=== PATIENT | female | born 1940 | race Caucasian/White ===

== ENCOUNTER 2020-09-12 10:38 | Outpatient (REF) | payer MEDICARE, OTHER, SELFPAY ==
[2020-09-12 13:53] LABS: MANUAL DIFF FLAG NO
[2020-09-12 14:11] LABS: Basophils Absolute Auto 0.1 X10*3/uL (0.0-0.2); Basophils Percent Auto 0.9 % (0-2); Eosinophils Absolute Auto 0.5 X10*3/uL (0.0-0.4); Eosinophils Percent Auto 6.8 % (0-4); Hematocrit 43.6 % (37-47); Hemoglobin 14.5 g/dl (12.0-16.0); Imm Gran Abs Auto 0.05 X10*3/uL (0.00-0.03); Imm Gran Pct Auto 0.7 % (0.0-0.4); Lymphocytes Absolute Auto 2.4 X10*3/uL (1.2-4.9); Lymphocytes Percent Auto 35.2 % (20-40); Mean Corpuscular HGB Conc 33.3 g/dl (31.0-35.0); Mean Corpuscular Hemoglobin 29.7 pg (27.0-33.0); Mean Corpuscular Volume 89.3 fL (80-98); Mean Platelet Volume 10.6 fL (9.4-12.3); Monocytes Absolute Auto 0.6 X10*3/uL (0.1-1.2); Monocytes Percent Auto 8.2 % (2-11); Neutrophils Absolute Auto 3.3 X10*3/uL (2.0-8.3); Neutrophils Percent Auto 48.2 % (45-73); Platelet Count 168 X10*3/uL (160-400); Red Blood Count 4.88 X10*6/uL (4.20-5.50); Red Cell Distribution Width 13.8 % (11.0-16.0); White Blood Count 6.9 X10*3/uL (4.8-10.8)
[2020-09-12 14:15] LABS: Estimated Average Glucose 157 mg/dL; Hemoglobin A1c % 7.1 %
[2020-09-12 14:41] LABS: Anion Gap 15 (12-20); Blood Urea Nitrogen 18 mg/dL (9-16); Calcium 9.1 mg/dL (8.4-10.2); Carbon Dioxide 22 mmol/L (22-29); Chloride 104 mmol/L (96-108); Cholesterol 164 mg/dL; Estimated Glomerular Filt Rate > 60; Glucose Fasting 152 mg/dL (60-99); HDL Cholesterol 44 mg/dL; LDL Cholesterol Calculated 74 mg/dl; Potassium 4.1 mmol/l (3.3-5.1); Sodium 137 mmol/L (135-145); Triglycerides 234 mg/dL
[2020-09-12 14:49] LABS: SARS COV2 IgG Positive (Negative)
== END 2020-09-12 10:39 | disposition home or self-care (01) ==
LOC: HO.HMGCLDS 10:38
PROVIDERS: PCP Internal Medicine; Visit Provider Internal Medicine
DX: E78.9 Disorder of lipoprotein metabolism, unspecified (principal); H60.513 Acute actinic otitis externa, bilateral; F41.1 Generalized anxiety disorder; E13.9 Other specified diabetes mellitus without complications; Z20.822 Contact with and (suspected) exposure to COVID-19
CPT/HCPCS: 36415; 80048; 80061; 83036; 85025; 86769

== ENCOUNTER 2020-12-30 10:03 | Outpatient (REF) | payer MEDICARE, OTHER, SELFPAY ==
--- NOTE | ~2020-12-30 | US_ITS ---
EXAMINATION: US EXTRACRANIAL CAROTID DUPLEX, BILATERAL CLINICAL INFORMATION: This is a 80-year-old female with Hollenhorst plaques. Partial retinal artery occlusion right eye. Diabetes. COMPARISON: None TECHNIQUE: Real-time ultrasound and Doppler techniques (integrating B-mode 2-D vascular images, Doppler spectral analysis and color-flow Doppler imaging) were utilized to interrogate the extracranial carotid arteries, the vertebral arteries and proximal subclavian arteries bilaterally. The degree of stenosis is determined by criteria similar to NASCET. FINDINGS: Right Side: 1. There is moderate atherosclerotic plaque seen in the bifurcation/proximal ICA region. 2. The common carotid artery PSV proximally is 74 cm/s and distally 72 cm/s. 3. The proximal internal carotid artery velocities are 124 cm/s systolic and 19 cm/s diastolic. 4. The proximal external carotid artery PSV is 133 cm/s. 5. The vertebral artery shows antegrade flow. 6. The subclavian artery waveforms are normal. Left Side: 1. There is moderate atherosclerotic plaque seen in the bifurcation/proximal ICA region. 2. The common carotid artery PSV proximally is 66 cm/s and distally 56 cm/s. 3. The proximal internal carotid artery velocities are 330 cm/s systolic and 29 cm/s diastolic. 4. The proximal external carotid artery PSV is 350 cm/s. 5. The vertebral artery shows antegrade flow. 6. The subclavian artery waveforms are normal. US/US carotid duplex BI IMPRESSION: 1. RIGHT: Moderate, hemodynamically significant stenosis of the proximal right internal carotid artery corresponding to a 50-79% stenosis by velocity criteria. 2. LEFT: Moderate, hemodynamically significant stenosis of the proximal left internal carotid artery corresponding to a 50-79% stenosis by velocity criteria.
[2020-12-30 14:17] LABS: Estimated Average Glucose 186 mg/dL; Hemoglobin A1c % 8.1 %
[2020-12-30 14:37] LABS: Alanine Aminotransferase 53 U/L (0-31); Albumin Level 4.3 g/dL (3.5-5.0); Alkaline Phosphatase 70 U/L (39-117); Anion Gap 16 (12-20); Aspartate Amino Transferase 36 U/L (5-31); Bilirubin Total 0.7 mg/dL (0.0-1.0); Blood Urea Nitrogen 19 mg/dL (9-16); Calcium 9.9 mg/dL (8.4-10.2); Carbon Dioxide 22 mmol/L (22-29); Chloride 105 mmol/L (96-108); Estimated Glomerular Filt Rate > 60; Glucose Random 201 mg/dL (60-115); Potassium 4.3 mmol/L (3.3-5.1); Sodium 139 mmol/L (135-145); Total Protein 6.9 g/dL (6.5-8.0)
== END 2020-12-30 10:04 | disposition home or self-care (01) ==
LOC: HO.HMGCX 10:03
PROVIDERS: PCP Internal Medicine; Visit Provider Internal Medicine
DX: H34.211 Partial retinal artery occlusion, right eye (principal); E78.9 Disorder of lipoprotein metabolism, unspecified; E13.9 Other specified diabetes mellitus without complications; F41.1 Generalized anxiety disorder
CPT/HCPCS: 36415; 80053; 83036; 93880

== ENCOUNTER 2021-02-17 11:00 | Outpatient (RCR) | payer MEDICARE, OTHER, SELFPAY ==
--- NOTE | 2021-01-27 17:46 | MHC.PT.EP ---
[facility] [place] [facility] [place] Office [place] Office [address] Zunilda Nguyễn [address] [phone] F: [phone] F: [phone] F: [phone] F: [phone] Physical Therapy Plan of Care Date of Evaluation: Date of Surgery: Diagnosis: R knee pain. Assessment: Pt is a 80 y/o female referred to PT for eval and treat of L knee pain who presents with signs and sx consistent with L knee dysfunction resulting in decreased tolerance and ability to perform ambulatory, standing tasks for duration, performing fitness activities as well as negotiating stairs, performing squatting activities and heavy HH chores secondary to decreased hip and knee strength, decreased knee ROM as well as decreased posture, increased tissue tension, gait abnormality and pain. Pt is deemed an appropriate candidate to receive skilled PT in order to address her physical limitations to improve her functional ability. Frequency and Duration: The patient will be seen 2 x /wk x Short Term Goals: initiate HEP. Progressed to weight bearing exercises. TTP of lateral knee joint improved from 2+ to < 1+. Machine Feller Goals: Pt will be able to walk > 1 mile with managed Sx; initial unable. Pt will negotiate 1 flight of stairs with managed Sx. improve R knee flexion MMT to > 4/5; initial: 4-/5 and painful. I with HEP Treatment Plan: Modalities to reduce pain, spasms and effusion. Manual therapy to restore motion and function. Therapeutic exercise to improve strength and flexibility. Neuromuscular re-education for posture and balance. Therapeutic activities to return to functional activities of daily living. Electronically signed by: Patrick Stapleton PT. Please sign and return to therapist. Thank you for your referral.
--- NOTE | 2021-04-28 09:26 | MHC.PT.DC ---
[facility] [place] Office [place] Office [place] Office [address] Zunilda Nguyễn [address] [phone] F: [phone] F: [phone] F: [phone] F: [phone] Physical Therapy Discharge Report Diagnosis: R knee pain. Date of Surgery: Date of Evaluation: 01/27/21 Date of Discharge: 04/28/21 Treatments to Date: 3 Cancellations to Date: No Shows to Date: Discharge Status: Improved Function Patient Elected to Stop Discharge Summary: Pt attended 3 visits in which she did report significant early improvements of her R knee pain though did not f/u with future visits. Electronically signed by: Patrick Stapleton PT. Please sign and return to therapist. Thank you for your referral.
== END 2021-04-28 09:28 | disposition home or self-care (01) ==
LOC: HO.PTCHIC 11:00
PROVIDERS: PCP Internal Medicine; Visit Provider Hospitalist
DX: M25.562 Pain in left knee (principal)
CPT/HCPCS: 97110; 97150; 97162

== ENCOUNTER → 2021-03-17 08:39 | Outpatient (REF) | payer MEDICARE, OTHER, SELFPAY ==
--- NOTE | 2021-03-17 08:42 | CA_ITS ---
Transthoracic Echocardiogram Patient (Last, First, Middle): Katelyn Turpin, Gender: Female Date of : 1940 Age: 80 Procedure Date: 03/17/2021 Procedure Type: Transthoracic Echocardiogram Location: OP Height: 149.86 cm Weight: 72.12 kg BSA: 1.67 m2 Heart Rate: bpm BP: 120 / 60 mmHg Luggage Liner: TEAGAN Referring MD: Ella Garces MD Felt Cutter: Gene Paige MD Symptoms: H34.211 - Partial retinal artery occlusion, right eye Study Quality: Fair ECG Rhythm: Sinus Conclusions: - 1. Normal LV systolic function with grade 1 diastolic dysfunction 2. Cardiac valvular structure not well visualized with normal cardiac valvular Doppler 3. Normal RV systolic pressure 4. No gross pericardial effusion Findings Left Ventricle Normal left ventricular size, thickness, and systolic function. The visually estimated ejection fraction is between 65-70%. Spectral Doppler is indicative of an impaired relaxation filling pattern. E/E prime ratio is <8, consistent with normal filling pressures. Evidence suggests grade I (mild) diastolic dysfunction. Right Ventricle Normal right ventricular cavity size and systolic function. Atria Both atria are normal in size. Interatrial shunt cannot be excluded. Aortic Valve The aortic valve was not well visualized. There is no aortic valve stenosis. There is no aortic valve regurgitation. Mitral Valve The mitral valve was not well visualized. Likely normal mitral valve structure and function. There is trace mitral valve regurgitation. There is no mitral valve stenosis. Pulmonic Valve The pulmonic valve was not well visualized. There is trace pulmonic valve regurgitation. Tricuspid Valve Likely normal tricuspid valve structure and function. There is trace tricuspid valve regurgitation. The right ventricular systolic pressure is normal. The right ventricular systolic pressure is 25 mmHg. Normal right atrial pressure. There is no evidence of pulmonary hypertension. Great Vessels The aorta was not well visualized. The pulmonary artery was not well visualized. Venous The inferior vena cava is normal in size and collapses greater than 50% with inspiration. Pericardium/Pleural There is no evidence of pericardial effusion. Prior Study Comparison No prior study available for comparison. Recommendations, Care & Conclusions Recommend contrast study to evaluate intracardiac shunting. Measurements 2D Linear Measurements IVSd: 0.95 0.6-0.9/0.6-1.0 cm LVIDd: 3.79 3.9-5.3/4.2-5.9 cm LVIDd Index: 2.27 2.4-3.2/2.2-3.1 cm/m2 LVIDs: 2.32 2.0-3.6 cm LVPWd: 0.93 0.7-1.1 cm Ao Root: 2.90 2.1-3.5 cm LA Diam: 3.20 2.7-3.8/3.0-4.0 cm LAIDs Index: 1.92 1.5-2.3 cm/m2 LV Mass: 132.46 67-162/88-224 g LV Mass Index: 79.32 43-95/49-115 g/m2 LVOT Diam: 2.00 3.0+(-)1.3 cm 2D Systolic Function EF 4C: 68.30 >55% EF 2C: 75.10 >55% EF BiP: 73.30 >55% Mitral Valve MV Pk E: 0.65 MV PK A: 0.66 MV Decel Time: 146.00 E/A: 1.00 E'Lateral: 9.57 E'Medial: 7.83 E/E' Med: 8.30 E/E' Lat: 6.80 PHT: 43.00 MVA PHT: 5.12 Decel Solano: 4.50 Aortic Valve AoV Pk Konrad: 1.33 AoV Pk Grad: 7.00 LVOT LVOT Pk Konrad: 0.97 LVOT Mn Konrad: 0.66 LVOT VTI: 0.20 LVOT Pk Grad: 4.00 LVOT Mn Grad: 2.00 LVOT Diam: 2.00 LVOT Area: 3.14 Diastolic Function MV Pk E: 0.65 MV Pk A: 0.66 E/A: 1.00 E'Medial: 7.83 E/E' Med: 8.30 E' Laterial: 9.57 E/E' Lat: 6.80 Right Ventricle TAPSE (mm): 2.15 Tricuspid Valve TR Pk Konrad: 2.34 TR Pk Grad: 22.00 RA Press: 3.00 RVSP: 25.00 Great Vessels Aorta Ao Root-2D: 2.90 2.0-3.7 cm Ao Asc: 3.20 2.1-3.4 cm Updated in Other Vendor System with Status of Final Gene Paige MD electronically signed on 03/18/2021 11:28:08 AM with status of Final
== END ==
LOC: HO.CARD 08:39
PROVIDERS: Visit Provider Internal Medicine
DX: H34.211 Partial retinal artery occlusion, right eye (principal); E78.9 Disorder of lipoprotein metabolism, unspecified
CPT/HCPCS: 93306

== ENCOUNTER 2021-07-10 09:18 | Outpatient (REF) | payer MEDICARE, OTHER, SELFPAY ==
[2021-07-10 12:11] LABS: Alanine Aminotransferase 32 U/L (0-31); Albumin Level 4.3 g/dL (3.5-5.0); Alkaline Phosphatase 53 U/L (39-117); Anion Gap 16 (12-20); Aspartate Amino Transferase 23 U/L (5-31); Bilirubin Direct 0.2 mg/dL (0.0-0.5); Bilirubin Total 0.7 mg/dL (0.0-1.0); Blood Urea Nitrogen 18 mg/dL (9-16); Calcium 9.5 mg/dL (8.4-10.2); Carbon Dioxide 21 mmol/L (22-29); Chloride 106 mmol/L (96-108); Cholesterol 155 mg/dL; Estimated Glomerular Filt Rate > 60; Glucose Fasting 98 mg/dL (60-99); HDL Cholesterol 41 mg/dL; LDL Cholesterol Calculated 76 mg/dl; Potassium 4.4 mmol/L (3.3-5.1); Sodium 139 mmol/L (135-145); Total Protein 6.7 g/dL (6.5-8.0); Triglycerides 190 mg/dL
[2021-07-10 12:15] LABS: Estimated Average Glucose 120 mg/dL; Hemoglobin A1c % 5.8 %
== END 2021-07-10 09:19 | disposition home or self-care (01) ==
LOC: HO.HMGCLDS 09:18
PROVIDERS: PCP Internal Medicine; Visit Provider Internal Medicine
DX: E13.9 Other specified diabetes mellitus without complications (principal); E78.9 Disorder of lipoprotein metabolism, unspecified; F41.1 Generalized anxiety disorder; G25.81 Restless legs syndrome; R79.89 Other specified abnormal findings of blood chemistry
CPT/HCPCS: 36415; 80053; 80061; 80076; 82248; 83036

== ENCOUNTER 2022-03-08 10:48 | Outpatient (REF) | payer MEDICARE, SELFPAY ==
--- NOTE | ~2022-03-08 | XR_ITS ---
EXAMINATION: XR KNEE, RIGHT XR KNEE, LEFT CLINICAL INFORMATION: Prior arthroplasty. Instability. M25.361. COMPARISON: Radiographs right knee 05/16/2018 TECHNIQUE: Each knee is imaged in standing AP and lateral views. There are total of 4 views, 2 on each side. FINDINGS: Right: Prior knee arthroplasty. Hardware intact. No fracture, dislocation, destructive process, or osteolysis. There is small to moderate suprapatellar effusion. Left: Prior knee arthroplasty. Hardware intact. No fracture, dislocation, destructive process, or osteolysis. No suprapatellar effusion. There is a tiny corticated mineralized ossicle at distal quadriceps. XR/XR knee LT 2V IMPRESSION: -Bilateral knee arthroplasty. -No destructive process or osteolysis. -Small to moderate effusion on right.
--- NOTE | ~2022-03-08 | XR_ITS ---
EXAMINATION: XR KNEE, RIGHT XR KNEE, LEFT CLINICAL INFORMATION: Prior arthroplasty. Instability. M25.361. COMPARISON: Radiographs right knee 05/16/2018 TECHNIQUE: Each knee is imaged in standing AP and lateral views. There are total of 4 views, 2 on each side. FINDINGS: Right: Prior knee arthroplasty. Hardware intact. No fracture, dislocation, destructive process, or osteolysis. There is small to moderate suprapatellar effusion. Left: Prior knee arthroplasty. Hardware intact. No fracture, dislocation, destructive process, or osteolysis. No suprapatellar effusion. There is a tiny corticated mineralized ossicle at distal quadriceps. XR/XR knee RT 2V IMPRESSION: -Bilateral knee arthroplasty. -No destructive process or osteolysis. -Small to moderate effusion on right.
== END 2022-03-08 10:49 | disposition home or self-care (01) ==
LOC: HO.XRAY 10:48
PROVIDERS: PCP Internal Medicine; Visit Provider Internal Medicine
DX: M25.361 Other instability, right knee (principal); M25.562 Pain in left knee
CPT/HCPCS: 73560

== ENCOUNTER 2022-03-30 09:06 | Outpatient (REF) | payer OTHER, MEDICARE, SELFPAY ==
[2022-03-30 10:37] LABS: Estimated Average Glucose 123 mg/dL; Hemoglobin A1c % 5.9 %
[2022-03-30 10:55] LABS: Alanine Aminotransferase 32 U/L (0-31); Albumin Level 4.4 g/dL (3.5-5.0); Alkaline Phosphatase 44 U/L (39-117); Anion Gap 14 (12-20); Aspartate Amino Transferase 26 U/L (5-31); Bilirubin Total 0.8 mg/dL (0.0-1.0); Blood Urea Nitrogen 13 mg/dL (9-16); Calcium 9.6 mg/dL (8.4-10.2); Carbon Dioxide 23 mmol/L (22-29); Chloride 106 mmol/L (96-108); Cholesterol 122 mg/dL; Estimated Glomerular Filt Rate > 60; Glucose Fasting 110 mg/dL (60-99); HDL Cholesterol 38 mg/dL; LDL Cholesterol Calculated 54 mg/dl; Potassium 4.1 mmol/L (3.3-5.1); Sodium 139 mmol/L (135-145); Total Protein 6.5 g/dL (6.5-8.0); Triglycerides 152 mg/dL
== END 2022-03-30 09:07 | disposition home or self-care (01) ==
LOC: HO.LAB 09:06
PROVIDERS: PCP Internal Medicine; Visit Provider Internal Medicine
DX: E78.9 Disorder of lipoprotein metabolism, unspecified (principal); F41.1 Generalized anxiety disorder; I10 Essential (primary) hypertension; E13.9 Other specified diabetes mellitus without complications
CPT/HCPCS: 36415; 80053; 80061; 83036

== ENCOUNTER 2022-05-22 15:59 | Emergency (ER) | payer MEDICARE, OTHER, SELFPAY ==
[2022-05-22 16:28] VITALS: BP 150/55; PULSE 74; RESP 18; TEMP 36.8; O2SAT 98; BMI 30.2
[2022-05-22 17:19] LABS: MANUAL DIFF FLAG NO
[2022-05-22 17:21] LABS: Basophils Absolute Auto 0.1 X10*3/uL (0.0-0.2); Basophils Percent Auto 0.6 % (0-2); Eosinophils Absolute Auto 0.2 X10*3/uL (0.0-0.4); Eosinophils Percent Auto 1.6 % (0-4); Hematocrit 45.3 % (37.0-47.0); Hemoglobin 15.4 g/dl (12.0-16.0); Imm Gran Abs Auto 0.06 X10*3/uL (0.00-0.03); Imm Gran Pct Auto 0.5 % (0.0-0.4); Lymphocytes Absolute Auto 2.3 X10*3/uL (1.2-4.9); Lymphocytes Percent Auto 19.9 % (20-40); Mean Corpuscular Hemoglobin 29.7 pg (27.0-33.0); Mean Corpuscular Volume 87.3 fL (80.0-98.0); Mean Platelet Volume 9.6 fL (9.4-12.3); Monocytes Absolute Auto 0.6 X10*3/uL (0.1-1.2); Monocytes Percent Auto 4.9 % (2-11); Neutrophils Absolute Auto 8.2 x10*3/uL (2.0-8.3); Neutrophils Percent Auto 72.5 % (45-73); Platelet Count 197 X10*3/uL (160-400); Red Blood Count 5.19 X10*6/uL (4.20-5.50); Red Cell Distribution Width 12.8 % (11.0-16.0); White Blood Count 11.4 X10*3/uL (4.8-10.8)
[2022-05-22 17:42] LABS: Anion Gap 17 (12-20); Blood Urea Nitrogen 17 mg/dL (9-16); Calcium 10.1 mg/dL (8.4-10.2); Carbon Dioxide 23 mmol/L (22-29); Chloride 104 mmol/L (96-108); Estimated Glomerular Filt Rate > 60; Glucose Random 111 mg/dL (60-115); Potassium 3.7 mmol/L (3.3-5.1); Sodium 140 mmol/L (135-145)
[2022-05-22 20:51] VITALS: BP 190/79; PULSE 78; RESP 20; TEMP 37.2; O2SAT 96
--- NOTE | 2022-05-22 23:35 | PC.NURSE ---
pt conversing in full and complete sentences, requesting this RN provide pt with a new spit bag as current emesis bag filled wtih approx 4oz of clear/white sputum/spit.
--- NOTE | 2022-05-23 00:24 | ED.GENADULT ---
HPI - General Adult General Chief complaint: General Medical Stated complaint: trouble swallowing since 1114, nausea/ sweaty Time Seen by Provider: 05/23/22 00:24 Source: patient Mode of arrival: ambulatory Limitations: no limitations History of Present Illness HPI narrative: Patient history of anxiety and history of choking in the past never had endoscopy done was treated with Ativan likely globus hystericus today after breakfast patient noted that she cannot drink water has not tried any solids spitting out her phlegm no abdominal pain no drooling of saliva patient feels slightly anxious no stridor or shortness of breath Related Data Home Medications Medication Instructions Recorded Confirmed flu vacc 2019-(67yr ml IM 06/13/20 04/10/22 up)-MF59C(PF) 60 mcg(15 mcgx4)/0.5 mL IM syringe pneumoc 13-william conj-dip cr(PF) 0.5 ml IM ONCE 06/13/20 04/10/22 mL IM syringe pramipexole 0.5 mg tablet 0.5 mg PO BEDTIME 09/13/20 04/10/22 semaglutide 0.25 mg or 0.5 mg (2 0.5 mg subcut QWEEK 03/21/21 04/10/22 mg/1.5 mL) subcutaneous pen injector Previous Rx's Medication Instructions Recorded lisinopril 2.5 mg tablet 2.5 mg PO DAILY #90 tabs 09/12/21 rosuvastatin 20 mg tablet 20 mg PO DAILY 90 days #90 tabs 11/22/21 escitalopram oxalate 10 mg tablet 10 mg PO DAILY #90 tabs 03/06/22 ciprofloxacin 0.3 %-dexamethasone 4 drp otic (ears) BID 7 days #7.5 04/04/22 0.1 % ear drops,suspension mL (Ciprodex) lorazepam 0.5 mg tablet (Ativan) 0.5 mg PO BEDTIME PRN anxiety #10 05/23/22 tabs Allergies Allergy/AdvReac Type Severity Reaction Status Date / Time Penicillins [PENICILLINS] Allergy Intermediate RASH Verified 04/10/22 08:42 penicillin V Allergy Unknown unknown-chi Verified 04/10/22 08:42 ldhood crab AdvReac Intermediate DIARRHEA Verified 04/10/22 08:42 Environmental Allergy Unknown Unknown Uncoded 04/04/22 16:32 Review of Systems Review of Systems: Yes all other systems are reviewed and are negative [facility] Past Medical History Medical History Anxiety, 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 Mother Dementia Pancreatitis Social History Social History Housing: Apartment Alcohol intake: never Patient Tobacco Use Status: Never used Tobacco e-Cigarette/Vaping Use: Never Used Advance Directives: Yes Advance Directives on File: Yes Advance Directives Date on File: 11/23/20 Current occupational status: retired Cognitive needs: No Hearing needs: Yes Vision needs: Yes Physical Exam ED Vital Signs: Vital Signs - 24 hr 05/22/22 16:28 05/22/22 20:51 Temperature 98.2 F 98.9 F Pulse Rate 74 78 Respiratory Rate 18 20 Blood Pressure 150/55 H 190/79 H Pulse Oximetry 98 96 Oxygen Delivery Method Room Air Room Air BMI result Body Mass Index 30.2 Appearance: Alert. Oriented X3. No acute distress. Anxious Eyes: PERRLA, No Nystagmus ENT: Pharynx normal. Oral Mucosa moist no stridor Neck: Normal inspection. Neck supple. CVS: Normal heart rate and rhythm. Pulses normal. Respiratory: No respiratory distress. Equal air entry bilateral, no wheezing/rales/rhonchi Abdomen: Soft and nontender. Bowel sounds are present, no mass palpable, no CVA tenderness Skin: Skin warm and dry. Normal skin color. Normal skin turgor. Extremities: No lower extremity edema. No calf tenderness Neuro: Oriented X 3. No motor deficit. No sensory deficit.No cerebellar signs , cranial nerves II-XII intact Medical Decision Making MDM Narrative Medical decision making narrative: Patient likely with globus hystericus improved after Ativan taking p.o. fluids will discharge patient home Lab Data Result diagrams: 05/22/22 17:10 05/22/22 17:10 Labs: Lab Results 05/22/22 05/22/22 Range/Units 17:10 17:10 WBC 11.4 H (4.8-10.8) X10*3/uL RBC 5.19 (4.20-5.50) X10*6/uL Hgb 15.4 (12.0-16.0) g/dl Hct 45.3 (37.0-47.0) % MCV 87.3 (80.0-98.0) fL MCH 29.7 (27.0-33.0) pg MCHC 34.0 (31.0-35.0) g/dl RDW 12.8 (11.0-16.0) % Plt Count 197 (160-400) X10*3/uL MPV 9.6 (9.4-12.3) fL Immature Gran % (Auto) 0.5 H (0.0-0.4) % Neut % (Auto) 72.5 (45-73) % Lymph % (Auto) 19.9 L (20-40) % [place] % (Auto) 4.9 (2-11) % Eos % (Auto) 1.6 (0-4) % Baso % (Auto) 0.6 (0-2) % Lymph # (Auto) 2.3 (1.2-4.9) X10*3/uL [place] # (Auto) 0.6 (0.1-1.2) X10*3/uL Eos # (Auto) 0.2 (0.0-0.4) X10*3/uL Baso # (Auto) 0.1 (0.0-0.2) X10*3/uL Abs Immat Gran (auto) 0.06 H (0.00-0.03) X10*3/uL Absolute Neuts (auto) 8.2 (2.0-8.3) x10*3/uL Absolute Nucleated RBC 0.000 (0.0-0.012) X10*3/uL Nucleated RBC % (auto) 0.0 (0.0-0.2) /100WBC Sodium 140 (135-145) mmol/L Potassium 3.7 (3.3-5.1) mmol/L Chloride 104 (96-108) mmol/L Carbon Dioxide 23 (22-29) mmol/L Anion Gap 17 (12-20) BUN 17 H (9-16) mg/dL Creatinine 0.70 (0.5-1.4) mg/dL Estim Creat Clear Calc 57.0 Estimated GFR > 60 Random Glucose 111 (60-115) mg/dL Calcium 10.1 (8.4-10.2) mg/dL Discharge Plan Discharge Clinical Impression: Globus hystericus Patient Disposition: Home, Self-Care Instructions: Dysphagia (ED) Additional Instructions: Likely have esophageal spasm secondary to anxiety Follow-up with [facility] if problem continues Ativan 0.5 mg as needed for anxiety/dysphagia Prescriptions: New lorazepam [Ativan] 0.5 mg tablet 0.5 mg PO BEDTIME PRN (Reason: anxiety) Qty: 10 0RF No Action lisinopril 2.5 mg tablet 2.5 mg PO DAILY Qty: 90 1RF rosuvastatin 20 mg tablet 20 mg PO DAILY 90 Days Qty: 90 0RF escitalopram oxalate 10 mg tablet 10 mg PO DAILY Qty: 90 0RF Fluad Quad 2020-21(65y up)(PF) 60 mcg (15 mcg x 4)/0.5 mL syringe IM Prevnar 13 (PF) 0.5 mL syringe IM ONCE Ozempic 0.25 mg or 0.5 mg(2 mg/1.5 mL) pen injector 0.5 mg subcut QWEEK pramipexole 0.5 mg tablet 0.5 mg PO BEDTIME ciprofloxacin-dexamethasone [Ciprodex] 0.3-0.1 % drops,suspension 4 drp otic (ears) BID 7 Days Qty: 7.5 2RF Interventions: ED Discharge Assessment Last Done: 05/23/22 02:02 Discharge Date/Time: 05/23/22 02:02
[2022-05-23] MEDS: LORazepam 1 MG TABLET PO (00:58)
--- NOTE | 2022-05-23 01:01 | PC.NURSE ---
Pt a&o, no sob or chest pain. medicated per Oct. Medication crushed per request.
== END 2022-05-23 02:02 | disposition home or self-care (01) ==
PROVIDERS: Emergency Provider Internal Medicine; PCP Internal Medicine
DX: F45.8 Other somatoform disorders (principal); Z79.899 Other long term (current) drug therapy
CPT/HCPCS: 36415; 80048; 85025; 99282; 99283

== ENCOUNTER → 2022-06-13 08:58 | Outpatient (BNVA) | payer MEDICARE, OTHER, SELFPAY | PROVIDERS: PCP Internal Medicine; Visit Provider Internal Medicine | DX: R13.10 Dysphagia, unspecified (principal) | CPT/HCPCS: 99202 ==

== ENCOUNTER 2022-07-26 06:33 | Day surgery (SDC) | payer MEDICARE, OTHER, SELFPAY ==
--- NOTE | 2022-06-19 10:31 | HO.ANESPROP2 ---
HPI - Anesthesia Eval Consult details Narrative: 81yo F for Upper Endoscopy PMFSH Active Problems Active Problems: All Active Problems (Updated 06/01/22 @ 13:57 by Ella Garces MD) Difficulty swallowing solids (Acute) Hospital discharge follow-up (Acute) Difficulty swallowing liquids (Acute) Recurrent otitis externa of both ears (Acute) Medicare annual wellness visit, subsequent (Acute) Pain in left knee (Acute) Right knee buckling (Acute) Right knee pain (Acute) Do not resuscitate status (Acute) Hypertension, essential (Acute) LFT elevation (Acute) Restless leg syndrome (Acute) Left knee pain (Acute) Hollenhorst plaque, right eye (Acute) Patient has active medical orders for life-sustaining treatment (MOLST) form (Acute) Hearing impaired (Acute) Exposure to COVID-19 virus (Acute) Anxiety, generalized (Acute) Lipid disorder (Acute) Diabetes 1.5, managed as type 2 (Acute) Otitis externa (Acute) Past Medical History Medical History Anxiety, generalized Diabetes 1.5, managed as type 2 Lipid disorder Family History Family History Father No problems noted. Mother Dementia Pancreatitis Surgical History Surgical History History of hysterectomy History of total knee replacement (TKR) Social History Social History Housing: Apartment Alcohol intake: never Patient Tobacco Use Status: Never used Tobacco e-Cigarette/Vaping Use: Never Used Advance Directives Date on File: 11/23/20 Current occupational status: retired Cognitive needs: No Hearing needs: Yes Vision needs: Yes Meds Allergies Allergy/AdvReac Type Severity Reaction Status Date / Time Penicillins [PENICILLINS] Allergy Intermediate RASH Verified 06/13/22 09:04 penicillin V Allergy Unknown unknown-chi Verified 06/13/22 09:04 ldhood crab AdvReac Intermediate DIARRHEA Verified 06/13/22 09:04 Environmental Allergy Unknown Unknown Uncoded 04/04/22 16:32 Home Medications Medication Instructions Recorded Confirmed Last Taken Type flu vacc (67yr ml IM 06/13/20 06/01/22 Unknown History up)-MF59C(PF) 60 mcg(15 mcgx4)/0.5 mL IM syringe pneumoc 13-william conj-dip cr(PF) 0.5 ml IM ONCE 06/13/20 06/01/22 Unknown History mL IM syringe pramipexole 0.5 mg tablet 0.5 mg PO BEDTIME 09/13/20 06/01/22 Unknown History carboxymethylcellulose-citric acid 3 cap PO BID 06/13/22 Unknown History 0.75 gram capsule (Plenity) semaglutide 0.25 mg or 0.5 mg (2 1 mg subcut QWEEK 06/13/22 Unknown History mg/1.5 mL) subcutaneous pen injector Exam Exam Date and Time: June 19, 2022 1031 Pertinent Lab Results Pertinent Lab Results: Laboratory Tests 05/22/22 05/22/22 17:10 17:10 WBC 11.4 H Hgb 15.4 Hct 45.3 Plt Count 197 Sodium 140 Potassium 3.7 Chloride 104 Carbon Dioxide 23 BUN 17 H Creatinine 0.70 Assessment and Plan Assessment Anesthesia Assessment: Chart Reviewed
[2022-07-23 11:03] VITALS: BMI 30.3
--- NOTE | 2022-07-25 09:53 | HO.ANESPROP2 ---
Documented by User: Nanette Santoro NP 07/25/22 09:54 HPI - Anesthesia Eval Consult details Narrative: 82yo F for Upper Endoscopy PMFSH Active Problems Active Problems: All Active Problems (Updated 07/23/22 @ 10:56 by Tawanna Pereira RN) Otitis externa (Acute) Exposure to COVID-19 virus (Acute) Hearing impaired (Acute) Patient has active medical orders for life-sustaining treatment (MOLST) form (Acute) Hollenhorst plaque, right eye (Acute) Left knee pain (Acute) Restless leg syndrome (Acute) LFT elevation (Acute) Hypertension, essential (Acute) Do not resuscitate status (Acute) Right knee pain (Acute) Right knee buckling (Acute) Pain in left knee (Acute) Medicare annual wellness visit, subsequent (Acute) Recurrent otitis externa of both ears (Acute) Difficulty swallowing liquids (Acute) Hospital discharge follow-up (Acute) Difficulty swallowing solids (Acute) Anxiety, generalized (Acute) Lipid disorder (Acute) Diabetes 1.5, managed as type 2 (Acute) Past Medical History Medical History (Updated 07/23/22 @ 10:56 by Tawanna Pereira RN) Anxiety, 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 Mother Dementia Pancreatitis Surgical History Surgical History (Updated 07/23/22 @ 10:51 by Tawanna Pereira RN) H/O colonoscopy History of hysterectomy History of total knee replacement (TKR) Social History Social History Housing: Apartment Alcohol intake: never Patient Tobacco Use Status: Never used Tobacco e-Cigarette/Vaping Use: Never Used Use of substances other than those prescribed or required for medical reasons: No Are you DNR?: No Advance Directives: Yes Advance Directives on File: Yes Advance Directives Date on File: 11/23/20 Current occupational status: retired Cognitive needs: No Hearing needs: Yes Vision needs: Yes Meds Allergies Allergy/AdvReac Type Severity Reaction Status Date / Time Penicillins [PENICILLINS] Allergy Intermediate RASH Verified 06/13/22 09:04 crab AdvReac Intermediate DIARRHEA Verified 06/13/22 09:04 Environmental Allergy Unknown Unknown Uncoded 04/04/22 16:32 Home Medications Medication Instructions Recorded Confirmed Last Taken Type flu vacc 2020-(67yr ml IM 06/13/20 06/01/22 Unknown History up)-MF59C(PF) 60 mcg(15 mcgx4)/0.5 mL IM syringe pneumoc 13-william conj-dip cr(PF) 0.5 ml IM ONCE 06/13/20 06/01/22 Unknown History mL IM syringe pramipexole 0.5 mg tablet 0.5 mg PO BEDTIME 09/13/20 07/23/22 Unknown History carboxymethylcellulose-citric acid 3 cap PO BID 06/13/22 Unknown History 0.75 gram capsule (Plenity) semaglutide 0.25 mg or 0.5 mg (2 1 mg subcut QWEEK 06/13/22 07/23/22 Unknown History mg/1.5 mL) subcutaneous pen injector Exam Exam Date and Time: July 25, 2022 0953 Height,Weight and Vital Signs: Height 5 ft Weight 70.477 kg Pertinent Lab Results Pertinent Lab Results: Laboratory Tests 05/22/22 05/22/22 17:10 17:10 WBC 11.4 H Hgb 15.4 Hct 45.3 Plt Count 197 Sodium 140 Potassium 3.7 Chloride 104 Carbon Dioxide 23 BUN 17 H Creatinine 0.70 Narrative Narrative: ECHO 2020 Conclusions: - 1. Normal LV systolic function with grade 1 diastolic? dysfunction? 2. Cardiac valvular structure not well visualized with normal? ? cardiac valvular Doppler ? 3. Normal RV systolic pressure ? 4. No gross pericardial effusion ? ? ? 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 Mother Dementia Pancreatitis Family history of problems with anesthesia: No Surgical History Surgical History (Updated 07/23/22 @ 10:51 by Tawanna Pereira RN) H/O colonoscopy History of hysterectomy History of total knee replacement (TKR) History of Problems with Anesthesia: No Social History Social History Housing: Apartment Alcohol intake: never Patient Tobacco Use Status: Never used Tobacco e-Cigarette/Vaping Use: Never Used Use of substances other than those prescribed or required for medical reasons: No Are you DNR?: No Advance Directives: Yes Advance Directives on File: Yes Advance Directives Date on File: 11/23/20 Current occupational status: retired Cognitive needs: No Hearing needs: Yes Vision needs: Yes Meds Allergies Allergy/AdvReac Type Severity Reaction Status Date / Time Penicillins [PENICILLINS] Allergy Intermediate RASH Verified 06/13/22 09:04 crab AdvReac Intermediate DIARRHEA Verified 06/13/22 09:04 Environmental Allergy Unknown Unknown Uncoded 04/04/22 16:32 Home Medications Medication Instructions Recorded Confirmed Last Taken Type flu vacc 2020-21(65yr ml IM 06/13/20 06/01/22 Unknown History up)-MF59C(PF) 60 mcg(15 mcgx4)/0.5 mL IM syringe pneumoc 13-william conj-dip cr(PF) 0.5 ml IM ONCE 06/13/20 06/01/22 Unknown History mL IM syringe pramipexole 0.5 mg tablet 0.5 mg PO BEDTIME 09/13/20 07/23/22 Unknown History carboxymethylcellulose-citric acid 3 cap PO BID 06/13/22 Unknown History 0.75 gram capsule (Plenity) semaglutide 0.25 mg or 0.5 mg (2 1 mg subcut QWEEK 06/13/22 07/23/22 Unknown History mg/1.5 mL) subcutaneous pen injector Exam Airway Mallampati Class: II TM Dist: >3cm Neck ROM: Full Partial: Upper Heart: rrr Lungs: clear Assessment and Plan Final Anesthetic Review Family History of Problems with Anesthesia: No History of Problems with Anesthesia: No NPO: Yes ASA Class: II Final Preanesthetic Review: No Changes in Pt Med Stat, Meds/Allgs Chart Reviewed, Consent Obtained/Reviewed and Anes Risks/Benef Reviewed Patient Risk: Intermediate Procedure Risk: Low Anesthetic Plan Anesthetic Plan: MAC: Disposition: Standard PACU
[2022-07-26 06:50] VITALS: BP 121/42; PULSE 77; RESP 18; TEMP 36.2; O2SAT 95; BMI 30.2
[2022-07-26 07:03] LABS: Glucose, Whole Blood 107 mg/dL (60-115)
[2022-07-26] MEDS: Lactated Ringers 1,000 ML 100 ML IVCONT (07:15)
--- NOTE | 2022-07-26 07:29 | MHC.SHP ---
Pre-Procedural Eval Section A Date of Service: 07/26/22 The patient is an INPATIENT: No Section B Chief Complaint: Dysphagia, unspecified Details of Present Illness: Intermittent dysphagia to solids which has progressively worsened. Here for EGD +/- dilation. Relevant Family History (Specify if Yes): No Present Medications: see Short Stay Collaborative assessment Medical History: Significant History (T2DM, HTN, restless legs, anxiety ) History of Previous Operations: Relevant previous surgery/procedure and date(s) ( History of hysterectomy History of total knee replacement (TKR)) Allergies: Allergies Allergy/AdvReac Type Severity Reaction Status Date / Time Penicillins [PENICILLINS] Allergy Intermediate RASH Verified 06/13/22 09:04 crab AdvReac Intermediate DIARRHEA Verified 06/13/22 09:04 Environmental Allergy Unknown Unknown Uncoded 04/04/22 16:32 Review of Systems Review of Systems Comment: 10 point ROS negative except as above Exam Exam Comment: Gen appear: No acute distress, well nourished HEENT: no icterus Chest: No overt resp distress Abd: soft, nontender, nondistended Psych: Stable affect, answering questions appropriately Neuro: A/Ox3 noted to move all extremities spontaneously Ext: no peripheral edema Plan Diagnosis/Plan: Unchanged I have reviewed the history and physical and performed a pertinent physical examination on my patient. No changes have occurred unless specified.
--- NOTE | 2022-07-26 07:34 | P.OP_ITS ---
Operative Note Operative Note Date of Service: 07/26/22 Narrative: Procedure: Esophagogastroduodenoscopy Endoscopist: Catalina Rice MD Indication: Intermittent dysphagia Anesthesia Provider: Dr Buck Barragan Anesthesia Type: MAC ?? EGD Procedure:?? The procedure, indications, preparation and potential complications were r eviewed with the patient, who indicated understanding and gave written informed consent to proceed. A physical exam was performed. The endoscope was introduced through the mouth, and advanced to the second part of duodenum. The mucosa was carefully examined on slow withdrawal of the endoscope. The patient tolerated the procedure well. There were no immediate complications.? ? EGD Findings:? * Esophagus:? Fissuring and trachealisation of the mid to lower esophagus noted. Cold forceps biopsies were taken from mid esophagus. Irregular Z line > 1 cm noted at the GEJ. Cold forceps biopsies were taken. The Z line was 35 cm. There was a small hiatal hernia with the diaphragmatic pinch at 39 cm. * Stomach:? Scant heme was noted in the body and antrum without any obvious ero sions or ulcers. Random cold forceps gastric biopsies were taken to rule out H Pylori infection. Retroflexion in the fundus confirmed the size and morphology of the hiatal hernia. * Duodenum:? Normal mucosa was noted in the whole of the examined duodenum. Additional intervention: A soft-tip Savary wire was introduced through the scope and left in the antrum. The endoscope was then withdrawn and Savary-Guillard bougie was guided over the wire in a step de la o fashion from 16 to 18 mm. Mild resistance was felt at 18 mm. Relook with the gastroscope showed heme and superficial tear at 25 cm confirming successful dilation. ? EGD Impressions:? * Fissuring and trachealisation of esophagus suspicious for EoE (biopsy) * Cricopharyngeal stricture (dilation) * Hiatal hernia * Gastritis (biopsy) * Normal duodenum ?? Recommendations:?? * Follow biopsy results. Our office will call or send a letter with results within 7-10 days. * If biopsies confirm EoE will review indication for topical steroid therapy * Repeat EGD in 6-8 weeks for completion of dilation to 20 mm. * If H pylori +, patient will be prescribed eradication therapy followed by test of cure. * Start Pantoprazole 40 mg once daily * Avoid NSAIDs. Above has been reviewed with the patient. Relevant educational hand outs were provided at discharge.
[2022-07-26 08:18] VITALS: BP 149/66; PULSE 72; RESP 15; TEMP 36.6; O2SAT 93
[2022-07-26 08:33] VITALS: BP 124/66; PULSE 70; RESP 16; O2SAT 94
[2022-07-26 08:48] VITALS: BP 132/58; PULSE 66; RESP 16; TEMP 36.6; O2SAT 96
== END 2022-07-26 09:26 ==
LOC: HO.SSS 06:33
PROVIDERS: PCP Internal Medicine; Visit Provider Internal Medicine
PROC: 0DJ08ZZ Inspection of Upper Intestinal Tract, Via Natural or Artificial Opening Endoscopic (ICD-10-PCS; CPT 43235; principal; 2022-07-26 07:30)
DX: R13.10 Dysphagia, unspecified (principal); J39.2 Other diseases of pharynx; K29.70 Gastritis, unspecified, without bleeding; K20.90 Esophagitis, unspecified without bleeding; K44.9 Diaphragmatic hernia without obstruction or gangrene; E13.9 Other specified diabetes mellitus without complications; I10 Essential (primary) hypertension; Z88.0 Allergy status to penicillin
CPT/HCPCS: 43248; 43239; 82947; 88305; 88342; C1769

== ENCOUNTER 2022-07-31 09:33 | Outpatient (REF) | payer MEDICARE, OTHER, SELFPAY ==
--- NOTE | ~2022-07-31 | FL_ITS ---
EXAMINATION: FL BARIUM SWALLOW CLINICAL INFORMATION: Dysphagia COMPARISON: None TECHNIQUE: Barium swallow examination is performed using fluoroscopic evaluation in addition to multiple fluoroscopic spot views. The patient is imaged both upright and prone and using both thick and thin sulfate along with effervescent granules. Barium tablet was also administered. Fluoroscopy time: 1.3 minutes DAP: 6.7 Gycm2 Images: 63 FINDINGS: The swallowing mechanism is normal. No aspiration or penetration is seen. There is mucosal irregularity and incomplete distention of the mid thoracic esophagus just distal to the aortic arch for example image 6 through 12 series 3. Appearance is worrisome for a mass. The barium tablet passed through this region but got stuck at the GE junction suggestive of mild narrowing or stricture. Esophageal motility appeared normal with the patient upright. There is very abnormal esophageal motility with patient in the prone/SANDOVAL drinking position with marked stasis of barium in the esophagus, dilatation of the esophagus and tertiary contractions. This made assessment for gastroesophageal reflux difficult with retained barium in the esophagus however there is likely gastroesophageal reflux as well. No hernia is seen. FL/FL barium swallow IMPRESSION: Mucosal irregularity and underdistention of the mid thoracic esophagus just distal to the aortic arch worrisome mass. Barium tablet got stuck at the GE junction suggestive of mild distal stricture or narrowing. Very abnormal esophageal motility with patient in the prone/SANDOVAL drinking position with tertiary contractions, dilatation of the esophagus and stasis of the barium. There is also probable gastroesophageal reflux.
== END 2022-07-31 09:34 | disposition home or self-care (01) ==
LOC: HO.XRAY 09:33
PROVIDERS: PCP Internal Medicine; Visit Provider Internal Medicine
DX: R13.10 Dysphagia, unspecified (principal)
CPT/HCPCS: 74220

== ENCOUNTER → 2022-08-10 12:47 | Outpatient (BNVA) | payer MEDICARE, OTHER, SELFPAY | PROVIDERS: PCP Internal Medicine; Visit Provider Internal Medicine | DX: K20.0 Eosinophilic esophagitis (principal); K22.2 Esophageal obstruction; Z98.890 Other specified postprocedural states | CPT/HCPCS: 99212; Q3014 ==

== ENCOUNTER 2022-10-02 11:21 | Outpatient (REF) | payer MEDICARE, OTHER, SELFPAY ==
[2022-10-02 12:46] LABS: Influenza A PCR NEGATIVE (Negative); Influenza B PCR NEGATIVE (Negative)
[2022-10-02 12:47] LABS: Resp Syncy Virus RNA Qual PCR NEGATIVE (Negative); SARS COV2 PCR INHOUSE NEGATIVE (Negative)
== END 2022-10-02 11:22 | disposition home or self-care (01) ==
LOC: HO.LNP 11:21
PROVIDERS: Visit Provider Internal Medicine
DX: R09.89 Other specified symptoms and signs involving the circulatory and respiratory systems (principal); Z20.822 Contact with and (suspected) exposure to COVID-19
CPT/HCPCS: 0241U

== ENCOUNTER → 2022-10-17 11:21 | Day surgery (SDC) | payer MEDICARE, OTHER, SELFPAY ==
[2022-10-11 11:27] VITALS: BMI 31.2
== END ==
PROVIDERS: PCP Internal Medicine; Visit Provider Internal Medicine
DX: K20.0 Eosinophilic esophagitis (principal); K22.0 Achalasia of cardia; Z53.20 Procedure and treatment not carried out because of patient's decision for unspecified reasons

== ENCOUNTER 2023-02-12 10:00 | Outpatient (RCR) | payer MEDICARE, OTHER, SELFPAY ==
--- NOTE | 2023-01-10 07:56 | MHC.PT.EP ---
[facility] [place] Office [place] Office [place] Office [address] Zunilda Nguyễn [address] [phone] F: [phone] F: [phone] F: [phone] F: [phone] Physical Therapy Plan of Care Date of Evaluation: Date of Surgery: Diagnosis: This is an 82 yo female presenting to skilled PT with a script for gait and balance. Assessment: This is an 82 yo female presenting to skilled PT with a script for gait and balance. Patient reporting B knee surgery in 2013 in [facility]. Last year she noticed pain and knee buckling on the R. She followed up with an ortho from [facility] who did images and stated that part of the replacement has worn out and scheduled a new TKR surgery (however pain improved and she cancelled the surgery). Now at [facility] however she reports that her balance and gait are impaired (she did report that she walked a mile and half and gardened for some time as well prior to this appointment). States that she has not had any recent falls. She reports that things that cause her trouble now are getting off of the floor, walking longer than a mile and a half (due to blood sugar not gait or balance), gardening with squatting and bending easily. She has not continued any of her HEP since [place] last time. Assessment reveals pain that ranges from 2-4/10. Patient demos decreased BLE strength, decreased balance as evidenced with static and dynamic testing. Based on functional limitations, impaired QOL and pain tolerance patient is a good candidate for skilled PT 2x/wk for 5 wks. Frequency and Duration: The patient will be seen 2x/wk for 5wks. Short Term Goals: I in HEP in 2wks Tolerate x10 SLR with appropriate form BLE in 3wks Usp Goals: I in HEP and demos carryover without assist from PT in 5wks Improve MMT by at least 1 MMT for hip muscles in 5wks Improve static balance times by at least 10 sec (SLS can be modified with kickstand stance or sls with toe down) in 5wks demo ability to get on/off floor without assist from PT in 5wks Treatment Plan: Modalities to reduce pain, spasms and effusion. Manual therapy to restore motion and function. Therapeutic exercise to improve strength and flexibility. Neuromuscular re-education for posture and balance. Therapeutic activities to return to functional activities of daily living. Electronically signed by: Shelia Delgado PT Please sign and return to therapist. Thank you for your referral.
--- NOTE | 2023-02-21 10:25 | MHC.PT.DC ---
[facility] [place] Office [place] Office [place] Office [address] Zunilda Nguyễn [address] [phone] F: [phone] F: [phone] F: [phone] F: [phone] Physical Therapy Discharge Report Diagnosis: This is an 82 yo female presenting to skilled PT with a script for gait and balance. Date of Surgery: Date of Evaluation: 01/09/23 Date of Discharge: 02/21/23 Treatments to Date: 9 Cancellations to Date: 0 No Shows to Date: 0 Discharge Status: Achieved Goals Improved Function Independent with HEP Discharge Summary: Patient had 9 visits of PT, she admits she is not that great at doing her exercises at home but enjoys coming to PT. Discussed the importance of doing them. She is planning to get a referral for ortho which is in another month. I educated her that this is the time to continue HEP and practice I with program as if she is planning on TKR she needs to have good carryover on her own in order to rehab well after such an extensive surgery. DC to HEP. Electronically signed by: Shelia Delgado PT Please sign and return to therapist. Thank you for your referral.
== END 2023-02-21 10:26 | disposition home or self-care (01) ==
LOC: HO.PTCHIC 10:00
PROVIDERS: PCP Internal Medicine; Visit Provider Internal Medicine
DX: R26.81 Unsteadiness on feet (principal); R26.89 Other abnormalities of gait and mobility; M25.361 Other instability, right knee
CPT/HCPCS: 97110; 97112; 97161

== ENCOUNTER 2023-02-14 11:33 | Day surgery (SDC) | payer MEDICARE, OTHER, SELFPAY ==
--- NOTE | 2023-02-13 10:29 | HO.ANESPROP2 ---
Documented by User: Nanette Santoro NP 02/13/23 10:29 HPI - Anesthesia Eval Consult details Narrative: 82yo F for Upper Endoscopy PMFSH Active Problems Active Problems: All Active Problems (Updated 12/05/22 @ 12:25 by Ella Garces MD) Knee instability (Acute) Balance disorder (Acute) Gait instability (Acute) Otitis externa (Acute) Exposure to COVID-19 virus (Acute) Hearing impaired (Acute) Patient has active medical orders for life-sustaining treatment (MOLST) form (Acute) Hollenhorst plaque, right eye (Acute) Left knee pain (Acute) Restless leg syndrome (Acute) LFT elevation (Acute) Hypertension, essential (Acute) Do not resuscitate status (Acute) Right knee pain (Acute) Right knee buckling (Acute) Pain in left knee (Acute) Medicare annual wellness visit, subsequent (Acute) Recurrent otitis externa of both ears (Acute) Difficulty swallowing liquids (Acute) Hospital discharge follow-up (Acute) Difficulty swallowing solids (Acute) Eosinophilic esophagitis (Acute) Benign esophageal stricture (Acute) Upper respiratory infection (Acute) Anxiety, generalized (Acute) Lipid disorder (Acute) Diabetes 1.5, managed as type 2 (Acute) Past Medical History Medical History Anxiety, 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 Mother Dementia Pancreatitis Family history of problems with anesthesia: No Surgical History Surgical History H/O colonoscopy History of esophagogastroduodenoscopy (EGD) History of hysterectomy History of total knee replacement (TKR) History of Problems with Anesthesia: No Social History Social History Housing: Apartment Alcohol intake: never Patient Tobacco Use Status: Never used Tobacco e-Cigarette/Vaping Use: Never Used Use of substances other than those prescribed or required for medical reasons: No Are you DNR?: Yes Advance Directives: No Advance Directives Information Provided: Yes Advance Directives Date on File: 11/23/20 Current occupational status: retired Cognitive needs: No Hearing needs: Yes Vision needs: Yes Meds Allergies Allergy/AdvReac Type Severity Reaction Status Date / Time Penicillins [PENICILLINS] Allergy Intermediate RASH Verified 02/14/23 12:09 crab AdvReac Intermediate DIARRHEA Verified 02/14/23 12:09 Environmental Allergy Intermediate Runny Nose Uncoded 02/14/23 12:09 Home Medications Medication Instructions Recorded Confirmed Last Taken Type pramipexole 0.5 mg tablet 0.5 mg PO BEDTIME 09/13/20 02/14/23 Unknown History vitamins A,C,L-bchi-wznipv 4,296 1 cap PO DAILY 12/05/22 02/14/23 Unknown History mcg-226 mg-90 mg capsule (PreserVision AREDS) dorzolamide 22.3 mg-timolol 6.8 1 drp ophthalmic (eye) BID 02/14/23 02/14/23 Unknown History mg/mL eye drops Exam Exam Date and Time: February 13, 2023 1029 Assessment and Plan Assessment Anesthesia Assessment: Chart Reviewed Final Anesthetic Review Family History of Problems with Anesthesia: No History of Problems with Anesthesia: No Documented by User: Katelyn Anand MD 02/14/23 13:49 [facility] Past Medical History Medical History Anxiety, 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 Mother Dementia Pancreatitis Surgical History Surgical History H/O colonoscopy History of esophagogastroduodenoscopy (EGD) History of hysterectomy History of total knee replacement (TKR) Social History Social History Housing: Apartment Alcohol intake: never Patient Tobacco Use Status: Never used Tobacco e-Cigarette/Vaping Use: Never Used Use of substances other than those prescribed or required for medical reasons: No Are you DNR?: Yes Advance Directives: No Advance Directives Information Provided: Yes Advance Directives Date on File: 11/23/20 Current occupational status: retired Cognitive needs: No Hearing needs: Yes Vision needs: Yes Meds Allergies Allergy/AdvReac Type Severity Reaction Status Date / Time Penicillins [PENICILLINS] Allergy Intermediate RASH Verified 02/14/23 12:09 crab AdvReac Intermediate DIARRHEA Verified 02/14/23 12:09 Environmental Allergy Intermediate Runny Nose Uncoded 02/14/23 12:09 Home Medications Medication Instructions Recorded Confirmed Last Taken Type pramipexole 0.5 mg tablet 0.5 mg PO BEDTIME 09/13/20 02/14/23 Unknown History vitamins A,C,A-zekt-knsaqf 4,296 1 cap PO DAILY 12/05/22 02/14/23 Unknown History mcg-226 mg-90 mg capsule (PreserVision AREDS) dorzolamide 22.3 mg-timolol 6.8 1 drp ophthalmic (eye) BID 02/14/23 02/14/23 Unknown History mg/mL eye drops Exam Airway Mallampati Class: II TM Dist: >3cm Neck ROM: Full Loose/Missing/Broken Teeth: No Heart: RRR Lungs: CTA Assessment and Plan Assessment Anesthesia Assessment: Anesthesia Plan Discussed Final Anesthetic Review NPO: Yes ASA Class: II Final Preanesthetic Review: Meds/Allgs Chart Reviewed, Consent Obtained/Reviewed and Anes Risks/Benef Reviewed Patient Risk: Low Procedure Risk: Intermediate Anesthetic Plan Anesthetic Plan: MAC: Disposition: Standard PACU
[2023-02-14 12:16] VITALS: BP 144/61; PULSE 60; RESP 16; TEMP 36.1; O2SAT 96; BMI 30.9
[2023-02-14 12:50] LABS: Glucose, Whole Blood 128 mg/dL (60-115)
--- NOTE | 2023-02-14 12:51 | MHC.SHP ---
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, managed as type 2 History of COVID-19 HTN (hypertension) Lipid disorder Restless leg syndrome Surgical History: H/O colonoscopy History of esophagogastroduodenoscopy (EGD) History of hysterectomy History of total knee replacement (TKR) Allergies: Allergies Allergy/AdvReac Type Severity Reaction Status Date / Time Penicillins [PENICILLINS] Allergy Intermediate RASH Verified 02/14/23 12:09 crab AdvReac Intermediate DIARRHEA Verified 02/14/23 12:09 Environmental Allergy Intermediate Runny Nose Uncoded 02/14/23 12:09 Review of Systems Review of Systems Comment: 10 point ROS negative Exam Exam Comment: Gen appear: No acute distress HEENT: no icterus Chest: No overt resp distress Abd: soft, nontender, nondistended Psych: Stable affect, answering questions appropriately Neuro: A/Ox3 noted to move all extremities spontaneously Ext: no peripheral edema Plan Diagnosis/Plan: Unchanged I have reviewed the history and physical and performed a pertinent physical examination on my patient. No changes have occurred unless specified. Time Spent With Patient Time: Total time managing care of this patient today ____ minutes.
--- NOTE | 2023-02-14 13:09 | P.OP_ITS ---
Operative Note Operative Note Date of Service: 02/14/23 Narrative: Procedure:?Esophagogastroduodenoscopy Endoscopist:?Catalina Rice MD Indication:?Intermittent dysphagia Anesthesia Provider:?Annamaria Olivares CRNA Anesthesia Type:?MAC ?? EGD Procedure:?? The procedure, indications, preparation and potential complications were reviewed with the patient, who indicated understanding and gave written informed consent to proceed. A physical exam was performed. The endoscope was introduced through the mouth, and advanced to the second part of duodenum. The mucosa was carefully examined on slow withdrawal of the endoscope. The patient tolerated the procedure well. There were no immediate complications.? ? EGD Findings:? * Esophagus:? Minimal trachealisation of the mid to lower esophagus noted. The Z line was at 36 cm. Cold forceps biopsies were taken from mid esophagus and lower esophagus to monitor for EoE. * Stomach:? Normal gastric mucosa. Retroflexion in the fundus confirmed the size and morphology of the hiatal hernia. * Duodenum:? Normal mucosa was noted in the whole of the examined duodenum. Additional intervention:?A soft-tip Savary wire was introduced through the scope and left in the antrum. The endoscope was then withdrawn and Savary-Guillard bougie was guided over the wire in a step de la o fashion from 18 to 19 mm. Resistance was felt at 19 mm. Relook with the gastroscope showed heme and superficial tear at 14 cm as well as 35 cm confirming successful dilation.? ? EGD Impressions:? * Minimal trachealisation of esophagus (biopsy) * Benign EoE strictures (dilation) * Hiatal hernia * Normal stomach * Normal duodenum?? Recommendations:?? * Follow biopsy results. Our office will call or send a letter with results within 7-10 days. * Depending on eosinophil count will discuss with pt if okay to stay on PPI vs go back to topical steroid * Repeat EGD in 6-8 weeks for completion of dilation to 20 mm. * Avoid NSAIDs. Above has been reviewed with the patient. Relevant educational hand outs were provided at discharge.?
[2023-02-14 13:32] VITALS: BP 146/56; PULSE 62; RESP 16; TEMP 36.4; O2SAT 98
[2023-02-14 13:47] VITALS: BP 146/64; PULSE 61; RESP 16; O2SAT 98
[2023-02-14 14:02] VITALS: BP 155/63; PULSE 58; RESP 16; TEMP 36.6; O2SAT 97
[2023-02-14] MEDS: Mag&Al/Sim/Diphenhyd/Lidocaine 10 ML ORAL.SUSP PO (14:02)
== END 2023-02-14 15:08 | disposition home or self-care (01) ==
PROVIDERS: PCP Internal Medicine; Visit Provider Internal Medicine
PROC: 0DJ08ZZ Inspection of Upper Intestinal Tract, Via Natural or Artificial Opening Endoscopic (ICD-10-PCS; CPT 43235; principal; 2023-02-14 13:00)
DX: K20.0 Eosinophilic esophagitis (principal); K22.2 Esophageal obstruction; R13.19 Other dysphagia; K44.9 Diaphragmatic hernia without obstruction or gangrene; I10 Essential (primary) hypertension; E75.6 Lipid storage disorder, unspecified; E13.9 Other specified diabetes mellitus without complications; M19.90 Unspecified osteoarthritis, unspecified site; Z79.899 Other long term (current) drug therapy; F41.1 Generalized anxiety disorder; Z79.84 Long term (current) use of oral hypoglycemic drugs; Z88.0 Allergy status to penicillin; Z86.16 Personal history of COVID-19; Z66 Do not resuscitate
CPT/HCPCS: 43248; 43239; 82947; 88305; C1769

== ENCOUNTER 2023-03-08 13:22 | Outpatient (AMB) | payer MEDICARE, OTHER, SELFPAY ==
--- NOTE | 2023-03-08 13:25 | A.OFFPC_ITS ---
Vital Signs 03/08/23 13:28 Height 5 ft Weight 164 lb 8 oz BMI 32.1 BP 138/68 Blood Pressure Location Lt brachial Position Sitting Pulse 76 Pulse Source Pulse Oximeter Pulse Oximetry (%) 96 Oxygen Delivery Method Room Air Intake Visit Reasons: 3 m follow up Allergies Penicillins [PENICILLINS] Allergy (Intermediate, Verified 03/08/23 13:31) RASH crab Adverse Reaction (Intermediate, Verified 03/08/23 13:31) DIARRHEA Environmental Allergy (Intermediate, Uncoded 02/14/23 12:09) Runny Nose Medication List - Last Reconciled 03/08/23 by Ella Garces MD blood sugar diagnostic (FreeStyle Lite Strips) Once a day blood-glucose sensor (Dexcom G6 Sensor device) once a day blood-glucose transmitter (Dexcom G6 Transmitter device) As directed dorzolamide-timolol 22.3-6.8 mg/mL 1 drp ophthalmic (eye) BID escitalopram oxalate 20 mg PO BEDTIME lancets (FreeStyle Lancets) As directed lisinopril 2.5 mg PO QAM Magic Mouthwash Diphen/Lido/Antacid 1:1:1 10 mL PO TID 2 days metformin 500 mg PO DAILY omeprazole 20 mg PO BID pramipexole 0.5 mg PO BEDTIME rosuvastatin 20 mg PO QAM vitamins A,C,M-bxkc-pxydsl 4,296 mcg-226 mg-90 mg (PreserVision AREDS) 1 cap PO DAILY Tobacco use date assessed: 03/08/23 Fall risk assessment: No Falls in past year Last assessed Fall Risk: 03/08/23 Dental Screening Dental Screen Date: 03/08/23 Did you have a dental visit in the last 12 months?: Yes Did you have a dental problem in the last 6 months where you did not have access to dental care?: No Was dental information given to patient?: No HPI 3 m follow up HPI Details Patient is 82-year-old female came in today to have a follow-up on diabetes management. Diabetes mellitus: Patient is on metformin 500 mg once a day and is due for hemoglobin A1c along with her other labs Moods are stable patient is on Lexapro 20 mg daily. 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 Mother Dementia Pancreatitis Social History Housing: Apartment Alcohol intake: never Patient Tobacco Use Status: Never used Tobacco e-Cigarette/Vaping Use: Never Used Advance Directives Date on File: 11/23/20 Current occupational status: retired Cognitive needs: No Hearing needs: Yes Vision needs: Yes Questionnaire Thrive Questionnaire Date Thrive assessed: 07/14/21 AUDIT C Alcohol Use Questionnaire (AUDIT-C) 1. How often do you have a drink containing alcohol?: Monthly or less 2. How many drinks containing alcohol do you have on a typical day when you are drinking?: 1 or 2 3. How often do you have six or more drinks on one occasion?: Never Total Score: 1 Score Reviewed/Action Taken: Yes LG-7 AMB Questionnaire LG-7 Date LG - 7 assessed: 07/14/21 Source: Developed by Drs. Luis Pan, Crystal Magallon, Geoffrey Anguiano and colleagues, with an educational rosas from [employer]. Review of Systems Const Denies chills and Denies fever(s) ENT Denies epistaxis and Denies nasal discharge Card Denies chest pain Resp Denies chest congestion, Denies cough and Denies hemoptysis GI Denies diarrhea and Denies nausea Skin/Breast Denies rash Neuro Reports no additional complaints Psych Reports no additional complaints Endo Reports no additional complaints Physical exam (Primary Care) Vital Signs: Last Vital Signs Pulse 76 03/08/23 13:28 BP 138/68 03/08/23 13:28 Pulse Ox 96 03/08/23 13:28 Oxygen Delivery Method Room Air 03/08/23 13:28 BMI result Body Mass Index 32.1 Tobacco/Smoking Status: Tobacco use Status Tobacco use date assessed 03/08/23 03/08/23 13:33 Patient Tobacco Use Status Never used Tobacco 03/08/23 13:27 e-Cigarette/Vaping Use Never Used 03/08/23 13:27 Thrive Assessment: Date of Thrive Assessment Date Thrive assessed 07/14/21 03/08/23 13:27 Const General: cooperative, comfortable and no acute distress Orientation/consciousness: patient oriented x3 HENMT Head: Yes normocephalic Eyes General: appearance normal, both eyes and all related structures Neck Neck: Yes supple Resp Effort & Inspection: normal respiratory effort, no cough and no stridor Cardio Rhythm: regular rhythm Heart sounds: S1 normal heart sound present and S2 normal heart sound present Skin General skin exam: turgor normal Neuro General: patient oriented x3, tone normal and moves all extremities Extrem Right lower extremity: no edema Left lower extremity: no edema Assessment and Plan Assessment & Plan (1) Diabetes 1.5, managed as type 2: Comment: taking Ozempic weekly Code(s): E13.9 - Other specified diabetes mellitus without complications (2) Lipid disorder: Code(s): E78.9 - Disorder of lipoprotein metabolism, unspecified (3) Anxiety, generalized: Code(s): F41.1 - Generalized anxiety disorder (4) Hypertension, essential: Code(s): I10 - Essential (primary) hypertension (5) LFT elevation: Code(s): R79.89 - Other specified abnormal findings of blood chemistry (6) Restless leg syndrome: Code(s): G25.81 - Restless legs syndrome Plan Patient is 82-year-old female came in today to have a follow-up on diabetes management. Diabetes mellitus: Patient is on metformin 500 mg once a day and is due for hemoglobin A1c along with her other labs Moods are stable patient is on Lexapro 20 mg daily. GERD symptoms are acting up patient have a superficial stricture and is under care of Gastroenterology at this time Patient also take pramipexole for restless leg syndrome through neurology And rosuvastatin for lipid control After physical therapy her balance has improved tremendously she will continue exercises at home Follow-up 3 months Orders: Orders Comprehensive Met. Panel Today E13.9 - Other specified diabetes mellitus without complications, E78.9 - Disorder of lipoprotein metabolism, unspecified, F41.1 - Generalized anxiety disorder, G25.81 - Restless legs syndrome, I10 - Essential (primary) hypertension, R79.89 - Other specified abnormal findings of blood chemistry Complete Blood Count Auto Diff Today E13.9 - Other specified diabetes mellitus without complications, E78.9 - Disorder of lipoprotein metabolism, unspecified, F41.1 - Generalized anxiety disorder, G25.81 - Restless legs syndrome, I10 - Essential (primary) hypertension, R79.89 - Other specified abnormal findings of blood chemistry Hemoglobin A1c Today E13.9 - Other specified diabetes mellitus without complications, E78.9 - Disorder of lipoprotein metabolism, unspecified, F41.1 - Generalized anxiety disorder, G25.81 - Restless legs syndrome, I10 - Essential (primary) hypertension, R79.89 - Other specified abnormal findings of blood chemistry Microalbumin, Random (w Creat) Today E13.9 - Other specified diabetes mellitus without complications, E78.9 - Disorder of lipoprotein metabolism, unspecified, F41.1 - Generalized anxiety disorder, G25.81 - Restless legs syndrome, I10 - Essential (primary) hypertension, R79.89 - Other specified abnormal findings of blood chemistry Coding Level of Care Code Est Pt Level 4 (67492) Diagnoses Diabetes 1.5, managed as type 2 E13.9 Lipid disorder E78.9 Anxiety, generalized F41.1 Hypertension, essential I10 LFT elevation R79.89 Restless leg syndrome G25.81
[2023-03-08 13:28] VITALS: BP 138/68; PULSE 76; O2SAT 96; BMI 32.1
== END 2023-03-08 16:08 | disposition home or self-care (01) ==
PROVIDERS: Visit Provider Internal Medicine
DX: E13.9 Other specified diabetes mellitus without complications (principal); E78.9 Disorder of lipoprotein metabolism, unspecified; F41.1 Generalized anxiety disorder; I10 Essential (primary) hypertension; R79.89 Other specified abnormal findings of blood chemistry; G25.81 Restless legs syndrome
CPT/HCPCS: 99214

== ENCOUNTER 2023-03-08 13:45 | Outpatient (REF) | payer MEDICARE, OTHER, SELFPAY ==
[2023-03-08 16:06] LABS: MANUAL DIFF FLAG NO
[2023-03-08 16:16] LABS: Basophils Absolute Auto 0.1 X10*3/uL (0.0-0.2); Basophils Percent Auto 0.8 % (0-2); Eosinophils Absolute Auto 0.4 X10*3/uL (0.0-0.4); Hematocrit 42.9 % (37.0-47.0); Hemoglobin 14.5 g/dl (12.0-16.0); Imm Gran Abs Auto 0.04 X10*3/uL (0.00-0.03); Imm Gran Pct Auto 0.6 % (0.0-0.4); Lymphocytes Absolute Auto 2.5 X10*3/uL (1.2-4.9); Lymphocytes Percent Auto 35.2 % (20-40); Mean Corpuscular HGB Conc 33.8 g/dl (31.0-35.0); Mean Corpuscular Hemoglobin 29.8 pg (27.0-33.0); Mean Corpuscular Volume 88.1 fL (80.0-98.0); Mean Platelet Volume 11.1 fL (9.4-12.3); Monocytes Absolute Auto 0.5 X10*3/uL (0.1-1.2); Monocytes Percent Auto 7.2 % (2-11); Neutrophils Absolute Auto 3.7 x10*3/uL (2.0-8.3); Neutrophils Percent Auto 51.2 % (45-73); Platelet Count 174 X10*3/uL (160-400); Red Blood Count 4.87 X10*6/uL (4.20-5.50); Red Cell Distribution Width 13.2 % (11.0-16.0); White Blood Count 7.2 X10*3/uL (4.8-10.8)
[2023-03-08 16:30] LABS: Estimated Average Glucose 148 mg/dL; Hemoglobin A1c % 6.8 %
[2023-03-08 17:06] LABS: Creatinine Urine 70.71 mg/dL; Microalbumin Urine < 5.0 mg/L
[2023-03-08 17:07] LABS: Alanine Aminotransferase 38 U/L (0-31); Albumin Level 4.3 g/dL (3.5-5.0); Alkaline Phosphatase 60 U/L (39-117); Anion Gap 13 (12-20); Aspartate Amino Transferase 31 U/L (5-31); Bilirubin Total 0.5 mg/dL (0.0-1.0); Blood Urea Nitrogen 19 mg/dL (9-16); Carbon Dioxide 22 mmol/L (22-29); Chloride 107 mmol/L (96-108); Cholesterol 162 mg/dL; Estimated Glomerular Filt Rate > 60; Glucose Fasting 169 mg/dL (60-99); Glucose Random 168 mg/dL (60-115); HDL Cholesterol 37 mg/dL; LDL Cholesterol Calculated 56 mg/dl; Potassium 4.3 mmol/L (3.3-5.1); Sodium 138 mmol/L (135-145); Total Protein 6.7 g/dL (6.5-8.0); Triglycerides 349 mg/dL
[2023-03-08 17:22] LABS: TSH reflex Free T4 1.27 uIU/mL (0.32-4.0)
== END 2023-03-08 13:46 | disposition home or self-care (01) ==
LOC: HO.HMGCLDS 13:45
PROVIDERS: PCP Internal Medicine; Visit Provider Internal Medicine
DX: E13.9 Other specified diabetes mellitus without complications (principal); E78.9 Disorder of lipoprotein metabolism, unspecified; F41.1 Generalized anxiety disorder; I10 Essential (primary) hypertension; G25.81 Restless legs syndrome; R79.89 Other specified abnormal findings of blood chemistry
CPT/HCPCS: 36415; 80053; 80061; 82043; 83036; 84443; 85025

== ENCOUNTER 2023-03-26 10:50 | Outpatient (AMB) | payer MEDICARE, OTHER, SELFPAY ==
--- NOTE | 2023-03-26 10:59 | A.OFFVIS_ITS ---
Intake Vital Signs 03/26/23 11:31 Height 5 ft Weight 164 lb BMI 32.0 Intake Visit Reasons: HOMEOPATHIC DOCTOR- right knee Intake Note: Katelyn an 82 year old female who presents today as a new patient for an evaluation of right knee. Patient reports problem with her knees since 2000, in [place], [place] she had a ACL repair. In [facility] she received a cortisone injection that did not provide relief. She was told bone on bone and had bilateral TKA in August of 2012 at a hospital in [facility]. She denies any fevers or chills. She has done physical therapy exercises which helped with her right knee feeling of ?instability?. She also wears a knee brace at times. She has been seen by another orthopedic surgeon who recommended possible revision right total knee replacement surgery. She presents here for a 2nd opinion regarding her treatment options. Allergies Penicillins [PENICILLINS] Allergy (Intermediate, Verified 03/26/23 11:06) RASH crab Adverse Reaction (Intermediate, Verified 03/26/23 11:06) DIARRHEA Environmental Allergy (Intermediate, Uncoded 03/26/23 11:06) Runny Nose Medication List - Last Reconciled 03/26/23 by Beto Quintana MD blood sugar diagnostic (FreeStyle Lite Strips) Once a day blood-glucose sensor (Dexcom G6 Sensor device) once a day blood-glucose transmitter (Dexcom G6 Transmitter device) As directed dorzolamide-timolol 22.3-6.8 mg/mL 1 drp ophthalmic (eye) BID escitalopram oxalate 20 mg PO BEDTIME lancets (FreeStyle Lancets) As directed lisinopril 2.5 mg PO QAM Magic Mouthwash Diphen/Lido/Antacid 1:1:1 10 mL PO TID 2 days metformin 500 mg PO DAILY omeprazole 20 mg PO BID pramipexole 0.5 mg PO BEDTIME rosuvastatin 20 mg PO QAM vitamins A,C,Q-bvjw-qkunpm 4,296 mcg-226 mg-90 mg (PreserVision AREDS) 1 cap PO DAILY PFSH Medical History Anxiety, generalized Diabetes 1.5, managed as type 2 History of COVID-19 HTN (hypertension) Lipid disorder Restless leg syndrome Surgical History H/O colonoscopy History of esophagogastroduodenoscopy (EGD) History of hysterectomy History of total knee replacement (TKR) Family History Father No problems noted. Mother Dementia Pancreatitis Social History Housing: Apartment Alcohol intake: never Patient Tobacco Use Status: Never used Tobacco e-Cigarette/Vaping Use: Never Used Advance Directives Date on File: 11/23/20 Current occupational status: retired Cognitive needs: No Hearing needs: Yes Vision needs: Yes Physical Exam Vital Signs: BMI result Body Mass Index 32.0 Const Other: Well-nourished well-developed very friendly female awake alert and oriented x3 in no acute distress Extrem Other: Bilateral lower extremity examination shows good capillary refill, no skin lesions noted, normal sensation light touch Right knee examination shows that her surgical incision is well healed, no erythema, range of motion from 3 degrees of hyperextension to 125 degrees of flexion, no instability with varus or valgus stress testing, no tenderness over her medial or lateral collateral ligaments Results Reviewed Results Reviewed: X-rays of the patient's right knee show a total knee arthroplasty in good position with no signs of loosening, no acute bony abnormalities Assessment & Plan Assessment & Plan (1) Right knee pain: Code(s): M25.561 - Pain in right knee Plan Ms. Octavio Manzanares presents with right knee feelings of instability after undergoing right total knee replacement surgery in 2012 of unclear etiology. It is possible that the patient does have wear of her polyethylene liner which could be improved with a liner exchange. I had a lengthy discussion with the patient regarding the treatment options. At this point the patient's symptoms are tolerable to her. She does not wish for any further surgery. She is encouraged to continue with her physical therapy exercises. She will follow up with me on an as-needed basis should her symptoms worsen in any way. Feel free to call me at any time should questions regarding her orthopedic management arise. Thank you very much for asking me to see this very friendly patient. I spent 22 minutes in reviewing the patient's records and imaging studies, seeing the patient and documenting in the medical record. Coding Level of Care Code New Pt Level 2 (59615) Diagnoses Right knee pain M25.561
[2023-03-26 11:31] VITALS: BMI 32.0
== END 2023-03-26 12:00 | disposition home or self-care (01) ==
PROVIDERS: PCP Internal Medicine; Visit Provider Orthopaedic Surgery
DX: M25.561 Pain in right knee (principal)
CPT/HCPCS: 99202

== ENCOUNTER → 2023-03-26 10:50 | Outpatient (BNVA) | payer MEDICARE, OTHER, SELFPAY | PROVIDERS: PCP Internal Medicine; Visit Provider Orthopaedic Surgery | DX: M25.561 Pain in right knee (principal) | CPT/HCPCS: 99202 ==

== ENCOUNTER 2023-04-17 08:52 | Outpatient (AMB) | payer MEDICARE, OTHER, SELFPAY ==
[2023-04-17 08:54] VITALS: BP 120/52; PULSE 75; O2SAT 95; BMI 31.8
--- NOTE | 2023-04-17 08:54 | A.OFFPC_ITS ---
Vital Signs 04/17/23 08:54 Height 5 ft Weight 163 lb BMI 31.8 BP 120/52 L Blood Pressure Location Lt brachial Position Sitting Pulse 75 Pulse Source Pulse Oximeter Pulse Oximetry (%) 95 Oxygen Delivery Method Room Air Intake Visit Reasons: Right shoulder/arm pain Allergies Penicillins [PENICILLINS] Allergy (Intermediate, Verified 04/17/23 08:57) RASH crab Adverse Reaction (Intermediate, Verified 04/17/23 08:57) DIARRHEA Environmental Allergy (Intermediate, Uncoded 03/26/23 11:06) Runny Nose Medication List - Last Reconciled 04/17/23 by Ella Garces MD blood sugar diagnostic (FreeStyle Lite Strips) Once a day blood-glucose sensor (Dexcom G6 Sensor device) once a day blood-glucose transmitter (Dexcom G6 Transmitter device) As directed dorzolamide-timolol 22.3-6.8 mg/mL 1 drp ophthalmic (eye) BID escitalopram oxalate 20 mg PO BEDTIME lancets (FreeStyle Lancets) As directed lisinopril 2.5 mg PO QAM metformin 500 mg PO DAILY omeprazole 20 mg PO BID pramipexole 0.5 mg PO BEDTIME rosuvastatin 20 mg PO QAM vitamins A,C,L-jjpl-lmcppu 4,296 mcg-226 mg-90 mg (PreserVision AREDS) 1 cap PO DAILY Tobacco use date assessed: 04/17/23 Fall risk assessment: 1 Fall in past year Last assessed Fall Risk: 04/17/23 Dental Screening Dental Screen Date: 04/17/23 Did you have a dental visit in the last 12 months?: Yes Did you have a dental problem in the last 6 months where you did not have access to dental care?: No Was dental information given to patient?: No HPI Right shoulder/arm pain HPI Details 6 weeks ago patient tripped and fell on her right arm/shoulder Since then she has been having pain in her shoulder and neck area. Patient says that she waited that long thinking it will get better and it does improve until something happens. She is pointing all the way from neck shoulder and hand as a site of pain. On examination wrist and elbow are fine She does have discomfort with shoulder palpation and has limited range of motion cannot lift above 45 degree Patient is also having pain with neck rotation to left side and flexion. I have ordered x-ray of her neck and shoulder She is to start physical therapy. Patient have esophagus esophagitus, and is due to have endoscopy and dilatation 05/02/2023 [facility] Medical History Anxiety, generalized Diabetes 1.5, managed as type 2 History of COVID-19 HTN (hypertension) Lipid disorder Restless leg syndrome Surgical History H/O colonoscopy History of esophagogastroduodenoscopy (EGD) History of hysterectomy History of total knee replacement (TKR) Family History Father No problems noted. Mother Dementia Pancreatitis Social History Housing: Apartment Alcohol intake: never Patient Tobacco Use Status: Never used Tobacco e-Cigarette/Vaping Use: Never Used Advance Directives Date on File: 11/23/20 service: No Current occupational status: retired Cognitive needs: No Hearing needs: Yes Vision needs: Yes Questionnaire PHQ-9 Over the last 2 weeks, how often have you been bothered by any of the following problems? 1. Little interest or pleasure in doing things: not at all 2. Feeling down, depressed, or hopeless: not at all 3. Trouble falling or staying asleep, or sleeping too much: not at all 4. Feeling tired or having little energy: not at all 5. Poor appetite or overeating: not at all 6. Feeling bad about yourself - or that you are a failure or have let yourself or your family down: not at all 7. Trouble concentrating on things, such as reading the newspaper or watching television: not at all 8. Moving or speaking so slowly that other people could have noticed. Or the opposite - being so fidgety or restless that you have been moving around a lot more than usual: not at all 9. Thoughts that you would be better off or of hurting yourself in some way: not at all Total score: 0 Depression Screening Interpretation: Negative 02774 - PHQ-9 Billing: Yes Source: Developed by Drs. Luis Pan, Crystal B.Geoffrey Shah and colleagues, with an educational rosas from [employer] Thrive Questionnaire Date Thrive assessed: 07/14/21 AUDIT C Alcohol Use Questionnaire (AUDIT-C) 1. How often do you have a drink containing alcohol?: Never 3. How often do you have six or more drinks on one occasion?: Never Total Score: 0 Score Reviewed/Action Taken: Yes LG-7 AMB Questionnaire LG-7 Date LG - 7 assessed: 07/14/21 Source: Developed by Drs. Luis Pan, Geoffrey Nunez and colleagues, with an educational rosas from [employer]. Review of Systems Const Denies chills and Denies fever(s) ENT Denies epistaxis and Denies nasal discharge Card Denies chest pain Resp Denies chest congestion, Denies cough and Denies hemoptysis GI Denies diarrhea and Denies nausea Skin/Breast Denies rash Neuro Reports no additional complaints Psych Reports no additional complaints Endo Reports no additional complaints Physical exam (Primary Care) Vital Signs: Last Vital Signs Pulse 75 04/17/23 08:54 BP 120/52 L 04/17/23 08:54 Pulse Ox 95 04/17/23 08:54 Oxygen Delivery Method Room Air 04/17/23 08:54 BMI result Body Mass Index 31.8 Tobacco/Smoking Status: Tobacco use Status Tobacco use date assessed 04/17/23 04/17/23 09:00 Patient Tobacco Use Status Never used Tobacco 04/17/23 08:56 e-Cigarette/Vaping Use Never Used 04/17/23 08:56 Depression Screening Interpretation: Negative Thrive Assessment: Date of Thrive Assessment Date Thrive assessed 07/14/21 04/17/23 08:56 Const General: cooperative, comfortable and no acute distress Orientation/consciousness: patient oriented x3 HENMT Head: Yes normocephalic Eyes General: appearance normal, both eyes and all related structures Resp Effort & Inspection: normal respiratory effort, no cough and no stridor Cardio Rhythm: regular rhythm Heart sounds: S1 normal heart sound present and S2 normal heart sound present Skin General skin exam: turgor normal Neuro General: patient oriented x3, tone normal and moves all extremities Extrem Other: Limited range of motion right shoulder to 45 degree in extension. Secondary to pain, soreness with palpation around the shoulder, also limited range of motion in rotation neck to worse left and in full flexion due to pain around the shoulder area. Motor and sensory is intact. Right lower extremity: no edema Left lower extremity: no edema Assessment and Plan Assessment & Plan (1) Radiculitis of right cervical region: Code(s): M54.12 - Radiculopathy, cervical region (2) Shoulder pain, right: Code(s): M25.511 - Pain in right shoulder (3) Fall: Code(s): W19.XXXA - Unspecified fall, initial encounter Plan 6 weeks ago patient tripped and fell on her right arm/shoulder Since then she has been having pain in her shoulder and neck area. Patient says that she waited that long thinking it will get better and it does improve until something happens. She is pointing all the way from neck shoulder and hand as a site of pain. On examination wrist and elbow are fine She does have discomfort with shoulder palpation and has limited range of motion cannot lift above 45 degree Patient is also having pain with neck rotation to left side and flexion. I have ordered x-ray of her neck and shoulder She is to start physical therapy. Patient have esophagus esophagitus, and is due to have endoscopy and dilatation 05/02/2023 Orders: Orders XR cervical spine 2V Today M54.12 - Radiculopathy, cervical region XR shoulder RT min 2V Today M25.511 - Pain in right shoulder, W19.XXXA - Unspecified fall, initial encounter PT Evaluation and Treatment Today M25.511 - Pain in right shoulder Coding Level of Care Code Est Pt Level 4 (92265) Diagnoses Radiculitis of right cervical region M54.12 Shoulder pain, right M25.511 Fall W19.XXXA
== END 2023-04-17 09:25 | disposition home or self-care (01) ==
PROVIDERS: PCP Internal Medicine; Visit Provider Internal Medicine
DX: M54.12 Radiculopathy, cervical region (principal); M25.511 Pain in right shoulder; W19.XXXA Unspecified fall, initial encounter
CPT/HCPCS: 99214

== ENCOUNTER 2023-04-17 09:09 | Outpatient (REF) | payer MEDICARE, OTHER, SELFPAY ==
--- NOTE | ~2023-04-17 | XR_ITS ---
EXAMINATION: XR CERVICAL SPINE CLINICAL INFORMATION: Cervical radiculopathy. COMPARISON: Portions of the MR cervical spine dated 06/14/2013. TECHNIQUE: Frontal, odontoid and lateral views of the cervical spine were obtained. FINDINGS: There is bony demineralization. Vertebral body heights are normal. At C3-C4, there is a 2 mm anterolisthesis. At C4-C5, there is a 4 mm anterolisthesis. At C5-C6, there is marked disc space narrowing. At C6-C7, there is moderate disc space narrowing. No acute fracture or spondylolisthesis is seen. This multi-level cervical spondylosis and facet arthropathy. The dens intact. There are dense right carotid atherosclerotic calcifications. XR/XR cervical spine 2V IMPRESSION: 1. There is multi-level cervical degenerative disc disease, spondylosis and facet arthropathy. Degenerative disc disease most pronounced at C5-C6, where it is severe. 2. There is marked right carotid atherosclerotic calcification, consistent with carotid ultrasound findings dated 12/30/2020.
--- NOTE | ~2023-04-17 | XR_ITS ---
EXAMINATION: XR SHOULDER, RIGHT CLINICAL INFORMATION: Pain. COMPARISON: None available. TECHNIQUE: AP external rotation, Grashey, scapular Y, and axillary views of the right shoulder. FINDINGS: Bony alignment and mineralization are normal. The glenohumeral joint is intact and shows moderate osteoarthritic change. The acromioclavicular and coracoclavicular intervals are normal. There is dense calcific tendinitis of the right rotator cuff insertion. No fracture or dislocation is seen. No foreign body is seen. There is no right pneumothorax. XR/XR shoulder RT min 2V IMPRESSION: 1. 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 2. There is dense calcific tendinitis of the right rotator cuff insertion.
== END 2023-04-17 09:10 | disposition home or self-care (01) ==
LOC: HO.HMGCX 09:09
PROVIDERS: PCP Internal Medicine; Visit Provider Internal Medicine
DX: M25.511 Pain in right shoulder (principal); M54.12 Radiculopathy, cervical region; Z91.81 History of falling
CPT/HCPCS: 72040; 73030

== ENCOUNTER 2023-05-02 06:40 | Day surgery (SDC) | payer MEDICARE, OTHER, SELFPAY ==
[2023-04-30 12:57] VITALS: BMI 31.8
--- NOTE | 2023-05-01 09:09 | P.CONAN_ITS ---
Documented by User: Nanette Santoro NP 05/01/23 09:10 HPI - Anesthesia Eval Consult details Narrative: 82yo F for Upper Endoscopy s/p same 01/2023 with MAC PMFSH Active Problems Active Problems: All Active Problems (Updated 04/17/23 @ 09:08 by Ella Garces MD) Otitis externa (Acute) Exposure to COVID-19 virus (Acute) Hearing impaired (Acute) Patient has active medical orders for life-sustaining treatment (MOLST) form (Acute) Hollenhorst plaque, right eye (Acute) Left knee pain (Acute) Restless leg syndrome (Acute) LFT elevation (Acute) Hypertension, essential (Acute) Do not resuscitate status (Acute) Right knee pain (Acute) Right knee buckling (Acute) Pain in left knee (Acute) Medicare annual wellness visit, subsequent (Acute) Recurrent otitis externa of both ears (Acute) Difficulty swallowing liquids (Acute) Hospital discharge follow-up (Acute) Difficulty swallowing solids (Acute) Eosinophilic esophagitis (Acute) Benign esophageal stricture (Acute) Upper respiratory infection (Acute) Gait instability (Acute) Balance disorder (Acute) Knee instability (Acute) Right knee pain (Acute) Radiculitis of right cervical region (Acute) Shoulder pain, right (Acute) Fall (Acute) Anxiety, generalized (Acute) Lipid disorder (Acute) Diabetes 1.5, managed as type 2 (Acute) Past Medical History Medical History Restless leg syndrome HTN (hypertension) History of COVID-19 Anxiety, generalized 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 Mother Dementia Pancreatitis Family history of problems with anesthesia: No Surgical History Surgical History History of esophagogastroduodenoscopy (EGD) H/O colonoscopy History of hysterectomy History of total knee replacement (TKR) History of Problems with Anesthesia: No Social History Social History Housing: Apartment Alcohol intake: never Patient Tobacco Use Status: Never used Tobacco e-Cigarette/Vaping Use: Never Used Use of substances other than those prescribed or required for medical reasons: No Are you DNR?: Yes Advance Directives: Yes Advance Directives Information Provided: Yes Advance Directives on File: Yes Advance Directives Date on File: 11/23/20 service: No Current occupational status: retired Cognitive needs: No Hearing needs: Yes Vision needs: Yes Meds Allergies Allergy/AdvReac Type Severity Reaction Status Date / Time Penicillins [PENICILLINS] Allergy Intermediate RASH Verified 04/17/23 08:57 crab AdvReac Intermediate DIARRHEA Verified 04/17/23 08:57 Environmental Allergy Intermediate Runny Nose Uncoded 03/26/23 11:06 Home Medications Medication Instructions Recorded Confirmed Last Taken Type pramipexole 0.5 mg tablet 0.5 mg PO BEDTIME 09/13/20 04/30/23 Unknown History vitamins A,C,W-qpxj-nomudf 4,296 1 cap PO DAILY 12/05/22 04/30/23 Unknown History mcg-226 mg-90 mg capsule (PreserVision AREDS) dorzolamide 22.3 mg-timolol 6.8 1 drp ophthalmic (eye) BID 02/14/23 04/30/23 Unknown History mg/mL eye drops Exam Exam Date and Time: May 01, 2023 0909 Height,Weight and Vital Signs: Height 5 ft Weight 73.936 kg Pertinent Lab Results Pertinent Lab Results: Laboratory Tests 03/08/23 03/08/23 13:50 13:50 WBC 7.2 Hgb 14.5 Hct 42.9 Plt Count 174 Sodium 138 Potassium 4.3 Chloride 107 Carbon Dioxide 22 BUN 19 H Creatinine 0.68 Assessment and Plan Assessment Anesthesia Assessment: Chart Reviewed Final Anesthetic Review Family History of Problems with Anesthesia: No History of Problems with Anesthesia: No Documented by User: Katelyn Anand MD 05/02/23 07:56 [facility] Past Medical History Medical History Restless leg syndrome HTN (hypertension) History of COVID-19 Anxiety, generalized 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 Mother Dementia Pancreatitis Surgical History Surgical History History of esophagogastroduodenoscopy (EGD) H/O colonoscopy History of hysterectomy History of total knee replacement (TKR) Social History Social History Housing: Apartment Alcohol intake: never Patient Tobacco Use Status: Never used Tobacco e-Cigarette/Vaping Use: Never Used Use of substances other than those prescribed or required for medical reasons: No Are you DNR?: Yes Advance Directives: Yes Advance Directives Information Provided: Yes Advance Directives on File: Yes Advance Directives Date on File: 11/23/20 service: No Current occupational status: retired Cognitive needs: No Hearing needs: Yes Vision needs: Yes Meds Allergies Allergy/AdvReac Type Severity Reaction Status Date / Time Penicillins [PENICILLINS] Allergy Intermediate RASH Verified 04/17/23 08:57 crab AdvReac Intermediate DIARRHEA Verified 04/17/23 08:57 Environmental Allergy Intermediate Runny Nose Uncoded 03/26/23 11:06 Home Medications Medication Instructions Recorded Confirmed Last Taken Type pramipexole 0.5 mg tablet 0.5 mg PO BEDTIME 09/13/20 04/30/23 Unknown History vitamins A,C,U-olli-wzlxck 4,296 1 cap PO DAILY 12/05/22 04/30/23 Unknown History mcg-226 mg-90 mg capsule (PreserVision AREDS) dorzolamide 22.3 mg-timolol 6.8 1 drp ophthalmic (eye) BID 02/14/23 04/30/23 Unknown History mg/mL eye drops Exam Airway Mallampati Class: III TM Dist: >3cm Neck ROM: Full Loose/Missing/Broken Teeth: No Heart: RRR Lungs: CTA Assessment and Plan Assessment Anesthesia Assessment: Anesthesia Plan Discussed Final Anesthetic Review NPO: Yes ASA Class: II Final Preanesthetic Review: Meds/Allgs Chart Reviewed, Consent Obtained/Reviewed and Anes Risks/Benef Reviewed Patient Risk: Low Procedure Risk: Intermediate Anesthetic Plan Anesthetic Plan: MAC: Disposition: Standard PACU
[2023-05-02 06:48] VITALS: BMI 31.0
[2023-05-02 06:49] VITALS: BP 137/50; PULSE 71; RESP 17; TEMP 36.7; O2SAT 96
[2023-05-02 06:50] LABS: Glucose, Whole Blood 158 mg/dL (60-115)
--- NOTE | 2023-05-02 07:40 | P.OP_ITS ---
Operative Note Operative Note Date of Service: 05/02/23 Narrative: Procedure:?Esophagogastroduodenoscopy Endoscopist:?Catalina Rice MD Indication:?Intermittent dysphagia Anesthesia Provider:?Katelyn Anand MD Anesthesia Type:?MAC ?? EGD Procedure:?? The procedure, indications, preparation and potential complications were reviewed with the patient, who indicated understanding and gave written informed consent to proceed. A physical exam was performed. The endoscope was introduced through the mouth, and advanced to the second part of duodenum. The mucosa was carefully examined on slow withdrawal of the endoscope. The patient tolerated the procedure well. There were no immediate complications.? ? EGD Findings:? * Esophagus:? Normal appearing esophageal mucosa until the Z line which was at 36 cm with a salmon colored tongue extending up to 35 cm. Cold forceps biopsies were taken from irregular GEJ to r/o Still's as well as mid esophagus and lower esophagus to monitor for EoE. * Stomach:? Normal gastric mucosa. Retroflexion in the fundus confirmed the size and morphology of the hiatal hernia. * Duodenum:? Normal mucosa was noted in the whole of the examined duodenum. Additional intervention:?A soft-tip Savary wire was introduced through the scope and left in the antrum. The endoscope was then withdrawn and Savary-Guillard bougie was guided over the wire and the esophagus was dilated to 18 mm. Due to significant resistance we decided to take relook which showed superficial tear at 14 cm confirming successful dilation.? ? EGD Impressions:? * Irregular Z line (biopsy) * Upper esophageal stricture (dilation) * Hiatal hernia * Normal stomach * Normal duodenum?? Recommendations:?? * Follow biopsy results. Our office will call or send a letter with results within 7-10 days. * Depending on eosinophil count will discuss with pt if okay to stay on PPI vs go back to topical steroid * Repeat EGD in 6-8 weeks for completion of dilation to 20 mm. * Avoid NSAIDs. Above has been reviewed with the patient. Relevant educational hand outs were provided at discharge.?
--- NOTE | 2023-05-02 07:40 | MHC.SHP ---
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, managed as type 2 History of COVID-19 HTN (hypertension) Lipid disorder Restless leg syndrome Surgical History: H/O colonoscopy History of esophagogastroduodenoscopy (EGD) History of hysterectomy History of total knee replacement (TKR) Allergies: Allergies Allergy/AdvReac Type Severity Reaction Status Date / Time Penicillins [PENICILLINS] Allergy Intermediate RASH Verified 04/17/23 08:57 crab AdvReac Intermediate DIARRHEA Verified 04/17/23 08:57 Environmental Allergy Intermediate Runny Nose Uncoded 03/26/23 11:06 Review of Systems Review of Systems Comment: 10 point ROS negative Exam Exam Comment: Gen appear: No acute distress HEENT: no icterus Chest: No overt resp distress Abd: soft, nontender, nondistended Psych: Stable affect, answering questions appropriately Neuro: A/Ox3 noted to move all extremities spontaneously Ext: no peripheral edema Plan Diagnosis/Plan: Unchanged I have reviewed the history and physical and performed a pertinent physical examination on my patient. No changes have occurred unless specified. Time Spent With Patient Time: Total time managing care of this patient today ____ minutes.
[2023-05-02 08:13] VITALS: BP 114/47; PULSE 60; RESP 16; TEMP 37; O2SAT 98
[2023-05-02 08:28] VITALS: BP 116/44; PULSE 61; RESP 16; O2SAT 98
[2023-05-02 08:43] VITALS: BP 139/60; PULSE 61; RESP 16; TEMP 37; O2SAT 95
== END 2023-05-02 09:41 | disposition home or self-care (01) ==
PROVIDERS: PCP Internal Medicine; Visit Provider Internal Medicine
PROC: 0DJ08ZZ Inspection of Upper Intestinal Tract, Via Natural or Artificial Opening Endoscopic (ICD-10-PCS; CPT 43235; principal; 2023-05-02 07:30)
DX: K22.2 Esophageal obstruction (principal); K20.0 Eosinophilic esophagitis; K44.9 Diaphragmatic hernia without obstruction or gangrene; E11.9 Type 2 diabetes mellitus without complications; I10 Essential (primary) hypertension; E78.5 Hyperlipidemia, unspecified; Z90.710 Acquired absence of both cervix and uterus; Z79.899 Other long term (current) drug therapy
CPT/HCPCS: 43239; 43248; 82947; 88305; C1769

== ENCOUNTER → 2023-05-02 06:40 | Outpatient (BNV) | payer MEDICARE, OTHER, SELFPAY | PROVIDERS: PCP Internal Medicine; Visit Provider Internal Medicine | DX: R13.10 Dysphagia, unspecified (principal) | CPT/HCPCS: 43239; 43248 ==

== ENCOUNTER 2023-05-06 10:00 | Outpatient (RCR) | payer MEDICARE, OTHER, SELFPAY ==
--- NOTE | 2023-04-30 12:00 | MHC.PT.EP ---
[facility] [place] Office [place] Office [place] Office [address] [phone] F: [phone] F: [phone] F: [phone] F: [phone] Physical Therapy Plan of Care Date of Evaluation: 04/30/23 Date of Surgery: Diagnosis: R shoulder pain Assessment: Pt is a 82 y/o F with HTN and DM who is referred to PT for eval and treatment of R shoulder pain resulting in decreased tolerance for lifting objects of weight, reaching above shoulder height, and HH chores secondary to decreased shoulder ROM, decreased shoulder strength, and pain. Pt is motivated and is deemed an appropriate candidate to receive skinned PT services to address her physical impairments in order to improve her function. 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 Pt will be able to place an object on a high shelf without difficulty; initial:6/10 difficulty Pt will improve SPADI outcome measure score by at least 13 points; initial:70 Treatment Plan: Modalities to reduce pain, spasms and effusion. Manual therapy to restore motion and function. Therapeutic exercise to improve strength and flexibility. Neuromuscular re-education for posture and balance. Therapeutic activities to return to functional activities of daily living. Electronically signed by: Patrick Stapleton PT. Please sign and return to therapist. Thank you for your referral.
--- NOTE | 2023-05-13 11:51 | MHC.PT.DC ---
[facility] [place] Office [place] Office [place] Office [address] Zunilda Nguyễn [address] [facility] [phone] F: [phone] F: [phone] F: [phone] F: [phone] Physical Therapy Discharge Report Diagnosis: R shoulder pain Date of Surgery: Date of Evaluation: 04/30/23 Date of Discharge: 05/13/23 Treatments to Date: 2 Cancellations to Date: No Shows to Date: Discharge Status: Patient Elected to Stop Discharge Summary: . Electronically signed by: Patrick Stapleton PT Please sign and return to therapist. Thank you for your referral.
== END 2023-05-13 11:52 | disposition home or self-care (01) ==
LOC: HO.PTCHIC 10:00
PROVIDERS: PCP Internal Medicine; Visit Provider Internal Medicine
DX: M25.511 Pain in right shoulder (principal)
CPT/HCPCS: 97110; 97161

== ENCOUNTER 2023-06-06 16:02 | Emergency (ER) | payer MEDICARE, OTHER, SELFPAY ==
--- NOTE | ~2023-06-06 | CT_ITS ---
EXAMINATION: NONCONTRAST HEAD CT NONCONTRAST MAXILLOFACIAL CT NONCONTRAST CERVICAL SPINE CT INDICATION INFORMATION: Fall, head trauma, nasal deformity. COMPARISON: MR brain 12/15/2019. MR cervical spine 06/17/2013. TECHNIQUE: Separate noncontrast CT examinations of the head, maxillofacial bones, and cervical spine were performed. Coronal and sagittal images were created for each examination at the technologist workstation. This CT examination was performed using dose optimization techniques as appropriate, variously including the following: *Automated exposure control *Adjustment of mA and/or kV according to patient size (this includes techniques or standardized protocols for targeted exams where dose is matched to indication/reason for exam; i.e. extremities or head) *Use of iterative reconstruction technique DLP: 614, 287 and 259 mGy-cm FINDINGS: Head: There is no evidence of acute intracranial hemorrhage or territorial infarction. No abnormal mass effect or midline shift is seen. Herrmann to white matter differentiation is well preserved. No extra-axial fluid collections are identified. No hydrocephalus. Proportional prominence of the ventricles and sulcal spaces is consistent with moderate volume loss. Patchy periventricular and deep white matter hypoattenuation is consistent with mild small vessel ischemic changes. No calvarial fracture. The mastoid air cells are well aerated. Maxillofacial: Mildly displaced comminuted nasal alae fractures. No additional maxillofacial fracture. Mild mucosal thickening of the maxillary sinuses. No air-fluid levels. Remaining of the paranasal sinuses are clear. The mandibular heads are well-seated in the condylar fossa. The orbits demonstrate a normal appearance bilaterally. The globes are intact, and there are no suspicious findings to suggest retrobulbar hemorrhage. Cervical spine: Chronic grade 1 anterolisthesis of C4 on C5, stable since 2012. No evidence of acute compression deformity or traumatic subluxation. Severe joint space narrowing with associated ligamentous calcifications in the atlantodental space. Severe intervertebral disc height loss at C5-C6. Moderate multilevel uncovertebral hypertrophy leading to various degrees of neural foraminal encroachment. Mild to moderate central spinal canal stenosis at C4-C6. Visualized portions of the lung apices are unremarkable. The thyroid gland is unremarkable. Prominent partially calcified bilateral carotic bulb atherosclerotic plaques. CT/CT cervical spine wo IV con IMPRESSION: 1. No acute intracranial abnormality. 2. Mildly displaced comminuted nasal alae fractures. No additional maxillofacial fracture. 3. No acute cervical spine fracture or traumatic subluxation. Moderate to severe multilevel cervical spondylosis leading to various degrees of neural foraminal encroachment and central canal stenosis.
[2023-06-06 16:16] VITALS: BP 102/45; BP 128/70; PULSE 76; PULSE 78; RESP 18; TEMP 36.6; O2SAT 95; O2SAT 98; BMI 35.4
--- NOTE | 2023-06-06 16:18 | ED_ITS ---
HPI - Fall General Chief Complaint: Fall Stated Complaint: Fell & hit face on concrete, bloody nose Time Seen by Provider: 06/06/23 16:16 Source: patient, EMS, RN notes reviewed and old records reviewed Mode of arrival: EMS History of Present Illness HPI Narrative: 82yo F w/PMHx gait instability, HTN, DM, HLD, c/o nasal pain & facial injury s/p mechanical trip & fall [employer] while walking down a hill with bag full of groceries. Admits started walking faster due to momentum & lost balance landing on face. Denies LOC or taking AC. Denies sx prior to fall. Denies neck/back pain, N/V, abd pain, numbnes/tingling, CP/SOB MD complaint: fall Onset (ago): hour(s) Related Data Home Medications Medication Instructions Recorded Confirmed pramipexole 0.5 mg tablet 0.5 mg PO BEDTIME 09/13/20 04/30/23 vitamins A,C,N-rhum-obdwjm 4,296 1 cap PO DAILY 12/05/22 04/30/23 mcg-226 mg-90 mg capsule (PreserVision AREDS) dorzolamide 22.3 mg-timolol 6.8 1 drp ophthalmic (eye) BID 02/14/23 04/30/23 mg/mL eye drops Previous Rx's Medication Instructions Recorded lancets 28 gauge (FreeStyle #100 ea 06/12/22 Lancets) lisinopril 2.5 mg tablet 2.5 mg PO QAM #90 tabs 12/04/22 rosuvastatin 20 mg tablet 20 mg PO QAM #90 tabs 12/21/22 blood-glucose transmitter (Dexcom #1 ea 01/02/23 G6 Transmitter device) metformin 500 mg tablet 500 mg PO DAILY #90 tabs 03/27/23 blood sugar diagnostic (FreeStyle #100 ea 04/10/23 Lite Strips) escitalopram oxalate 20 mg tablet 20 mg PO BEDTIME #90 tabs 05/31/23 blood-glucose sensor (Dexcom G6 #3 ea 06/04/23 Sensor device) omeprazole 20 mg capsule,delayed 20 mg PO BID #180 caps 06/04/23 release cefdinir 300 mg capsule 300 mg PO BID 7 days #14 caps 06/06/23 Allergies Allergy/AdvReac Type Severity Reaction Status Date / Time Penicillins [PENICILLINS] Allergy Intermediate RASH Verified 06/06/23 16:20 crab AdvReac Intermediate DIARRHEA Verified 06/06/23 16:20 Environmental Allergy Intermediate Runny Nose Uncoded 03/26/23 11:06 Review of Systems Review of Systems: Constitutional: No Fever, No Chills, No Night Sweats, No Fatigue, No Malaise ENT/Mouth: +facial pain, No Ear Pain, No Nasal Congestion, No Sinus Pain, No sore throat, No Rhinorrhea, No Swallowing Difficulty Eyes: No Eye Pain, No Swelling, No Redness, No Vision Changes Cardiovascular: No Chest Pain, No SOB, No Edema, No Palpitations Respiratory: No Cough, No Sputum, No Dyspnea Gastrointestinal: No Nausea, No Vomiting, No Diarrhea, No Constipation, No Abdominal pain Genitourinary: No Dysuria, No Hematuria, No Flank Pain Musculoskeletal: No joint pain, No Myalgias, No Joint Swelling Skin: + Skin Lesions, No rash Neuro: No Weakness, No Numbness, No Paresthesias, No Loss of Consciousness, No Dizziness, No Headache Yes all other systems are reviewed and are negative Constitutional: Constitutional: Reports as per HPI Neurologic: Denies Abnormal speech present [facility] Past Medical History Attestation statement: The following information was validated with the patient. Source: old records reviewed Medical History Restless leg syndrome HTN (hypertension) History of COVID-19 Anxiety, generalized Lipid disorder Diabetes 1.5, managed as type 2 Surgical History History of esophagogastroduodenoscopy (EGD) H/O colonoscopy History of hysterectomy History of total knee replacement (TKR) Family History Family History Father No problems noted. Mother Dementia Pancreatitis Social History Social History Housing: Apartment Alcohol intake: never Patient Tobacco Use Status: Never used Tobacco Smoked in Last 30 Days: No e-Cigarette/Vaping Use: Never Used Use of substances other than those prescribed or required for medical reasons: No Advance Directives: Yes Advance Directives on File: Yes Advance Directives Date on File: 11/23/20 service: No Current occupational status: retired Cognitive needs: No Hearing needs: Yes Vision needs: Yes Physical Exam Vital Signs: Vital Signs: Last Vital Signs Temp 97.9 F 06/06/23 16:16 Pulse 76 06/06/23 16:16 Resp 18 06/06/23 16:20 BP 102/45 L 06/06/23 16:16 Pulse Ox 95 06/06/23 16:16 O2 Del Method Room Air 06/06/23 16:16 BMI result Body Mass Index 35.4 Const: General: cooperative, healthy appearing and no acute distress Orientation/consciousness: patient oriented x3 Limitations: no limitations HEENT: Other: +nasal bridge swelling w/small abrasion. no active bleeding or epistaxis, +dry blood to right nare, no septal hematoma. no periorbital step-off. EOMI w/o entrapment Head: Yes normal to inspection and Yes atraumatic Ears: hearing grossly normal bilaterally and external ears normal Face and sinus: Yes normal facial exam Mouth: no drooling Throat: Yes posterior oropharynx normal, Yes uvula midline and No peritonsillar mass Eyes: General: appearance normal, both eyes and all related structures Pupils: Equal, round and reactive pupils present EOM: EOMs intact bilaterally Direct Ophthalmoscopy: no photophobia Neck: Other: C-collar in place Neck: Yes normal visual inspection and Yes no meningeal signs Chest: Chest palpation & inspection: normal inspection of the chest, normal palpation of entire chest wall and no crepitus Resp: Effort & Inspection: normal respiratory effort and no respiratory distress Auscultation: clear to auscultation bilaterally Cardio: Rate: regular rate Heart sounds: S1 normal heart sound present and S2 normal heart sound present GI: Inspection: Yes normal to inspection Palpation (GI): Soft to palpation, nontender, no guarding and not rigid Back/Spine/Pelvis: Other: No midline cervical/thoracic/lumbar spinous tenderness/step-off or deformity Skin: Rashes: no rashes Neuro: General: patient oriented x3, tone normal, moves all extremities, no meningeal signs and CN's II-XI intact bilaterally Cranial nerves: Yes CN's II-XII intact bilaterally and Yes Equal, round and reactive pupils present Cognition (Neuro): normal cognition Speech: No Abnormal speech present Motor exam (neuro): 5/5 motor strength present throughout and no tremor noted Extrem: Other: superficial abrasion to b/l knees w/o bleeding or ttp. FROM intact Course Course Course Narrative: 1928--CT head/brain wo IV con/CT cervical spine wo IV con/CT facial bones wo IV con IMPRESSION: 1. No acute intracranial abnormality. 2. Mildly displaced comminuted nasal alae fractures. No additional maxillofacial fracture. 3. No acute cervical spine fracture or traumatic subluxation. Moderate to severe multilevel cervical spondylosis leading to various degrees of neural foraminal encroachment and central canal stenosis. Results discussed with patient & family. patient requesting discharge. Will discharge with P.o. antibiotics and close ENT follow-up. discussed worrisome signs and symptoms and strict return precautions, and when to return to the emergency department. They verbalized understanding and feel safe for discharge at this time. Medical Decision Making Medical Decision Making MDM Narrative: 82yo F w/PMHx gait instability, HTN, DM, HLD, c/o nasal pain & facial injury s/p mechanical trip & fall [employer] while walking down a hill with bag full of groceries. On exam VSS, NAD, nontoxic appearing, C-collar in place, +nasal swelling w/abrasion, no septal hematoma, no focal neuro deficits. No midline spinous ttp. Concern for ICH/hematoma vs fxs. Low suspicion for intrathoracic or intra-abdominal bleeding or CVA or ACS Plan: Head/C-spine & facial bone CT Please refer to course for remaining clinical decision making, interpretation of labs/imaging results, and discussions with consultants and/or family members. Differential Diagnosis Differential Diagnoses: The differential diagnosis associated with the presentation includes As above Admission/Observation Consideration of admission/observation: Escalation of care including admission/observation considered Lab Data [facility] Lab Attestation statement: I reviewed the patient's lab results. Radiology Impression Discussion of test interpretation with radiology: I have reviewed the radiologist's reading. Independent Historian Clinical information obtained from an independent historian. History obtained from or confirmed by: EMS External Record Review External record reviewed: Inpatient record, Office record, Outpatient record, Prior outpatient labs, Prior outpatient radiology, Primary care record and Outside ED record Tests considered The following testing was considered but not selected: As above Prescription Management I considered prescription management with: Pain Medication Chronic Conditions Patient?s care impacted by: Hypertension Discharge Plan Discharge Clinical Impression: Nasal bone fracture, Degenerative cervical spinal stenosis Patient Disposition: Home, Self-Care Instructions: Nasal Fracture (ED), Cervical Spinal Stenosis (ED) Additional Instructions: you have a displaced comminuted nasal bone fracture. cefdinir is an antibiotic please take as prescribed. You need to follow-up with Ear Nose Throat, ENT, specialist Avoid any repeat trauma to nose, nasal blowing, or increased pressure to face/sneezing, etc. your CT scan also shows degenerative disc disease of her cervical spine which you are aware of Take Tylenol and Motrin for pain Ice areas Follow-up with her primary care doctor Prescriptions: New cefdinir 300 mg capsule 300 mg PO BID 7 Days Qty: 14 0RF No Action (DME) lancets [FreeStyle Lancets] 28 gauge misc See Rx Instructions .Route Qty: 100 0RF Rx Instructions: As directed lisinopril 2.5 mg tablet 2.5 mg PO QAM Qty: 90 1RF rosuvastatin 20 mg tablet 20 mg PO QAM Qty: 90 1RF (DME) Dexcom G6 Transmitter Device See Rx Instructions .ROUTE QID Qty: 1 3RF Rx Instructions: As directed metformin 500 mg tablet 500 mg PO DAILY Qty: 90 1RF (DME) FreeStyle Lite Strips Strip See Rx Instructions .Route Qty: 100 3RF Rx Instructions: Once a day escitalopram oxalate 20 mg tablet 20 mg PO BEDTIME Qty: 90 1RF omeprazole 20 mg capsule,delayed release(DR/EC) 20 mg PO BID Qty: 180 3RF (DME) Dexcom G6 Sensor Device See Rx Instructions .Route Qty: 3 3RF Rx Instructions: once a day dorzolamide-timolol 22.3-6.8 mg/mL drops 1 drp ophthalmic (eye) BID pramipexole 0.5 mg tablet 0.5 mg PO BEDTIME PreserVision AREDS 4,296 mcg-226 mg-90 mg capsule 1 cap PO DAILY Referrals: Stephanie Nye MD [Physician] - Carolina Mendez, DNP, [employer]ER [Nurse Practitioner] - Yahir Quiros [Physician] - Interventions: ED Discharge Assessment Last Done: 06/06/23 19:48 Discharge Date/Time: 06/06/23 19:49
[2023-06-06 16:20] VITALS: RESP 18
== END 2023-06-06 19:49 | disposition home or self-care (01) ==
PROVIDERS: Emergency Provider Emergency Medicine; PCP Internal Medicine
DX: S02.2XXA Fracture of nasal bones, initial encounter for closed fracture (principal); S80.212A Abrasion, left knee, initial encounter; S80.211A Abrasion, right knee, initial encounter; W10.2XXA Fall (on)(from) incline, initial encounter; M47.812 Spondylosis without myelopathy or radiculopathy, cervical region; M48.02 Spinal stenosis, cervical region; I10 Essential (primary) hypertension; E13.9 Other specified diabetes mellitus without complications; E78.5 Hyperlipidemia, unspecified; Y93.01 Activity, walking, marching and hiking; Y92.410 Unspecified street and highway as the place of occurrence of the external cause; Y99.9 Unspecified external cause status
CPT/HCPCS: 70450; 70486; 72125; 99284

== ENCOUNTER 2023-06-19 10:48 | Outpatient (AMB) | payer MEDICARE, OTHER, SELFPAY ==
[2023-06-19 10:54] VITALS: BP 118/58; PULSE 76; O2SAT 97; BMI 32.5
--- NOTE | 2023-06-19 10:54 | A.OFFPC_ITS ---
Vital Signs 3 06/19/23 10:54 Height 5 ft Weight 166 lb 4 oz BMI 32.5 BP 118/58 L Blood Pressure Location Rt brachial Position Sitting Pulse 76 Pulse Source Pulse Oximeter Pulse Oximetry (%) 97 Oxygen Delivery Method Room Air Intake Visit Reasons: 3 month Follow Up ~ Allergies Penicillins [PENICILLINS] Allergy (Intermediate, Verified 06/19/23 10:54) RASH crab Adverse Reaction (Intermediate, Verified 06/19/23 10:54) DIARRHEA Environmental Allergy (Intermediate, Uncoded 03/26/23 11:06) Runny Nose Medication List - Last Reconciled 06/19/23 by Ella Garces MD blood sugar diagnostic (FreeStyle Lite Strips) Once a day blood-glucose sensor (Dexcom G6 Sensor device) once a day blood-glucose transmitter (Dexcom G6 Transmitter device) As directed cefdinir 300 mg PO BID 7 days dorzolamide-timolol 22.3-6.8 mg/mL 1 drp ophthalmic (eye) BID escitalopram oxalate 20 mg PO BEDTIME lancets (FreeStyle Lancets) As directed lisinopril 2.5 mg PO QAM metformin 500 mg PO DAILY omeprazole 20 mg PO BID pramipexole 0.5 mg PO BEDTIME rosuvastatin 20 mg PO QAM vitamins A,C,C-iaca-siohao 4,296 mcg-226 mg-90 mg (PreserVision AREDS) 1 cap PO DAILY Tobacco use date assessed: 06/19/23 Last assessed Fall Risk: 06/19/23 Dental Screening Dental Screen Date: 06/19/23 Did you have a dental problem in the last 6 months where you did not have access to dental care?: No HPI 3 month Follow Up ~ 2 HPI0 Details Patient is 82-year-old female with the history of diabetes mellitus, obesity was caring her groceries downhill and could not stop and fell. That was 06/06/2023 patient injured her skin under the eye and nose She was evaluated in emergency room. Patient had CT scan of head done which showed no acute abnormality However patient had mildly displaces nasal bone fracture She need a referral for ENT evaluation. Patient is going in for EGD in July and need clearance from ENT before the procedure due to fracture of nasal bones Skin under the eye is healing gradually Patient is diabetic diet controlled, she has gained some weight and would like to start taking Wegovy injections. I have sent a script for her She is also due for labs Anxiety : stable patient is on escitalopram 20 mg Continue lisinopril 2.5 mg On GERD: Continue omeprazole 20 mg Restless leg syndrome continue pramipexole 0.5 mg Lipid disorder: continue rosuvastatin [facility] Medical History Restless leg syndrome HTN (hypertension) History of COVID-19 Anxiety, generalized Lipid disorder Diabetes 1.5, managed as type 2 Surgical History History of esophagogastroduodenoscopy (EGD) H/O colonoscopy History of hysterectomy History of total knee replacement (TKR) Family History Father No problems noted. Mother Dementia Pancreatitis Social History Housing: Apartment Alcohol intake: never Patient Tobacco Use Status: Never used Tobacco e-Cigarette/Vaping Use: Never Used Advance Directives Date on File: 11/23/20 service: No Current occupational status: retired Cognitive needs: No Hearing needs: Yes Vision needs: Yes Questionnaire PHQ-9 Over the last 2 weeks, how often have you been bothered by any of the following problems? 35321 - PHQ-9 Billing: Patient declined-do not bill Source: Developed by Drs. Luis Pan, Crystal Magallon, Geoffrey Anguiano and colleagues, with an educational rosas from [employer]. Thrive Questionnaire Date Thrive assessed: 06/19/23 I am a: Patient What is your living situation today?: I have a steady place to live Within the past 12 months, did the food you bought not last and you didn't have the money to get more?: I choose not to answer this question Within the past 12 months, did you worry whether your food would run out before you got money to buy more?: I choose not to answer this question Do you have trouble paying for medicines?: I choose not to answer this question Do you have trouble getting transportation to medical appointments?: I choose not to answer this question Do you have trouble paying your heating and electricity bill?: I choose not to answer this question Do you have trouble taking care of your child, family member or friend?: I choose not to answer this question Do you have trouble with day-to-day activities such as bathing, preparing meals, shopping, managing finances, etc.?: I choose not to answer this question Are you currently unemployed and looking for a job?: I choose not to answer this question Are you interested in more education?: I choose not to answer this question Currently or been in a relationship where the following occur: I choose not to answer this question LG-7 AMB Questionnaire LG-7 Date LG - 7 assessed: 06/19/23 Source: Developed by Drs. Luis Pan, Crystal Magallon, Geoffrey Anguiano and colleagues, with an educational rosas from [employer]. LG-7 Assessment Billing LG-7 Assessment Tool: pt declined-do not bill Review of Systems Const Denies chills and Denies fever(s) ENT Denies epistaxis and Denies nasal discharge Card Denies chest pain Resp Denies chest congestion, Denies cough and Denies hemoptysis GI Denies diarrhea and Denies nausea Skin/Breast Denies rash Neuro Reports no additional complaints Psych Reports no additional complaints Endo Reports no additional complaints Physical exam (Primary Care) Vital Signs: Last Vital Signs Pulse 76 06/19/23 10:54 BP 118/58 L 06/19/23 10:54 Pulse Ox 97 06/19/23 10:54 Oxygen Delivery Method Room Air 06/19/23 10:54 BMI result Body Mass Index 32.5 Tobacco/Smoking Status: Tobacco use Status Tobacco use date assessed 06/19/23 06/19/23 10:55 Patient Tobacco Use Status Never used Tobacco 06/19/23 10:55 e-Cigarette/Vaping Use Never Used 06/19/23 10:55 Thrive Assessment: Date of Thrive Assessment Date Thrive assessed 06/19/23 06/19/23 11:13 Currently or been in a relationship where the following occur: I choose not to answer this question Const General: cooperative, comfortable and no acute distress Orientation/consciousness: patient oriented x3 HENMT Head images: 2 1. Superficial skin laceration healing 2. Ecchymosis bridge of nose Eyes General: appearance normal, both eyes and all related structures Neck Neck: Yes supple Resp Effort & Inspection: normal respiratory effort, no cough and no stridor Cardio Rhythm: regular rhythm Heart sounds: S1 normal heart sound present and S2 normal heart sound present Skin General skin exam: turgor normal Neuro General: patient oriented x3, tone normal and moves all extremities Extrem Right lower extremity: no edema Left lower extremity: no edema Assessment and Plan Assessment & Plan (1) Recurrent falls while walking: Code(s): R29.6 - Repeated falls (2) Facial injury: Code(s): S09.93XA - Unspecified injury of face, initial encounter Qualifiers: Encounter type: initial encounter Qualified Code(s): S09.93XA - Unspecified injury of face, initial encounter (3) Nasal bones, closed fracture: Code(s): S02.2XXA - Fracture of nasal bones, initial encounter for closed fracture Qualifiers: Encounter type: initial encounter Qualified Code(s): S02.2XXA - Fracture of nasal bones, initial encounter for closed fracture (4) Gait instability: Code(s): R26.81 - Unsteadiness on feet (5) Hypertension, essential: Code(s): I10 - Essential (primary) hypertension (6) Restless leg syndrome: Code(s): G25.81 - Restless legs syndrome (7) Diabetes 1.5, managed as type 2: Comment: taking Ozempic weekly Code(s): E13.9 - Other specified diabetes mellitus without complications (8) Lipid disorder: Code(s): E78.9 - Disorder of lipoprotein metabolism, unspecified (9) Anxiety, generalized: Code(s): F41.1 - Generalized anxiety disorder Plan Patient is 82-year-old female with the history of diabetes mellitus, obesity was caring her groceries downhill and could not stop and fell. That was 06/06/2023 patient injured her skin under the eye and nose She was evaluated in emergency room. Patient had CT scan of head done which showed no acute abnormality However patient had mildly displaces nasal bone fracture She need a referral for ENT evaluation. Patient is going in for EGD in July and need clearance from ENT before the procedure due to fracture of nasal bones Skin under the eye is healing gradually Patient is diabetic diet controlled, she has gained some weight and would like to start taking Wegovy injections. I have sent a script for her She is also due for labs Anxiety : stable patient is on escitalopram 20 mg Continue lisinopril 2.5 mg On GERD: Continue omeprazole 20 mg Restless leg syndrome continue pramipexole 0.5 mg Lipid disorder: continue rosuvastatin Orders: Orders 2 Complete Blood Count Auto Diff Today E13.9 - Other specified diabetes mellitus without complications, E78.9 - Disorder of lipoprotein metabolism, unspecified, F41.1 - Generalized anxiety disorder, G25.81 - Restless legs syndrome, I10 - Essential (primary) hypertension, R26.81 - Unsteadiness on feet, R29.6 - Repeated falls, S02.2XXA - Fracture of nasal bones, initial encounter for closed fracture, S09.93XA - Unspecified injury of face, initial encounter Comprehensive [place]. Panel Fast Today E13.9 - Other specified diabetes mellitus without complications, E78.9 - Disorder of lipoprotein metabolism, unspecified, F41.1 - Generalized anxiety disorder, G25.81 - Restless legs syndrome, I10 - Essential (primary) hypertension, R26.81 - Unsteadiness on feet, R29.6 - Repeated falls, S02.2XXA - Fracture of nasal bones, initial encounter for closed fracture, S09.93XA - Unspecified injury of face, initial encounter Lipid Panel Today E13.9 - Other specified diabetes mellitus without complications, E78.9 - Disorder of lipoprotein metabolism, unspecified, F41.1 - Generalized anxiety disorder, G25.81 - Restless legs syndrome, I10 - Essential (primary) hypertension, R26.81 - Unsteadiness on feet, R29.6 - Repeated falls, S02.2XXA - Fracture of nasal bones, initial encounter for closed fracture, S09.93XA - Unspecified injury of face, initial encounter Hemoglobin A1c Today E13.9 - Other specified diabetes mellitus without complications, E78.9 - Disorder of lipoprotein metabolism, unspecified, F41.1 - Generalized anxiety disorder, G25.81 - Restless legs syndrome, I10 - Essential (primary) hypertension, R26.81 - Unsteadiness on feet, R29.6 - Repeated falls, S02.2XXA - Fracture of nasal bones, initial encounter for closed fracture, S09.93XA - Unspecified injury of face, initial encounter Referrals 2 Ear/Nose/Throat Referral S02.2XXA - Fracture of nasal bones, initial encounter for closed fracture Medications: New 2 Wegovy (semaglutide (weight loss)) administer weeks 1 through 4 of therapy 0.25 mg (0.5 mL) subcut QWEEK 2 mL 0RF NS Coding Level of Care Code Est Pt Level 5 (16297) Diagnoses Recurrent falls while walking R29.6 Facial injury, initial encounter S09.93XA Encounter type: initial encounter Closed fracture of nasal bone, initial encounter S02.2XXA Encounter type: initial encounter Gait instability R26.81 Hypertension, essential I10 Restless leg syndrome G25.81 Diabetes 1.5, managed as type 2 E13.9 Lipid disorder E78.9 Anxiety, generalized F41.1 Time Spent (min) 45 Comment 8 minute prep, 25 with patient, 12 minute charting coordination of care
== END 2023-06-19 15:06 | disposition home or self-care (01) ==
PROVIDERS: PCP Internal Medicine; Visit Provider Internal Medicine
DX: R29.6 Repeated falls (principal); E13.9 Other specified diabetes mellitus without complications; S09.93XA Unspecified injury of face, initial encounter; S02.2XXA Fracture of nasal bones, initial encounter for closed fracture; R26.81 Unsteadiness on feet; I10 Essential (primary) hypertension; G25.81 Restless legs syndrome; E78.9 Disorder of lipoprotein metabolism, unspecified; F41.1 Generalized anxiety disorder
CPT/HCPCS: 99215

== ENCOUNTER 2023-07-27 09:37 | Outpatient (REF) | payer MEDICARE, OTHER, SELFPAY ==
[2023-07-27 10:03] LABS: MANUAL DIFF FLAG NO
[2023-07-27 10:19] LABS: Basophils Absolute Auto 0.1 X10*3/uL (0.0-0.2); Eosinophils Absolute Auto 0.6 X10*3/uL (0.0-0.4); Eosinophils Percent Auto 7.7 % (0-4); Hematocrit 41.8 % (37.0-47.0); Hemoglobin 13.9 g/dl (12.0-16.0); Imm Gran Abs Auto 0.05 X10*3/uL (0.00-0.03); Imm Gran Pct Auto 0.7 % (0.0-0.4); Lymphocytes Absolute Auto 2.4 X10*3/uL (1.2-4.9); Lymphocytes Percent Auto 33.1 % (20-40); Mean Corpuscular HGB Conc 33.3 g/dl (31.0-35.0); Mean Corpuscular Volume 87.1 fL (80.0-98.0); Mean Platelet Volume 10.1 fL (9.4-12.3); Monocytes Absolute Auto 0.6 X10*3/uL (0.1-1.2); Monocytes Percent Auto 8.8 % (2-11); Neutrophils Absolute Auto 3.5 x10*3/uL (2.0-8.3); Neutrophils Percent Auto 48.7 % (45-73); Platelet Count 173 X10*3/uL (160-400); Red Cell Distribution Width 12.9 % (11.0-16.0); White Blood Count 7.2 X10*3/uL (4.8-10.8)
[2023-07-27 10:27] LABS: Estimated Average Glucose 163 mg/dL; Hemoglobin A1c % 7.3 % (<6.0)
[2023-07-27 10:43] LABS: Alanine Aminotransferase 28 U/L (0-31); Albumin Level 4.3 g/dL (3.5-5.0); Alkaline Phosphatase 53 U/L (39-117); Anion Gap 12 (12-20); Aspartate Amino Transferase 24 U/L (5-31); Bilirubin Total 0.6 mg/dL (0.0-1.0); Blood Urea Nitrogen 20 mg/dL (9-16); Calcium 9.6 mg/dL (8.4-10.2); Carbon Dioxide 23 mmol/L (22-29); Chloride 109 mmol/L (96-108); Cholesterol 142 mg/dL (<200); Estimated Glomerular Filt Rate > 60; Glucose Fasting 148 mg/dL (60-99); HDL Cholesterol 38 mg/dL (>40); LDL Cholesterol Calculated 70 mg/dL (<100); Potassium 4.2 mmol/L (3.3-5.1); Sodium 140 mmol/L (135-145); Total Protein 6.8 g/dL (6.5-8.0); Triglycerides 173 mg/dL (<150)
== END 2023-07-27 09:38 | disposition home or self-care (01) ==
LOC: HO.LAB 09:37
PROVIDERS: PCP Internal Medicine; Visit Provider Internal Medicine
DX: R29.6 Repeated falls (principal); S09.93XA Unspecified injury of face, initial encounter; S02.2XXA Fracture of nasal bones, initial encounter for closed fracture; R26.81 Unsteadiness on feet; I10 Essential (primary) hypertension; G25.81 Restless legs syndrome; E13.9 Other specified diabetes mellitus without complications; E78.9 Disorder of lipoprotein metabolism, unspecified; F41.1 Generalized anxiety disorder
CPT/HCPCS: 36415; 80053; 80061; 83036; 85025

== ENCOUNTER 2023-07-30 13:08 | Outpatient (AMB) | payer MEDICARE, OTHER, SELFPAY ==
[2023-07-30 13:10] VITALS: BP 128/60; PULSE 80; O2SAT 97; BMI 32.7
--- NOTE | 2023-07-30 13:10 | A.OFFPC_ITS ---
Vital Signs 3 07/30/23 13:10 Height 5 ft Weight 167 lb 4 oz BMI 32.7 BP 128/60 Blood Pressure Location Lt brachial Position Sitting Pulse 80 Pulse Source Pulse Oximeter Pulse Oximetry (%) 97 Oxygen Delivery Method Room Air Intake Visit Reasons: Clearance EGD~ Allergies Penicillins [PENICILLINS] Allergy (Intermediate, Verified 07/30/23 13:10) RASH crab Adverse Reaction (Intermediate, Verified 07/30/23 13:10) DIARRHEA Environmental Allergy (Intermediate, Uncoded 03/26/23 11:06) Runny Nose Medication List - Last Reconciled 07/30/23 by Ella Garces MD blood sugar diagnostic (FreeStyle Lite Strips) Once a day blood-glucose sensor (Dexcom G6 Sensor device) once a day blood-glucose transmitter (Dexcom G6 Transmitter device) As directed cefdinir 300 mg PO BID 7 days dorzolamide-timolol 22.3-6.8 mg/mL 1 drp ophthalmic (eye) BID escitalopram oxalate 20 mg PO BEDTIME lancets (FreeStyle Lancets) As directed lisinopril 2.5 mg PO QAM metformin 500 mg PO DAILY omeprazole 20 mg PO BID pramipexole 0.5 mg PO BEDTIME rosuvastatin 20 mg PO QAM vitamins A,C,U-murv-rxjhuh 4,296 mcg-226 mg-90 mg (PreserVision AREDS) 1 cap PO DAILY Tobacco use date assessed: 07/30/23 Fall risk assessment: No Falls in past year Last assessed Fall Risk: 07/30/23 Dental Screening Dental Screen Date: 07/30/23 Did you have a dental visit in the last 12 months?: Yes Did you have a dental problem in the last 6 months where you did not have access to dental care?: No Was dental information given to patient?: Patient has dentist HPI Clearance EGD~ 2 HPI0 Details Patient is scheduled for EGD, she encountered nasal fracture after the fall mid of May patient is also due for her regular follow-up appointment Patient is doing well now there is no more pain around the base of nose She has chronically deviated septum towards left side. Her right nostril is completely open. Patient is cleared for EGD Labs were done recently reviewed with the patient her hemoglobin A1c came back at 7.3 Anxiety : stable patient is on escitalopram 20 mg Continue lisinopril 2.5 mg On GERD: Continue omeprazole 20 mg Restless leg syndrome continue pramipexole 0.5 mg Lipid disorder: continue rosuvastatin She will now return for follow-up in November [facility] Medical History Restless leg syndrome HTN (hypertension) History of COVID-19 Anxiety, generalized Lipid disorder Diabetes 1.5, managed as type 2 Surgical History History of esophagogastroduodenoscopy (EGD) H/O colonoscopy History of hysterectomy History of total knee replacement (TKR) Family History Father No problems noted. Mother Dementia Pancreatitis Social History Housing: Apartment Alcohol intake: never Patient Tobacco Use Status: Never used Tobacco e-Cigarette/Vaping Use: Never Used Advance Directives Date on File: 11/23/20 service: No Current occupational status: retired Cognitive needs: No Hearing needs: Yes Vision needs: Yes Questionnaire Thrive Questionnaire Date Thrive assessed: 06/19/23 AUDIT C Alcohol Use Questionnaire (AUDIT-C) 1. How often do you have a drink containing alcohol?: Never 3. How often do you have six or more drinks on one occasion?: Never Total Score: 0 Score Reviewed/Action Taken: Yes LG-7 AMB Questionnaire LG-7 Date LG - 7 assessed: 06/19/23 Source: Developed by Drs. Luis Pan, Crystal Magallon, Geoffrey Anguiano and colleagues, with an educational rosas from [employer]. Review of Systems Const Denies chills and Denies fever(s) ENT Denies epistaxis and Denies nasal discharge Card Denies chest pain Resp Denies chest congestion, Denies cough and Denies hemoptysis GI Denies diarrhea and Denies nausea Skin/Breast Denies rash Neuro Reports no additional complaints Psych Reports no additional complaints Endo Reports no additional complaints Physical exam (Primary Care) Vital Signs: Last Vital Signs Pulse 80 07/30/23 13:10 BP 128/60 07/30/23 13:10 Pulse Ox 97 07/30/23 13:10 Oxygen Delivery Method Room Air 07/30/23 13:10 BMI result Body Mass Index 32.7 Tobacco/Smoking Status: Tobacco use Status Tobacco use date assessed 07/30/23 07/30/23 13:18 Patient Tobacco Use Status Never used Tobacco 07/30/23 13:18 e-Cigarette/Vaping Use Never Used 07/30/23 13:18 Thrive Assessment: Date of Thrive Assessment Date Thrive assessed 06/19/23 07/30/23 13:18 Const General: cooperative, comfortable and no acute distress Orientation/consciousness: patient oriented x3 HENMT Head: Yes normocephalic Head images: 2 1. No pain with palpation, history of chronic deviated nasal septum to left. Right naris completely open Eyes General: appearance normal, both eyes and all related structures Neck Neck: Yes supple Resp Effort & Inspection: normal respiratory effort, no cough and no stridor Cardio Rhythm: regular rhythm Heart sounds: S1 normal heart sound present and S2 normal heart sound present Skin General skin exam: turgor normal Neuro General: patient oriented x3, tone normal and moves all extremities Extrem Right lower extremity: no edema Left lower extremity: no edema Assessment and Plan Assessment & Plan (1) Diabetes mellitus type 2 in obese: Code(s): E11.69 - Type 2 diabetes mellitus with other specified complication; E66.9 - Obesity, unspecified (2) Gait instability: Code(s): R26.81 - Unsteadiness on feet (3) Hypertension, essential: Code(s): I10 - Essential (primary) hypertension (4) Restless leg syndrome: Code(s): G25.81 - Restless legs syndrome (5) Lipid disorder: Code(s): E78.9 - Disorder of lipoprotein metabolism, unspecified (6) Anxiety, generalized: Code(s): F41.1 - Generalized anxiety disorder (7) History of fracture of nasal bone: Code(s): Z87.81 - Personal history of (healed) traumatic fracture Plan Patient is scheduled for EGD, she encountered nasal fracture after the fall mid of May patient is also due for her regular follow-up appointment Patient is doing well now there is no more pain around the base of nose She has chronically deviated septum towards left side. Her right nostril is completely open. Patient is cleared for EGD Labs were done recently reviewed with the patient her hemoglobin A1c came back at 7.3 Anxiety : stable patient is on escitalopram 20 mg Continue lisinopril 2.5 mg On GERD: Continue omeprazole 20 mg Restless leg syndrome continue pramipexole 0.5 mg Lipid disorder: continue rosuvastatin She will now return for follow-up in November Coding Level of Care Code Est Pt Level 4 (59912) Diagnoses Diabetes mellitus type 2 in obese E11.69; E66.9 Gait instability R26.81 Hypertension, essential I10 Restless leg syndrome G25.81 Lipid disorder E78.9 Anxiety, generalized F41.1 History of fracture of nasal bone Z87.81
== END 2023-07-30 16:54 | disposition home or self-care (01) ==
LOC: HO.HMGC 13:08
PROVIDERS: PCP Internal Medicine; Visit Provider Internal Medicine
DX: E11.69 Type 2 diabetes mellitus with other specified complication (principal); E66.9 Obesity, unspecified; R26.81 Unsteadiness on feet; Z68.32 Body mass index [BMI] 32.0-32.9, adult; I10 Essential (primary) hypertension; G25.81 Restless legs syndrome; E78.9 Disorder of lipoprotein metabolism, unspecified; F41.1 Generalized anxiety disorder; Z87.81 Personal history of (healed) traumatic fracture
CPT/HCPCS: 99214

== ENCOUNTER 2023-08-05 09:42 | Outpatient (REF) | payer MEDICARE, OTHER, SELFPAY ==
--- NOTE | ~2023-08-05 | FL_ITS ---
EXAMINATION: XR FLUOROSCOPY UPPER GI WITH AIR CLINICAL INFORMATION: Reflux. Intermittent dysphagia COMPARISON: Barium swallow 07/31/2022 TECHNIQUE: Fluoroscopic air contrast upper GI examination was performed utilizing standard techniques with thin and thick barium and effervescent granules. Numerous spot images were obtained. FINDINGS: A blood glucose monitoring devices present in the anterior abdominal wall. Lateral cine images of the oropharynx and hypopharynx demonstrate normal swallow mechanism with normal epiglottic inversion and soft palate elevation. There is trace laryngeal penetration with thick barium that clears with subsequent swallowing. No tracheal penetration/aspiration is identified. No nasopharyngeal reflux present. Hypopharyngeal structures appear normal without evidence of mass or diverticulum. There was no significant cricopharyngeal achalasia. Dual and single contrast images of the esophagus demonstrate normal caliber, contour, and mucosal pattern. No evidence of stricture, mass, or ulcerations identified. There is to and fro motion of the barium column throughout the esophagus. Nonpropulsive tertiary contractions are also noted throughout the esophagus. A small type I hiatal hernia is present. No significant gastroesophageal reflux was seen during the course of the examination and on reflux views. Dual contrast and single contrast images of the stomach demonstrated normal contour and mucosal pattern without evidence of mass, ulceration, or other abnormality. Contrast freely passed into the gastric antrum and duodenal bulb without delay. Single and air-contrast images of the duodenal bulb demonstrate no abnormality. The duodenal sweep has a normal appearance, course, and mucosal fold appearance. The imaged proximal jejunum has a normal fold pattern and caliber. FLUOROSCOPY TIME: 3 minutes 46 seconds Number of Spot Images: 14 Number of Cine: 7 DOSE AREA PRODUCT: 1659 uGy-m2 (microgray-meter squared) FL/FL barium swallow IMPRESSION: 1. Trace laryngeal penetration with thick barium 2. Presbyesophagus 3. Small type I hiatal hernia This procedure was performed by Manuel Larios PA-C, and supervised by Dr. Nicole
== END 2023-08-05 09:43 | disposition home or self-care (01) ==
LOC: HO.XRAY 09:42
PROVIDERS: PCP Internal Medicine; Visit Provider Internal Medicine
DX: R13.10 Dysphagia, unspecified (principal)
CPT/HCPCS: 74220

== ENCOUNTER → 2023-08-05 09:45 | Outpatient (BNV) | payer MEDICARE, OTHER, SELFPAY | PROVIDERS: PCP Internal Medicine; Visit Provider Radiology Diagnostic Radiology | DX: R13.10 Dysphagia, unspecified (principal) | CPT/HCPCS: 74221 ==

== ENCOUNTER 2023-09-04 09:24 | Day surgery (SDC) | payer MEDICARE, OTHER, SELFPAY ==
--- NOTE | 2023-09-03 10:34 | P.CONAN_ITS ---
Documented by User: Nnaette Santoro NP 09/03/23 10:36 HPI - Anesthesia Eval Consult details Narrative: 83yo F for Upper Endoscopy s/p same 04/2023 with [facility] Active Problems Active Problems: All Active Problems (Updated 07/30/23 @ 13:37 by Ella Garces MD) History of fracture of nasal bone (Acute) Diabetes mellitus type 2 in obese (Acute) Nasal bones, closed fracture (Acute) Facial injury (Acute) Recurrent falls while walking (Acute) Fall (Acute) Shoulder pain, right (Acute) Radiculitis of right cervical region (Acute) Right knee pain (Acute) Knee instability (Acute) Balance disorder (Acute) Gait instability (Acute) Upper respiratory infection (Acute) Benign esophageal stricture (Acute) Eosinophilic esophagitis (Acute) Difficulty swallowing solids (Acute) Hospital discharge follow-up (Acute) Difficulty swallowing liquids (Acute) Recurrent otitis externa of both ears (Acute) Medicare annual wellness visit, subsequent (Acute) Pain in left knee (Acute) Right knee buckling (Acute) Right knee pain (Acute) Do not resuscitate status (Acute) Hypertension, essential (Acute) LFT elevation (Acute) Restless leg syndrome (Acute) Left knee pain (Acute) Hollenhorst plaque, right eye (Acute) Patient has active medical orders for life-sustaining treatment (MOLST) form (Acute) Hearing impaired (Acute) Exposure to COVID-19 virus (Acute) Otitis externa (Acute) Anxiety, generalized (Acute) Lipid disorder (Acute) Diabetes 1.5, managed as type 2 (Acute) Past Medical History Medical History Restless leg syndrome HTN (hypertension) History of COVID-19 Anxiety, generalized 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 Mother Dementia Pancreatitis Family history of problems with anesthesia: No Surgical History Surgical History History of esophagogastroduodenoscopy (EGD) H/O colonoscopy History of hysterectomy History of total knee replacement (TKR) History of Problems with Anesthesia: No Social History Social History Housing: Apartment Alcohol intake: never Patient Tobacco Use Status: Never used Tobacco e-Cigarette/Vaping Use: Never Used Are you DNR?: No Advance Directives: No Advance Directives Information Provided: Yes Advance Directives Date on File: 11/23/20 Recently lost weight without trying: No Nutrition Risks: No Nutritional Risk service: No Current occupational status: retired Cognitive needs: No Hearing needs: Yes Vision needs: Yes Meds Allergies Allergy/AdvReac Type Severity Reaction Status Date / Time Penicillins [PENICILLINS] Allergy Intermediate RASH Verified 07/30/23 13:10 crab AdvReac Intermediate DIARRHEA Verified 07/30/23 13:10 Environmental Allergy Intermediate Runny Nose Uncoded 03/26/23 11:06 Home Medications Medication Instructions Recorded Confirmed Last Taken Type pramipexole 0.5 mg tablet 0.5 mg PO BEDTIME 09/13/20 07/30/23 Unknown History vitamins A,C,H-qhlf-egbjfu 4,296 1 cap PO DAILY 12/05/22 07/30/23 Unknown History mcg-226 mg-90 mg capsule (PreserVision AREDS) dorzolamide 22.3 mg-timolol 6.8 1 drp ophthalmic (eye) BID 02/14/23 07/30/23 09/04/23 History mg/mL eye drops Exam Pertinent Lab Results Pertinent Lab Results: Laboratory Tests 07/27/23 10:01 WBC 7.2 Hgb 13.9 Hct 41.8 Plt Count 173 Sodium 140 Potassium 4.2 Chloride 109 H Carbon Dioxide 23 BUN 20 H Creatinine 0.71 Assessment and Plan Assessment Anesthesia Assessment: Chart Reviewed Final Anesthetic Review Family History of Problems with Anesthesia: No History of Problems with Anesthesia: No Documented by User: Jackie Bray MD 09/04/23 10:14 [facility] Past Medical History Medical History Restless leg syndrome HTN (hypertension) History of COVID-19 Anxiety, generalized 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 Mother Dementia Pancreatitis Surgical History Surgical History History of esophagogastroduodenoscopy (EGD) H/O colonoscopy History of hysterectomy History of total knee replacement (TKR) Social History Social History Housing: Apartment Alcohol intake: never Patient Tobacco Use Status: Never used Tobacco e-Cigarette/Vaping Use: Never Used Are you DNR?: No Advance Directives: No Advance Directives Information Provided: Yes Advance Directives Date on File: 11/23/20 Recently lost weight without trying: No Nutrition Risks: No Nutritional Risk service: No Current occupational status: retired Cognitive needs: No Hearing needs: Yes Vision needs: Yes Meds Allergies Allergy/AdvReac Type Severity Reaction Status Date / Time Penicillins [PENICILLINS] Allergy Intermediate RASH Verified 07/30/23 13:10 crab AdvReac Intermediate DIARRHEA Verified 07/30/23 13:10 Environmental Allergy Intermediate Runny Nose Uncoded 03/26/23 11:06 Home Medications Medication Instructions Recorded Confirmed Last Taken Type pramipexole 0.5 mg tablet 0.5 mg PO BEDTIME 09/13/20 07/30/23 Unknown History vitamins A,C,F-kota-ssulxz 4,296 1 cap PO DAILY 12/05/22 07/30/23 Unknown History mcg-226 mg-90 mg capsule (PreserVision AREDS) dorzolamide 22.3 mg-timolol 6.8 1 drp ophthalmic (eye) BID 02/14/23 07/30/23 09/04/23 History mg/mL eye drops Exam Airway Mallampati Class: II TM Dist: >3cm Neck ROM: Full Partial: Lower Heart: rrr Lungs: cta Assessment and Plan Assessment Anesthesia Assessment: Anesthesia Plan Discussed Final Anesthetic Review NPO: Yes ASA Class: III Final Preanesthetic Review: No Changes in Pt Med Stat, Meds/Allgs Chart Reviewed and Consent Obtained/Reviewed Patient Risk: Intermediate Procedure Risk: Intermediate Anesthetic Plan Anesthetic Plan: MAC: Disposition: Standard PACU
[2023-09-04 09:28] VITALS: BP 147/55; PULSE 71; RESP 18; TEMP 36.7; O2SAT 96; BMI 32.7
--- NOTE | 2023-09-04 09:40 | MHC.SHP ---
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, managed as type 2) History of Previous Operations: Relevant previous surgery/procedure and date(s) (History of esophagogastroduodenoscopy (EGD) H/O colonoscopy History of hysterectomy History of total knee replacement (TKR)) Allergies: Allergies Allergy/AdvReac Type Severity Reaction Status Date / Time Penicillins [PENICILLINS] Allergy Intermediate RASH Verified 07/30/23 13:10 crab AdvReac Intermediate DIARRHEA Verified 07/30/23 13:10 Environmental Allergy Intermediate Runny Nose Uncoded 03/26/23 11:06 Review of Systems Sugical H&P ROS: Negative: Constitution, Cardiovascular, Respiratory, Neurological, Psychiatric, Hem-Onc, Allergic/Immunologic, Gastrointestinal, Genitourinary, Musculoskeletal, Integumentary, Endocrine and Eyes/Ears/Nose/Throat Exam Surgical H&P Exam: Normal: HEENT, Normal: Heart, Normal: Lungs, Normal: Extremities, Normal: Abdomen, Normal: Skin and Normal: Neurological Plan Diagnosis/Plan: Unchanged I have reviewed the history and physical and performed a pertinent physical examination on my patient. No changes have occurred unless specified. Time Spent With Patient Time: Total time managing care of this patient today ____ minutes.
[2023-09-04 09:49] LABS: Glucose, Whole Blood 181 mg/dL (60-115)
[2023-09-04] MEDS: Lactated Ringers 1,000 ML 100 ML IVCONT (09:53)
--- NOTE | 2023-09-04 10:32 | PC.NURSE ---
repositioned for comfort
--- NOTE | 2023-09-04 10:42 | W.PM.OPN ---
Operative Note Operative Note Date of Service: 09/04/23 Narrative: Procedure Description: EGD Indication: EoE and dysphagia Anesthesia: MAC FLEXIBLE TRANSORAL UPPER GASTROINTESTINAL ENDOSCOPY UPPER ENDOSCOPY Consent: Indications for the procedure and potential complications of bleeding, perforation, reaction to medications and missed diagnosis were discussed with the patient and informed consent was obtained. Instrument: Olympus GIF H 190 J mid size upper endoscope Monitoring: Vital signs and clinical assessment, continuous EKG monitoring, Pulse oximetry, Carbon Dioxide monitoring and blood pressure monitoring were done throughout the procedure. Procedure: The patient was placed in the left lateral decubitis position and pre-procedure medications were administered and a bite block was placed. The endoscope was inserted into the mouth and advanced under direct vision to the third part of duodenum. A careful inspection was made as the upper endoscope was withdrawn including a retroflexed examination of the proximal stomach; Findings and interventions are described below. Findings: Larynx:normal Esophagus: GE junction at 37 cm, diaphragm hiatus at 40 cm, 3 cm sliding hiatal hernia with bogginess and erythema at GEJ, possible barretts, bx taken from GEJ, distal and proximal esophagus, balloon dilation done at UES to 19 mm and LES to 19 mm, small superficial tear seen UES Stomach: Patchy gastric erythema at antrum. Biopsies were obtained. Grade 2 flap valve on retroflexed examination of the cardia. Duodenum: Normal bulb and descending duodenum, Intervention: Biopsies as noted above, balloon dilation Impression/Findings: gastritis hiatal hernia esophgeal stricture esophagitis PLAN: ensure compliance with PPI rept dilation prn
[2023-09-04 11:10] VITALS: BP 117/47; PULSE 57; RESP 16; TEMP 36.3; O2SAT 93
[2023-09-04 11:25] VITALS: BP 118/56; PULSE 55; RESP 16; O2SAT 94
[2023-09-04 11:40] VITALS: BP 108/56; PULSE 53; RESP 16; TEMP 36.3; O2SAT 95
== END 2023-09-04 12:03 | disposition home or self-care (01) ==
PROVIDERS: PCP Internal Medicine; Visit Provider Internal Medicine Gastroenterology
PROC: 0DJ08ZZ Inspection of Upper Intestinal Tract, Via Natural or Artificial Opening Endoscopic (ICD-10-PCS; CPT 43235; principal; 2023-09-04 11:20)
DX: K20.0 Eosinophilic esophagitis (principal); K22.2 Esophageal obstruction; K29.50 Unspecified chronic gastritis without bleeding; K44.9 Diaphragmatic hernia without obstruction or gangrene; F41.1 Generalized anxiety disorder; I10 Essential (primary) hypertension; E75.6 Lipid storage disorder, unspecified; E13.8 Other specified diabetes mellitus with unspecified complications; Z79.85 Long-term (current) use of injectable non-insulin antidiabetic drugs; Z79.899 Other long term (current) drug therapy; Z88.0 Allergy status to penicillin; Z86.16 Personal history of COVID-19
CPT/HCPCS: 43249; 43239; 82947; 88305; 88342; C1726; J2704

== ENCOUNTER → 2023-09-04 09:24 | Outpatient (BNV) | payer MEDICARE, OTHER, SELFPAY | PROVIDERS: PCP Internal Medicine; Visit Provider Internal Medicine Gastroenterology | DX: R13.10 Dysphagia, unspecified (principal); K20.0 Eosinophilic esophagitis | CPT/HCPCS: 43249 ==

== ENCOUNTER 2023-09-20 09:06 | Outpatient (AMB) | payer MEDICARE, OTHER, SELFPAY ==
[2023-09-20 09:14] VITALS: BP 110/52; PULSE 74; O2SAT 96; BMI 32.7
--- NOTE | 2023-09-20 09:14 | MHC.PC.OV ---
Vital Signs 09/20/23 09:14 Height 5 ft Weight 167 lb 8 oz BMI 32.7 BP 110/52 L Blood Pressure Location Rt brachial Position Sitting Pulse 74 Pulse Source Pulse Oximeter Pulse Oximetry (%) 96 Oxygen Delivery Method Room Air Intake Visit Reasons: eval growth Allergies Penicillins [PENICILLINS] Allergy (Intermediate, Verified 09/20/23 09:15) RASH crab Adverse Reaction (Intermediate, Verified 09/20/23 09:15) DIARRHEA Environmental Allergy (Intermediate, Uncoded 03/26/23 11:06) Runny Nose Medication List - Last Reconciled 09/20/23 by Ella Garces MD blood sugar diagnostic (FreeStyle Lite Strips) Once a day blood-glucose sensor (Dexcom G6 Sensor device) once a day blood-glucose transmitter (Dexcom G6 Transmitter device) As directed cefdinir 300 mg PO BID 7 days dorzolamide-timolol 22.3-6.8 mg/mL 1 drp ophthalmic (eye) BID escitalopram oxalate 20 mg PO BEDTIME lancets (FreeStyle Lancets) As directed lisinopril 2.5 mg PO QAM metformin 500 mg PO DAILY omeprazole 20 mg PO BID pramipexole 0.5 mg PO BEDTIME rosuvastatin 20 mg PO QAM vitamins A,C,V-sgyq-cncwhf 4,296 mcg-226 mg-90 mg (PreserVision AREDS) 1 cap PO DAILY Tobacco use date assessed: 09/20/23 Fall risk assessment: No Falls in past year Last assessed Fall Risk: 09/20/23 Dental Screening Dental Screen Date: 09/20/23 Did you have a dental visit in the last 12 months?: Yes Did you have a dental problem in the last 6 months where you did not have access to dental care?: No Was dental information given to patient?: Patient has dentist HPI eval growth HPI Details Patient has developed 1 cm by 2 cm long along raised cauliflower shaped lesion close to her left eye over her cheek Causing irritation when she wears glasses, patient is requesting a referral to specialist so that can be removed She had that removed once before in 2007 in [facility] Medical History Restless leg syndrome HTN (hypertension) History of COVID-19 Anxiety, generalized Lipid disorder Diabetes 1.5, managed as type 2 Surgical History History of esophagogastroduodenoscopy (EGD) H/O colonoscopy History of hysterectomy History of total knee replacement (TKR) Family History Father No problems noted. Mother Dementia Pancreatitis Social History Housing: Apartment Alcohol intake: never Patient Tobacco Use Status: Never used Tobacco e-Cigarette/Vaping Use: Never Used Advance Directives Date on File: 11/23/20 service: No Current occupational status: retired Cognitive needs: No Hearing needs: Yes Vision needs: Yes Questionnaire PHQ-9 Over the last 2 weeks, how often have you been bothered by any of the following problems? 1. Little interest or pleasure in doing things: not at all 2. Feeling down, depressed, or hopeless: not at all 3. Trouble falling or staying asleep, or sleeping too much: not at all 4. Feeling tired or having little energy: several days 5. Poor appetite or overeating: several days 6. Feeling bad about yourself - or that you are a failure or have let yourself or your family down: several days 7. Trouble concentrating on things, such as reading the newspaper or watching television: not at all 8. Moving or speaking so slowly that other people could have noticed. Or the opposite - being so fidgety or restless that you have been moving around a lot more than usual: not at all 9. Thoughts that you would be better off or of hurting yourself in some way: not at all Total score: 3 Depression Screening Interpretation: Negative Depression Screening Done: Yes 89016 - PHQ-9 Billing: Yes Source: Developed by Drs. Luis Pan, Crystal Magallon, Geoffrey Anguiano and colleagues, with an educational rosas from [employer]. Thrive Questionnaire Date Thrive assessed: 09/20/23 I am a: Patient What is your living situation today?: I have a steady place to live Within the past 12 months, did the food you bought not last and you didn't have the money to get more?: Never true Within the past 12 months, did you worry whether your food would run out before you got money to buy more?: Never true Do you have trouble paying for medicines?: No Do you have trouble getting transportation to medical appointments?: No Do you have trouble paying your heating and electricity bill?: No Do you have trouble taking care of your child, family member or friend?: No Do you have trouble with day-to-day activities such as bathing, preparing meals, shopping, managing finances, etc.?: No Are you currently unemployed and looking for a job?: No Are you interested in more education?: No Please select the resources that you would like help with: None Currently or been in a relationship where the following occur: no concerns reported THRIVE Score: 0 AUDIT C Alcohol Use Questionnaire (AUDIT-C) 1. How often do you have a drink containing alcohol?: Monthly or less 2. How many drinks containing alcohol do you have on a typical day when you are drinking?: 1 or 2 3. How often do you have six or more drinks on one occasion?: Never Total Score: 1 Score Reviewed/Action Taken: Yes LG-7 AMB Questionnaire LG-7 Date LG - 7 assessed: 06/19/23 Feeling nervous, anxious, or on edge: 1 = Several days Not being able to stop or control worryin = Not at all Worrying too much about different things: 1 = Several days Trouble relaxin = Not at all Being so restless that it is hard to sit still: 0 = Not at all Becoming easily annoyed or irritable: 1 = Several days Feeling afraid as if something awful might happen: 0 = Not at all Total LG-7 score (0-4 normal; 5-9 mild; 10-14 moderate; 15-21 severe): 3 Source: Developed by Drs. Luis Pan, Crystal Magallon, Geoffrey Anguiano and colleagues, with an educational rosas from [employer]. LG-7 Assessment Billing LG-7 Assessment Tool: LG-7 Assessment 72860 Review of Systems Const All systems reviewed & are unremarkable except as noted in HPI and below Physical exam (Primary Care) Vital Signs: Last Vital Signs Pulse 74 09/20/23 09:14 BP 110/52 L 09/20/23 09:14 Pulse Ox 96 09/20/23 09:14 Oxygen Delivery Method Room Air 09/20/23 09:14 BMI result Body Mass Index 32.7 Tobacco/Smoking Status: Tobacco use Status Tobacco use date assessed 09/20/23 09/20/23 09:20 Patient Tobacco Use Status Never used Tobacco 09/20/23 09:20 e-Cigarette/Vaping Use Never Used 09/20/23 09:20 PHQ-9: PHQ-9 Score PHQ-9: Total score 3 09/20/23 09:23 Depression Screening Interpretation: Negative Thrive Assessment: Date of Thrive Assessment Date Thrive assessed 09/20/23 09/20/23 09:23 Currently or been in a relationship where the following occur: no concerns reported Const General: no acute distress Orientation/consciousness: patient oriented x3 [facility] Head images: 1. 1 cm x 2 cm , raised, call if lower shape growth on face Eyes General: appearance normal, both eyes and all related structures Resp Effort & Inspection: normal respiratory effort and able to speak in complete sentences Auscultation: clear to auscultation bilaterally Neuro General: patient oriented x3 Psych Mental Status: mental status grossly normal Assessment and Plan Assessment & Plan (1) Actinic keratosis of left cheek: Code(s): L57.0 - Actinic keratosis Plan Patient has developed 1 cm by 2 cm long along raised cauliflower shaped lesion close to her left eye over her cheek Causing irritation when she wears glasses, patient is requesting a referral to specialist so that can be removed She had that removed once before in 2007 in [place] Orders: Referrals Dermatology Referral L57.0 - Actinic keratosis Coding Level of Care Code Est Pt Level 3 (09996) Diagnoses Actinic keratosis of left cheek L57.0 Additional Codes LG-7 Assessment Billing - LG-7 Assessment Tool: LG-7 Assessment 36650 ([id number])
== END 2023-09-20 12:49 | disposition home or self-care (01) ==
PROVIDERS: PCP Internal Medicine; Visit Provider Internal Medicine
DX: L57.0 Actinic keratosis (principal)
CPT/HCPCS: 99213

== ENCOUNTER 2023-09-27 13:52 | Outpatient (AMB) | payer MEDICARE, OTHER, SELFPAY ==
--- NOTE | 2023-09-27 13:54 | MHC.OFFVIS ---
Intake Vital Signs 09/27/23 13:57 Height 5 ft Weight 164 lb 8.821 oz BMI 32.1 BP 122/58 L Blood Pressure Location Lt brachial Position Sitting Pulse 72 Intake Visit Reasons: f/u EGD Intake Note: Katelyn presents in the office as a follow up EGD. CC: She states that she is symptomic. She states that she is having gas and regurgitation into her mouth. Metal Filer Required: No Allergies Penicillins [PENICILLINS] Allergy (Intermediate, Verified 09/27/23 13:58) RASH crab Adverse Reaction (Intermediate, Verified 09/27/23 13:58) DIARRHEA Environmental Allergy (Intermediate, Uncoded 09/27/23 13:58) Runny Nose hayfever Allergy (Mild, Uncoded 09/27/23 13:58) Unknown HPI HPI Comments History of Present Illness Details This is a 81-year-old female with past medical history of hypertension, type 2 diabetes, osteoarthritis, who is scheduled for a tele health visit today to follow up for EoE with stricture: Initial visit 06/13/22: Patient states that her trouble started back in 2007. At that time, she would notice it 1 to 2 times a year, would occur mostly with solids such as rice, pasta, chicken. Now occurring 3 to 4 times a year. She has had at least 2 ER visits for the same. Was given diagnosis of anxiety, and prescribed Ativan. Patient herself manages this at home by avoiding the trigger foods, and also cutting up her other foods really small ensuring them thoroughly. She also takes frequent sips of water. Most recent ER visit was for difficulty swallowing even liquids which made her more worried and hence she is now seeking gastroenterology consultation. She was unable to tolerate her secretions for at least 8-12 hours before get better. Was again given Ativan in the emergency room, but patient states that her symptoms started to get better even before that. She also reports a dry cough that started around 8 weeks ago, that got better on omeprazole trial. Also brings up issues with alternating diarrhea and constipation that got better with Ozempic. Thinks that recent initiation of omeprazole made it worse and is now also having fecal incontinence. She wonders if she can go off the omeprazole. Recent endoscopy: Most recent colonoscopy was in 2013 (Dr. Kathleen): Excellent prep. Diverticulosis. No polyps. 12/16/22: Patient reports at least 50% improvement in her swallowing. Notices a definite improvement in her quality of life. Reports that still has trouble swallowing with some foods but has not identified distinct food types. Continues with pantoprazole 40 mg twice a day dosing. EoE severity: [id number] based on EGD 07/2022. 09/27/23: Being seen after recent upper endoscopy with dilation (Dr. Morales). Feeling more bloated, with frequent belching since last upper endoscopy. Otherwise, no difficulty swallowing. Endoscopy: EGD 07/26/22: Trachealisation and fissuring, Hiro Dilation 16 to 18 mm. Path: 52 Eos/HPF. No HP. EGD 02/14/23: Hiro Dilation to 19 mm. Path: 1 Eos/HPF EGD 05/02/23: Hiro Dilation to 18 mm. Path: 2 Eos/HPF EGD 09/04/23: Balloon Dilation to 19 mm. Path: 1 Eos/HPF [facility] Medical History Restless leg syndrome HTN (hypertension) History of COVID-19 Anxiety, generalized Lipid disorder Diabetes 1.5, managed as type 2 Surgical History History of esophagogastroduodenoscopy (EGD) H/O colonoscopy History of hysterectomy History of total knee replacement (TKR) Family History Father No problems noted. Mother Dementia Pancreatitis Social History Housing: Apartment Alcohol intake: never Patient Tobacco Use Status: Never used Tobacco e-Cigarette/Vaping Use: Never Used Advance Directives Date on File: 11/23/20 service: No Current occupational status: retired Cognitive needs: No Hearing needs: Yes Vision needs: Yes Review of Systems Const All systems reviewed & are unremarkable except as noted in HPI and below Physical Exam Vital Signs: Last Vital Signs Pulse 72 09/27/23 13:57 BP 122/58 L 09/27/23 13:57 BMI result Body Mass Index 32.1 Gen appear: NAD HEENT: nonicteric, no cervical lymphadenopathy Chest: CTA CVS: Regular S1/S2 Abd: soft, nontender, nondistended, bowel sounds + Ext: no peripheral edema Neuro: A/Ox3, noted to move all extremities spontaneously Psych: interacting appropriately Assessment & Plan Assessment & Plan (1) Eosinophilic esophagitis: Code(s): K20.0 - Eosinophilic esophagitis (2) Benign esophageal stricture: Code(s): K22.2 - Esophageal obstruction Plan Continues to respond well to PPI therapy alone. Has not needed to go back on topical steroids. Eosinophilic esophagitis in remission based on histological eosinophilic count. Patient also reports no symptoms. Discussed avoiding dairy and wheat to see if bloating/belching improves, however patient reports that it is not troublesome, and the she would rather continue to enjoy her diet which is very reasonable. Plan: -patient to call our office for recurrence in symptoms of dysphagia, otherwise follow-up in 6 months -continue PPI Coding Level of Care Code Est Pt Level 4 (07321) Diagnoses Eosinophilic esophagitis K20.0 Benign esophageal stricture K22.2
[2023-09-27 13:57] VITALS: BP 122/58; PULSE 72; BMI 32.1
== END 2023-09-27 14:16 | disposition home or self-care (01) ==
PROVIDERS: PCP Internal Medicine; Visit Provider Internal Medicine
DX: K20.0 Eosinophilic esophagitis (principal); K22.2 Esophageal obstruction
CPT/HCPCS: 99214

== ENCOUNTER → 2023-09-27 13:52 | Outpatient (BNVA) | payer MEDICARE, OTHER, SELFPAY | PROVIDERS: PCP Internal Medicine; Visit Provider Internal Medicine | DX: K20.0 Eosinophilic esophagitis (principal); K22.2 Esophageal obstruction | CPT/HCPCS: 99212 ==

== ENCOUNTER 2023-12-01 14:15 | Emergency (ER) | payer MEDICARE, OTHER, SELFPAY ==
[2023-12-01 14:41] VITALS: BP 142/44; PULSE 70; RESP 20; TEMP 36.3; O2SAT 97; BMI 29.9
--- NOTE | 2023-12-01 15:03 | ED_ITS ---
HPI - Female Genitourinary General Chief complaint: Urogenital-Female Stated complaint: UTI Time Seen by Provider: 12/01/23 17:22 Source: patient Mode of arrival: ambulatory Limitations: no limitations History of Present Illness HPI Narrative: Patient comes to the emergency room complaining of increased urgency, worsening incontinence and suprapubic pressure. Patient denies nausea fever and diarrhea. Patient denies abdominal pain, denies flank pain. Patient states that she is prone to UTIs. Patient states that her energy level is at baseline, fairly good energy level. Denies any falls or near falls. Related Data Home Medications ?Medication ?Instructions ?Recorded ?Confirmed pramipexole 0.5 mg tablet 0.5 mg PO BEDTIME 09/13/20 07/30/23 vitamins A,C,X-yntc-qobgun 4,296 1 cap PO DAILY 12/05/22 09/20/23 mcg-226 mg-90 mg capsule (PreserVision AREDS) dorzolamide 22.3 mg-timolol 6.8 1 drp ophthalmic (eye) BID 02/14/23 09/20/23 mg/mL eye drops Previous Rx's ?Medication ?Instructions ?Recorded lancets 28 gauge (FreeStyle #100 ea 06/12/22 Lancets) blood-glucose transmitter (Dexcom #1 ea 01/02/23 G6 Transmitter device) blood sugar diagnostic (FreeStyle #100 ea 04/10/23 Lite Strips) omeprazole 20 mg capsule,delayed 20 mg PO BID #180 caps 06/04/23 release lisinopril 2.5 mg tablet 2.5 mg PO QAM #90 tabs 06/19/23 rosuvastatin 20 mg tablet 20 mg PO QAM #90 tabs 06/19/23 metformin 500 mg tablet 500 mg PO DAILY #90 tabs 08/28/23 blood-glucose sensor (Dexcom G6 #3 ea 09/18/23 Sensor device) escitalopram oxalate 20 mg tablet 20 mg PO BEDTIME #90 tabs 11/26/23 cefuroxime axetil 250 mg tablet 250 mg PO BID #14 tabs 12/01/23 phenazopyridine 100 mg tablet 100 mg PO TID PRN pain 6 doses #6 12/01/23 tabs Allergies Allergy/AdvReac Type Severity Reaction Status Date / Time Penicillins [PENICILLINS] Allergy Intermediate RASH Verified 12/01/23 14:46 crab AdvReac Intermediate DIARRHEA Verified 12/01/23 14:46 Environmental Allergy Intermediate Runny Nose Uncoded 09/27/23 13:58 hayfever Allergy Mild Unknown Uncoded 09/27/23 13:58 Review of Systems 2 Review of Systems: Constitutional : No Weight loss, No Fever, No Chills, No Night Sweats, No Fatigue, No Malaise ENT/Mouth : No Hearing loss, No Ear Pain, No Nasal Congestion, No Sinus Pain, No Hoarseness, No sore throat, No Rhinorrhea, No Swallowing Difficulty Eyes: No Eye Pain, No Swelling, No Redness, No Foreign Body, No Discharge, No Vision Changes Cardiovascular : No Chest Pain, No SOB, No Dyspnea on Exertion, No Orthopnea, No Edema, No Palpitations Respiratory : No Cough, No Sputum, No Wheezing, No Smoke Exposure, No Dyspnea Gastrointestinal : No Nausea, No Vomiting, No Diarrhea, No Constipation, No abdominal Pain, No Hematochezia, No Melena Genitourinary : Complaining of dysuria, worsening incontinence, suprapubic discomfort with known flank pain or abdominal pain Musculoskeletal : No joint pain, No Myalgias, No Joint Swelling Skin : No Skin Lesions, No rash Neuro : No Weakness, No Numbness, No Paresthesias, No Loss of Consciousness, No Dizziness, No Headache Psych : No Anxiety/Panic, No Depression, No SI/HI/AH/VH, No Social Issues, Heme/Lymph: No Bruising, No Bleeding,No Lymphadenopathy Endocrine : No Polyuria, No Polydipsia, No Temperature Intolerance [facility] Past Medical History Medical History Restless leg syndrome HTN (hypertension) History of COVID-19 Anxiety, generalized Lipid disorder Diabetes 1.5, managed as type 2 Surgical History History of esophagogastroduodenoscopy (EGD) H/O colonoscopy History of hysterectomy History of total knee replacement (TKR) Family History Family History Father No problems noted. Mother Dementia Pancreatitis Social History Social History Housing: Apartment Alcohol intake: never Patient Tobacco Use Status: Never used Tobacco e-Cigarette/Vaping Use: Never Used Advance Directives: Yes Advance Directives on File: Yes Advance Directives Date on File: 11/23/20 service: No Current occupational status: retired Cognitive needs: No Hearing needs: Yes Vision needs: Yes Physical Exam 2 Vital Signs: Vital Signs: Last Vital Signs Temp 100.5 F H 12/01/23 18:58 Pulse 62 12/01/23 18:58 Resp 18 12/01/23 18:58 BP 135/50 L 12/01/23 18:58 Pulse Ox 97 12/01/23 18:58 O2 Del Method Room Air 12/01/23 18:58 BMI result Body Mass Index 29.9 Const: Other: Appearance: Alert. Oriented X3. No acute distress. Eyes: Pupils equal, round and reactive to light. ENT: Pharynx normal. Neck: Normal inspection. Neck supple. No lymph nodes noted. No crepitus CVS: Normal heart rate and rhythm. Pulses normal. Normal S1 and S2 Respiratory: No respiratory distress. Breath sounds normal. No Wheezing. No rales Abdomen: Soft and nontender. No rigidity. No distention. Skin: Skin warm and dry. Normal skin color. Normal skin turgor. Extremities: No lower extremity edema. No Lacerations. No Rash Neuro: Oriented X 3. No motor deficit. No sensory deficit. Moving all extremities. No slurred speech. CN 2 through 12 grossly intact Psych: calm, cooperative, normal affect Course Course Course Narrative: RME: 83 yold female presents to the ED for dysuria and increased urinary frequency. labs and uA orderd Medications Administered Discontinued Medications Generic Name Dose Route Start Last Admin Trade Name Freq PRN Reason Stop Dose Admin Cefuroxime Axetil 250 mg 12/01/23 18:31 12/01/23 18:47 Cefuroxime Axetil 250 Mg Tablet PO 12/01/23 18:32 250 mg ONCE ONE Administration Phenazopyridine HCl 100 mg 12/01/23 18:31 12/01/23 18:46 Phenazopyridine Hcl 100 Mg Tablet PO 12/01/23 18:32 100 mg ONCE ONE Administration Medical Decision Making Medical Decision Making [facility] Narrative: -my interpretation of labs: Normal hematology and chemistry, urine positive for UTI. -on physical exam, patient did not have flank pain or abdominal pain, pyelonephritis or sepsis not suspected. -patient was given the 1st dose of antibiotic, cefuroxime 250 mg and phenazopyridine -patient will continue treatment at home Differential Diagnosis Differential Diagnoses: The differential diagnosis associated with the presentation includes (UTI, pyelonephritis, cystitis) Lab Data MDM Lab Attestation statement: I reviewed the patient's lab results. 12/01/23 15:05 12/01/23 15:05 Labs: Lab Results 12/01/23 Range/Units 15:05 WBC 10.8 (4.8-10.8) X10*3/uL RBC 4.87 (4.20-5.50) X10*6/uL Hgb 14.3 (12.0-16.0) g/dl Hct 42.2 (37.0-47.0) % MCV 86.7 (80.0-98.0) fL MCH 29.4 (27.0-33.0) pg MCHC 33.9 (31.0-35.0) g/dl RDW 13.3 (11.0-16.0) % Plt Count 170 (160-400) X10*3/uL MPV 10.4 (9.4-12.3) fL Immature Gran % (Auto) 0.3 (0.0-0.4) % Neut % (Auto) 57.2 (45-73) % Lymph % (Auto) 29.2 (20-40) % [place] % (Auto) 7.5 (2-11) % Eos % (Auto) 5.2 H (0-4) % Baso % (Auto) 0.6 (0-2) % Lymph # (Auto) 3.2 (1.2-4.9) X10*3/uL [place] # (Auto) 0.8 (0.1-1.2) X10*3/uL Eos # (Auto) 0.6 H (0.0-0.4) X10*3/uL Baso # (Auto) 0.1 (0.0-0.2) X10*3/uL Abs Immat Gran (auto) 0.03 (0.00-0.03) X10*3/uL Absolute Neuts (auto) 6.2 (2.0-8.3) x10*3/uL Absolute Nucleated RBC 0.000 (0.0-0.012) X10*3/uL Nucleated RBC % (auto) 0.0 (0.0-0.2) /100WBC Sodium 136 (135-145) mmol/L Potassium 4.6 (3.3-5.1) mmol/L Chloride 106 (96-108) mmol/L Carbon Dioxide 23 (22-29) mmol/L Anion Gap 12 (12-20) BUN 17 H (9-16) mg/dL Creatinine 0.71 (0.5-1.4) mg/dL Estim Creat Clear Calc 67.8 Estimated GFR > 60 Random Glucose 153 H (60-115) mg/dL Calcium 9.5 (8.4-10.2) mg/dL Total Bilirubin 0.5 (0.0-1.0) mg/dL AST 43 H (5-31) U/L ALT 60 H (0-31) U/L Alkaline Phosphatase 61 (39-117) U/L Total Protein 7.1 (6.5-8.0) g/dL Albumin 4.1 (3.5-5.0) g/dL Urine Color Yellow Urine Appearance Cloudy Urine pH 5.5 (5.0-9.0) Ur Specific [place] 1.025 (1.005-1.025) Urine Protein Negative (Neg-Trace) mg/dL Urine Glucose (UA) Negative (Negative) mg/dL Urine Ketones Negative (Negative) mg/dL Urine Blood Moderate (2+) H (Negative) Urine Nitrite Positive H (Negative) Ur Leukocyte Esterase Moderate (2+) H (Negative) Urine RBC >20 H (0-2) /HPF Urine WBC >50 H (0-5) /HPF Ur Squamous Epith Cells 0-2 (0-2) /HPF Urine Bacteria 4+ (None Seen) Hyaline Casts 0-2 (0-2) /LPF Discharge Plan Discharge Clinical Impression: Acute UTI Patient Disposition: Home, Self-Care Instructions: Acute Urinary Retention in Women (ED) Additional Instructions: Please follow-up with your primary care physician tomorrow. If you have any worsening or new symptoms, please return to the emergency room or call 911 Prescriptions: New cefuroxime axetil 250 mg tablet 250 mg PO BID Qty: 14 0RF phenazopyridine 100 mg tablet 100 mg PO TID PRN (Reason: pain) Qty: 6 0RF No Action (DME) lancets [FreeStyle Lancets] 28 gauge misc See Rx Instructions .Route Qty: 100 0RF Rx Instructions: As directed (DME) Dexcom G6 Transmitter Device See Rx Instructions .ROUTE QID Qty: 1 3RF Rx Instructions: As directed (DME) FreeStyle Lite Strips Strip See Rx Instructions .Route Qty: 100 3RF Rx Instructions: Once a day omeprazole 20 mg capsule,delayed release(DR/EC) 20 mg PO BID Qty: 180 3RF lisinopril 2.5 mg tablet 2.5 mg PO QAM Qty: 90 1RF rosuvastatin 20 mg tablet 20 mg PO QAM Qty: 90 1RF metformin 500 mg tablet 500 mg PO DAILY Qty: 90 1RF (DME) Dexcom G6 Sensor Device See Rx Instructions .Route Qty: 3 3RF Rx Instructions: once a day escitalopram oxalate 20 mg tablet 20 mg PO BEDTIME Qty: 90 1RF dorzolamide-timolol 22.3-6.8 mg/mL drops 1 drp ophthalmic (eye) BID pramipexole 0.5 mg tablet 0.5 mg PO BEDTIME PreserVision AREDS 4,296 mcg-226 mg-90 mg capsule 1 cap PO DAILY Interventions: ED Discharge Assessment Last Done: 12/01/23 18:58 Discharge Date/Time: 12/01/23 18:59 Print Language: Arabic
[2023-12-01 15:12] LABS: MANUAL DIFF FLAG NO
[2023-12-01 15:14] LABS: Appearance Urine Cloudy; Color Urine Yellow; Glucose Urine UA Negative (Negative); Leukocyte Esterase Urine Moderate (2+) (Negative); Nitrite Urine Positive (Negative); PH 5.5 (5.0-9.0); Specific Gravity - Urine 1.025 (1.005-1.025); UMIC TRIGGER UACC YES; Urine Blood Moderate (2+) (Negative); Urine Ketones Negative (Negative); Urine Protein Negative (Neg-Trace)
[2023-12-01 15:15] LABS: Basophils Absolute Auto 0.1 X10*3/uL (0.0-0.2); Basophils Percent Auto 0.6 % (0-2); Eosinophils Absolute Auto 0.6 X10*3/uL (0.0-0.4); Eosinophils Percent Auto 5.2 % (0-4); Hematocrit 42.2 % (37.0-47.0); Hemoglobin 14.3 g/dl (12.0-16.0); Imm Gran Abs Auto 0.03 X10*3/uL (0.00-0.03); Imm Gran Pct Auto 0.3 % (0.0-0.4); Lymphocytes Absolute Auto 3.2 X10*3/uL (1.2-4.9); Lymphocytes Percent Auto 29.2 % (20-40); Mean Corpuscular HGB Conc 33.9 g/dl (31.0-35.0); Mean Corpuscular Hemoglobin 29.4 pg (27.0-33.0); Mean Corpuscular Volume 86.7 fL (80.0-98.0); Mean Platelet Volume 10.4 fL (9.4-12.3); Monocytes Absolute Auto 0.8 X10*3/uL (0.1-1.2); Monocytes Percent Auto 7.5 % (2-11); Neutrophils Absolute Auto 6.2 x10*3/uL (2.0-8.3); Neutrophils Percent Auto 57.2 % (45-73); Platelet Count 170 X10*3/uL (160-400); Red Blood Count 4.87 X10*6/uL (4.20-5.50); Red Cell Distribution Width 13.3 % (11.0-16.0); White Blood Count 10.8 X10*3/uL (4.8-10.8)
[2023-12-01 15:17] LABS: Bacteria Urine 4+ (None Seen); Hyaline Casts Urine 0-2 /LPF (0-2); RBC Urine >20 /HPF (0-2); Squamous Epithelial Cell Urine 0-2 /HPF (0-2); UACC Culture Trigger YES; WBC Urine >50 /HPF (0-5)
[2023-12-01 15:34] LABS: Alanine Aminotransferase 60 U/L (0-31); Albumin Level 4.1 g/dL (3.5-5.0); Alkaline Phosphatase 61 U/L (39-117); Anion Gap 12 (12-20); Aspartate Amino Transferase 43 U/L (5-31); Bilirubin Total 0.5 mg/dL (0.0-1.0); Blood Urea Nitrogen 17 mg/dL (9-16); Calcium 9.5 mg/dL (8.4-10.2); Carbon Dioxide 23 mmol/L (22-29); Chloride 106 mmol/L (96-108); Creatinine Clr Calc Pharmacy 67.8; Estimated Glomerular Filt Rate > 60; Glucose Random 153 mg/dL (60-115); Potassium 4.6 mmol/L (3.3-5.1); Sodium 136 mmol/L (135-145); Total Protein 7.1 g/dL (6.5-8.0)
--- NOTE | 2023-12-01 17:21 | PC.NURSE ---
Patient sitting upright on chair, reading a book. No acute distress. Awaiting primary ED physician/provider evaluation.
[2023-12-01 18:16] VITALS: BP 135/50; PULSE 62; RESP 14; O2SAT 97
[2023-12-01] MEDS: Phenazopyridine HCL 100 MG TABLET PO (18:46)
[2023-12-01] MEDS: cefuroxime axetiL 250 MG TABLET PO (18:47)
[2023-12-01 18:58] VITALS: BP 135/50; PULSE 62; RESP 18; TEMP 38.1; O2SAT 97
== END 2023-12-01 18:59 | disposition home or self-care (01) ==
PROVIDERS: Emergency Provider Emergency Medicine; PCP Internal Medicine
DX: N39.0 Urinary tract infection, site not specified (principal); R39.15 Urgency of urination; R32 Unspecified urinary incontinence; Z79.899 Other long term (current) drug therapy
CPT/HCPCS: 36415; 80053; 81001; 85025; 87086; 87088; 87186; 99283; 99284

== ENCOUNTER 2023-12-04 10:04 | Outpatient (AMB) | payer MEDICARE, OTHER, SELFPAY ==
[2023-12-04 10:07] VITALS: BP 130/66; PULSE 72; O2SAT 95; BMI 33.2
--- NOTE | 2023-12-04 10:07 | A.OFFPC_ITS ---
Vital Signs 12/04/23 10:07 Height 5 ft Weight 170 lb 2 oz BMI 33.2 BP 130/66 Blood Pressure Location Rt brachial Position Sitting Pulse 72 Pulse Source Pulse Oximeter Pulse Oximetry (%) 95 Oxygen Delivery Method Room Air Intake Visit Reasons: 9m follow up Allergies Penicillins [PENICILLINS] Allergy (Intermediate, Verified 12/04/23 10:07) RASH crab Adverse Reaction (Intermediate, Verified 12/04/23 10:07) DIARRHEA Environmental Allergy (Intermediate, Uncoded 09/27/23 13:58) Runny Nose hayfever Allergy (Mild, Uncoded 09/27/23 13:58) Unknown Medication List - Last Reconciled 12/04/23 by Ella Garces MD blood sugar diagnostic (FreeStyle Lite Strips) Once a day blood-glucose sensor (Dexcom G6 Sensor device) once a day blood-glucose transmitter (Dexcom G6 Transmitter device) As directed cefuroxime axetil 250 mg PO BID dorzolamide-timolol 22.3-6.8 mg/mL 1 drp ophthalmic (eye) BID escitalopram oxalate 20 mg PO BEDTIME lancets (FreeStyle Lancets) As directed lisinopril 2.5 mg PO QAM metformin 500 mg PO DAILY omeprazole 20 mg PO BID phenazopyridine 100 mg PO TID PRN 6 doses pramipexole 0.5 mg PO BEDTIME rosuvastatin 20 mg PO QAM vitamins A,C,R-ksot-cfqxss 4,296 mcg-226 mg-90 mg (PreserVision AREDS) 1 cap PO DAILY Tobacco use date assessed: 12/04/23 Fall risk assessment: No Falls in past year Last assessed Fall Risk: 12/04/23 Dental Screening Dental Screen Date: 12/04/23 Did you have a dental visit in the last 12 months?: Yes Did you have a dental problem in the last 6 months where you did not have access to dental care?: No Was dental information given to patient?: Patient has dentist HPI 9m follow up HPI Details Patient is 83-year-old female came in today for her regular follow-up appointment Labs done recently reviewed, I see that her liver enzymes slightly elevated this time She is on rosuvastatin for lipid control We will repeat the liver enzymes again in a month and if needed we will stop the statin Patient is suffering from urine incontinence and at time fecal soiling She has made appointment with Urogynecology for consultation She said that when she had her daughter she had grade 4 laceration during the That might be contributing to her symptoms. I am stopping her metformin as metformin can cause some diarrhea Her hemoglobin A1c came back at 8.7% I am starting her on Jardiance 10 mg She is to send me a message in a week with her fasting sugars. Anxiety : stable patient is on escitalopram 20 mg Continue lisinopril 2.5 mg On GERD: Continue omeprazole 20 mg Restless leg syndrome continue pramipexole 0.5 mg Lipid disorder: continue rosuvastatin Follow-up 4 months [facility] Medical History Restless leg syndrome HTN (hypertension) History of COVID-19 Anxiety, generalized Lipid disorder Diabetes 1.5, managed as type 2 Surgical History History of esophagogastroduodenoscopy (EGD) H/O colonoscopy History of hysterectomy History of total knee replacement (TKR) Family History Father No problems noted. Mother Dementia Pancreatitis Social History Housing: Apartment Alcohol intake: never Patient Tobacco Use Status: Never used Tobacco e-Cigarette/Vaping Use: Never Used Advance Directives Date on File: 11/23/20 service: No Current occupational status: retired Cognitive needs: No Hearing needs: Yes Vision needs: Yes Questionnaire PHQ-9 Over the last 2 weeks, how often have you been bothered by any of the following problems? 1. Little interest or pleasure in doing things: not at all 2. Feeling down, depressed, or hopeless: several days 3. Trouble falling or staying asleep, or sleeping too much: not at all 4. Feeling tired or having little energy: several days 5. Poor appetite or overeating: nearly every day 6. Feeling bad about yourself - or that you are a failure or have let yourself or your family down: several days 7. Trouble concentrating on things, such as reading the newspaper or watching television: not at all 8. Moving or speaking so slowly that other people could have noticed. Or the opposite - being so fidgety or restless that you have been moving around a lot more than usual: not at all 9. Thoughts that you would be better off or of hurting yourself in some way: not at all Total score: 6 Depression Screening Interpretation: Negative Depression Screening Done: Yes 89054 - PHQ-9 Billing: Yes Source: Developed by Drs. Luis Pan, Crystal Magallon, Geoffrey Anguiano and colleagues, with an educational rosas from [employer]. Thrive Questionnaire Date Thrive assessed: 12/04/23 I am a: Patient What is your living situation today?: I have a steady place to live Within the past 12 months, did the food you bought not last and you didn't have the money to get more?: Never true Within the past 12 months, did you worry whether your food would run out before you got money to buy more?: Never true Do you have trouble paying for medicines?: No Do you have trouble getting transportation to medical appointments?: No Do you have trouble paying your heating and electricity bill?: No Do you have trouble taking care of your child, family member or friend?: No Do you have trouble with day-to-day activities such as bathing, preparing meals, shopping, managing finances, etc.?: No Are you currently unemployed and looking for a job?: No Are you interested in more education?: No Please select the resources that you would like help with: None Currently or been in a relationship where the following occur: no concerns reported THRIVE Score: 0 AUDIT C Alcohol Use Questionnaire (AUDIT-C) 1. How often do you have a drink containing alcohol?: Monthly or less 2. How many drinks containing alcohol do you have on a typical day when you are drinking?: 1 or 2 3. How often do you have six or more drinks on one occasion?: Never Total Score: 1 Score Reviewed/Action Taken: Yes LG-7 AMB Questionnaire LG-7 Date LG - 7 assessed: 12/04/23 Feeling nervous, anxious, or on edge: 1 = Several days Not being able to stop or control worryin = Not at all Worrying too much about different things: 1 = Several days Trouble relaxin = Not at all Being so restless that it is hard to sit still: 0 = Not at all Becoming easily annoyed or irritable: 0 = Not at all Feeling afraid as if something awful might happen: 0 = Not at all Total LG-7 score (0-4 normal; 5-9 mild; 10-14 moderate; 15-21 severe): 2 Source: Developed by Drs. Luis Pan, Crystal Magallon, Geoffrey Anguiano and colleagues, with an educational rosas from [employer]. LG-7 Assessment Billing LG-7 Assessment Tool: LG-7 Assessment 03579 Review of Systems Const Denies chills and Denies fever(s) ENT Denies epistaxis and Denies nasal discharge Card Denies chest pain Resp Denies chest congestion, Denies cough and Denies hemoptysis GI Denies diarrhea and Denies nausea Skin/Breast Denies rash Neuro Reports no additional complaints Psych Reports no additional complaints Endo Reports no additional complaints Physical exam (Primary Care) Vital Signs: Last Vital Signs Pulse 72 12/04/23 10:07 BP 130/66 12/04/23 10:07 Pulse Ox 95 12/04/23 10:07 Oxygen Delivery Method Room Air 12/04/23 10:07 BMI result Body Mass Index 33.2 Tobacco/Smoking Status: Tobacco use Status Tobacco use date assessed 12/04/23 12/04/23 10:13 Patient Tobacco Use Status Never used Tobacco 12/04/23 10:13 e-Cigarette/Vaping Use Never Used 12/04/23 10:13 PHQ-9: PHQ-9 Score PHQ-9: Total score 6 12/04/23 10:58 Depression Screening Interpretation: Negative Thrive Assessment: Date of Thrive Assessment Date Thrive assessed 12/04/23 12/04/23 10:20 Currently or been in a relationship where the following occur: no concerns reported Const General: cooperative, comfortable and no acute distress Orientation/consciousness: patient oriented x3 HENMT Head: Yes normocephalic Eyes General: appearance normal, both eyes and all related structures Neck Neck: Yes supple Resp Effort & Inspection: normal respiratory effort, no cough and no stridor Cardio Rhythm: regular rhythm Heart sounds: S1 normal heart sound present and S2 normal heart sound present Skin General skin exam: turgor normal Neuro General: patient oriented x3, tone normal and moves all extremities Extrem Right lower extremity: no edema Left lower extremity: no edema Results AMB Hemoglobin A1c AMB Hemoglobin A1c 8.7 % Last Edit by Catrachito Arroyo MA on 12/04/23 10:21 Results Reviewed Results Reviewed: Laboratory Last Values Hgb A1c (Clinic) 8.7 % (4.0-6.0) H 12/04/23 10:20 Assessment and Plan Assessment & Plan (1) LFT elevation: Code(s): R79.89 - Other specified abnormal findings of blood chemistry (2) Diabetes mellitus type 2 in obese: Code(s): E11.69 - Type 2 diabetes mellitus with other specified complication; E66.9 - Obesity, unspecified (3) Hypertension, essential: Code(s): I10 - Essential (primary) hypertension (4) Restless leg syndrome: Code(s): G25.81 - Restless legs syndrome (5) Lipid disorder: Code(s): E78.9 - Disorder of lipoprotein metabolism, unspecified (6) Anxiety, generalized: Code(s): F41.1 - Generalized anxiety disorder Plan Patient is 83-year-old female came in today for her regular follow-up appointment Labs done recently reviewed, I see that her liver enzymes slightly elevated this time She is on rosuvastatin for lipid control We will repeat the liver enzymes again in a month and if needed we will stop the statin Patient is suffering from urine incontinence and at time fecal soiling She has made appointment with Urogynecology for consultation She said that when she had her daughter she had grade 4 laceration during the That might be contributing to her symptoms. I am stopping her metformin as metformin can cause some diarrhea Her hemoglobin A1c came back at 8.7% I am starting her on Jardiance 10 mg She is to send me a message in a week with her fasting sugars. Anxiety : stable patient is on escitalopram 20 mg Continue lisinopril 2.5 mg On GERD: Continue omeprazole 20 mg Restless leg syndrome continue pramipexole 0.5 mg Lipid disorder: continue rosuvastatin Follow-up 4 months Orders: Orders Liver Panel Today R79.89 - Other specified abnormal findings of blood chemistry Medications: New Jardiance (empagliflozin) 10 mg PO DAILY 30 tabs 0RF NS Discontinued metformin Discontinued Reason: Doctor's Order 500 mg PO DAILY 90 tabs 1RF Coding Level of Care Code Est Pt Level 4 (18113) Diagnoses LFT elevation R79.89 Diabetes mellitus type 2 in obese E11.69; E66.9 Hypertension, essential I10 Restless leg syndrome G25.81 Lipid disorder E78.9 Anxiety, generalized F41.1 Additional Codes LG-7 Assessment Billing - LG-7 Assessment Tool: LG-7 Assessment [id number] ([id number])
== END 2023-12-04 10:35 | disposition home or self-care (01) ==
PROVIDERS: PCP Internal Medicine; Visit Provider Internal Medicine
DX: R79.89 Other specified abnormal findings of blood chemistry (principal); E11.69 Type 2 diabetes mellitus with other specified complication; Z68.33 Body mass index [BMI] 33.0-33.9, adult; E66.9 Obesity, unspecified; I10 Essential (primary) hypertension; G25.81 Restless legs syndrome; E78.9 Disorder of lipoprotein metabolism, unspecified; F41.1 Generalized anxiety disorder
CPT/HCPCS: 99214

== ENCOUNTER 2024-01-01 14:24 | Outpatient (REF) | payer MEDICARE, OTHER, SELFPAY ==
[2024-01-01 19:09] LABS: Alanine Aminotransferase 48 U/L (0-31); Albumin Level 4.2 g/dL (3.5-5.0); Alkaline Phosphatase 59 U/L (39-117); Aspartate Amino Transferase 36 U/L (5-31); Bilirubin Direct 0.1 mg/dL (0.0-0.5); Bilirubin Total 0.4 mg/dL (0.0-1.0); Total Protein 6.8 g/dL (6.5-8.0)
== END 2024-01-01 14:25 | disposition home or self-care (01) ==
LOC: HO.HMGCLDS 14:24
PROVIDERS: Internal Medicine; PCP Internal Medicine; Visit Provider Internal Medicine
DX: R79.89 Other specified abnormal findings of blood chemistry (principal)
CPT/HCPCS: 36415; 80076

== ENCOUNTER 2024-01-10 11:27 | Outpatient (AMB) | payer MEDICARE, OTHER, SELFPAY ==
[2024-01-10 11:32] VITALS: BP 128/72; PULSE 65; O2SAT 96; BMI 32.5
--- NOTE | 2024-01-10 11:32 | MHC.OFFWIV ---
Intake Vital Signs 01/10/24 11:32 Height 5 ft Weight 166 lb 6 oz BMI 32.5 BP 128/72 Blood Pressure Location Rt brachial Position Sitting Pulse 65 Pulse Source Pulse Oximeter Pulse Oximetry (%) 96 Oxygen Delivery Method Room Air Intake Visit Reasons: EP UTI Patient Tobacco Use Status: Never used Tobacco Allergies Penicillins [PENICILLINS] Allergy (Intermediate, Verified 01/10/24 11:39) RASH crab Adverse Reaction (Intermediate, Verified 01/10/24 11:39) DIARRHEA Environmental Allergy (Intermediate, Uncoded 09/27/23 13:58) Runny Nose hayfever Allergy (Mild, Uncoded 09/27/23 13:58) Unknown Medication List - Last Reconciled 01/10/24 by Ella Garces MD blood sugar diagnostic (FreeStyle Lite Strips) Once a day blood-glucose sensor (Dexcom G6 Sensor device) once a day blood-glucose transmitter (Dexcom G6 Transmitter device) As directed cefuroxime axetil 250 mg PO BID dorzolamide-timolol 22.3-6.8 mg/mL 1 drp ophthalmic (eye) BID escitalopram oxalate 20 mg PO BEDTIME Jardiance (empagliflozin) 10 mg PO DAILY NS lancets (FreeStyle Lancets) As directed lisinopril 2.5 mg PO QAM omeprazole 20 mg PO BID phenazopyridine 100 mg PO TID PRN 6 doses pramipexole 0.5 mg PO BEDTIME rosuvastatin 20 mg PO QAM vitamins A,C,V-lxza-hekjck 4,296 mcg-226 mg-90 mg (PreserVision AREDS) 1 cap PO DAILY Do you need a note to return to daycare/school/sports/work: No HPI EP UTI HPI Details Patient is 83-year-old female with a history of diabetes mellitus came in today to be evaluated for possible urine infection Patient suffers from urine incontinence and also has developed fecal incontinence recently She has appointment with the urogynecologist to be evaluated next week. UA shows slight amount of leuk esterase and a lot of glucose. Her hemoglobin A1c in November was in 8 range which did get worse compared to July of last year She was started on Jardiance 10 mg in November which she is tolerating. I am treating her with Macrobid b.i.d. for 3 days She is also complaining of itching vaginal, Diflucan tablets sent. [facility] is negative for fever chills nausea vomiting abdominal pain. Or back pain PFSH Medical History Restless leg syndrome HTN (hypertension) History of COVID-19 Anxiety, generalized Lipid disorder Diabetes 1.5, managed as type 2 Surgical History History of esophagogastroduodenoscopy (EGD) H/O colonoscopy History of hysterectomy History of total knee replacement (TKR) Family History Father No problems noted. Mother Dementia Pancreatitis Social History Housing: Apartment Alcohol intake: never Patient Tobacco Use Status: Never used Tobacco e-Cigarette/Vaping Use: Never Used Advance Directives Date on File: 11/23/20 service: No Current occupational status: retired Cognitive needs: No Hearing needs: Yes Vision needs: Yes Review of Systems Const All systems reviewed & are unremarkable except as noted in HPI and below Physical Exam Vital Signs: Last Vital Signs Pulse 65 01/10/24 11:32 BP 128/72 01/10/24 11:32 Pulse Ox 96 01/10/24 11:32 Oxygen Delivery Method Room Air 01/10/24 11:32 BMI result Body Mass Index 32.5 Const General: no acute distress Orientation/consciousness: patient oriented x3 Eyes General: appearance normal, both eyes and all related structures Resp Effort & Inspection: normal respiratory effort and able to speak in complete sentences GI Other: No pelvic discomfort General: Yes no CVA tenderness Back/Spine/Pelvis Back: no CVA tenderness Neuro General: patient oriented x3 Psych Mental Status: mental status grossly normal Results AMB Urinalysis, Automated UA Leukoctes 15 Starr/uL Last Edit by Catrachito Arroyo MA on 01/10/24 11:47 UA Nitrite Negative Last Edit by Catrachito Arroyo MA on 01/10/24 11:47 UA Urobilinogen 0.2 mg/dL Last Edit by Catrachito Arroyo MA on 01/10/24 11:47 UA Protein 0 mg/dL Last Edit by Catrachito Arroyo MA on 01/10/24 11:47 UA pH 5.5 Last Edit by Catrachito Arroyo MA on 01/10/24 11:47 UA Blood 0 Mat/uL Last Edit by Catrachito Arroyo MA on 01/10/24 11:47 UA Specific [place] 1.020 Last Edit by Catrachito Arroyo MA on 01/10/24 11:47 UA Ketone Negative Last Edit by Catrachito Arroyo MA on 01/10/24 11:47 UA Bilirubin 0 mg/dL Last Edit by Catrachito Arroyo MA on 01/10/24 11:47 UA Glucose 1000 mg/dL Last Edit by Catrachito Arroyo MA on 01/10/24 11:47 Results Reviewed Results Reviewed: Laboratory Last Values Urine pH (Auto) 5.5 01/10/24 11:45 Specific [place] (Auto) 1.020 01/10/24 11:45 Urine Protein (Auto) 0 mg/dL 01/10/24 11:45 Glucose (UA)(Auto) 1000 mg/dL 01/10/24 11:45 Urine Ketones (Auto) Negative 01/10/24 11:45 Urine Blood (Auto) 0 Mat/uL 01/10/24 11:45 Urine Nitrite (Auto) Negative 01/10/24 11:45 Urine Bilirubin (Auto) 0 mg/dL 01/10/24 11:45 Urine Urobilinogen (Auto) 0.2 mg/dL 01/10/24 11:45 Leukocyte Esterase (Auto) 15 Starr/uL 01/10/24 11:45 Assessment & Plan Assessment & Plan (1) Bladder disorder: Code(s): N32.9 - Bladder disorder, unspecified Plan Patient is 83-year-old female with a history of diabetes mellitus came in today to be evaluated for possible urine infection Patient suffers from urine incontinence and also has developed fecal incontinence recently She has appointment with the urogynecologist to be evaluated next week. UA shows slight amount of leuk esterase and a lot of glucose. Her hemoglobin A1c in November was in 8 range which did get worse compared to July of last year She was started on Jardiance 10 mg in November which she is tolerating. I am treating her with Macrobid b.i.d. for 3 days She is also complaining of itching vaginal, Diflucan tablets sent. [facility] is negative for fever chills nausea vomiting abdominal pain. Or back pain Medications: New nitrofurantoin monohyd/m-cryst 100 mg (Macrobid) must administer with a meal/food 100 mg PO Q12H 6 caps 0RF 3 days fluconazole may repeat second dose 72 hrs after first dose if symptoms persist 150 mg PO Q3D 2 tabs 0RF 2 doses Coding Level of Care Code Est Pt Level 3 (87176) Diagnoses Bladder disorder N32.9
== END 2024-01-10 11:53 | disposition home or self-care (01) ==
PROVIDERS: PCP Internal Medicine; Visit Provider Internal Medicine
DX: N32.9 Bladder disorder, unspecified (principal)
CPT/HCPCS: 99213

== ENCOUNTER 2024-03-21 14:18 | Outpatient (AMB) | payer MEDICARE, OTHER, SELFPAY ==
[2024-03-21 14:21] VITALS: BP 120/60; PULSE 62; O2SAT 95
--- NOTE | 2024-03-21 14:21 | AM.OFFWIN_ITS ---
Intake Vital Signs 03/21/24 14:21 Height 5 ft BP 120/60 Blood Pressure Location Rt brachial Position Sitting Pulse 62 Pulse Source Pulse Oximeter Pulse Oximetry (%) 95 Oxygen Delivery Method Room Air Intake Visit Reasons: EP/ UTI? Intake Note: pt is here for possible uti Patient Tobacco Use Status: Never used Tobacco Allergies Penicillins [PENICILLINS] Allergy (Intermediate, Verified 03/21/24 14:42) RASH crab Adverse Reaction (Intermediate, Verified 03/21/24 14:42) DIARRHEA Environmental Allergy (Intermediate, Uncoded 09/27/23 13:58) Runny Nose hayfever Allergy (Mild, Uncoded 09/27/23 13:58) Unknown Medication List - Last Reconciled 03/21/24 by BLAINE Mcmullen-MARYANA blood sugar diagnostic (FreeStyle Lite Strips) Once a day blood-glucose sensor (Dexcom G6 Sensor device) Test blood sugar 4 times per day, change sensor every 10 days blood-glucose transmitter (Dexcom G6 Transmitter device) As directed-change every 3 months escitalopram oxalate 20 mg PO BEDTIME Jardiance (empagliflozin) 10 mg PO DAILY NS lancets (FreeStyle Lancets) As directed lisinopril 2.5 mg PO QAM omeprazole 20 mg PO BID pramipexole 0.5 mg PO BEDTIME rosuvastatin 20 mg PO QAM vitamins A,C,O-offh-rdjhmj 4,296 mcg-226 mg-90 mg (PreserVision AREDS) 1 cap PO DAILY Do you need a note to return to daycare/school/sports/work: No HPI HPI Comments 2 History of Present Illness Details 83-year-old female here today with compl aints of a UTI. She developed these symptoms on . Symptoms include dysuria, frequency, urgency. She is on an SGLT2 inhibitor. She is active with Urogynecology and we will be undergoing a cystocele and sling next month. She denies any fever, chills, nausea, vomiting, back pain. Exam Awake alert oriented Mucous membranes moist Urinalysis positive for blood and glucose Plan Antibiotic. Chart reviewed and her renal function is normal. Patient asked for Pyridium as this works quite well for her. [place] hydration and vaginal hygiene also encouraged. Return to office instructions also advised. This note is constructed using voice recognition software. While every effort has been made to ensure accuracy in card decorator, still errors may have been included Sometimes, these errors may affect the content or meaning of the given sentence . [facility] Medical History Restless leg syndrome HTN (hypertension) History of COVID-19 Anxiety, generalized Lipid disorder Diabetes 1.5, managed as type 2 Surgical History History of esophagogastroduodenoscopy (EGD) H/O colonoscopy History of hysterectomy History of total knee replacement (TKR) Family History Father No problems noted. Mother Dementia Pancreatitis Social History Housing: Apartment Alcohol intake: never Patient Tobacco Use Status: Never used Tobacco e-Cigarette/Vaping Use: Never Used Advance Directives Date on File: 11/23/20 service: No Current occupational status: retired Cognitive needs: No Hearing needs: Yes Vision needs: Yes Physical Exam Vital Signs: Last Vital Signs Pulse 62 03/21/24 14:21 BP 120/60 03/21/24 14:21 Pulse Ox 95 03/21/24 14:21 Oxygen Delivery Method Room Air 03/21/24 14:21 Results AMB Urinalysis, Automated UA Leukoctes 0 Starr/uL Last Edit by Tex Curtis CMA on 03/21/24 14:39 UA Nitrite Negative Last Edit by Tex Curtis CMA on 03/21/24 14:39 UA Urobilinogen 0.2 mg/dL Last Edit by Tex Curtis CMA on 03/21/24 14 :39 UA Protein 0 mg/dL Last Edit by Tex Curtis CMA on 03/21/24 14:39 UA pH 6.0 Last Edit by Tex Curtis CMA on 03/21/24 14:39 UA Blood 200 Mat/uL Last Edit by Tex Curtis CMA on 03/21/24 14:39 UA Specific [place] 1.015 Last Edit by Tex Curtis CMA on 03/21/24 14:39 UA Ketone Negative Last Edit by Tex Curtis CMA on 03/21/24 14:39 UA Bilirubin 0 mg/dL Last Edit by Tex Curtis CMA on 03/21/24 14:39 UA Glucose 1000 mg/dL Last Edit by Tex Curtis CMA on 03/21/24 14:39 Results Reviewed Results Reviewed: Laboratory Last Values Urine pH (Auto) 6.0 03/21/24 14:38 Specific [place] (Auto) 1.015 03/21/24 14:38 Urine Protein (Auto) 0 mg/dL 03/21/24 14:38 Glucose (UA)(Auto) 1000 mg/dL 03/21/24 14:38 Urine Ketones (Auto) Negative 03/21/24 14:38 Urine Blood (Auto) 200 Mat/uL 03/21/24 14:38 Urine Nitrite (Auto) Negative 03/21/24 14:38 Urine Bilirubin (Auto) 0 mg/dL 03/21/24 14:38 Urine Urobilinogen (Auto) 0.2 mg/dL 03/21/24 14:38 Leukocyte Esterase (Auto) 0 Starr/uL 03/21/24 14:38 Assessment & Plan Assessment & Plan (1) UTI (urinary tract infection): Code(s): N39.0 - Urinary tract infection, site not specified Qualifiers: Urinary tract infection type: acute cystitis Hematuria presence: with hematuria Qualified Code(s): N30.01 - Acute cystitis with hematuria Plan: . Orders: Orders AMB Urinalysis Automated Today Z13.9 - Encounter for screening, unspecified Medications: New nitrofurantoin monohyd/m-cryst 100 mg must administer with a meal/food 100 mg PO Q12H 10 caps 0RF 5 days phenazopyridine (Pyridium) 100 mg PO TID PRN 6 tabs 0RF pain 6 doses Coding Level of Care Code Est Pt Level 4 (67599) Diagnoses Acute cystitis with hematuria N30.01 Urinary tract infection type: acute cystitis Hematuria presence: with hematuria
== END 2024-03-21 14:51 | disposition home or self-care (01) ==
PROVIDERS: PCP Internal Medicine; Visit Provider Nurse Practitioner Family
DX: N30.01 Acute cystitis with hematuria (principal); Z13.9 Encounter for screening, unspecified
CPT/HCPCS: 81003; 99214

== ENCOUNTER 2024-04-17 12:22 | Outpatient (AMB) | payer MEDICARE, OTHER, SELFPAY ==
--- NOTE | 2024-04-17 12:25 | MHC.PC.OV ---
Vital Signs 04/17/24 12:28 Height 5 ft Weight 164 lb BMI 32.0 BP 126/68 Blood Pressure Location Rt brachial Position Sitting Pulse 68 Pulse Source Pulse Oximeter Pulse Oximetry (%) 96 Oxygen Delivery Method Room Air Intake Visit Reasons: 3 month follow up Allergies Penicillins [PENICILLINS] Allergy (Intermediate, Verified 04/17/24 12:26) RASH crab Adverse Reaction (Intermediate, Verified 04/17/24 12:26) DIARRHEA Environmental Allergy (Intermediate, Uncoded 09/27/23 13:58) Runny Nose hayfever Allergy (Mild, Uncoded 09/27/23 13:58) Unknown Medication List - Last Reviewed 04/17/24 by Catrachito Arroyo MA blood sugar diagnostic (FreeStyle Lite Strips) Once a day blood-glucose sensor (Dexcom G6 Sensor device) Test blood sugar 4 times per day, change sensor every 10 days blood-glucose transmitter (Dexcom G6 Transmitter device) As directed-change every 3 months escitalopram oxalate 20 mg PO BEDTIME estradiol 0.01%(0.1mg/gram) vaginal Jardiance (empagliflozin) 10 mg PO DAILY NS lancets (FreeStyle Lancets) As directed lisinopril 2.5 mg PO QAM omeprazole 20 mg PO BID pramipexole 0.5 mg PO BEDTIME rosuvastatin 20 mg PO QAM vitamins A,C,F-jdoz-uzhijv 4,296 mcg-226 mg-90 mg (PreserVision AREDS) 1 cap PO DAILY Tobacco use date assessed: 04/17/24 Fall risk assessment: No Falls in past year Last assessed Fall Risk: 04/17/24 Dental Screening Dental Screen Date: 04/17/24 Did you have a dental visit in the last 12 months?: Yes Did you have a dental problem in the last 6 months where you did not have access to dental care?: No Was dental information given to patient?: Patient has dentist HPI 3 month follow up HPI Details Patient is 83-year-old female came in today for her regular follow-up appointment Due for labs She is on rosuvastatin for lipid control We are monitoring her LFTs which are slightly elevated Patient is suffering from urine incontinence and at time fecal soiling Has procedure coming up through Urogynecology in April She said that when she had her daughter she had grade 4 laceration during the That might be contributing to her symptoms. Diabetes mellitus: Her hemoglobin A1c came back at 8.7% last visit and it is 8.3 today She was started on Jardiance 10 mg , and we stopped metformin, since she stopped Metformin, her diarrhea is better She will hold Jardiance a week before her procedure for urine incontinence Anxiety : stable patient is on escitalopram 20 mg Continue lisinopril 2.5 mg On GERD: Continue omeprazole 20 mg through Gastroenterology Restless leg syndrome continue pramipexole 0.5 mg Lipid disorder: continue rosuvastatin Patient will return next month for clearances [facility] Medical History Restless leg syndrome HTN (hypertension) History of COVID-19 Anxiety, generalized Lipid disorder Diabetes 1.5, managed as type 2 Surgical History History of esophagogastroduodenoscopy (EGD) H/O colonoscopy History of hysterectomy History of total knee replacement (TKR) Family History Father No problems noted. Mother Dementia Pancreatitis Social History Housing: Apartment Alcohol intake: never Patient Tobacco Use Status: Never used Tobacco e-Cigarette/Vaping Use: Never Used Advance Directives Date on File: 11/23/20 service: No Current occupational status: retired Cognitive needs: No Hearing needs: Yes Vision needs: Yes Questionnaire PHQ-9 Over the last 2 weeks, how often have you been bothered by any of the following problems? 1. Little interest or pleasure in doing things: several days 2. Feeling down, depressed, or hopeless: not at all 3. Trouble falling or staying asleep, or sleeping too much: several days 4. Feeling tired or having little energy: several days 5. Poor appetite or overeating: several days 6. Feeling bad about yourself - or that you are a failure or have let yourself or your family down: not at all 7. Trouble concentrating on things, such as reading the newspaper or watching television: not at all 8. Moving or speaking so slowly that other people could have noticed. Or the opposite - being so fidgety or restless that you have been moving around a lot more than usual: several days 9. Thoughts that you would be better off or of hurting yourself in some way: not at all Total score: 5 Depression Screening Interpretation: Negative Depression Screening Done: Yes 55643 - PHQ-9 Billing: Yes Source: Developed by Drs. Luis Pan, Crystal Magallon, Geoffrye Anguiano and colleagues, with an educational rosas from [employer]. Thrive Questionnaire Date Thrive assessed: 04/17/24 I am a: Patient What is your living situation today?: I have a steady place to live Within the past 12 months, did the food you bought not last and you didn't have the money to get more?: Never true Within the past 12 months, did you worry whether your food would run out before you got money to buy more?: Never true Do you have trouble paying for medicines?: No Do you have trouble getting transportation to medical appointments?: No Do you have trouble paying your heating and electricity bill?: No Do you have trouble taking care of your child, family member or friend?: No Do you have trouble with day-to-day activities such as bathing, preparing meals, shopping, managing finances, etc.?: No Are you currently unemployed and looking for a job?: No Are you interested in more education?: No Please select the resources that you would like help with: None Currently or been in a relationship where the following occur: No concerns reported THRIVE Score: 0 AUDIT C Alcohol Use Questionnaire (AUDIT-C) 1. How often do you have a drink containing alcohol?: Monthly or less 2. How many drinks containing alcohol do you have on a typical day when you are drinking?: 1 or 2 3. How often do you have six or more drinks on one occasion?: Never Total Score: 1 Score Reviewed/Action Taken: Yes LG-7 AMB Questionnaire LG-7 Date LG - 7 assessed: 04/17/24 Feeling nervous, anxious, or on edge: 1 = Several days Not being able to stop or control worryin = Not at all Worrying too much about different things: 1 = Several days Trouble relaxin = Not at all Being so restless that it is hard to sit still: 0 = Not at all Becoming easily annoyed or irritable: 0 = Not at all Feeling afraid as if something awful might happen: 0 = Not at all Total LG-7 score (0-4 normal; 5-9 mild; 10-14 moderate; 15-21 severe): 2 Source: Developed by Drs. Luis Pan, Crystal Magallon, Geoffrey Anguiano and colleagues, with an educational rosas from [employer]. LG-7 Assessment Billing LG-7 Assessment Tool: LG-7 Assessment 79177 Review of Systems Const Denies chills and Denies fever(s) ENT Denies epistaxis and Denies nasal discharge Card Denies chest pain Resp Denies chest congestion, Denies cough and Denies hemoptysis GI Denies nausea Skin/Breast Denies rash Neuro Reports no additional complaints Psych Reports no additional complaints Endo Reports no additional complaints Physical exam (Primary Care) Vital Signs: Last Vital Signs Pulse 68 04/17/24 12:28 BP 126/68 04/17/24 12:28 Pulse Ox 96 04/17/24 12:28 Oxygen Delivery Method Room Air 04/17/24 12:28 BMI result Body Mass Index 32.0 Tobacco/Smoking Status: Tobacco use Status Tobacco use date assessed 04/17/24 04/17/24 12:32 Patient Tobacco Use Status Never used Tobacco 04/17/24 12:26 e-Cigarette/Vaping Use Never Used 04/17/24 12:26 PHQ-9: PHQ-9 Score PHQ-9: Total score 5 04/17/24 12:35 Depression Screening Interpretation: Negative Thrive Assessment: Date of Thrive Assessment Date Thrive assessed 04/17/24 04/17/24 12:35 Currently or been in a relationship where the following occur: No concerns reported Const General: cooperative, comfortable and no acute distress Orientation/consciousness: patient oriented x3 HENMT Head: Yes normocephalic Eyes General: appearance normal, both eyes and all related structures Neck Neck: Yes supple Resp Effort & Inspection: normal respiratory effort, no cough and no stridor Cardio Rhythm: regular rhythm Heart sounds: S1 normal heart sound present and S2 normal heart sound present Skin General skin exam: turgor normal Neuro General: patient oriented x3, tone normal and moves all extremities Extrem Right lower extremity: no edema Left lower extremity: no edema Assessment and Plan Assessment & Plan (1) Diabetes 1.5, managed as type 2: Comment: taking Ozempic weekly Code(s): E13.9 - Other specified diabetes mellitus without complications (2) Lipid disorder: Code(s): E78.9 - Disorder of lipoprotein metabolism, unspecified (3) Anxiety, generalized: Code(s): F41.1 - Generalized anxiety disorder (4) Hypertension, essential: Code(s): I10 - Essential (primary) hypertension (5) Restless leg syndrome: Code(s): G25.81 - Restless legs syndrome (6) LFT elevation: Code(s): R79.89 - Other specified abnormal findings of blood chemistry (7) Gait instability: Code(s): R26.81 - Unsteadiness on feet (8) Osteoarthritis involving multiple joints on both sides of body: Code(s): M15.9 - Polyosteoarthritis, unspecified Plan Patient is 83-year-old female came in today for her regular follow-up appointment Due for labs She is on rosuvastatin for lipid control We are monitoring her LFTs which are slightly elevated Patient is suffering from urine incontinence and at time fecal soiling Has procedure coming up through Urogynecology in April She said that when she had her daughter she had grade 4 laceration during the That might be contributing to her symptoms. Diabetes mellitus: Her hemoglobin A1c came back at 8.7% last visit and it is 8.3 today She was started on Jardiance 10 mg , and we stopped metformin, since she stopped Metformin, her diarrhea is better She will hold Jardiance a week before her procedure for urine incontinence Anxiety : stable patient is on escitalopram 20 mg Continue lisinopril 2.5 mg On GERD: Continue omeprazole 20 mg through Gastroenterology Restless leg syndrome continue pramipexole 0.5 mg Lipid disorder: continue rosuvastatin Patient will return next month for clearances Orders: Orders Hemoglobin A1c 3 Months E13.9 - Other specified diabetes mellitus without complications, E78.9 - Disorder of lipoprotein metabolism, unspecified, F41.1 - Generalized anxiety disorder, G25.81 - Restless legs syndrome, I10 - Essential (primary) hypertension, M15.9 - Polyosteoarthritis, unspecified, R26.81 - Unsteadiness on feet, R79.89 - Other specified abnormal findings of blood chemistry Complete Blood Count Auto Diff 3 Months E13.9 - Other specified diabetes mellitus without complications, E78.9 - Disorder of lipoprotein metabolism, unspecified, F41.1 - Generalized anxiety disorder, G25.81 - Restless legs syndrome, I10 - Essential (primary) hypertension, M15.9 - Polyosteoarthritis, unspecified, R26.81 - Unsteadiness on feet, R79.89 - Other specified abnormal findings of blood chemistry Comprehensive Met. Panel 3 Months E13.9 - Other specified diabetes mellitus without complications, E78.9 - Disorder of lipoprotein metabolism, unspecified, F41.1 - Generalized anxiety disorder, G25.81 - Restless legs syndrome, I10 - Essential (primary) hypertension, M15.9 - Polyosteoarthritis, unspecified, R26.81 - Unsteadiness on feet, R79.89 - Other specified abnormal findings of blood chemistry LDL Cholesterol Direct 3 Months E13.9 - Other specified diabetes mellitus without complications, E78.9 - Disorder of lipoprotein metabolism, unspecified, F41.1 - Generalized anxiety disorder, G25.81 - Restless legs syndrome, I10 - Essential (primary) hypertension, M15.9 - Polyosteoarthritis, unspecified, R26.81 - Unsteadiness on feet, R79.89 - Other specified abnormal findings of blood chemistry Medications: Discontinued phenazopyridine (Pyridium) Discontinued Reason: Patient Completed Course 100 mg PO TID PRN 6 tabs 0RF pain Coding Level of Care Code Est Pt Level 4 (77194) Complex EM visit Add On G2211 Diagnoses Diabetes 1.5, managed as type 2 E13.9 Lipid disorder E78.9 Anxiety, generalized F41.1 Hypertension, essential I10 Restless leg syndrome G25.81 LFT elevation R79.89 Gait instability R26.81 Osteoarthritis involving multiple joints on both sides of body M15.9 Additional Codes LG-7 Assessment Billing - LG-7 Assessment Tool: LG-7 Assessment 49765 ([id number])
[2024-04-17 12:28] VITALS: BP 126/68; PULSE 68; O2SAT 96; BMI 32.0
== END 2024-04-17 12:43 | disposition home or self-care (01) ==
PROVIDERS: PCP Internal Medicine; Visit Provider Internal Medicine
DX: E13.9 Other specified diabetes mellitus without complications (principal); E78.9 Disorder of lipoprotein metabolism, unspecified; F41.1 Generalized anxiety disorder; I10 Essential (primary) hypertension; G25.81 Restless legs syndrome; R79.89 Other specified abnormal findings of blood chemistry; R26.81 Unsteadiness on feet; M15.9 Polyosteoarthritis, unspecified
CPT/HCPCS: 83036; 99214; G2211

== ENCOUNTER 2024-05-05 14:07 | Outpatient (AMB) | payer MEDICARE, OTHER, SELFPAY ==
--- NOTE | 2024-05-05 14:11 | MHC.PC.OV ---
Vital Signs 05/05/24 14:12 Height 5 ft Weight 164 lb 4 oz BMI 32.1 BP 112/64 Blood Pressure Location Rt brachial Position Sitting Pulse 67 Pulse Source Pulse Oximeter Pulse Oximetry (%) 96 Oxygen Delivery Method Room Air Intake Visit Reasons: Cystocele repair and Trans Tape 06/01 Allergies Penicillins [PENICILLINS] Allergy (Intermediate, Verified 05/05/24 14:14) RASH crab Adverse Reaction (Intermediate, Verified 05/05/24 14:14) DIARRHEA Environmental Allergy (Intermediate, Uncoded 09/27/23 13:58) Runny Nose hayfever Allergy (Mild, Uncoded 09/27/23 13:58) Unknown Medication List - Last Reconciled 05/05/24 by Ella Garces MD blood sugar diagnostic (FreeStyle Lite Strips) Once a day blood-glucose sensor (Dexcom G6 Sensor device) Test blood sugar 4 times per day, change sensor every 10 days blood-glucose transmitter (Dexcom G6 Transmitter device) As directed-change every 3 months escitalopram oxalate 20 mg PO BEDTIME estradiol 0.01%(0.1mg/gram) vaginal Jardiance (empagliflozin) 10 mg PO DAILY NS lancets (FreeStyle Lancets) As directed lisinopril 2.5 mg PO QAM omeprazole 20 mg PO BID pramipexole 0.5 mg PO BEDTIME rosuvastatin 20 mg PO QAM vitamins A,C,O-yymh-gveyst 4,296 mcg-226 mg-90 mg (PreserVision AREDS) 1 cap PO DAILY Tobacco use date assessed: 05/05/24 Fall risk assessment: 1 Fall in past year Last assessed Fall Risk: 05/05/24 Dental Screening Dental Screen Date: 05/05/24 Did you have a dental visit in the last 12 months?: Yes Did you have a dental problem in the last 6 months where you did not have access to dental care?: No Was dental information given to patient?: Patient has dentist HPI Cystocele repair and Trans Tape 06/01 HPI Details Patient is 83-year-old female with a history of diabetes [controlled], history of anxiety also controlled, GERD, restless legs syndrome, lipid disorder, and mild cognitive impairment Going in for bladder surgery for urine incontinence 06/01/[address] Isabell Díaz EKG was done today which shows normal sinus rhythm, image will be included in this note She will have labs done today Patient is aware that she will hold her diabetic medication a week before surgery I would recommend for her to get a flu vaccine today through pharmacy She offers no complaints today and is doing well No signs of infection Patient is stable for bladder surgery [facility] Medical History Restless leg syndrome HTN (hypertension) History of COVID-19 Anxiety, generalized Lipid disorder Diabetes 1.5, managed as type 2 Surgical History History of esophagogastroduodenoscopy (EGD) H/O colonoscopy History of hysterectomy History of total knee replacement (TKR) Family History Father No problems noted. Mother Dementia Pancreatitis Social History Housing: Apartment Alcohol intake: never Patient Tobacco Use Status: Never used Tobacco e-Cigarette/Vaping Use: Never Used Advance Directives Date on File: 11/23/20 service: No Current occupational status: retired Cognitive needs: No Hearing needs: Yes Vision needs: Yes Questionnaire PHQ-9 Over the last 2 weeks, how often have you been bothered by any of the following problems? 1. Little interest or pleasure in doing things: several days 2. Feeling down, depressed, or hopeless: not at all 3. Trouble falling or staying asleep, or sleeping too much: several days 4. Feeling tired or having little energy: several days 5. Poor appetite or overeating: several days 6. Feeling bad about yourself - or that you are a failure or have let yourself or your family down: not at all 7. Trouble concentrating on things, such as reading the newspaper or watching television: not at all 8. Moving or speaking so slowly that other people could have noticed. Or the opposite - being so fidgety or restless that you have been moving around a lot more than usual: several days 9. Thoughts that you would be better off or of hurting yourself in some way: not at all Total score: 5 Depression Screening Interpretation: Negative Depression Screening Done: Yes 07261 - PHQ-9 Billing: Yes Source: Developed by Drs. Luis Pan, Crystal Magallon, Geoffrey Anguiano and colleagues, with an educational rosas from [employer]. Thrive Questionnaire Date Thrive assessed: 05/05/24 I am a: Patient What is your living situation today?: I have a steady place to live Within the past 12 months, did the food you bought not last and you didn't have the money to get more?: Never true Within the past 12 months, did you worry whether your food would run out before you got money to buy more?: Never true Do you have trouble paying for medicines?: No Do you have trouble getting transportation to medical appointments?: No Do you have trouble paying your heating and electricity bill?: No Do you have trouble taking care of your child, family member or friend?: No Do you have trouble with day-to-day activities such as bathing, preparing meals, shopping, managing finances, etc.?: No Are you currently unemployed and looking for a job?: No Are you interested in more education?: No Please select the resources that you would like help with: None Currently or been in a relationship where the following occur: No concerns reported THRIVE Score: 0 AUDIT C Alcohol Use Questionnaire (AUDIT-C) 1. How often do you have a drink containing alcohol?: Monthly or less 2. How many drinks containing alcohol do you have on a typical day when you are drinking?: 1 or 2 3. How often do you have six or more drinks on one occasion?: Never Total Score: 1 Score Reviewed/Action Taken: Yes LG-7 AMB Questionnaire LG-7 Date LG - 7 assessed: 05/05/24 Feeling nervous, anxious, or on edge: 1 = Several days Not being able to stop or control worryin = Not at all Worrying too much about different things: 1 = Several days Trouble relaxin = Not at all Being so restless that it is hard to sit still: 0 = Not at all Becoming easily annoyed or irritable: 0 = Not at all Feeling afraid as if something awful might happen: 0 = Not at all Total LG-7 score (0-4 normal; 5-9 mild; 10-14 moderate; 15-21 severe): 2 Source: Developed by Dallas Acostaet B.W. Naun, Geoffrey Anguiano and colleagues, with an educational rosas from [employer]. LG-7 Assessment Billing LG-7 Assessment Tool: LG-7 Assessment 05778 Review of Systems Const Denies chills and Denies fever(s) ENT Denies epistaxis and Denies nasal discharge Card Denies chest pain Resp Denies chest congestion, Denies cough and Denies hemoptysis GI Denies diarrhea and Denies nausea Skin/Breast Denies rash Neuro Reports no additional complaints Psych Reports no additional complaints Endo Reports no additional complaints Physical exam (Primary Care) Vital Signs: Last Vital Signs Pulse 67 05/05/24 14:12 BP 112/64 05/05/24 14:12 Pulse Ox 96 05/05/24 14:12 Oxygen Delivery Method Room Air 05/05/24 14:12 BMI result Body Mass Index 32.1 Tobacco/Smoking Status: Tobacco use Status Tobacco use date assessed 05/05/24 05/05/24 14:15 Patient Tobacco Use Status Never used Tobacco 05/05/24 14:12 e-Cigarette/Vaping Use Never Used 05/05/24 14:12 PHQ-9: PHQ-9 Score PHQ-9: Total score 5 05/05/24 14:15 Depression Screening Interpretation: Negative Thrive Assessment: Date of Thrive Assessment Date Thrive assessed 05/05/24 05/05/24 14:15 Currently or been in a relationship where the following occur: No concerns reported Const General: cooperative, comfortable and no acute distress Orientation/consciousness: patient oriented x3 HENMT Head: Yes normocephalic Eyes General: appearance normal, both eyes and all related structures Neck Neck: Yes supple Resp Effort & Inspection: normal respiratory effort, no cough and no stridor Cardio Other: Rhythm: regular rhythm Heart sounds: S1 normal heart sound present and S2 normal heart sound present Skin General skin exam: turgor normal Neuro General: patient oriented x3, tone normal and moves all extremities Extrem Right lower extremity: no edema Left lower extremity: no edema Assessment and Plan Assessment & Plan (1) Bladder disorder: Code(s): N32.9 - Bladder disorder, unspecified (2) Urine incontinence: Code(s): R32 - Unspecified urinary incontinence Qualifiers: Urinary Incontinence type: unspecified incontinence Qualified Code(s): R32 - Unspecified urinary incontinence (3) Diabetes mellitus type 2 in obese: Code(s): E11.69 - Type 2 diabetes mellitus with other specified complication; E66.9 - Obesity, unspecified (4) Anxiety, generalized: Code(s): F41.1 - Generalized anxiety disorder (5) Lipid disorder: Code(s): E78.9 - Disorder of lipoprotein metabolism, unspecified Plan Patient is 83-year-old female with a history of diabetes [controlled], history of anxiety also controlled, GERD, restless legs syndrome, lipid disorder, and mild cognitive impairment Going in for bladder surgery for urine incontinence 06/01/[address] Isabell Díaz EKG was done today which shows normal sinus rhythm, image will be included in this note She will have labs done today Patient is aware that she will hold her diabetic medication a week before surgery I would recommend for her to get a flu vaccine today through pharmacy She offers no complaints today and is doing well No signs of infection Patient is stable for bladder surgery Coding Level of Care Code Est Pt Level 4 (29450) Diagnoses Bladder disorder N32.9 Urinary incontinence, unspecified type R32 Urinary Incontinence type: unspecified incontinence Diabetes mellitus type 2 in obese E11.69; E66.9 Anxiety, generalized F41.1 Lipid disorder E78.9 Additional Codes LG-7 Assessment Billing - LG-7 Assessment Tool: LG-7 Assessment [id number] ([id number])
[2024-05-05 14:12] VITALS: BP 112/64; PULSE 67; O2SAT 96; BMI 32.1
== END 2024-05-05 14:45 | disposition home or self-care (01) ==
PROVIDERS: PCP Internal Medicine; Visit Provider Internal Medicine
DX: N32.9 Bladder disorder, unspecified (principal); E11.69 Type 2 diabetes mellitus with other specified complication; Z68.32 Body mass index [BMI] 32.0-32.9, adult; E66.9 Obesity, unspecified; R32 Unspecified urinary incontinence; F41.1 Generalized anxiety disorder; E78.9 Disorder of lipoprotein metabolism, unspecified
CPT/HCPCS: 99214

== ENCOUNTER 2024-05-05 14:33 | Outpatient (REF) | payer MEDICARE, OTHER, SELFPAY ==
[2024-05-05 16:14] LABS: MANUAL DIFF FLAG NO
[2024-05-05 16:19] LABS: Basophils Absolute Auto 0.1 X10*3/uL (0.0-0.2); Eosinophils Absolute Auto 0.7 X10*3/uL (0.0-0.4); Eosinophils Percent Auto 7.9 % (0-4); Hematocrit 44.7 % (37.0-47.0); Imm Gran Abs Auto 0.04 X10*3/uL (0.00-0.03); Imm Gran Pct Auto 0.5 % (0.0-0.4); Lymphocytes Absolute Auto 3.3 X10*3/uL (1.2-4.9); Lymphocytes Percent Auto 37.9 % (20-40); Mean Corpuscular HGB Conc 33.6 g/dl (31.0-35.0); Mean Corpuscular Hemoglobin 29.2 pg (27.0-33.0); Mean Corpuscular Volume 87.1 fL (80.0-98.0); Mean Platelet Volume 10.8 fL (9.4-12.3); Monocytes Absolute Auto 0.6 X10*3/uL (0.1-1.2); Monocytes Percent Auto 6.4 % (2-11); Neutrophils Percent Auto 46.3 % (45-73); Platelet Count 167 X10*3/uL (160-400); Red Blood Count 5.13 X10*6/uL (4.20-5.50); Red Cell Distribution Width 13.2 % (11.0-16.0); White Blood Count 8.6 X10*3/uL (4.8-10.8)
[2024-05-05 17:02] LABS: Alanine Aminotransferase 33 U/L (0-31); Albumin Level 4.4 g/dL (3.5-5.0); Alkaline Phosphatase 71 U/L (39-117); Anion Gap 12 (12-20); Aspartate Amino Transferase 23 U/L (5-31); Bilirubin Total 0.3 mg/dL (0.0-1.0); Blood Urea Nitrogen 22 mg/dL (9-16); Calcium 9.8 mg/dL (8.4-10.2); Carbon Dioxide 20 mmol/L (22-29); Chloride 109 mmol/L (96-108); Estimated Glomerular Filt Rate > 60; Glucose Random 176 mg/dL (60-115); Potassium 3.8 mmol/L (3.3-5.1); Sodium 137 mmol/L (135-145); Total Protein 7.1 g/dL (6.5-8.0)
[2024-05-05 17:08] LABS: Estimated Average Glucose 177 mg/dL; Hemoglobin A1c % 7.8 % (<6.0)
[2024-05-06 11:54] LABS: LDL Cholesterol Direct 74 mg/dL (<100)
== END 2024-05-05 14:34 | disposition home or self-care (01) ==
LOC: HO.HMGCLDS 14:33
PROVIDERS: PCP Internal Medicine; Visit Provider Internal Medicine
DX: E13.9 Other specified diabetes mellitus without complications (principal); E78.9 Disorder of lipoprotein metabolism, unspecified; F41.1 Generalized anxiety disorder; R79.89 Other specified abnormal findings of blood chemistry; G25.81 Restless legs syndrome; I10 Essential (primary) hypertension; R26.81 Unsteadiness on feet; M15.9 Polyosteoarthritis, unspecified
CPT/HCPCS: 36415; 80053; 83036; 83721; 85025

== ENCOUNTER 2024-07-01 13:45 | Outpatient (AMB) | payer MEDICARE, OTHER, SELFPAY ==
[2024-07-01 13:52] VITALS: BP 112/68; PULSE 73; O2SAT 96; BMI 31.9
--- NOTE | 2024-07-01 13:52 | A.OFFPC_ITS ---
Vital Signs 07/01/24 13:52 Height 5 ft Weight 163 lb 6 oz BMI 31.9 BP 112/68 Blood Pressure Location Lt brachial Position Sitting Pulse 73 Pulse Source Pulse Oximeter Pulse Oximetry (%) 96 Oxygen Delivery Method Room Air Intake Visit Reasons: Med - Review - G6 Sensors Allergies Penicillins [PENICILLINS] Allergy (Intermediate, Verified 07/01/24 13:55) RASH crab Adverse Reaction (Intermediate, Verified 07/01/24 13:55) DIARRHEA Environmental Allergy (Intermediate, Uncoded 09/27/23 13:58) Runny Nose hayfever Allergy (Mild, Uncoded 09/27/23 13:58) Unknown Medication List - Last Reconciled 07/01/24 by Ella Garces MD blood sugar diagnostic (FreeStyle Lite Strips) Once a day blood-glucose sensor (Dexcom G6 Sensor device) Test blood sugar 4 times per day, change sensor every 10 days blood-glucose transmitter (Dexcom G6 Transmitter device) As directed-change jessee ry 3 months budesonide 2 ml mixed in slurry as per instructions provided by GI office, orally 2 times a day; escitalopram oxalate 20 mg PO BEDTIME estradiol 0.01%(0.1mg/gram) vaginal Jardiance (empagliflozin) 10 mg PO DAILY NS lancets (FreeStyle Lancets) As directed lisinopril 2.5 mg PO QAM metformin 500 mg PO DAILY montelukast 10 mg PO BEDTIME omeprazole 20 mg PO BID pramipexole 0.5 mg PO BEDTIME rosuvastatin 20 mg PO QAM vitamins A,C,H-afdk-pxuvan 4,296 mcg-226 mg-90 mg (PreserVision AREDS) 1 cap PO DAILY Tobacco use date assessed: 07/01/24 Fall risk assessment: No Falls in past year Last assessed Fall Risk: 07/01/24 Dental Screening Dental Screen Date: 07/01/24 Did you have a dental visit in the last 12 months?: Yes Did you have a dental problem in the last 6 months where you did not have access to dental care?: No Was dental information given to patient?: Patient has dentist HPI Med - Review - G6 Sensors HPI Details Patient is 83-year-old female came in today for her follow-up appointment Sugars has been running high Anywhere from 192-235 depending on time of the day She is currently on Jardiance 10 mg only for the diabetes control Patient says that in the afternoon sometimes her sugar may go down to 130 and then she feels as if she has a low sugar Her last hemoglobin A1c was checked April of this year and it was 7.8 Patient says that she knows why her sugars are running high, because she is not controlling her diet properly She intend to control it better from there onwards I have placed order for labs to be repeated before her next visit in September Patient continued to have problem with the bowels that is why we stopped the metformin because it was making it worse She sometimes have to go and she can not hold her bowels in She is also still waiting for the bladder surgery. After her bowel problem is addressed She has appointment coming up with a collector of aquarium specimens this month to address the bowel problem Anxiety stable, patient is on Lexapro 20 mg daily [facility] Medical History Restless leg syndrome HTN (hypertension) History of COVID-19 Anxiety, generalized Lipid disorder Diabetes 1.5, managed as type 2 Surgical History History of esophagogastroduodenoscopy (EGD) H/O colonoscopy History of hysterectomy History of total knee replacement (TKR) Family History Father No problems noted. Mother Dementia Pancreatitis Social History Housing: Apartment Alcohol intake: never Patient Tobacco Use Status: Never used Tobacco e-Cigarette/Vaping Use: Never Used Advance Directives Date on File: 11/23/20 service: No Current occupational status: retired Cognitive needs: No Hearing needs: Yes Vision needs: Yes Questionnaire Thrive Questionnaire Date Thrive assessed: 07/01/24 I am a: Patient What is your living situation today?: I have a steady place to live Within the past 12 months, did the food you bought not last and you didn't have the money to get more?: Never true Within the past 12 months, did you worry whether your food would run out before you got money to buy more?: Never true Do you have trouble paying for medicines?: No Do you have trouble getting transportation to medical appointments?: No Do you have trouble paying your heating and electricity bill?: No Do you have trouble taking care of your child, family member or friend?: No Do you have trouble with day-to-day activities such as bathing, preparing meals, shopping, managing finances, etc.?: No Are you currently unemployed and looking for a job?: No Are you interested in more education?: No Please select the resources that you would like help with: None Currently or been in a relationship where the following occur: No concerns reported THRIVE Score: 0 AUDIT C Alcohol Use Questionnaire (AUDIT-C) 1. How often do you have a drink containing alcohol?: Monthly or less 2. How many drinks containing alcohol do you have on a typical day when you are drinking?: 1 or 2 3. How often do you have six or more drinks on one occasion?: Never Total Score: 1 Score Reviewed/Action Taken: Yes LG-7 AMB Questionnaire LG-7 Date LG - 7 assessed: 05/05/24 Source: Developed by Drs. Luis Pan, Crystal Magallon, Geoffrey Anguiano and colleagues, with an educational rosas from [employer]. Review of Systems Const Denies chills and Denies fever(s) ENT Denies epistaxis and Denies nasal discharge Card Denies chest pain Resp Denies chest congestion, Denies cough and Denies hemoptysis GI Denies nausea Skin/Breast Denies rash Neuro Reports no additional complaints Psych Reports no additional complaints Endo Reports no additional complaints Physical exam (Primary Care) Vital Signs: Last Vital Signs Pulse 73 07/01/24 13:52 BP 112/68 07/01/24 13:52 Pulse Ox 96 07/01/24 13:52 Oxygen Delivery Method Room Air 07/01/24 13:52 BMI result Body Mass Index 31.9 Tobacco/Smoking Status: Tobacco use Status Tobacco use date assessed 07/01/24 07/01/24 13:56 Patient Tobacco Use Status Never used Tobacco 07/01/24 13:52 e-Cigarette/Vaping Use Never Used 07/01/24 13:52 Thrive Assessment: Date of Thrive Assessment Date Thrive assessed 07/01/24 07/01/24 13:56 Currently or been in a relationship where the following occur: No concerns reported Const General: cooperative, comfortable and no acute distress Orientation/consciousness: patient oriented x3 HENMT Head: Yes normocephalic Eyes General: appearance normal, both eyes and all related structures Neck Neck: Yes supple Resp Effort & Inspection: normal respiratory effort, no cough and no stridor Skin General skin exam: turgor normal Neuro General: patient oriented x3, tone normal and moves all extremities Extrem Right lower extremity: no edema Left lower extremity: no edema Coding Level of Care Code Est Pt Level 4 (17931) Complex EM visit Add On G2211 Diagnoses Diabetes 1.5, managed as type 2 E13.9 Anxiety, generalized F41.1 Urinary incontinence, unspecified type R32 Urinary Incontinence type: unspecified incontinence Frequent bowel movements R19.4 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 Class 1 obesity due to excess calories with serious comorbidity and body mass index (BMI) of 31.0 to 31.9 in adult E66.811; E66.09; Z68.31 Obesity classification: adult class 1 (BMI 30 - 34.9) Serious obesity comorbidity presence: with serious comorbidity Body mass index: BMI 31.0-31.9 Assessment & Plan Assessment & Plan (1) Diabetes 1.5, managed as type 2: Comment: taking Ozempic weekly Code(s): E13.9 - Other specified diabetes mellitus without complications Category: Medical (2) Anxiety, generalized: Code(s): F41.1 - Generalized anxiety disorder Category: Medical (3) Urine incontinence: Code(s): R32 - Unspecified urinary incontinence Category: Medical Qualifiers: Urinary Incontinence type: unspecified incontinence Qualified Code(s): R32 - Unspecified urinary incontinence (4) Frequent bowel movements: Code(s): R19.4 - Change in bowel habit Category: Medical (5) Anal sphincter incompetence: Code(s): K62.89 - Other specified diseases of anus and rectum Category: Medical (6) Obesity due to excess calories: Code(s): E66.09 - Other obesity due to excess calories Category: Medical Qualifiers: Obesity classification: adult class 1 (BMI 30 - 34.9) Serious obesity comorbidity presence: with serious comorbidity Body mass index: BMI 31.0-31.9 Qualified Code(s): E66.811 - Obesity, class 1; E66.09 - Other obesity due to excess calories; Z68.31 - Body mass index [BMI] 31.0-31.9, adult Plan Patient is 83-year-old female came in today for her follow-up appointment Sugars has been running high Anywhere from 192-235 depending on time of the day She is currently on Jardiance 10 mg only for the diabetes control Patient says that in the afternoon sometimes her sugar may go down to 130 and then she feels as if she has a low sugar Her last hemoglobin A1c was checked April of this year and it was 7.8 Patient says that she knows why her sugars are running high, because she is not controlling her diet properly She intend to control it better from there onwards I have placed order for labs to be repeated before her next visit in September Patient continued to have problem with the bowels that is why we stopped the metformin because it was making it worse She sometimes have to go and she can not hold her bowels in She is also still waiting for the bladder surgery. After her bowel problem is addressed She has appointment coming up with a collector of aquarium specimens this month to address the bowel problem Anxiety stable, patient is on Lexapro 20 mg daily Orders: Orders Hemoglobin A1c Today E13.9 - Other specified diabetes mellitus without complications, E66.09 - Other obesity due to excess calories, E66.811 - Obesity, class 1, Z68.31 - Body mass index [BMI] 31.0-31.9, adult Microalbumin, Random (w Creat) Today E13.9 - Other specified diabetes mellitus without complications, E66.09 - Other obesity due to excess calories, E66.811 - Obesity, class 1, Z68.31 - Body mass index [BMI] 31.0-31.9, adult Complete Blood Count Auto Diff Today E13.9 - Other specified diabetes mellitus without complications, E66.09 - Other obesity due to excess calories, E66.811 - Obesity, class 1, Z68.31 - Body mass index [BMI] 31.0-31.9, adult Comprehensive Met. Panel Today E13.9 - Other specified diabetes mellitus without complications, E66.09 - Other obesity due to excess calories, E66.811 - Obesity, class 1, Z68.31 - Body mass index [BMI] 31.0-31.9, adult LDL Cholesterol Direct Today E13.9 - Other specified diabetes mellitus without complications, E66.09 - Other obesity due to excess calories, E66.811 - Obesity, class 1, Z68.31 - Body mass index [BMI] 31.0-31.9, adult
== END 2024-07-01 14:10 | disposition home or self-care (01) ==
LOC: HO.HMCC 13:46
PROVIDERS: PCP Internal Medicine; Visit Provider Internal Medicine
DX: E13.9 Other specified diabetes mellitus without complications (principal); F41.1 Generalized anxiety disorder; R32 Unspecified urinary incontinence; R19.4 Change in bowel habit; K62.89 Other specified diseases of anus and rectum; E66.811 Obesity, class 1; E66.09 Other obesity due to excess calories; Z68.31 Body mass index [BMI] 31.0-31.9, adult

== ENCOUNTER → 2024-07-01 13:45 | Outpatient (BNVA) | payer MEDICARE, OTHER, SELFPAY | PROVIDERS: PCP Internal Medicine; Visit Provider Internal Medicine | DX: E13.9 Other specified diabetes mellitus without complications (principal); F41.1 Generalized anxiety disorder; R32 Unspecified urinary incontinence; R19.4 Change in bowel habit; K62.89 Other specified diseases of anus and rectum; E66.811 Obesity, class 1; Z68.31 Body mass index [BMI] 31.0-31.9, adult; Z71.3 Dietary counseling and surveillance | CPT/HCPCS: 99212 ==

== ENCOUNTER 2024-07-13 12:50 | Outpatient (AMB) | payer MEDICARE, OTHER, SELFPAY ==
--- NOTE | 2024-07-13 12:56 | A.OFFVIS_ITS ---
Vital Signs 07/13/24 13:00 Height 5 ft Weight 160 lb BMI 31.2 BP 133/61 Blood Pressure Location Lt brachial Position Sitting Pulse 69 Intake Visit Reasons: f/u med change Intake Note: Katelyn presents in the office as a follow up. CC: states that she is here to be cleared for anesthesia. 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 At that time, she would notice it 1 to 2 times a year, would occur mostly with solids such as rice, pasta, chicken. Now occurring 3 to 4 times a year. She has had at least 2 ER visits for the same. Was given diagnosis of anxiety, and prescribed Ativan. Patient herself manages this at home by avoiding the trigger foods, and also cutting up her other foods really small ensuring them thoroughly. She also takes frequent sips of water. Most recent ER visit was for difficulty swallowing even liquids which made her more worried and hence she is now seeking gastroenterology consultation. She was unable to tolerate her secretions for at least 8-12 hours before get better. Was again given Ativan in the emergency room, but patient states that her symptoms started to get better even before that. She also reports a dry cough that started around 8 weeks ago, that got better on omeprazole trial. Also brings up issues with alternating diarrhea and constipation that got better with Ozempic. Thinks that recent initiation of omeprazole made it worse and is now also having fecal incontinence. She wonders if she can go off the omeprazole. Recent endoscopy: Most recent colonoscopy was in 2013 (Dr. Kathleen): Excellent prep. Diverticulosis. No polyps. 08/10/22: Patient reports at least 50% improvement in her swallowing. Notices a definite improvement in her quality of life. Reports that still has trouble swallowing with some foods but has not identified distinct food types. Continues with pantoprazole 40 mg twice a day dosing. EoE severity: [id number] based on EGD 07/2022. 09/27/23: Being seen after recent upper endoscopy with dilation (Dr. Morales). Feeling more bloated, with frequent belching since last upper endoscopy. Otherwise, no difficulty swallowing. 07/13/24: Here for follow up. Was [place] for bladder surgery [place] [facility] [place] but surg was canceled due to resp issues. Pt had also noted increased reflux sx around that time. Since then started on montelukast and budesonide and reports improvement of upper resp sx as well as reflux sx. Pt was under the impression that needs clearance from GI for her bladder surg but advised her to reach out to her PCP. For fecal incontinence, this is also likely 2/2 pelvic floor dysfunction. Plan by urogyn is to monitor after bladder sling and see if needs a sacral stim. Of note - pt has not had a colo since . Has had intermittent incontinence since 2008 and has not progressed in sx or severity and therefore reluctant to undergo any diagnostic colo at this time. Reports occurs after she has been constipated for 3-4 days and then starts noticing passive passage of small pellet like stool in her underwear. Once she has good evacuation of bowels, FI resolves temporarily. Endoscopy: EGD 07/26/22: Trachealisation and fissuring, Hiro Dilation 16 to 18 mm. Path: 52 Eos/HPF. No HP. EGD 02/14/23: Hiro Dilation to 19 mm. Path: 1 Eos/HPF EGD 05/02/23: Hiro Dilation to 18 mm. Path: 2 Eos/HPF EGD 09/04/23: Balloon Dilation to 19 mm. Path: 1 Eos/HPF [facility] Medical History Restless leg syndrome HTN (hypertension) History of COVID-19 Anxiety, generalized Lipid disorder Diabetes 1.5, managed as type 2 Surgical History History of esophagogastroduodenoscopy (EGD) H/O colonoscopy History of hysterectomy History of total knee replacement (TKR) Family History Father No problems noted. Mother Dementia Pancreatitis Social History Housing: Apartment Alcohol intake: never Patient Tobacco Use Status: Never used Tobacco e-Cigarette/Vaping Use: Never Used Advance Directives Date on File: 11/23/20 service: No Current occupational status: retired Cognitive needs: No Hearing needs: Yes Vision needs: Yes Review of Systems Const All systems reviewed & are unremarkable except as noted in HPI and below Physical Exam Vital Signs: Last Vital Signs Pulse 69 07/13/24 13:00 BP 133/61 07/13/24 13:00 BMI result Body Mass Index 31.2 No apparent distress Nonicteric Abdomen soft, nondistended Alert and oriented x3, normal gait Assessment & Plan Assessment & Plan (1) Eosinophilic esophagitis: Code(s): K20.0 - Eosinophilic esophagitis Category: Medical (2) Benign esophageal stricture: Code(s): K22.2 - Esophageal obstruction Category: Medical (3) Fecal incontinence: Code(s): R15.9 - Full incontinence of feces Category: Medical Plan 1. EoE: On combination budesonide + PPI with resolution of reflux like sx. Eosinophilic esophagitis in remission based on histological eosinophilic count. No refills needed today. Pt was again reminded that bladder sling procedure was likely canceled by anesth for active URI at that time and not due to underlying EoE and to contact her PCP for pre-op clearance if needed. 2. Fecal incontinence Based on description appears to be a combination of rectal hyposensitivity and overflow incontinence. Plan: - Recommend adding fiber as bulking agent - Timed evacuation with glycerin supp or enema once every other day in AM - Pelvic floor PT - referral requested - Agree with sacral stim trial if above does not improve in sx - Pt declines diagnostic colo at this time as sx x 20 years without any recent changes or red flags Follow up 3 months Orders: Orders PT Evaluation and Treatment Today K62.89 - Other specified diseases of anus and rectum Medications: Discontinued metformin Discontinued Reason: Patient Completed Course 500 mg PO DAILY 7 tabs 0RF Coding Level of Care Code Est Pt Level 4 (95157) Complex EM visit Add On G2211 Diagnoses Eosinophilic esophagitis K20.0 Benign esophageal stricture K22.2 Fecal incontinence R15.9
[2024-07-13 13:00] VITALS: BP 133/61; PULSE 69; BMI 31.2
== END 2024-07-13 13:59 | disposition home or self-care (01) ==
PROVIDERS: PCP Internal Medicine; Visit Provider Internal Medicine
DX: K20.0 Eosinophilic esophagitis (principal); K22.2 Esophageal obstruction; R15.9 Full incontinence of feces
CPT/HCPCS: 99214; G2211

== ENCOUNTER → 2024-07-13 12:50 | Outpatient (BNVA) | payer MEDICARE, OTHER, SELFPAY | PROVIDERS: PCP Internal Medicine; Visit Provider Internal Medicine | DX: K20.0 Eosinophilic esophagitis (principal); K22.2 Esophageal obstruction; K62.89 Other specified diseases of anus and rectum; R15.9 Full incontinence of feces; I10 Essential (primary) hypertension | CPT/HCPCS: 99212 ==

== ENCOUNTER 2024-08-06 12:02 | Emergency (ER) | payer MEDICARE, OTHER, SELFPAY ==
--- NOTE | ~2024-08-06 | US_ITS ---
EXAMINATION: US TRIPLEX LOWER EXTREMITY, RIGHT CLINICAL INFORMATION: Swelling, pain right lower extremity. COMPARISON: None available. TECHNIQUE: Color-flow triplex imaging with spectral analysis and compression Doppler were performed on the right lower extremity. FINDINGS: Respiratory variation, normal compression and augmented flow are noted throughout the right lower extremity. The visualized common femoral vein, superficial femoral vein, profunda femoral vein, popliteal vein and midcalf peroneal and posterior tibial venous segments show no evidence of deep venous thrombosis. There is no High's cyst. US/US venous duplex LE RT IMPRESSION: No evidence of deep venous thrombosis involving the right lower extremity. Electronically signed by: Que Nicole MD 08/06/2024 03:01 PM [facility]
--- NOTE | ~2024-08-06 | XR_ITS ---
EXAMINATION: XR KNEE, RIGHT CLINICAL INFORMATION: pain, swelling COMPARISON: 03/08/2022. TECHNIQUE: Four views of the right knee. FINDINGS: There is been a total right knee arthroplasty. Femoral, and tibial components are intact, well seated, in anatomic alignment, without periprosthetic lucency or fracture. No suspicious bone lesions. There is a moderate-sized suprapatellar joint effusion. Soft tissues demonstrate no abnormalities. XR/XR knee RT 4V IMPRESSION: 1. No acute findings right knee. 2. Total right knee arthroplasty without complication. 3. Joint effusion. Electronically signed by: Que Nicole MD 08/06/2024 03:01 PM [facility]
[2024-08-06 12:08] VITALS: BP 140/70; PULSE 69; O2SAT 98
[2024-08-06 12:16] VITALS: BP 146/67; PULSE 67; RESP 18; TEMP 36.2; O2SAT 98
[2024-08-06 12:30] VITALS: BP 146/67; PULSE 67; RESP 18; TEMP 36.2; O2SAT 98; BMI 31.2
--- NOTE | 2024-08-06 13:45 | ED.EXTPRO ---
HPI - Extremity Problem General Chief complaint: Extremity Injury, Lower Stated complaint: RLE PAIN/SWELLING X1W,NO NEW INJURY PER EMS Time Seen by Provider: 08/06/24 12:38 Source: patient and EMS Mode of arrival: EMS Limitations: no limitations History of Present Illness ED Provider: Eric Suarez PA-C HPI Narrative: 84 yo female with history of osteoarthritis s/p bilateral knee replacements in 2012 in [facility] who presents to the ER for evaluation of worsening right knee and lower leg pain for the last 1 week. No recent injury she reports however she has an abrasion on her left knee which she states is from a fall. she states she has pain behind the right knee and radiates down into the calf and down to the foot. the right knee is swollen. she was told she needed surgery on it again but declined. she denies and numbness or tingling in the leg. no chest pain or sob. she is worried about a blood clot. MD Complaint: extremity pain Onset (ago): week(s) Pain Consistency: constant Location: right and lower extremity Severity scale (1-10): 5 Quality: aching Radiation: distal Relieving factors: rest Exacerbating factors: range of motion and weight bearing Associated symptoms: denies other symptoms Related Data Home Medications ?Medication ?Instructions ?Recorded ?Confirmed vitamins A,C,W-nqat-lfdamq 4,296 1 cap PO DAILY 12/05/22 07/01/24 mcg-226 mg-90 mg capsule (PreserVision AREDS) estradiol 0.01% (0.1 mg/gram) vaginal 04/17/24 07/01/24 vaginal cream mirabegron 25 mg tablet,extended 25 mg PO DAILY 07/13/24 release 24 hr Previous Rx's ?Medication ?Instructions ?Recorded lancets 28 gauge (FreeStyle #100 ea 06/12/22 Lancets) blood sugar diagnostic (FreeStyle #100 ea 04/10/23 Lite Strips) escitalopram oxalate 20 mg tablet 20 mg PO BEDTIME #90 tabs 03/04/24 Jardiance 10 mg tablet 10 mg PO DAILY #90 tabs 05/22/24 (empagliflozin) budesonide 1 mg/2 mL suspension See Rx Instructions .Route BID 06/01/24 for nebulization #120 mL montelukast 10 mg tablet 10 mg PO BEDTIME #90 tabs 06/01/24 omeprazole 20 mg capsule,delayed 20 mg PO BID #180 caps 06/01/24 release blood-glucose sensor (Dexcom G6 #9 ea 06/26/24 Sensor device) blood-glucose transmitter (Dexcom #1 ea 06/26/24 G6 Transmitter device) pramipexole 0.5 mg tablet 0.5 mg PO BEDTIME #90 tabs 06/30/24 rosuvastatin 20 mg tablet 20 mg PO QAM #90 tabs 07/10/24 lisinopril 2.5 mg tablet 2.5 mg PO QAM #90 tabs 07/14/24 Allergies Allergy/AdvReac Type Severity Reaction Status Date / Time Penicillins [PENICILLINS] Allergy Intermediate RASH Verified 08/06/24 14:00 crab AdvReac Intermediate DIARRHEA Verified 08/06/24 14:00 Environmental Allergy Intermediate Runny Nose Uncoded 07/13/24 12:59 hayfever Allergy Mild Unknown Uncoded 07/13/24 12:59 Review of Systems Review of Systems: Yes all other systems are reviewed and are negative PMFSH Past Medical History Medical History Restless leg syndrome HTN (hypertension) History of COVID-19 Anxiety, generalized Lipid disorder Diabetes 1.5, managed as type 2 Surgical History History of esophagogastroduodenoscopy (EGD) H/O colonoscopy History of hysterectomy History of total knee replacement (TKR) Family History Family History Father No problems noted. Mother Dementia Pancreatitis Social History Social History Housing: Apartment Alcohol intake: never Patient Tobacco Use Status: Never used Tobacco e-Cigarette/Vaping Use: Never Used Advance Directives: Yes Advance Directives on File: Yes Advance Directives Date on File: 11/23/20 service: No Current occupational status: retired Cognitive needs: No Hearing needs: Yes Vision needs: Yes Physical Exam Vital Signs: Vital Signs: Last Vital Signs Temp 97.1 F 08/06/24 12:30 Pulse 67 08/06/24 12:30 Resp 18 08/06/24 12:30 BP 146/67 H 08/06/24 12:30 Pulse Ox 98 08/06/24 12:30 O2 Del Method Room Air 08/06/24 12:30 BMI result Body Mass Index 31.2 Appearance: Alert. Oriented X3. No acute distress. HEENT: normal inspection CVS: Normal heart rate and rhythm. Pulses normal. Respiratory: No respiratory distress. Skin: Skin warm and dry. Normal skin color. Normal skin turgor. No rashes. Extremities: well healed bilateral surgical scars on the knees. moderate swelling of the right knee without associated tenderness, warmth or erythema. passive ROM of the right knee is normal. +calf tenderness on the right without swelling or edema. Neuro: Oriented X 3. No motor deficit. No sensory deficit. steady gait Medical Decision Making Medical Decision Making MDM Narrative: 84 yo female presenting to the ER for evaluation of right knee and lower leg pain x1 week. +swelling to the right knee but not the calf. she does have calf tenderness however. no erythema or warmth to suggest cellulitis or septic joint. US showed no DVT, no bakers cyst XR showing an effusion, normal appearing hardware. placed in esau wrap advised to f/u with PCP and ortho for further evaluation and treatment, start tylenol prn as she has not been taking anything for pain. stable for d/c home Differential Diagnosis Differential Diagnoses: The differential diagnosis associated with the presentation includes OA, effusion, DVT, bakers cyst, muscle strain, inflammatory arthritis Admission/Observation Consideration of admission/observation: Escalation of care including admission/observation considered lives home alone, considered obs vs placement but her gait is steady Independent Interpretation I performed an independent interpretation of an: Plain X-Ray Interpretation: normal appearing knee hardware Radiology Impression Discussion of test interpretation with radiology: I have reviewed the radiologist's reading. Independent Historian Clinical information obtained from an independent historian. History obtained from or confirmed by: EMS External Record Review External record reviewed: Outpatient record and Prior outpatient labs Prescription Management I considered prescription management with: Pain Medication Chronic Conditions Patient?s care impacted by: Diabetes and Hypertension Social Determinants Patient?s care significantly limited by Social Determinants of Health including: Problems related to primary support group Procedures Orthopedic Splinting/Casting Injury #1: Side: right Lower Extremity Injury Location: knee Lower Extremity Immobilizer: Esau wrap Critical Care Time Critical Care Time Critical Care Time: No Discharge Plan Discharge Clinical Impression: Right knee pain Qualifiers: Chronicity: chronic Qualified Code(s): M25.561 - Pain in right knee Patient Disposition: Home, Self-Care Instructions: Knee Pain (ED) Additional Instructions: your ultrasound today did not show any blood clots your xray showed a moderate sized joint effusion, otherwise known as fluid on the knee Where the provided Esau wrap for compression or a knee brace for compression so that your body can reabsorbed this fluid. Elevate your knee when possible and ice several times per day. The arthroplasty hardware your knee appeared normal. Follow-up with orthopedics for further evaluation and treatment. Recommend Tylenol 1000 mg every 6-8 hours as needed for pain. You can also try anti-inflammatories such as ibuprofen or Motrin. If you develop new or worsening symptoms call 911 or come back to the ER for further evaluation. Prescriptions: No Action (DME) lancets [FreeStyle Lancets] 28 gauge misc See Rx Instructions .Route Qty: 100 0RF Rx Instructions: As directed (DME) FreeStyle Lite Strips Strip See Rx Instructions .Route Qty: 100 3RF Rx Instructions: Once a day escitalopram oxalate 20 mg tablet 20 mg PO BEDTIME Qty: 90 1RF Jardiance 10 mg tablet 10 mg PO DAILY Qty: 90 0RF budesonide 1 mg/2 mL suspension for nebulization See Rx Instructions .ROUTE BID Qty: 120 1RF Rx Instructions: 2 ml mixed in slurry as per instructions provided by GI office, orally 2 times a day; montelukast 10 mg tablet 10 mg PO BEDTIME Qty: 90 0RF omeprazole 20 mg capsule,delayed release(DR/EC) 20 mg PO BID Qty: 180 3RF (DME) Dexcom G6 Transmitter Device See Rx Instructions .ROUTE QID Qty: 1 3RF Rx Instructions: As directed-change every 3 months (DME) Dexcom G6 Sensor Device See Rx Instructions .Route Qty: 9 0RF Rx Instructions: Test blood sugar 4 times per day, change sensor every 10 days pramipexole 0.5 mg tablet 0.5 mg PO BEDTIME Qty: 90 2RF rosuvastatin 20 mg tablet 20 mg PO QAM Qty: 90 0RF lisinopril 2.5 mg tablet 2.5 mg PO QAM Qty: 90 0RF PreserVision AREDS 4,296 mcg-226 mg-90 mg capsule 1 cap PO DAILY estradiol 0.01 % (0.1 mg/gram) cream vaginal mirabegron 25 mg tablet extended release 24 hr 25 mg PO DAILY Referrals: [facility] Orth[facility] Surgeons [Provider Group] Ella Garces MD [Primary Care Provider] - Print Language: Nepali
[2024-08-06 16:23] VITALS: BP 146/67; PULSE 67; RESP 18; TEMP 36.2; O2SAT 98
== END 2024-08-06 16:24 | disposition home or self-care (01) ==
PROVIDERS: Emergency Provider Student in an Organized Health Care Education/Training Program; PCP Internal Medicine
DX: M25.561 Pain in right knee (principal); E11.9 Type 2 diabetes mellitus without complications; I10 Essential (primary) hypertension; E78.5 Hyperlipidemia, unspecified
CPT/HCPCS: 73564; 93971; 99283; 99284

== ENCOUNTER → 2024-08-06 12:42 | Outpatient (BNV) | payer MEDICARE, OTHER, SELFPAY | PROVIDERS: Emergency Provider Student in an Organized Health Care Education/Training Program; PCP Internal Medicine; Visit Provider Radiology Diagnostic Radiology | DX: M25.461 Effusion, right knee (principal); Z96.651 Presence of right artificial knee joint | CPT/HCPCS: 73564; 93971 ==

== ENCOUNTER 2024-08-31 09:44 | Outpatient (REF) | payer MEDICARE, OTHER, SELFPAY ==
--- NOTE | ~2024-08-31 | XR_ITS ---
EXAMINATION: XR KNEE, LEFT CLINICAL INFORMATION: M25.562 - Pain in left knee COMPARISON: March 08, 2022 TECHNIQUE: Single AP view both knees. FINDINGS: Metallic prosthesis with a femoral and tibial component well-seated in the osseous structures. There is loosening in the tibial component/tibial plateau proximal metaphysis. There is normal alignment. Total right knee arthroplasty prosthesis with loosening along the medial femoral condyle component and the tibial plateau proximal tibial metaphysis. No malalignment. XR/XR knee LT 1V IMPRESSION: Total left knee arthroplasty with loosening at the tibial component, slightly worsened since prior exam. Total right knee arthroplasty with loosening tibial and to the medial femoral components. Electronically signed by: Dennis Combs MD 09/03/2024 08:08 AM [facility]
--- NOTE | ~2024-08-31 | XR_ITS ---
EXAMINATION: XR KNEE, RIGHT CLINICAL INFORMATION: M25.569 - Pain in unspecified knee COMPARISON: X-ray dated August 06, 2024. TECHNIQUE: [[place] view of the right knee. FINDINGS: Metallic prosthesis with the femoral component. The patella appears intact without acute cortical disruption or osteophyte formation. There is a nonradiopaque component in the posterior patella. XR/XR knee RT 2V IMPRESSION: Limited examination demonstrated no acute fracture or dislocation, right patella. Electronically signed by: Dennis Combs MD 09/03/2024 08:32 AM [facility]
== END 2024-08-31 09:45 | disposition home or self-care (01) ==
LOC: HO.HOSX 09:44
PROVIDERS: Visit Provider Physician Assistant
DX: M25.561 Pain in right knee (principal); M25.562 Pain in left knee; R29.898 Other symptoms and signs involving the musculoskeletal system; M54.2 Cervicalgia
CPT/HCPCS: 73560; 99212

== ENCOUNTER 2024-08-31 10:59 | Outpatient (AMB) | payer MEDICARE, OTHER, SELFPAY ==
[2024-08-31 11:04] VITALS: BMI 31.2
--- NOTE | 2024-08-31 11:04 | MHC.OFFVIS ---
Vital Signs 08/31/24 11:04 Height 5 ft Weight 160 lb BMI 31.2 Intake Visit Reasons: Neck pain, Right leg weakness Intake Note: Katelyn an 82 year old female who presents with complaints of progressively worsening neck pain as well as right leg weakness. The patient states that she had an MRI of her cervical spine approximately 10 years ago which showed ?severe stenosis?. She did not undergo surgery at that time. The patient states that her right leg will give out several times per day. The patient states that she fell on 08/06/2024 after her right leg gave out. She has done physical therapy in the past which gave her minimal relief. Her neck pain has gotten worse over the last few years in spite of continued non operative treatments. She has tried Tylenol and anti-inflammatory medicines which gave her minimal relief. She walks with a cane because of her weakness. The patient denies any bowel or bladder changes. Allergies Penicillins [PENICILLINS] Allergy (Intermediate, Verified 08/31/24 11:04) RASH crab Adverse Reaction (Intermediate, Verified 08/31/24 11:04) DIARRHEA Environmental Allergy (Intermediate, Uncoded 08/31/24 11:04) Runny Nose hayfever Allergy (Mild, Uncoded 08/31/24 11:04) Unknown Medication List - Last Reconciled 08/31/24 by Beto Quintana MD blood sugar diagnostic (FreeStyle Lite Strips) Once a day blood-glucose sensor (Dexcom G6 Sensor device) Test blood sugar 4 times per day, change sensor every 10 days blood-glucose transmitter (Dexcom G6 Transmitter device) As directed-change every 3 months budesonide 2 ml mixed in slurry as per instructions provided by GI office, orally 2 times a day; dorzolamide-timolol 22.3-6.8 mg/mL ophthalmic (eye) escitalopram oxalate 20 mg PO BEDTIME estradiol 0.01%(0.1mg/gram) vaginal Jardiance (empagliflozin) 10 mg PO DAILY NS lancets (FreeStyle Lancets) As directed lisinopril 2.5 mg PO QAM mirabegron ER 25 mg PO DAILY montelukast 10 mg PO BEDTIME omeprazole 20 mg PO BID pramipexole 0.5 mg PO BEDTIME rosuvastatin 20 mg PO QAM vitamins A,C,M-nypu-srbxmp 4,296 mcg-226 mg-90 mg (PreserVision AREDS) 1 cap PO DAILY PFSH Medical History Restless leg syndrome HTN (hypertension) History of COVID-19 Anxiety, generalized Lipid disorder Diabetes 1.5, managed as type 2 Surgical History History of esophagogastroduodenoscopy (EGD) H/O colonoscopy History of hysterectomy History of total knee replacement (TKR) Family History Father No problems noted. Mother Dementia Pancreatitis Social History Housing: Apartment Alcohol intake: never Patient Tobacco Use Status: Never used Tobacco e-Cigarette/Vaping Use: Never Used Advance Directives Date on File: 11/23/20 service: No Current occupational status: retired Cognitive needs: No Hearing needs: Yes Vision needs: Yes Physical Exam Vital Signs: BMI result Body Mass Index 31.2 Const Other: Well-nourished well-developed very friendly female awake alert and oriented x3 in no acute distress Neck Other: Cervical spine examination shows pain with range of motion, right-sided paraspinal muscle tenderness, positive Spurling's test, 4/5 strength with testing of her right hip flexors and knee extensors when compared to 5/5 strength on her left side Results Reviewed Results Reviewed: MRI of the patient's cervical spine taken previously shows evidence of severe cervical stenosis Assessment & Plan Assessment & Plan (1) Weakness of right lower extremity: Code(s): R29.898 - Other symptoms and signs involving the musculoskeletal system (2) Neck pain: Code(s): M54.2 - Cervicalgia Category: Medical Plan Ms. Octavio Manzanares presents with progressively worsening neck pain as well as associated right leg weakness possibly due to cervical stenosis with cervical myelopathy. Thus, I will send the patient for a new MRI of her cervical spine. I will contact her by phone once the MRI results are available. She will call me prior to that time should her symptoms worsen in any way. Feel free to call me at any time should questions regarding her orthopedic management arise. I spent 20 minutes in reviewing the patient's records and imaging studies, seeing the patient and documenting in the medical record. Orders: Orders XR knee LT 1V Today Divina Ledesma PA-C M25.562 - Pain in left knee MR cervical spine wo con Today Beto Quintana MD G89.29 - Other chronic pain, M54.2 - Cervicalgia XR knee RT 2V Today Divina Ledesma PA-C M25.569 - Pain in unspecified knee Coding Level of Care Code Est Pt Level 3 (99714) Complex EM visit Add On G2211 Diagnoses Weakness of right lower extremity R29.898 Neck pain M54.2
== END 2024-08-31 11:47 | disposition home or self-care (01) ==
PROVIDERS: PCP Internal Medicine; Visit Provider Orthopaedic Surgery
DX: R29.898 Other symptoms and signs involving the musculoskeletal system (principal); M54.2 Cervicalgia
CPT/HCPCS: 99213; G2211

== ENCOUNTER → 2024-08-31 11:05 | Outpatient (BNV) | payer MEDICARE, OTHER, SELFPAY | PROVIDERS: Visit Provider Radiology Diagnostic Radiology | DX: T84.033A Mechanical loosening of internal left knee prosthetic joint, initial encounter (principal); T84.032A Mechanical loosening of internal right knee prosthetic joint, initial encounter | CPT/HCPCS: 73560 ==

== ENCOUNTER 2024-09-01 09:32 | Outpatient (REF) | payer MEDICARE, OTHER, SELFPAY ==
--- NOTE | ~2024-09-01 | MR_ITS ---
EXAMINATION: MR CERVICAL SPINE WITHOUT IV CONTRAST History: G89.29 - Other chronic pain Technique: Sagittal T1, T2 and STIR, and axial T2 weighted and gradient echo images of the cervical spine were obtained per departmental protocol. Comparison: Correlation is made with a CT of the cervical spine dated 06/06/2023. Findings: The vertebral bodies maintain normal height and marrow signal intensity. There is slight anterolisthesis of C4 on C5, unchanged from the prior CT scan. There is moderate degenerative disc disease at C5-6 with disc desiccation, loss of disc height, and endplate spurring. Milder changes are noted at the remaining levels. At C2-3, there is osteoarthritis of the left facet joint causing neural foraminal narrowing. The right neural foramen is patent. There is no disc herniation or central spinal stenosis. At C3-4, there is osteoarthritis of the right facet joint causing neural foraminal narrowing. The left neural foramen is patent. There is no disc herniation or central spinal stenosis. At C4-5, there is facet osteoarthritis on the left causing mild neural foraminal narrowing. The right neural foramen is patent. There is no central spinal stenosis or disc herniation. At C5-6, there is a posterior disc/osteophyte complex which partially effaces the anterior subarachnoid space. There is uncovertebral joint hypertrophy causing bilateral neural foraminal narrowing. There is no central spinal stenosis. At C6-7, there is a small disc/osteophyte complex which partially effaces the anterior subarachnoid space. There is uncovertebral joint hypertrophy on the left causing mild neural foraminal narrowing. The right neural foramen is patent. At C7-T1, there is uncovertebral joint hypertrophy on the left causing neural foraminal narrowing. The right neural foramen is patent. There is no central spinal stenosis. The spinal cord demonstrates normal signal intensity. The visualized paraspinal soft tissues are unremarkable. MR/MR cervical spine wo con Impression: Slight anterolisthesis of C4 on C5 without change. Facet osteoarthritis and uncovertebral joint hypertrophy causing multilevel neural foraminal stenosis as detailed above. No central spinal stenosis or disc herniation. Electronically signed by: Luis Boles MD 09/03/2024 07:27 AM EST
== END 2024-09-01 09:33 | disposition home or self-care (01) ==
LOC: HO.MRI 09:32
PROVIDERS: PCP Internal Medicine; Visit Provider Orthopaedic Surgery
DX: M54.2 Cervicalgia (principal); G89.29 Other chronic pain
CPT/HCPCS: 72141

== ENCOUNTER → 2024-09-01 09:41 | Outpatient (BNV) | payer MEDICARE, OTHER, SELFPAY | PROVIDERS: PCP Internal Medicine; Visit Provider Radiology Diagnostic Radiology | DX: G89.29 Other chronic pain (principal) | CPT/HCPCS: 72141 ==

== ENCOUNTER 2024-09-04 14:33 | Outpatient (AMB) | payer MEDICARE, OTHER, SELFPAY ==
--- NOTE | 2024-09-04 15:46 | AM.OFFWIN_ITS ---
Intake Vital Signs 09/04/24 15:47 Height 5 ft Weight 160 lb BMI 31.2 BP 124/70 Blood Pressure Location Lt brachial Pulse 71 Pulse Source Pulse Oximeter Pulse Oximetry (%) 95 Oxygen Delivery Method Room Air Intake Visit Reasons: EP ?UTI Patient Tobacco Use Status: Never used Tobacco Allergies Penicillins [PENICILLINS] Allergy (Intermediate, Verified 08/31/24 11:04) RASH crab Adverse Reaction (Intermediate, Verified 08/31/24 11:04) DIARRHEA Environmental Allergy (Intermediate, Uncoded 08/31/24 11:04) Runny Nose hayfever Allergy (Mild, Uncoded 08/31/24 11:04) Unknown HPI HPI Comments History of Present Illness Details History of Present Illness - The patient is an 84-year-old female p resenting with urinary tract infection symptoms. - She reports urinary frequency as the p rimary symptom and also experiences slight nausea without fever or low back pain. - There is an absence of hematuria, and her last urine culture indicated Escherichia coli susceptible to cephalosporins. - She has previously tolerated cefurosxi me, a cephalosporin, without adverse effects. - The patient has a history of a penicil lebron allergy developed in childhood. - She is scheduled for cystocele repair on . Physical Exam General: Cooperative, healthy appearing, comfortable, no acute distress and well developed Orientation: Patient oriented x3 Limitations: No limitations Head: Normal to inspection Ears: Missing one hearing aid, hearing grossly normal bilaterally Nose: Normal external nose present Face and sinus: Normal facial exam Eyes: Appearance normal, both eyes and all related structures Neck: Normal visual inspection and Yes full ROM Respiratory: Normal respiratory effort and able to speak in complete sentences Skin: No rashes or lesions noted Neuro: Patient oriented x3 Extremities: Normal to inspection [facility] Medical History Restless leg syndrome HTN (hypertension) History of COVID-19 Anxiety, generalized Lipid disorder Diabetes 1.5, managed as type 2 Surgical History History of esophagogastroduodenoscopy (EGD) H/O colonoscopy History of hysterectomy History of total knee replacement (TKR) Family History Father No problems noted. Mother Dementia Pancreatitis Social History Housing: Apartment Alcohol intake: never Patient Tobacco Use Status: Never used Tobacco e-Cigarette/Vaping Use: Never Used Advance Directives Date on File: 11/23/20 service: No Current occupational status: retired Cognitive needs: No Hearing needs: Yes Vision needs: Yes Review of Systems Const All systems reviewed & are unremarkable except as noted in HPI and below Assessment & Plan Assessment & Plan (1) UTI (urinary tract infection): Code(s): N39.0 - Urinary tract infection, site not specified Qualifiers: Urinary tract infection type: acute cystitis Hematuria presence: with hematuria Qualified Code(s): N30.01 - Acute cystitis with hematuria Plan: The urinary tract infection will be managed with cefuroxime, given the patient's history of E. coli sensitivity to this class of antibiotic and previous tolerance. A urine culture has been ordered to verify the pathogen and antibiotic susceptibility, and potential adjustments to antibiotic therapy will be made based on these results if necessary. The patient will be contacted if a change in the treatment regimen becomes necessary. Scheduled surgical interventions for cystocele repair and GVT tape placement are acknowledged. Patient was informed and verbally consented to the use of an ambient scribe for clinic note documentation during this visit. Orders: Orders Urine Culture Today N39.0 - Urinary tract infection, site not specified Medications: New cefuroxime axetil 500 mg PO Q12H 10 tabs 0RF Coding Level of Care Code Est Pt Level 3 (12058) Diagnoses Acute cystitis with hematuria N30.01 Urinary tract infection type: acute cystitis Hematuria presence: with hematuria
[2024-09-04 15:47] VITALS: BP 124/70; PULSE 71; O2SAT 95; BMI 31.2
== END 2024-09-04 15:53 | disposition home or self-care (01) ==
PROVIDERS: PCP Internal Medicine; Visit Provider Physician Assistant
DX: Z13.9 Encounter for screening, unspecified (principal); N30.01 Acute cystitis with hematuria

== ENCOUNTER 2024-09-04 14:33 | Outpatient (REF) | payer MEDICARE, OTHER, SELFPAY | END 2024-09-04 14:34 | disposition home or self-care (01) | LOC: HO.LAB 14:33 | PROVIDERS: PCP Internal Medicine; Visit Provider Physician Assistant | DX: N30.01 Acute cystitis with hematuria (principal) | CPT/HCPCS: 81003; 87086; 87088; 87186; 99212 ==

== ENCOUNTER 2024-09-11 09:35 | Outpatient (AMB) | payer MEDICARE, OTHER, SELFPAY ==
--- NOTE | 2024-09-11 09:38 | A.SPINEOV_ITS ---
Vital Signs 09/11/24 09:46 Height 5 ft Weight 161 lb BMI 31.4 Intake Visit Reasons: cervical stenosis Intake Note: Ms. Octavio Manzanares is here today c/o neck pain that radiates to arms causing numbness and Right Knee pain. [employer] Unit Required: No Allergies crab Adverse Reaction (Intermediate, Verified 08/31/24 11:04) DIARRHEA Environmental Allergy (Intermediate, Uncoded 08/31/24 11:04) Runny Nose hayfever Allergy (Mild, Uncoded 08/31/24 11:04) Unknown Physical Exam Vital Signs: BMI result Body Mass Index 31.4 Assessment & Plan Assessment & Plan (1) Neck pain: Code(s): M54.2 - Cervicalgia Category: Medical Plan Dear dr Quintana, Thank you for referring Mrs Octavio Manzaanres to our office today. 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 She also has had intermittent neck pain and pins of right leg weakness. She underwent a cervical MRI showing some degenerative disc disease and was sent today to rule out myelopathy. Currently she is tells me that she has a little bit of an ache in the left side of her neck but in general she does not have any specific neck pain. She occasionally will get some tingling down her left arm. She does report some feelings of right leg weakness. Her daughter who was on the phone during our visit also reports that she has been more unsteady on her feet over the last year. She does get numbness of her toes from time to time. She is a diabetic. No overt myelopathic symptoms such as fine motor loss in the hands etc.. She does not report any shooting pains down the leg or claudicating neurogenic symptoms. PMH: She is a diabetic, she believes her A1c is probably somewhere in the 6-8 range but can not recall exactly. She has a history of hypertension, high cholesterol, GERD, bilateral total knee replacement, hysterectomy, overactive bladder. Social hx: She does not smoke, drink use any recreational drugs Medications: Budesonide, dorzolamide, escitalopram, Jardiance, lisinopril, mirabegron, montelukast, omeprazole, premixed [facility], rosuvastatin Allergies: Please see the [employer] list Physical exam: Awake alert oriented no acute distress, she is able stand up out of a chair and ambulate down the hallway but she is slightly unsteady on her feet with tandem gait walking. Motor examination of his full strength of the upper extremities, she has a 4-5 weakness of her right iliopsoas, distal lower extremity strength is full. Reflexes diffusely absent, no Sanches's, no clonus. Imaging review: Cervical MRI done showing degenerative listhesis at C4-5, disc degeneration at C5-6 with foraminal stenosis but no evidence of central canal stenosis or cord signal change. Impression: 84-year-old female presents to the office today for evaluation of balance issues and right leg weakness. I reviewed her cervical MRI and there is some evidence of degeneration at the C4-5 and C5-6 levels but no evidence of spinal cord constriction, or cord signal change to suggest myelopathic origin of her symptoms. She is a patient of in Neurology so I recommended that she follow up with him to discuss if this could be some kind of issue coming from the brain or to do with her peripheral neuropathy in her diabetes. All questions were answered to the best of my ability. Thank you for allowing us to care for your patient. The total time spent with this visit with this patient was 45 minutes reviewing history, physical exam, cervical imaging review, and implementation of treatment plan or further diagnostic testing Joon Figueredo MD,PhD [facility] Coding Level of Care Code New Pt Level 4 (27574) Diagnoses Neck pain M54.2
[2024-09-11 09:46] VITALS: BMI 31.4
== END 2024-09-11 10:21 | disposition home or self-care (01) ==
PROVIDERS: PCP Internal Medicine; Referring Provider Orthopaedic Surgery; Visit Provider Physician Assistant
DX: M54.2 Cervicalgia (principal)
CPT/HCPCS: 99204

== ENCOUNTER → 2024-09-11 09:35 | Outpatient (BNVA) | payer MEDICARE, OTHER, SELFPAY | PROVIDERS: PCP Internal Medicine; Referring Provider Orthopaedic Surgery; Visit Provider Physician Assistant | DX: M54.2 Cervicalgia (principal) | CPT/HCPCS: 99202 ==

== ENCOUNTER 2024-09-29 13:03 | Outpatient (RCR) | payer MEDICARE, OTHER, SELFPAY ==
--- NOTE | 2024-09-17 12:19 | MHC.PT.EP ---
[facility] [place] Office [place] Office [place] Office [address] [phone] F: [phone] F: [phone] F: [phone] F: [phone] Physical Therapy Plan of Care Date of Evaluation: 09/17/24 Date of Surgery: NA Diagnosis: Other specified diseased of anus and rectum Anal sphincter incompetence, pelvic floor PT Assessment: Katelyn is a 84 year old female who is referred to PT for Other specified diseased of anus and rectum, Anal sphincter incompetence, pelvic floor PT . She reports of having symptoms of FI for about 20 years however her symptoms got worse about 4-5 years back. Her symptoms are present with walking, and when stool is poorly formed. She also airs on the side of caution and used the bathroom at the first warning of BM. She also reports of having UI which per pt is only present in a full bladder however wears 3-4 incontinence diaper and occasionally leaks through that to her her underwear. She denies having pain. She lives alone and is independent with ADLS but is nervous about social engagement. She would benefit from skilled PT to address the aforementioned impairments and improve tolerance to functional activities. PT IS SCHEDULES FOR CYSTOCELE REPAIR ON 10/09/24- 3 WEEKS FROM TOMORROW. SHE WILL BE ONLY ATTENDING PT FOR 2 VIISTS AND WILL BE D/C PRIOR TO CYSTOCELE REPAIR. SHE WILL RETURN TO PT WHEN SHE WILL BE CLEARED BY HER UROGYN Frequency and Duration: The patient will be seen 1/week for 2 weeks Short Term Goals: 1. Transvaginal and ano-rectal exam will be done in 1 weeks L Tacker Goals: 1. Pt will demonstrate good awareness of pressure management in 2 weeks 2. Pt will be able to demonstrate good PFM and EAS contraction in 2 weeks. Treatment Plan: Modalities to reduce pain, spasms and effusion. Manual therapy to restore motion and function. Therapeutic exercise to improve strength and flexibility. Neuromuscular re-education for posture and balance. Therapeutic activities to return to functional activities of daily living. Electronically signed by: Please sign and return to therapist. Thank you for your referral.
== END 2024-10-06 09:20 | disposition home or self-care (01) ==
LOC: HO.PT 13:03
PROVIDERS: PCP Internal Medicine; Visit Provider Internal Medicine
DX: K62.89 Other specified diseases of anus and rectum (principal)
CPT/HCPCS: 97112; 97140; 97161

== ENCOUNTER 2024-10-01 13:48 | Outpatient (AMB) | payer MEDICARE, OTHER, SELFPAY ==
--- NOTE | 2024-10-01 13:59 | MHC.OFFVIS ---
Intake Visit Reasons: OV- Right knee TKA revision per Dr. Quintana Intake Note: Katelyn is a 84 year old female who presents today as she was referred by Dr. Quintana to discuss Revision of Right TKA. Total left knee arthroplasty with loosening at the tibial component, slightly worsened since prior exam. Total right knee arthroplasty with loosening tibial and to the medial femoral components. Allergies crab Adverse Reaction (Intermediate, Verified 08/31/24 11:04) DIARRHEA Environmental Allergy (Intermediate, Uncoded 08/31/24 11:04) Runny Nose hayfever Allergy (Mild, Uncoded 08/31/24 11:04) Unknown HPI HPI OV- Right knee TKA revision per Dr. Quintana: Details: 84-year-old woman who comes in today with complaints of right knee pain and instability. She describes being unsteady on her right knee. When she is going downstairs or when she is walking outside or getting out of bed she will have a sensation of giving way and that her knee is going [address] and this is caused her to nearly fall on many occasions. She had a knee replacement in 13 years ago in [facility]. She was doing well until about a year ago when this began. She is here today with her daughter. [facility] Medical History (Updated 09/03/24 @ 07:58 by Beto Quintana MD) Restless leg syndrome HTN (hypertension) History of COVID-19 Anxiety, generalized Lipid disorder Diabetes 1.5, managed as type 2 Surgical History (Updated 10/01/24 @ 15:53 by Sai Todd MD) History of esophagogastroduodenoscopy (EGD) H/O colonoscopy History of hysterectomy History of total knee replacement (TKR) Family History Father No problems noted. Mother Dementia Pancreatitis Social History Housing: Apartment Alcohol intake: never Patient Tobacco Use Status: Never used Tobacco e-Cigarette/Vaping Use: Never Used Advance Directives Date on File: 11/23/20 service: No Current occupational status: retired Cognitive needs: No Hearing needs: Yes Vision needs: Yes Physical Exam Extrem Other: On exam she has full range of motion bilateral knees. Her terminal extension is slightly difficult on the right and she has flexion to 120 degrees bilaterally. There is some play of the right knee that is slightly more than the left especially in extension. Overall however both knees appear grossly stable. Results Reviewed Results Reviewed: I personally reviewed relevant radiographs. Status post bilateral knee replacements. No obvious hardware complications. No evidence of loosening. There is a joint effusion on the right Assessment & Plan Assessment & Plan (1) History of total knee replacement (TKR): Comment: bilateral Code(s): Z96.659 - Presence of unspecified artificial knee joint Category: Surgical Plan: Is a an 84-year-old woman with a history of bilateral knee replacements both done about 13 years ago. She has been having instability on the right. On exam there is a trace effusion and there is some more laxity in extension compared to the left but overall grossly stable. Her symptoms do suggest dynamic instability and she seems to definitely be having difficulty getting through her day or engaging in daily activities. I asked to obtain the operative notes from her original surgery in [facility]. Once that is done I will have her back and we can discuss surgical options. In the meantime I have suggested she increase her strengthening and exercise activities. She has braces at home which she only occasionally wears. I recommend that she wear those more regularly as I would like to try to avoid any falling if possible. Coding Level of Care Code Est Pt Level 4 (59645) Diagnoses History of total knee replacement (TKR) Z96.659
== END 2024-10-01 14:56 | disposition home or self-care (01) ==
PROVIDERS: PCP Internal Medicine; Visit Provider Orthopaedic Surgery
DX: M25.361 Other instability, right knee (principal); Z96.653 Presence of artificial knee joint, bilateral
CPT/HCPCS: 99213

== ENCOUNTER → 2024-10-01 13:48 | Outpatient (BNVA) | payer MEDICARE, OTHER, SELFPAY | PROVIDERS: PCP Internal Medicine; Visit Provider Orthopaedic Surgery | DX: M25.561 Pain in right knee (principal); Z96.653 Presence of artificial knee joint, bilateral | CPT/HCPCS: 99212 ==

== ENCOUNTER 2024-10-06 15:09 | Outpatient (AMB) | payer MEDICARE, OTHER, SELFPAY ==
[2024-10-06 15:16] VITALS: BP 122/74; PULSE 70; O2SAT 97; BMI 32.6
--- NOTE | 2024-10-06 15:16 | MHC.PC.OV ---
Vital Signs 10/06/24 15:16 Height 5 ft Weight 167 lb 2 oz BMI 32.6 BP 122/74 Blood Pressure Location Lt brachial Position Sitting Pulse 70 Pulse Source Pulse Oximeter Pulse Oximetry (%) 97 Oxygen Delivery Method Room Air Intake Visit Reasons: 3 months follow up Allergies crab Adverse Reaction (Intermediate, Verified 10/06/24 15:18) DIARRHEA Environmental Allergy (Intermediate, Uncoded 08/31/24 11:04) Runny Nose hayfever Allergy (Mild, Uncoded 08/31/24 11:04) Unknown Medication List - Last Reconciled 10/06/24 by Ella Garces MD blood sugar diagnostic (FreeStyle Lite Strips) Once a day blood-glucose sensor (Dexcom G6 Sensor device) Test blood sugar 4 times per day, change sensor every 10 days blood-glucose transmitter (Dexcom G6 Transmitter device) As directed-change every 3 months budesonide 2 ml mixed in slurry as per instructions provided by GI office, orally 2 times a day; dorzolamide-timolol 22.3-6.8 mg/mL ophthalmic (eye) escitalopram oxalate 20 mg PO BEDTIME estradiol 0.01%(0.1mg/gram) vaginal Jardiance (empagliflozin) 10 mg PO DAILY NS lancets (FreeStyle Lancets) As directed lisinopril 2.5 mg PO QAM mirabegron ER 25 mg PO DAILY montelukast 10 mg PO BEDTIME omeprazole 20 mg PO BID pramipexole 0.5 mg PO BEDTIME rosuvastatin 20 mg PO QAM vitamins A,C,Z-zshi-gkvuft 4,296 mcg-226 mg-90 mg (PreserVision AREDS) 1 cap PO DAILY Tobacco use date assessed: 10/06/24 Fall risk assessment: 1 Fall in past year Last assessed Fall Risk: 10/06/24 Dental Screening Dental Screen Date: 10/06/24 Did you have a dental visit in the last 12 months?: No Did you have a dental problem in the last 6 months where you did not have access to dental care?: No Was dental information given to patient?: Patient has dentist HPI 3 months follow up HPI Details History - The patient is an 84-year-old female presenting with diabetes management pre-surgery. - Scheduled for bladder surgery, delayed previously due to GERD; sugars high at 200s, off Jardiance per pre-operative instructions. - insulin management is considered for post-operative glucose fluctuations. - Slight increase in anxiety associated with upcoming procedure. - Reports right leg weakness, particularly during long walks. - Imaging with x-ray yielded normal results; patient coordinates with specialists for further evaluation. . Problem List - Type 2 Diabetes Mellitus - Gastroesophageal Reflux Disease (GERD) - Anxiety disorder - Right leg buckling with undetermined cause - Hypertension - Hyperlipidemia Patient Instructions - Monitor blood sugar levels before meals and adjust insulin according to the sliding scale provided. - Monitor anxiety levels and practice stress reduction techniques. - Report any further unusual symptoms, especially related to leg weakness. - Follow pre-surgical instructions carefully and report any concerns to surgical team promptly. Review of Systems - General: No fever no chills - Neurological: No headaches no dizziness - Ear nose throat: No sore throat no hearing difficulty no ear pain - Cardiovascular: No syncope, no chest pain, no palpitations - Gastrointestinal: No nausea vomiting or diarrhea - Endocrine: No polyuria polydipsia no heat intolerance - Genitourinary: No dysuria , no blood in urine Physical Exam General: No acute distress HEENT: No acute findings Neck: Supple Respiratory system: Able to talk in full sentences, no audible wheeze cardiovascular: S1-S2 regular in rate and rhythm Gastrointestinal: No nausea, vomiting, diarrhea, no signs of infection Extremities: Right leg keeps buckling, otherwise no new findings MAP EDITOR: Alert awake oriented x3 motor sensory intact Skin: Normal turgor [facility] Medical History Restless leg syndrome HTN (hypertension) History of COVID-19 Anxiety, generalized Lipid disorder Diabetes 1.5, managed as type 2 Surgical History History of esophagogastroduodenoscopy (EGD) H/O colonoscopy History of hysterectomy History of total knee replacement (TKR) Family History Father No problems noted. Mother Dementia Pancreatitis Social History Housing: Apartment Alcohol intake: never Patient Tobacco Use Status: Never used Tobacco e-Cigarette/Vaping Use: Never Used Advance Directives Date on File: 11/23/20 service: No Current occupational status: retired Cognitive needs: No Hearing needs: Yes Vision needs: Yes Questionnaire PHQ-9 Over the last 2 weeks, how often have you been bothered by any of the following problems? 1. Little interest or pleasure in doing things: several days 2. Feeling down, depressed, or hopeless: not at all 3. Trouble falling or staying asleep, or sleeping too much: several days 4. Feeling tired or having little energy: several days 5. Poor appetite or overeating: several days 6. Feeling bad about yourself - or that you are a failure or have let yourself or your family down: not at all 7. Trouble concentrating on things, such as reading the newspaper or watching television: not at all 8. Moving or speaking so slowly that other people could have noticed. Or the opposite - being so fidgety or restless that you have been moving around a lot more than usual: not at all 9. Thoughts that you would be better off or of hurting yourself in some way: not at all Total score: 4 Depression Screening Interpretation: Negative Depression Screening Done: Yes 75490 - PHQ-9 Billing: Yes Source: Developed by Drs. Luis Pan, Crystal Magallon, Geoffrey Anguiano and colleagues, with an educational rosas from [employer]. Thrive Questionnaire Date Thrive assessed: 10/06/24 I am a: Patient What is your living situation today?: I have a steady place to live Within the past 12 months, did the food you bought not last and you didn't have the money to get more?: Never true Within the past 12 months, did you worry whether your food would run out before you got money to buy more?: Never true Do you have trouble paying for medicines?: No Do you have trouble getting transportation to medical appointments?: No Do you have trouble paying your heating and electricity bill?: No Do you have trouble taking care of your child, family member or friend?: No Do you have trouble with day-to-day activities such as bathing, preparing meals, shopping, managing finances, etc.?: No Are you currently unemployed and looking for a job?: No Are you interested in more education?: No Please select the resources that you would like help with: None Currently or been in a relationship where the following occur: No concerns reported THRIVE Score: 0 AUDIT C Alcohol Use Questionnaire (AUDIT-C) 1. How often do you have a drink containing alcohol?: Monthly or less 2. How many drinks containing alcohol do you have on a typical day when you are drinking?: 1 or 2 3. How often do you have six or more drinks on one occasion?: Never Total Score: 1 Score Reviewed/Action Taken: Yes LG-7 AMB Questionnaire LG-7 Date LG - 7 assessed: 10/06/24 Feeling nervous, anxious, or on edge: 1 = Several days Not being able to stop or control worryin = Several days Worrying too much about different things: 1 = Several days Trouble relaxin = Not at all Being so restless that it is hard to sit still: 0 = Not at all Becoming easily annoyed or irritable: 1 = Several days Feeling afraid as if something awful might happen: 1 = Several days Total LG-7 score (0-4 normal; 5-9 mild; 10-14 moderate; 15-21 severe): 5 Source: Developed by Drs. Luis Pan, Crystal Magallon, Geoffrey Anguiano and colleagues, with an educational rosas from [employer]. LG-7 Assessment Billing LG-7 Assessment Tool: LG-7 Assessment 16979 Physical exam (Primary Care) Vital Signs: Last Vital Signs Pulse 70 10/06/24 15:16 BP 122/74 10/06/24 15:16 Pulse Ox 97 10/06/24 15:16 Oxygen Delivery Method Room Air 10/06/24 15:16 BMI result Body Mass Index 32.6 Tobacco/Smoking Status: Tobacco use Status Tobacco use date assessed 10/06/24 10/06/24 15:20 Patient Tobacco Use Status Never used Tobacco 10/06/24 15:20 e-Cigarette/Vaping Use Never Used 10/06/24 15:20 PHQ-9: PHQ-9 Score PHQ-9: Total score 4 10/06/24 15:41 Depression Screening Interpretation: Negative Thrive Assessment: Date of Thrive Assessment Date Thrive assessed 10/06/24 10/06/24 15:20 Currently or been in a relationship where the following occur: No concerns reported Coding Level of Care Code Est Pt Level 4 (43570) Complex EM visit Add On G2211 Diagnoses Diabetes 1.5, managed as type 2 E13.9 Anxiety, generalized F41.1 Urinary incontinence, unspecified type R32 Urinary Incontinence type: unspecified incontinence 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 Class 1 obesity due to excess calories with serious comorbidity and body mass index (BMI) of 31.0 to 31.9 in adult E66.811; E66.09; Z68.31 Body mass index: BMI 31.0-31.9 Obesity classification: adult class 1 (BMI 30 - 34.9) Serious obesity comorbidity presence: with serious comorbidity Instability of right knee joint M25.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 Laterality: right Additional Codes LG-7 Assessment Billing - LG-7 Assessment Tool: LG-7 Assessment 96084 ([id number]) PHQ-9 - 26589 - PHQ-9 Billing: Yes ([id number]) Assessment & Plan Assessment & Plan (1) Diabetes 1.5, managed as type 2: Comment: taking Ozempic weekly Code(s): E13.9 - Other specified diabetes mellitus without complications Category: Medical (2) Anxiety, generalized: Code(s): F41.1 - Generalized anxiety disorder Category: Medical (3) Urine incontinence: Code(s): R32 - Unspecified urinary incontinence Category: Medical Qualifiers: Urinary Incontinence type: unspecified incontinence Qualified Code(s): R32 - Unspecified urinary incontinence (4) Anal sphincter incompetence: Code(s): K62.89 - Other specified diseases of anus and rectum Category: Medical (5) Obesity due to excess calories: Code(s): E66.09 - Other obesity due to excess calories Category: Medical Qualifiers: Body mass index: BMI 31.0-31.9 Obesity classification: adult class 1 (BMI 30 - 34.9) Serious obesity comorbidity presence: with serious comorbidity Qualified Code(s): E66.811 - Obesity, class 1; E66.09 - Other obesity due to excess calories; Z68.31 - Body mass index [BMI] 31.0-31.9, adult (6) Knee instability: Code(s): M25.369 - Other instability, unspecified knee Category: Medical Qualifiers: Laterality: right Qualified Code(s): M25.361 - Other instability, right knee Plan History - The patient is an 84-year-old female presenting with diabetes management pre-surgery. - Scheduled for bladder surgery, delayed previously due to GERD; sugars high at 200s, off Jardiance per pre-operative instructions. - insulin management is considered for post-operative glucose fluctuations. - Slight increase in anxiety associated with upcoming procedure. - Reports right leg weakness, particularly during long walks. - Imaging with x-ray yielded normal results; patient coordinates with specialists for further evaluation. . Problem List - Type 2 Diabetes Mellitus - Gastroesophageal Reflux Disease (GERD) - Anxiety disorder - Right leg buckling with undetermined cause - Hypertension - Hyperlipidemia Patient Instructions - Monitor blood sugar levels before meals and adjust insulin according to the sliding scale provided. - Monitor anxiety levels and practice stress reduction techniques. - Report any further unusual symptoms, especially related to leg weakness. - Follow pre-surgical instructions carefully and report any concerns to surgical team promptly. Medications: New insulin lispro subcutaneously 3 times a day; follow the insulin sliding scale give in office 15 mL 0RF [insulin pen needles] As directed 100 ea 0RF E13.9 - Other specified diabetes mellitus without complications On Hold Jardiance (empagliflozin) Hold Comment: Doctor's Order 10 mg PO DAILY 90 tabs 0RF NS
== END 2024-10-06 15:39 | disposition home or self-care (01) ==
PROVIDERS: PCP Internal Medicine; Visit Provider Internal Medicine
DX: E13.9 Other specified diabetes mellitus without complications (principal); F41.1 Generalized anxiety disorder; R32 Unspecified urinary incontinence; K62.89 Other specified diseases of anus and rectum; E66.811 Obesity, class 1; E66.09 Other obesity due to excess calories; Z68.31 Body mass index [BMI] 31.0-31.9, adult; M25.361 Other instability, right knee

== ENCOUNTER → 2024-10-06 15:09 | Outpatient (BNVA) | payer MEDICARE, OTHER, SELFPAY | PROVIDERS: PCP Internal Medicine; Visit Provider Internal Medicine | DX: E13.9 Other specified diabetes mellitus without complications (principal); F41.1 Generalized anxiety disorder; R32 Unspecified urinary incontinence; K62.89 Other specified diseases of anus and rectum; E66.09 Other obesity due to excess calories; Z68.31 Body mass index [BMI] 31.0-31.9, adult; M25.361 Other instability, right knee; Z71.3 Dietary counseling and surveillance | CPT/HCPCS: 96127; 99212 ==

== ENCOUNTER 2024-10-07 12:59 | Outpatient (AMB) | payer MEDICARE, OTHER, SELFPAY ==
--- NOTE | 2024-10-07 13:14 | MHC.OFFVIS ---
Vital Signs 10/07/24 13:15 Height 5 ft Weight 163 lb 2.273 oz BMI 31.9 BP 138/66 Blood Pressure Location Lt brachial Position Sitting Pulse 75 Intake Visit Reasons: 3 month follow up Intake Note: Katelyn presents in the office as a 3 month follow up. CC: She states that she is wondering if she can be taken off the GERD medications. She states that her cheeks are bigger. Interventional Physiatrist Required: No Allergies environmental allergies Allergy (Intermediate, Verified 04/29/25 10:24) Itchy Eyes amoxicillin Allergy (Mild, Verified 04/29/25 10:24) Rash crab Adverse Reaction (Intermediate, Verified 04/29/25 10:24) DIARRHEA semaglutide (From Wegovy) Adverse Reaction (Intermediate, Verified 04/29/25 10:24) severe diarrhea HPI Comments Details: This is a 81-year-old female with past medical history of hypertension, type 2 diabetes, osteoarthritis, who is scheduled for a tele health visit today to follow up for EoE with stricture: Initial visit 06/13/22: Patient states that her trouble started back in 2007. At that time, she would notice it 1 to 2 times a year, would occur mostly with solids such as rice, pasta, chicken. Now occurring 3 to 4 times a year. She has had at least 2 ER visits for the same. Was given diagnosis of anxiety, and prescribed Ativan. Patient herself manages this at home by avoiding the trigger foods, and also cutting up her other foods really small ensuring them thoroughly. She also takes frequent sips of water. Most recent ER visit was for difficulty swallowing even liquids which made her more worried and hence she is now seeking gastroenterology consultation. She was unable to tolerate her secretions for at least 8-12 hours before get better. Was again given Ativan in the emergency room, but patient states that her symptoms started to get better even before that. She also reports a dry cough that started around 8 weeks ago, that got better on omeprazole trial. Also brings up issues with alternating diarrhea and constipation that got better with Ozempic. Thinks that recent initiation of omeprazole made it worse and is now also having fecal incontinence. She wonders if she can go off the omeprazole. Recent endoscopy: Most recent colonoscopy was in 2013 (Dr. Kathleen): Excellent prep. Diverticulosis. No polyps. 08/10/22: Patient reports at least 50% improvement in her swallowing. Notices a definite improvement in her quality of life. Reports that still has trouble swallowing with some foods but has not identified distinct food types. Continues with pantoprazole 40 mg twice a day dosing. EoE severity: [id number] based on EGD 07/2022. 09/27/23: Being seen after recent upper endoscopy with dilation (Dr. Morales). Feeling more bloated, with frequent belching since last upper endoscopy. Otherwise, no difficulty swallowing. 07/13/24: Here for follow up. Was bruce for bladder surgery through [facility] but surg was canceled due to resp issues. Pt had also noted increased reflux sx around that time. Since then started on montelukast and budesonide and reports improvement of upper resp sx as well as reflux sx. Pt was under the impression that needs clearance from GI for her bladder surg but advised her to reach out to her PCP. For fecal incontinence, this is also likely 2/2 pelvic floor dysfunction. Plan by urogyn is to monitor after bladder sling and see if needs a sacral stim. Of note - pt has not had a colo since . Has had intermittent incontinence since 2008 and has not progressed in sx or severity and therefore reluctant to undergo any diagnostic colo at this time. Reports occurs after she has been constipated for 3-4 days and then starts noticing passive passage of small pellet like stool in her underwear. Once she has good evacuation of bowels, FI resolves temporarily. 10/07/24: Here for routine follow up. Swallowing good. No complaints. In terms of fecal incontinence, has learnt to recognize the urge sx. Endoscopy: EGD 07/26/22: Trachealisation and fissuring, Hiro Dilation 16 to 18 mm. Path: 52 Eos/HPF. No HP. EGD 02/14/23: Hiro Dilation to 19 mm. Path: 1 Eos/HPF EGD 05/02/23: Hiro Dilation to 18 mm. Path: 2 Eos/HPF EGD 09/04/23: Balloon Dilation to 19 mm. Path: 1 Eos/HPF [facility] Medical History Multifactorial gait disorder Anosmia MCI (mild cognitive impairment) REM sleep behavior disorder Fecal incontinence Urinary incontinence Cervical spinal stenosis Cognitive impairment Osteoarthritis GERD (gastroesophageal reflux disease) Obesity Restless leg syndrome HTN (hypertension) Anxiety, generalized Lipid disorder Diabetes 1.5, managed as type 2 Surgical History S/P placement of nerve stimulator History of esophagogastroduodenoscopy (EGD) H/O colonoscopy History of hysterectomy History of total knee replacement (TKR) Family History Father No problems noted. Mother Dementia Pancreatitis Social History Household Members: None Housing: Apartment Are you a primary urgent care nurse practitioner to a significant other at home: No Do you presently have visiting nurse or other home services: No Alcohol intake: never Comment: advised of trip hazaed Patient Tobacco Use Status: Never used Tobacco e-Cigarette/Vaping Use: Never Used Advance Directives Date on File: 11/23/20 service: No Current occupational status: retired Cognitive needs: No Hearing needs: Yes Vision needs: Yes Review of Systems Const All systems reviewed & are unremarkable except as noted in HPI and below Physical Exam Vital Signs: Last Vital Signs Pulse 75 10/07/24 13:15 BP 138/66 10/07/24 13:15 BMI result Body Mass Index 31.9 Assessment & Plan Assessment & Plan (1) Eosinophilic esophagitis: Code(s): K20.0 - Eosinophilic esophagitis Category: Medical (2) Benign esophageal stricture: Code(s): K22.2 - Esophageal obstruction Category: Medical Plan 1. EoE: Currently asymptomatic. She wonders if he can taper off the budesonide, as she remains asymptomatic. This is reasonable. We will reduce budesonide to 0.5 mg b.i.d. She is already off PPI Follow-up in 6 months to review - low threshold to reinstate full dose budesonide as well as repeat EGD for symptom recurrence Follow up 6 months Medications: Changed From budesonide 2 ml mixed in slurry as per instructions provided by GI office, orally 2 times a day; 120 mL 1RF To budesonide 1 ml mixed in slurry as per instructions provided by GI office, orally 2 times a day; 60 mL 5RF Discontinued Comfort EZ [place] Discontinued Reason: Doctor's Order Use As directed 100 ea 0RF NS E11.69 - Type 2 diabetes mellitus with other specified complication, E13.9 - Other specified diabetes mellitus without complications, E66.9 - Obesity, unspecified [insulin pen needles] Discontinued Reason: Doctor's Order As directed 100 ea 0RF E13.9 - Other specified diabetes mellitus without complications insulin lispro Discontinued Reason: Doctor's Order subcutaneously 3 times a day; sliding scale as follows: 60-124 no coverage; 125-150 give 2 units; 151-200 give 4 units; 201-250 give 6 units; 251-300 give 8 units; 301-350 give 10 units; 351-400 give 12 units. Call MD if blood sugar is less than 60 and greater than 400. 15 mL 0RF E11.69 - Type 2 diabetes mellitus with other specified complication, E13.9 - Other specified diabetes mellitus without complications, E66.9 - Obesity, unspecified Coding Level of Care Code Est Pt Level 3 (91597) Diagnoses Eosinophilic esophagitis K20.0 Benign esophageal stricture K22.2
[2024-10-07 13:15] VITALS: BP 138/66; PULSE 75; BMI 31.9
== END 2024-10-07 14:08 | disposition home or self-care (01) ==
PROVIDERS: PCP Internal Medicine; Visit Provider Internal Medicine
DX: K20.0 Eosinophilic esophagitis (principal); K22.2 Esophageal obstruction
CPT/HCPCS: 99213

== ENCOUNTER → 2024-10-07 12:59 | Outpatient (BNVA) | payer MEDICARE, OTHER, SELFPAY | PROVIDERS: PCP Internal Medicine; Visit Provider Internal Medicine | DX: K22.2 Esophageal obstruction (principal); K20.0 Eosinophilic esophagitis | CPT/HCPCS: 99212 ==

== ENCOUNTER 2024-10-28 12:03 | Outpatient (AMB) | payer MEDICARE, OTHER, SELFPAY ==
[2024-10-28 12:04] VITALS: BP 132/70; PULSE 79; RESP 20; TEMP 36.8; O2SAT 96; BMI 32.8
--- NOTE | 2024-10-28 12:04 | A.OFFPC_ITS ---
Vital Signs 10/28/24 12:04 Height 5 ft Weight 168 lb BMI 32.8 BP 132/70 Blood Pressure Location Lt brachial Position Sitting Respiration 20 Pulse 79 Pulse Source Pulse Oximeter Temp 98.3 F Temp Source Oral Pulse Oximetry (%) 96 Oxygen Delivery Method Room Air Intake Visit Reasons: Wegovy Request Allergies crab Adverse Reaction (Intermediate, Verified 10/07/24 13:14) DIARRHEA Environmental Allergy (Intermediate, Uncoded 10/07/24 13:14) Runny Nose hayfever Allergy (Mild, Uncoded 10/07/24 13:14) Unknown Medication List - Last Reconciled 10/28/24 by Ella Garces MD blood sugar diagnostic (FreeStyle Lite Strips) Once a day blood-glucose sensor (Dexcom G6 Sensor device) Test blood sugar 4 times per day, change sensor every 10 days blood-glucose transmitter (Dexcom G6 Transmitter device) As directed-change every 3 months budesonide 1 ml mixed in slurry as per instructions provided by GI office, orally 2 times a day; dorzolamide-timolol 22.3-6.8 mg/mL ophthalmic (eye) escitalopram oxalate 20 mg PO BEDTIME estradiol 0.01%(0.1mg/gram) vaginal insulin aspart U-100 (Novolog FlexPen U-100 Insulin aspart) 1 sliding scale dose subcut USEASDIRECTD Jardiance (empagliflozin) 10 mg PO DAILY NS lancets (FreeStyle Lancets) As directed lisinopril 2.5 mg PO QAM mirabegron ER 25 mg PO DAILY montelukast 10 mg PO BEDTIME omeprazole 20 mg PO BID pen needle, diabetic (Ultra-Fine Pen Needle) Use As directed pramipexole 0.5 mg PO BEDTIME rosuvastatin 20 mg PO QAM vitamins A,C,N-fahz-wqzdjb 4,296 mcg-226 mg-90 mg (PreserVision AREDS) 1 cap PO DAILY Tobacco use date assessed: 10/06/24 Dental Screening Dental Screen Date: 10/06/24 HPI Wegovy Request HPI Details Regular follow-up appointment - The patient is an 84-year-old female w ith a history of diabetes mellitus, obesity, mild cognitive impairment but still quite independent, anxiety, insulin-dependent, allergies, GERD, restless legs syndrome, lipid disorder, bladder disorder, Recently had bladder surgery and is doing very well she was having urinary incontinence before presenting with eczema and dermatitis possibly related to hearing aid usage. - Describes pruritus and scaly dryness i n the left ear. - Reports ongoing diabetes management jessica hansen: - Suboptimal glycemic control indicated by a Hemoglobin A1c of 8.3%. - Current insulin therapy and lifestyle modification efforts discussed. - Steady management of existing conditio ns: - Anxiety controlled with escitalopram. - Allergic symptoms managed with montelu kast, and GERD treated with omeprazole. - Rosuvastatin for lipid control, with L DL at 74. - Chronic restless leg syndrome addresse d with pramipexole. - Weight concerns highlighted, BMI of 32 .8 noted, awaiting insurance response regarding weight control options with Norberto. Referral to weight loss program placed today Problem List - Eczema - Hearing aid-related dermatitis - Anxiety - Diabetes Mellitus with Hemoglobin A1c of 8.3% - Gastroesophageal Reflux Disease (GERD) - Allergic Rhinitis - Restless Leg Syndrome - Hyperlipidemia - obesity Patient Instructions - Apply cortisone cream to affected ear as advised. - Focus on diet and exercise, especially on days with favorable weather conditions. - Plan to walk regularly as a form of ex ercise. - Monitor blood sugar levels and maintai n appropriate insulin administration. - Prepare for the upcoming physical exam and repeat lab work in February. - Explore a weight management program if needed. Review of Systems - General: No fever no chills - Neurological: No headaches no dizziness - Ear nose throat: No sore throat no hearing difficulty no ear pain - Cardiovascular: No syncope, no chest pain, no palpitations - Gastrointestinal: No nausea vomiting or diarrhea - Endocrine: No polyuria polydipsia no heat intolerance - Genitourinary: No dysuria , no blood in urine Physical Exam General: No acute distress HEENT: No acute findings Neck: Supple Respiratory system: Able to talk in full sentences, no audible wheeze cardiovascular: S1-S2 regular in rate and rhythm Gastrointestinal: No pain Extremities: No new findings SHAKER REPAIRER: Alert awake oriented x3 motor sensory intact Skin: Scaly dryness noted, likely eczema or sensitivity to hearing aid material left ear however exam is within normal limit [facility] Medical History Restless leg syndrome HTN (hypertension) History of COVID-19 Anxiety, generalized Lipid disorder Diabetes 1.5, managed as type 2 Surgical History History of esophagogastroduodenoscopy (EGD) H/O colonoscopy History of hysterectomy History of total knee replacement (TKR) Family History Father No problems noted. Mother Dementia Pancreatitis Social History Housing: Apartment Alcohol intake: never Patient Tobacco Use Status: Never used Tobacco e-Cigarette/Vaping Use: Never Used Advance Directives Date on File: 11/23/20 service: No Current occupational status: retired Cognitive needs: No Hearing needs: Yes Vision needs: Yes Questionnaire Thrive Questionnaire Date Thrive assessed: 10/06/24 I am a: Patient What is your living situation today?: I have a steady place to live Within the past 12 months, did the food you bought not last and you didn't have the money to get more?: Never true Within the past 12 months, did you worry whether your food would run out before you got money to buy more?: Never true Do you have trouble paying for medicines?: No Do you have trouble getting transportation to medical appointments?: No Do you have trouble paying your heating and electricity bill?: No Do you have trouble taking care of your child, family member or friend?: No Do you have trouble with day-to-day activities such as bathing, preparing meals, shopping, managing finances, etc.?: No Are you currently unemployed and looking for a job?: No Are you interested in more education?: No Please select the resources that you would like help with: None Currently or been in a relationship where the following occur: No concerns reported THRIVE Score: 0 LG-7 AMB Questionnaire LG-7 Date LG - 7 assessed: 10/06/24 Source: Developed by Drs. Luis Pan, Crystal Magallon, Geoffrey Anguiano and colleagues, with an educational rosas from [employer]. Physical exam (Primary Care) Vital Signs: Last Vital Signs Temp 98.3 F 10/28/24 12:04 Pulse 79 10/28/24 12:04 Resp 20 10/28/24 12:04 BP 132/70 10/28/24 12:04 Pulse Ox 96 10/28/24 12:04 Oxygen Delivery Method Room Air 10/28/24 12:04 BMI result Body Mass Index 32.8 Tobacco/Smoking Status: Tobacco use Status Tobacco use date assessed 10/06/24 10/28/24 12:04 Patient Tobacco Use Status Never used Tobacco 10/28/24 12:04 e-Cigarette/Vaping Use Never Used 10/28/24 12:04 Thrive Assessment: Date of Thrive Assessment Date Thrive assessed 10/06/24 10/28/24 12:04 Currently or been in a relationship where the following occur: No concerns reported Results AMB Random Glucose (hemocue) AMB Random Glucose (hemocue) 256 mg/dL Last Edit by BRISEIDA Whitfield on 10/28/24 12:15 AMB Hemoglobin A1c AMB Hemoglobin A1c 8.3 % Last Edit by BRISEIDA Whitfield on 10/28/24 12:1 9 Results Reviewed Results Reviewed: Laboratory Last Values Random Glu (Clinic) 256 mg/dL 10/28/24 12:15 Hgb A1c (Clinic) 8.3 % (4.0-6.0) H 10/28/24 12:15 Coding Level of Care Code Est Pt Level 5 (38210) Complex EM visit Add On G2211 Diagnoses Uncontrolled type 2 diabetes mellitus with hyperglycemia E11.65 Diabetes mellitus type: type 2 Class 1 obesity due to excess calories with serious comorbidity and body mass index (BMI) of 31.0 to 31.9 in adult E66.811; E66.09; Z68.31 Body mass index: BMI 31.0-31.9 Obesity classification: adult class 1 (BMI 30 - 34.9) Serious obesity comorbidity presence: with serious comorbidity Anxiety, generalized F41.1 Urinary incontinence, unspecified type R32 Urinary Incontinence type: unspecified incontinence 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 Laterality: right Hypertension, essential I10 Restless leg syndrome G25.81 Lipid disorder E78.9 Insulin dependent type 2 diabetes mellitus E11.9; Z79.4 Itching of ear L29.9 Assessment & Plan Assessment & Plan (1) Uncontrolled diabetes mellitus with hyperglycemia: Code(s): E11.65 - Type 2 diabetes mellitus with hyperglycemia Category: Medical Qualifiers: Diabetes mellitus type: type 2 Qualified Code(s): E11.65 - Type 2 diabetes mellitus with hyperglycemia (2) Obesity due to excess calories: Code(s): E66.09 - Other obesity due to excess calories Category: Medical Qualifiers: Body mass index: BMI 31.0-31.9 Obesity classification: adult class 1 (BMI 30 - 34.9) Serious obesity comorbidity presence: with serious comorbidity Qualified Code(s): E66.811 - Obesity, class 1; E66.09 - Other obesity due to excess calories; Z68.31 - Body mass index [BMI] 31.0-31.9, adult (3) Anxiety, generalized: Code(s): F41.1 - Generalized anxiety disorder Category: Medical (4) Urine incontinence: Code(s): R32 - Unspecified urinary incontinence Category: Medical Qualifiers: Urinary Incontinence type: unspecified incontinence Qualified Code(s): R32 - Unspecified urinary incontinence (5) Anal sphincter incompetence: Code(s): K62.89 - Other specified diseases of anus and rectum Category: Medical (6) Knee instability: Code(s): M25.369 - Other instability, unspecified knee Category: Medical Qualifiers: Laterality: right Qualified Code(s): M25.361 - Other instability, right knee (7) Hypertension, essential: Code(s): I10 - Essential (primary) hypertension Category: Medical (8) Restless leg syndrome: Code(s): G25.81 - Restless legs syndrome Category: Medical (9) Lipid disorder: Code(s): E78.9 - Disorder of lipoprotein metabolism, unspecified Category: Medical (10) Insulin dependent type 2 diabetes mellitus: Code(s): E11.9 - Type 2 diabetes mellitus without complications; Z79.4 - continuous churn buttermaker (current) use of insulin Category: Medical (11) Itching of ear: Code(s): L29.9 - Pruritus, unspecified Category: Medical Plan Regular follow-up appointment - The patient is an 84-year-old female with a history of diabetes mellitus, obesity, mild cognitive impairment but still quite independent, anxiety, insulin-dependent, allergies, GERD, restless legs syndrome, lipid disorder, bladder disorder, Recently had bladder surgery and is doing very well she was having urinary incontinence before presenting with eczema and dermatitis possibly related to hearing aid usage. - Describes pruritus and scaly dryness in the left ear. - Reports ongoing diabetes management challenges: - Suboptimal glycemic control indicated by a Hemoglobin A1c of 8.3%. - Current insulin therapy and lifestyle modification efforts discussed. - Steady management of existing conditions: - Anxiety controlled with escitalopram. - Allergic symptoms managed with montelukast, and GERD treated with omeprazole. - Rosuvastatin for lipid control, with LDL at 74. - Chronic restless leg syndrome addressed with pramipexole. - Weight concerns highlighted, BMI of 32.8 noted, awaiting insurance response regarding weight control options with Norberto. Referral to weight loss program placed today Problem List - Eczema - Hearing aid-related dermatitis - Anxiety - Diabetes Mellitus with Hemoglobin A1c of 8.3% - Gastroesophageal Reflux Disease (GERD) - Allergic Rhinitis - Restless Leg Syndrome - Hyperlipidemia - obesity Patient Instructions - Apply cortisone cream to affected ear as advised. - Focus on diet and exercise, especially on days with favorable weather conditions. - Plan to walk regularly as a form of exercise. - Monitor blood sugar levels and maintain appropriate insulin administration. - Prepare for the upcoming physical exam and repeat lab work in February. - Explore a weight management program if needed. 40 minute spent care this patient Orders: Orders AMB Hemoglobin A1c Today Z13.9 - Encounter for screening, unspecified AMB Random Glucose (hemocue) Today Z13.9 - Encounter for screening, unspecified Hemoglobin A1c Today E11.65 - Type 2 diabetes mellitus with hyperglycemia, E11.9 - Type 2 diabetes mellitus without complications, E66.09 - Other obesity due to excess calories, E66.811 - Obesity, class 1, E78.9 - Disorder of lipoprotein metabolism, unspecified, F41.1 - Generalized anxiety disorder, G25.81 - Restless legs syndrome, I10 - Essential (primary) hypertension, K62.89 - Other specified diseases of anus and rectum, M25.361 - Other instability, right knee, R32 - Unspecified urinary incontinence, Z68.31 - Body mass index [BMI] 31.0-31.9, adult, Z79.4 - continuous churn buttermaker (current) use of insulin Complete Blood Count Auto Diff Today E11.65 - Type 2 diabetes mellitus with hyperglycemia, E11.9 - Type 2 diabetes mellitus without complications, E66.09 - Other obesity due to excess calories, E66.811 - Obesity, class 1, E78.9 - Disorder of lipoprotein metabolism, unspecified, F41.1 - Generalized anxiety disorder, G25.81 - Restless legs syndrome, I10 - Essential (primary) hypertension, K62.89 - Other specified diseases of anus and rectum, M25.361 - Other instability, right knee, R32 - Unspecified urinary incontinence, Z68.31 - Body mass index [BMI] 31.0-31.9, adult, Z79.4 - continuous churn buttermaker (current) use of insulin Comprehensive [place]. Panel Fast Today E11.65 - Type 2 diabetes mellitus with hyperglycemia, E11.9 - Type 2 diabetes mellitus without complications, E66.09 - Other obesity due to excess calories, E66.811 - Obesity, class 1, E78.9 - Disorder of lipoprotein metabolism, unspecified, F41.1 - Generalized anxiety disorder, G25.81 - Restless legs syndrome, I10 - Essential (primary) hypertension, K62.89 - Other specified diseases of anus and rectum, M25.361 - Other instability, right knee, R32 - Unspecified urinary incontinence, Z68.31 - Body mass index [BMI] 31.0-31.9, adult, Z79.4 - continuous churn buttermaker (current) use of insulin Lipid Panel Today E11.65 - Type 2 diabetes mellitus with hyperglycemia, E11.9 - Type 2 diabetes mellitus without complications, E66.09 - Other obesity due to excess calories, E66.811 - Obesity, class 1, E78.9 - Disorder of lipoprotein metabolism, unspecified, F41.1 - Generalized anxiety disorder, G25.81 - Restless legs syndrome, I10 - Essential (primary) hypertension, K62.89 - Other specified diseases of anus and rectum, M25.361 - Other instability, right knee, R32 - Unspecified urinary incontinence, Z68.31 - Body mass index [BMI] 31.0-31.9, adult, Z79.4 - continuous churn buttermaker (current) use of insulin Vitamin D 25-OH (D2 and D3) Today E11.65 - Type 2 diabetes mellitus with hyperglycemia, E11.9 - Type 2 diabetes mellitus without complications, E66.09 - Other obesity due to excess calories, E66.811 - Obesity, class 1, E78.9 - Disorder of lipoprotein metabolism, unspecified, F41.1 - Generalized anxiety disorder, G25.81 - Restless legs syndrome, I10 - Essential (primary) hypertension, K62.89 - Other specified diseases of anus and rectum, M25.361 - Other instability, right knee, R32 - Unspecified urinary incontinence, Z68.31 - Body mass index [BMI] 31.0-31.9, adult, Z79.4 - assisted (current) use of insulin TSH reflex Free T4 Today E11.65 - Type 2 diabetes mellitus with hyperglycemia, E11.9 - Type 2 diabetes mellitus without complications, E66.09 - Other obesity due to excess calories, E66.811 - Obesity, class 1, E78.9 - Disorder of lipoprotein metabolism, unspecified, F41.1 - Generalized anxiety disorder, G25.81 - Restless legs syndrome, I10 - Essential (primary) hypertension, K62.89 - Other specified diseases of anus and rectum, M25.361 - Other instability, right knee, R32 - Unspecified urinary incontinence, Z68.31 - Body mass index [BMI] 31.0-31.9, adult, Z79.4 - assisted (current) use of insulin Lipase Today E11.65 - Type 2 diabetes mellitus with hyperglycemia, E11.9 - Type 2 diabetes mellitus without complications, E66.09 - Other obesity due to excess calories, E66.811 - Obesity, class 1, E78.9 - Disorder of lipoprotein metabolism, unspecified, F41.1 - Generalized anxiety disorder, G25.81 - Restless legs syndrome, I10 - Essential (primary) hypertension, K62.89 - Other specified diseases of anus and rectum, M25.361 - Other instability, right knee, R32 - Unspecified urinary incontinence, Z68.31 - Body mass index [BMI] 31.0-31.9, adult, Z79.4 - assisted (current) use of insulin Amylase Today E11.65 - Type 2 diabetes mellitus with hyperglycemia, E11.9 - Typ e 2 diabetes mellitus without complications, E66.09 - Other obesity due to excess calories, E66.811 - Obesity, class 1, E78.9 - Disorder of lipoprotein metabolism, unspecified, F41.1 - Generalized anxiety disorder, G25.81 - Restless legs syndrome, I10 - Essential (primary) hypertension, K62.89 - Other specified diseases of anus and rectum, M25.361 - Other instability, right knee, R32 - Unspecified urinary incontinence, Z68.31 - Body mass index [BMI] 31.0-31.9, adult, Z79.4 - assisted (current) use of insulin Microalbumin, Random (w Creat) Today E11.65 - Type 2 diabetes mellitus with hyperglycemia, E11.9 - Type 2 diabetes mellitus without complications, E66.09 - Other obesity due to excess calories, E66.811 - Obesity, class 1, E78.9 - Disorder of lipoprotein metabolism, unspecified, F41.1 - Generalized anxiety disorder, G25.81 - Restless legs syndrome, I10 - Essential (primary) hypertension, K62.89 - Other specified diseases of anus and rectum, M25.361 - Other instability, right knee, R32 - Unspecified urinary incontinence, Z68.31 - Body mass index [BMI] 31.0-31.9, adult, Z79.4 - assisted (current) use of insulin Referrals Medical Weight Management Referral E66.09 - Other obesity due to excess calories, E66.811 - Obesity, class 1, Z68.31 - Body mass index [BMI] 31.0-31.9, adult Medications: New Wegovy (semaglutide (weight loss)) administer weeks 1 through 4 of therapy 0.25 mg (0.5 mL) subcut QWEEK 30 days 2.5 mL 0RF NS E11.65 - Type 2 diabetes mellitus with hyperglycemia Discontinued Jardiance (empagliflozin) Discontinued Reason: Doctor's Order 10 mg PO DAILY 90 tabs 0RF NS
== END 2024-10-28 12:52 | disposition home or self-care (01) ==
PROVIDERS: PCP Internal Medicine; Visit Provider Internal Medicine
DX: E11.65 Type 2 diabetes mellitus with hyperglycemia (principal); Z79.4 Long term (current) use of insulin; E66.811 Obesity, class 1; Z68.31 Body mass index [BMI] 31.0-31.9, adult; E66.09 Other obesity due to excess calories; F41.1 Generalized anxiety disorder; R32 Unspecified urinary incontinence; K62.89 Other specified diseases of anus and rectum; M25.361 Other instability, right knee; I10 Essential (primary) hypertension; G25.81 Restless legs syndrome

== ENCOUNTER → 2024-10-28 12:03 | Outpatient (BNVA) | payer MEDICARE, OTHER, SELFPAY | PROVIDERS: PCP Internal Medicine; Visit Provider Internal Medicine | DX: E11.65 Type 2 diabetes mellitus with hyperglycemia (principal); E66.09 Other obesity due to excess calories; Z68.31 Body mass index [BMI] 31.0-31.9, adult; F41.1 Generalized anxiety disorder; R32 Unspecified urinary incontinence; K62.89 Other specified diseases of anus and rectum; M25.361 Other instability, right knee; I10 Essential (primary) hypertension; G25.81 Restless legs syndrome; E78.9 Disorder of lipoprotein metabolism, unspecified; L29.9 Pruritus, unspecified; Z79.4 Long term (current) use of insulin | CPT/HCPCS: 82948; 83036; 99212 ==

== ENCOUNTER → 2024-11-03 14:37 | Outpatient (BNVA) | payer MEDICARE, OTHER, SELFPAY | PROVIDERS: PCP Internal Medicine; Visit Provider Surgery ==

== ENCOUNTER 2024-11-10 13:53 | Outpatient (AMB) | payer MEDICARE, OTHER, SELFPAY ==
--- NOTE | 2024-11-10 13:57 | MHC.PC.OV ---
Vital Signs 11/10/24 14:02 Height 5 ft Weight 169 lb 8 oz BMI 33.1 BP 122/70 Blood Pressure Location Rt brachial Position Sitting Pulse 73 Pulse Source Pulse Oximeter Pulse Oximetry (%) 98 Oxygen Delivery Method Room Air Intake Visit Reasons: 1 month f/up Allergies crab Adverse Reaction (Intermediate, Verified 11/10/24 14:04) DIARRHEA Environmental Allergy (Intermediate, Uncoded 10/07/24 13:14) Runny Nose hayfever Allergy (Mild, Uncoded 10/07/24 13:14) Unknown Medication List - Last Reconciled 11/10/24 by Ella Garces MD blood sugar diagnostic (FreeStyle Lite Strips) Once a day blood-glucose sensor (Dexcom G6 Sensor device) Test blood sugar 4 times per day, change sensor every 10 days blood-glucose transmitter (Dexcom G6 Transmitter device) As directed-change every 3 months budesonide 1 ml mixed in slurry as per instructions provided by GI office, orally 2 times a day; dorzolamide-timolol 22.3-6.8 mg/mL ophthalmic (eye) escitalopram oxalate 20 mg PO BEDTIME estradiol 0.01%(0.1mg/gram) vaginal insulin aspart U-100 (Novolog FlexPen U-100 Insulin aspart) 1 sliding scale dose subcut USEASDIRECTD lancets (FreeStyle Lancets) As directed lisinopril 2.5 mg PO QAM mirabegron ER 25 mg PO DAILY montelukast 10 mg PO BEDTIME omeprazole 20 mg PO BID pen needle, diabetic (Ultra-Fine Pen Needle) Use As directed pramipexole 0.5 mg PO BEDTIME rosuvastatin 20 mg PO QAM vitamins A,C,I-pbgl-dovgfj 4,296 mcg-226 mg-90 mg (PreserVision AREDS) 1 cap PO DAILY Wegovy (semaglutide (weight loss)) 0.25 mg (0.5 mL) subcut QWEEK 30 days NS Tobacco use date assessed: 11/10/24 Fall risk assessment: No Falls in past year Last assessed Fall Risk: 11/10/24 Dental Screening Dental Screen Date: 11/10/24 Did you have a dental visit in the last 12 months?: Yes Did you have a dental problem in the last 6 months where you did not have access to dental care?: No Was dental information given to patient?: Patient has dentist HPI 1 month f/up HPI Details History - The patient is an 84-year-old female presenting with follow-up for left ear eczema. The condition was treated with hydrocortisone cream, resulting in reported improvement. - Initiation of Wegovy for obesity management has occurred, with the second dose taken on the morning of the visit. treatment is being overseen at the obesity clinic. Patient Instructions - Continue monitoring blood glucose levels as guided by the obesity clinic. - Discontinue the use of hydrocortisone cream for the ear unless symptoms recur. - Follow-up with the obesity clinic as scheduled; Review of Systems - General: No fever no chills - Neurological: No headaches no dizziness - Ear nose throat: No sore throat no hearing difficulty no ear pain - Cardiovascular: No syncope, no chest pain, no palpitations - Gastrointestinal: No nausea vomiting or diarrhea Physical Exam General: No acute distress HEENT: Left external ear rash resolved Neck: Supple Respiratory system: Able to talk in full sentences, no audible wheeze cardiovascular: S1-S2 regular in rate and rhythm Gastrointestinal: No pain Extremities: No new findings STUDIO ASSOCIATE: Alert awake oriented x3 motor sensory intact Skin: Normal turgor [facility] Medical History Restless leg syndrome HTN (hypertension) History of COVID-19 Anxiety, generalized Lipid disorder Diabetes 1.5, managed as type 2 Surgical History History of esophagogastroduodenoscopy (EGD) H/O colonoscopy History of hysterectomy History of total knee replacement (TKR) Family History Father No problems noted. Mother Dementia Pancreatitis Social History Housing: Apartment Alcohol intake: never Patient Tobacco Use Status: Never used Tobacco e-Cigarette/Vaping Use: Never Used Advance Directives Date on File: 11/23/20 service: No Current occupational status: retired Cognitive needs: No Hearing needs: Yes Vision needs: Yes Questionnaire PHQ-9 Over the last 2 weeks, how often have you been bothered by any of the following problems? 70311 - PHQ-9 Billing: Yes Source: Developed by Drs. Luis Pan, Crystal Magallon, Geoffrey Anguiano and colleagues, with an educational rosas from [employer] Thrive Questionnaire Date Thrive assessed: 11/10/24 I am a: Patient What is your living situation today?: I have a steady place to live Within the past 12 months, did the food you bought not last and you didn't have the money to get more?: Never true Within the past 12 months, did you worry whether your food would run out before you got money to buy more?: Never true Do you have trouble paying for medicines?: No Do you have trouble getting transportation to medical appointments?: No Do you have trouble paying your heating and electricity bill?: No Do you have trouble taking care of your child, family member or friend?: No Do you have trouble with day-to-day activities such as bathing, preparing meals, shopping, managing finances, etc.?: No Are you currently unemployed and looking for a job?: No Are you interested in more education?: No Please select the resources that you would like help with: None Currently or been in a relationship where the following occur: No concerns reported THRIVE Score: 0 AUDIT C Alcohol Use Questionnaire (AUDIT-C) 1. How often do you have a drink containing alcohol?: Monthly or less 2. How many drinks containing alcohol do you have on a typical day when you are drinking?: 1 or 2 3. How often do you have six or more drinks on one occasion?: Never Total Score: 1 Score Reviewed/Action Taken: Yes LG-7 AMB Questionnaire LG-7 Date LG - 7 assessed: 11/10/24 Feeling nervous, anxious, or on edge: 0 = Not at all Not being able to stop or control worryin = Not at all Worrying too much about different things: 0 = Not at all Trouble relaxin = Not at all Being so restless that it is hard to sit still: 0 = Not at all Becoming easily annoyed or irritable: 0 = Not at all Feeling afraid as if something awful might happen: 0 = Not at all Total LG-7 score (0-4 normal; 5-9 mild; 10-14 moderate; 15-21 severe): 0 Source: Developed by Drs. Luis Pan, Crystal Magallon, Geoffrey Anguiano and colleagues, with an educational rosas from [employer] LG-7 Assessment Billing LG-7 Assessment Tool: LG-7 Assessment 21414 Physical exam (Primary Care) Vital Signs: Last Vital Signs Pulse 73 11/10/24 14:02 BP 122/70 11/10/24 14:02 Pulse Ox 98 11/10/24 14:02 Oxygen Delivery Method Room Air 11/10/24 14:02 BMI result Body Mass Index 33.1 Tobacco/Smoking Status: Tobacco use Status Tobacco use date assessed 11/10/24 11/10/24 14:07 Patient Tobacco Use Status Never used Tobacco 11/10/24 13:57 e-Cigarette/Vaping Use Never Used 11/10/24 13:57 Thrive Assessment: Date of Thrive Assessment Date Thrive assessed 11/10/24 11/10/24 14:07 Currently or been in a relationship where the following occur: No concerns reported Coding Level of Care Code Est Pt Level 3 (91910) Diagnoses Itching of ear L29.9 Additional Codes LG-7 Assessment Billing - LG-7 Assessment Tool: LG-7 Assessment 63614 ([id number]) PHQ-9 - 12398 - PHQ-9 Billing: Yes ([id number]) Assessment & Plan Assessment & Plan (1) Itching of ear: Code(s): L29.9 - Pruritus, unspecified Category: Medical Plan History - The patient is an 84-year-old female presenting with follow-up for left ear eczema. The condition was treated with hydrocortisone cream, resulting in reported improvement. - Initiation of Wegovy for obesity management has occurred, with the second dose taken on the morning of the visit. treatment is being overseen at the obesity clinic. Patient Instructions - Continue monitoring blood glucose levels as guided by the obesity clinic. - Discontinue the use of hydrocortisone cream for the ear unless symptoms recur. - Follow-up with the obesity clinic as scheduled;
[2024-11-10 14:02] VITALS: BP 122/70; PULSE 73; O2SAT 98; BMI 33.1
== END 2024-11-10 14:22 | disposition home or self-care (01) ==
LOC: HO.HMCC 13:54
PROVIDERS: PCP Internal Medicine; Visit Provider Internal Medicine
DX: L29.9 Pruritus, unspecified (principal)

== ENCOUNTER → 2024-11-10 13:53 | Outpatient (BNVA) | payer MEDICARE, OTHER, SELFPAY | PROVIDERS: PCP Internal Medicine; Visit Provider Internal Medicine | DX: L29.9 Pruritus, unspecified (principal) | CPT/HCPCS: 96127; 99212 ==

== ENCOUNTER 2024-11-14 04:21 | Emergency (ER) | payer MEDICARE, OTHER, SELFPAY ==
[2024-11-14 04:35] VITALS: BP 148/63; PULSE 80; RESP 16; TEMP 36.6; O2SAT 94; BMI 33.1
[2024-11-14 05:00] VITALS: BP 138/80; PULSE 85; O2SAT 96
[2024-11-14 05:15] LABS: Hematocrit 45.3 % (37.0-47.0); Hemoglobin 15.6 g/dl (12.0-16.0); Mean Corpuscular HGB Conc 34.4 g/dl (31.0-35.0); Mean Corpuscular Volume 84.2 fL (80.0-98.0); Mean Platelet Volume 9.8 fL (9.4-12.3); Platelet Count 197 X10*3/uL (160-400); Red Blood Count 5.38 X10*6/uL (4.20-5.50); Red Cell Distribution Width 13.4 % (11.0-16.0); White Blood Count 13.5 X10*3/uL (4.8-10.8)
[2024-11-14] MEDS: Ondansetron ODT 4 MG TAB.RAPDIS TRANSLINGU (05:51)
[2024-11-14 05:54] LABS: Alanine Aminotransferase 29 U/L (0-31); Albumin Level 4.4 g/dL (3.5-5.0); Alkaline Phosphatase 60 U/L (39-117); Anion Gap 15 (12-20); Aspartate Amino Transferase 25 U/L (5-31); Bilirubin Total 0.6 mg/dL (0.0-1.0); Blood Urea Nitrogen 28 mg/dL (9-16); Calcium 10.3 mg/dL (8.4-10.2); Carbon Dioxide 19 mmol/L (22-29); Chloride 108 mmol/L (96-108); Creatinine Clr Calc Pharmacy 52.3; Estimated Glomerular Filt Rate > 60; Glucose Random 250 mg/dL (60-115); Magnesium 1.5 mg/dL (1.6-2.6); Potassium 3.4 mmol/L (3.3-5.1); Sodium 139 mmol/L (135-145); Total Protein 7.6 g/dL (6.5-8.0)
[2024-11-14 08:19] VITALS: BP 142/67; PULSE 80; RESP 18; TEMP 36.7; O2SAT 94
--- NOTE | 2024-11-14 08:57 | ED.GENADULT ---
HPI - General Adult General Chief complaint: Nausea/Vomiting/Diarrhea Stated complaint: Diarrhea since 9pm Time Seen by Provider: 11/14/24 08:55 Source: patient, RN notes reviewed and old records reviewed Mode of arrival: ambulatory Limitations: no limitations History of Present Illness ED Provider: Gilberto HPI narrative: Patient is an 84-year-old female with history of T2 DM, anal sphincter/fecal incontinence, recurrent falls, esophageal stricture, eosinophilic esophagitis, HTN, hearing impaired presenting to the emergency department with report of diarrhea since 9:00 p.m. last night. Reports some nausea but denies vomiting. Denies fevers. Denies hematochezia or melena. Denies any urinary symptoms. Reports generalized abdominal discomfort but denies abdominal pain in anyone specific area. Denies chest pain, palpitations, dyspnea, dizziness or lightheadedness. Lives alone, denies any known sick contacts. Recently started 0.25 mg of Wegovy 10 days ago. MD complaint: diarrhea Onset (ago): hour(s) Associated symptoms: denies other symptoms Treatments prior to arrival: none Related Data Home Medications ?Medication ?Instructions ?Recorded ?Confirmed vitamins A,C,V-vusr-txkkjy 4,296 1 cap PO DAILY 12/05/22 11/10/24 mcg-226 mg-90 mg capsule (PreserVision AREDS) estradiol 0.01% (0.1 mg/gram) vaginal 04/17/24 11/10/24 vaginal cream mirabegron 25 mg tablet,extended 25 mg PO DAILY 07/13/24 11/10/24 release 24 hr dorzolamide 22.3 mg-timolol 6.8 ophthalmic (eye) 08/31/24 11/10/24 mg/mL eye drops Previous Rx's ?Medication ?Instructions ?Recorded lancets 28 gauge (FreeStyle #100 ea 06/12/22 Lancets) blood sugar diagnostic (FreeStyle #100 ea 04/10/23 Lite Strips) escitalopram oxalate 20 mg tablet 20 mg PO BEDTIME #90 tabs 03/04/24 omeprazole 20 mg capsule,delayed 20 mg PO BID #180 caps 06/01/24 release blood-glucose transmitter (Dexcom #1 ea 06/26/24 G6 Transmitter device) pramipexole 0.5 mg tablet 0.5 mg PO BEDTIME #90 tabs 06/30/24 montelukast 10 mg tablet 10 mg PO BEDTIME #90 tabs 08/31/24 lisinopril 2.5 mg tablet 2.5 mg PO QAM #90 tabs 09/21/24 blood-glucose sensor (Dexcom G6 #9 ea 09/30/24 Sensor device) budesonide 1 mg/2 mL suspension See Rx Instructions .Route BID #60 10/07/24 for nebulization mL insulin aspart U-100 100 unit/mL 1 sliding scale dose subcut 10/07/24 (3 mL) subcutaneous pen (Novolog USEASDIRECTD #15 mL FlexPen U-100 Insulin aspart) rosuvastatin 20 mg tablet 20 mg PO QAM #90 tabs 10/14/24 Wegovy 0.25 mg/0.5 mL subcutaneous 0.25 mg (0.5 mL) subcut QWEEK 30 10/28/24 pen injector (semaglutide (weight days #2.5 mL loss)) pen needle, diabetic 31 gauge x #100 ea 10/30/2401/08 (Ultra-Fine Pen Needle) Allergies Allergy/AdvReac Type Severity Reaction Status Date / Time crab AdvReac Intermediate DIARRHEA Verified 11/14/24 04:38 Environmental Allergy Intermediate Runny Nose Uncoded 11/14/24 04:38 hayfever Allergy Mild Unknown Uncoded 11/14/24 04:38 Review of Systems Review of Systems: As per HPI Yes all other systems are reviewed and are negative Constitutional: Constitutional: Reports as per HPI PMFSH Past Medical History Medical History Restless leg syndrome HTN (hypertension) History of COVID-19 Anxiety, generalized Lipid disorder Diabetes 1.5, managed as type 2 Surgical History History of esophagogastroduodenoscopy (EGD) H/O colonoscopy History of hysterectomy History of total knee replacement (TKR) Family History Family History Father No problems noted. Mother Dementia Pancreatitis Social History Social History Housing: Apartment Alcohol intake: never Patient Tobacco Use Status: Never used Tobacco Smoked in Last 30 Days: No e-Cigarette/Vaping Use: Never Used Use of substances other than those prescribed or required for medical reasons: No Advance Directives: Yes Advance Directives on File: Yes Advance Directives Date on File: 11/23/20 service: No Current occupational status: retired Cognitive needs: No Hearing needs: Yes Vision needs: Yes Physical Exam ED Vital Signs: Vital Signs - 24 hr 11/14/24 04:35 11/14/24 08:19 11/14/24 14:35 Temperature 97.8 F 98.0 F 97.8 F Pulse Rate 80 80 76 Respiratory Rate 16 18 18 Blood Pressure 148/63 H 142/67 H 146/65 H Pulse Oximetry 94 94 95 Oxygen Delivery Method Room Air Room Air Room Air BMI result Body Mass Index 33.1 Vital signs have been reviewed and appear to be correct. Blood pressure normal. Heart rate normal. Respiratory rate normal. Temperature normal. Oxygen saturation normal. Const General: cooperative, healthy appearing and no acute distress Orientation/consciousness: oriented to person, oriented to place, oriented to time and patient oriented x3 Limitations: no limitations HENMT Head: Yes normocephalic and Yes atraumatic Ears: external ears normal General nose exam: Normal external nose present Face and sinus: Yes face symmetric Mouth: oropharynx normal and moist mucous membranes Throat: Yes uvula midline Eyes Pupils: Equal, round and reactive pupils present Neck Neck: Yes normal visual inspection and Yes supple Resp Effort & Inspection: normal respiratory effort and able to speak in complete sentences Auscultation: clear to auscultation bilaterally Cardio Rate: regular rate Rhythm: regular rhythm Heart sounds: S1 normal heart sound present and S2 normal heart sound present GI Palpation (GI): Soft to palpation and nontender Auscultation: normoactive bowel sounds General: Yes no CVA tenderness Back/Spine/Pelvis Back: no CVA tenderness Skin General skin exam: elasticity normal and turgor normal Neuro General: oriented to person, oriented to place, oriented to time, patient oriented x3, moves all extremities, no focal motor deficits and CN's II-XI intact bilaterally Cranial nerves: Yes Equal, round and reactive pupils present Cognition (Neuro): normal cognition Extrem General: Yes full ROM, Yes no pedal edema and Yes no calf tenderness Psych Mental Status: mental status grossly normal Affect: normal affect Thought process: Normal thought process present Medications Administered Discontinued Medications Generic Name Dose Route Start Last Admin Trade Name Que PRN Reason Stop Dose Admin Magnesium Sulfate 2 gm in 50 mls @ 25 mls/hr 11/14/24 08:59 11/14/24 10:59 Magnesium Sulfate/H2o IV 11/14/24 10:58 Infused ONCE ONE Infusion Lactated Ringer's 1,000 mls @ 999 mls/hr 11/14/24 11:00 11/14/24 12:24 Lr IV 11/14/24 12:00 Infused .Q1H1M JERI Infusion Sodium Chloride 500 mls @ 999 mls/hr 11/14/24 13:00 11/14/24 13:37 Ns IV 11/14/24 13:30 Infused .Q31M JERI Infusion Loperamide HCl 2 mg 11/14/24 12:48 11/14/24 13:00 Loperamide Hcl 2 Mg Capsule PO 11/14/24 12:49 2 mg ONCE ONE Administration Ondansetron HCl 4 mg 11/14/24 05:37 11/14/24 05:51 Ondansetron Odt 4 Mg Tab.Rapdis TRANSLINGU 11/14/24 05:38 4 mg ONCE ONE Administration Ondansetron HCl 4 mg 11/14/24 12:48 11/14/24 12:57 Ondansetron Hcl 4 Mg/2 Ml Vial IVPUSH 11/14/24 12:49 4 mg ONCE ONE Administration Medical Decision Making Medical Decision Making MDM Narrative: Patient is an 84-year-old female with history of T2 DM, anal sphincter/fecal incontinence, recurrent falls, esophageal stricture, eosinophilic esophagitis, HTN, hearing impaired presenting to the emergency department with report of diarrhea since 9:00 p.m. last night. On exam patient is awake, A+Ox3, VS WNL, afebrile, normal neurological exam without focal deficits, physical exam findings as above. Given reported symptoms and physical exam findings, initial differential includes but is not limited to gastroenteritis, electrolyte abnormality, adverse medication effect. Labs notable for mild leukocytosis, no anemia, elevated BUN with normal creatinine, elevated glucose without anion gap, hypomagnesemia. IV magnesium ordered as well as IV fluids. Patient reports improvement in symptoms, has had decreased frequency of diarrhea while in the ED, GI panel sent, will follow up as needed. Able to tolerate PO fluids. Feel patient is stable for discharge home at this time. Advised she can use OTC Immodium. Follow up with PCP to discuss if symptoms related to Wegovy. Return precautions discussed. Patient and daughter verbalized understanding of and agreement with plan, both comfortable with discharge home. Differential Diagnosis Differential Diagnoses: The differential diagnosis associated with the presentation includes As per [facility] Admission/Observation Consideration of admission/observation: Escalation of care including admission/observation considered Patient would have been admitted to the hospital had their work up had any findings where hospital admission was appropriate and their clinical presentation warranted hospital admission. Lab Data [facility] Lab Attestation statement: I reviewed the patient's lab results. As per [facility] 11/14/24 05:10 11/14/24 05:24 Labs: Lab Results 11/14/24 11/14/24 11/14/24 Range/Units 05:10 05:24 08:22 WBC 13.5 H (4.8-10.8) X10*3/uL RBC 5.38 (4.20-5.50) X10*6/uL Hgb 15.6 (12.0-16.0) g/dl Hct 45.3 (37.0-47.0) % MCV 84.2 (80.0-98.0) fL MCH 29.0 (27.0-33.0) pg MCHC 34.4 (31.0-35.0) g/dl RDW 13.4 (11.0-16.0) % Plt Count 197 (160-400) X10*3/uL MPV 9.8 (9.4-12.3) fL Absolute Nucleated RBC 0.000 (0.0-0.012) X10*3/uL Nucleated RBC % (auto) 0.0 (0.0-0.2) /100WBC Sodium 139 (135-145) mmol/L Potassium 3.4 (3.3-5.1) mmol/L Chloride 108 (96-108) mmol/L Carbon Dioxide 19 L (22-29) mmol/L Anion Gap 15 (12-20) BUN 28 H (9-16) mg/dL Creatinine 0.76 (0.5-1.4) mg/dL Estim Creat Clear Calc 52.3 Estimated GFR > 60 Random Glucose 250 H (60-115) mg/dL Calcium 10.3 H (8.4-10.2) mg/dL Magnesium 1.5 L (1.6-2.6) mg/dL Total Bilirubin 0.6 (0.0-1.0) mg/dL AST 25 (5-31) U/L ALT 29 (0-31) U/L Alkaline Phosphatase 60 (39-117) U/L Total Protein 7.6 (6.5-8.0) g/dL Albumin 4.4 (3.5-5.0) g/dL Influenza Type A (PCR) NEGATIVE (Negative) Influenza Type B (PCR) NEGATIVE (Negative) RSV RNA Qual (PCR) NEGATIVE (Negative) SARS-CoV-2 RNA (RT-PCR) NEGATIVE (Negative) Independent Historian Clinical information obtained from an independent historian. History obtained from or confirmed by: Other (daughter) External Record Review External record reviewed: Inpatient record, Office record and Outpatient record Discharge Plan Discharge Clinical Impression: Diarrhea Patient Disposition: Home, Self-Care Instructions: Acute Diarrhea (ED) Additional Instructions: You have been evaluated in the emergency department today for diarrhea. Your evaluation suggests that your symptoms are most likely due to a viral illness which will improve on it's own with rest and fluids. Remember to drink plenty of fluids with electrolytes at home. You can use over the counter Immodium as per package instructions. Please follow up with your primary care provider within two days. Return to the emergency department if you experience worsening or uncontrolled pain, inability to tolerate fluids by mouth, difficulty breathing, fevers 100.4? F or greater, recurrent vomiting, or any other concerning symptoms. Prescriptions: No Action (DME) lancets [FreeStyle Lancets] 28 gauge misc See Rx Instructions .Route Qty: 100 0RF Rx Instructions: As directed (DME) FreeStyle Lite Strips Strip See Rx Instructions .Route Qty: 100 3RF Rx Instructions: Once a day escitalopram oxalate 20 mg tablet 20 mg PO BEDTIME Qty: 90 1RF omeprazole 20 mg capsule,delayed release(DR/EC) 20 mg PO BID Qty: 180 3RF (DME) Dexcom G6 Transmitter Device See Rx Instructions .ROUTE QID Qty: 1 3RF Rx Instructions: As directed-change every 3 months pramipexole 0.5 mg tablet 0.5 mg PO BEDTIME Qty: 90 2RF montelukast 10 mg tablet 10 mg PO BEDTIME Qty: 90 2RF lisinopril 2.5 mg tablet 2.5 mg PO QAM Qty: 90 0RF (DME) Dexcom G6 Sensor Device See Rx Instructions .Route Qty: 9 0RF Rx Instructions: Test blood sugar 4 times per day, change sensor every 10 days insulin aspart U-100 [Novolog FlexPen U-100 Insulin] 100 unit/mL (3 mL) insulin pen 1 sliding scale dose subcut USEASDIRECTD Qty: 15 2RF Rx Instructions: Sliding scale 60-124 No coverage; 125-150 give 2 units; 151-200 give 4 units; 201-250 give 6 units; 251-300 give 8 units; 301-350 give 10 units; 351-400 give 12 units. Call MD if blood sugar is less than 60 or greater than 400. rosuvastatin 20 mg tablet 20 mg PO QAM Qty: 90 0RF (DME) pen needle, diabetic [Ultra-Fine Pen Needle] 31 gauge x 5/16 needle See Rx Instructions .Route Qty: 100 0RF Rx Instructions: Use As directed PreserVision AREDS 4,296 mcg-226 mg-90 mg capsule 1 cap PO DAILY estradiol 0.01 % (0.1 mg/gram) cream vaginal mirabegron 25 mg tablet extended release 24 hr 25 mg PO DAILY budesonide 1 mg/2 mL suspension for nebulization See Rx Instructions .ROUTE BID Qty: 60 5RF Rx Instructions: 1 ml mixed in slurry as per instructions provided by GI office, orally 2 times a day; dorzolamide-timolol 22.3-6.8 mg/mL drops ophthalmic (eye) Wegovy 0.25 mg/0.5 mL pen injector 0.25 mg subcut QWEEK 30 Days Qty: 2.5 0RF Rx Instructions: administer weeks 1 through 4 of therapy Print Language: Tajik
[2024-11-14] MEDS: Magnesium Sulfate/H2O 2 GM/50 ML PIGGYBACK IV (09:04)
[2024-11-14 09:09] LABS: Influenza A PCR NEGATIVE (Negative); Influenza B PCR NEGATIVE (Negative); Resp Syncy Virus RNA Qual PCR NEGATIVE (Negative); SARS COV2 PCR INHOUSE NEGATIVE (Negative)
[2024-11-14] MEDS: Lactated Ringers 1,000 ML 999 ML IV (11:15)
[2024-11-14] MEDS: ondansetron HCL 4 MG/2 ML VIAL IVPUSH (12:57)
[2024-11-14] MEDS: 0.9 % Sodium Chloride 500 ML 999 ML IV (12:58)
[2024-11-14] MEDS: Loperamide HCl 2 MG CAPSULE PO ×2 (13:00→16:33)
[2024-11-14 14:35] VITALS: BP 146/65; PULSE 76; RESP 18; TEMP 36.6; O2SAT 95
[2024-11-14 16:37] VITALS: BP 146/65; PULSE 76; RESP 18; TEMP 36.6; O2SAT 95
[2024-11-15 11:21] LABS: Adenovirus F 40/41 Not Detected (Not Detect.); Astrovirus Not Detected (Not Detect.); Campylobacter Not Detected (Not Detect.); Cryptosporidium Not Detected (Not Detect.); Cyclospora cayetanensis Not Detected (Not Detect.); E. coli EAEC Not Detected (Not Detect.); E. coli EPEC Not Detected (Not Detect.); E. coli ETEC Not Detected (Not Detect.); E. coli STEC Not Detected (Not Detect.); Entamoeba histolytica Not Detected (Not Detect.); Giardia lamblia Not Detected (Not Detect.); Norovirus GI/GII Not Detected (Not Detect.); Plesiomonas shigelloides Not Detected (Not Detect.); Rotavirus A Not Detected (Not Detect.); Salmonella Not Detected (Not Detect.); Sapovirus Not Detected (Not Detect.); Shigella sp./EIEC Not Detected (Not Detect.); Vibrio Not Detected (Not Detect.); Vibrio Cholerae Not Detected (Not Detect.); Yersinia enterocolitica Not Detected (Not Detect.)
== END 2024-11-14 16:43 | disposition home or self-care (01) ==
PROVIDERS: Physician Assistant; Registered Nurse Emergency; Emergency Provider Emergency Medicine; PCP Internal Medicine
DX: R19.7 Diarrhea, unspecified (principal); E11.9 Type 2 diabetes mellitus without complications; I10 Essential (primary) hypertension; E78.5 Hyperlipidemia, unspecified; Z03.818 Encounter for observation for suspected exposure to other biological agents ruled out; R29.6 Repeated falls; Z79.899 Other long term (current) drug therapy; Z79.4 Long term (current) use of insulin
CPT/HCPCS: 0241U; 36415; 80053; 83735; 85027; 87507; 96361; 96365; 96366; 96375; 99284; J2405; J3475; J7120

== ENCOUNTER 2024-11-19 08:06 | Outpatient (AMB) | payer MEDICARE, OTHER, SELFPAY ==
--- NOTE | 2024-11-19 10:51 | A.OFFVIS_ITS ---
VS Expanded 11/19/24 11:40 Height 5 ft Weight 167 lb 4 oz BMI 32.7 Body Fat % 42.4 Body Fat Mass 71 Fat Free Mass 96.4 Visceral Fat Rating 14 Body Water % 40.2 Body Water Mass 67.2 Basal Metabolic Rate/Score 1,331 Intake Visit Reasons: [employer] [facility] *SEE COMMENTS* Allergies crab Adverse Reaction (Intermediate, Verified 11/19/24 10:51) DIARRHEA semaglutide [From Wegovy] Adverse Reaction (Intermediate, Verified 11/19/24 10:51) Diarrhea Environmental Allergy (Intermediate, Uncoded 11/19/24 10:51) Runny Nose hayfever Allergy (Mild, Uncoded 11/19/24 10:51) Unknown Medication List - Last Reconciled 11/19/24 by Vin Cervantes MD blood sugar diagnostic (FreeStyle Lite Strips) Once a day blood-glucose sensor (Dexcom G6 Sensor device) Test blood sugar 4 times per day, change sensor every 10 days blood-glucose transmitter (Dexcom G6 Transmitter device) As directed-change every 3 months budesonide 1 ml mixed in slurry as per instructions provided by GI office, orally 2 times a day; dorzolamide-timolol 22.3-6.8 mg/mL ophthalmic (eye) escitalopram oxalate 20 mg PO BEDTIME estradiol 0.01%(0.1mg/gram) vaginal insulin aspart U-100 (Novolog FlexPen U-100 Insulin aspart) 1 sliding scale dose subcut USEASDIRECTD lancets (FreeStyle Lancets) As directed lisinopril 2.5 mg PO QAM mirabegron ER 25 mg PO DAILY montelukast 10 mg PO BEDTIME omeprazole 20 mg PO BID pen needle, diabetic (Ultra-Fine Pen Needle) Use As directed pramipexole 0.5 mg PO BEDTIME rosuvastatin 20 mg PO QAM vitamins A,C,D-uhrs-iiixgw 4,296 mcg-226 mg-90 mg (PreserVision AREDS) 1 cap PO DAILY Zepbound (tirzepatide (weight loss)) 2.5 mg (0.5 mL) subcut QWEEK NS HPI HPI [employer] [facility] *SEE COMMENTS*: Details: Start time: 10.52am, End time: 11.52am ?I spent 55 minutes speaking with the patient on the phone plus an additional 5 minutes reviewing and updating records for a total of 60 minutes HPI Comments Details: Previous weight loss efforts: Ozempic without weight loss, Wegovy: stopped in 3 weeks due to diarrhea Wakes up: 8.30am, Sleeps: 1am Breakfast: 10am (fruit, eggs with toast) Lunch: 3pm (Ham and cheese sandwich, soup) Dinner: 7.30pm (pasta with tomato sauce with tuna) Snacks: 11am (toast), 6pm (grapes), 9-10pm (chocolate smoothie) Exercise: small stationary bike Beverages: Coffee (1-2 cup/d with creamer and sugar), tea: none, soda: Diet soda (2-3/wk), juice: none, ETOH: occasionally Rum PFSH Medical History (Updated 11/19/24 @ 11:42 by Vin Cervantes MD) GERD (gastroesophageal reflux disease) Obesity Restless leg syndrome HTN (hypertension) History of COVID-19 Anxiety, generalized Lipid disorder Diabetes 1.5, managed as type 2 Surgical History History of esophagogastroduodenoscopy (EGD) H/O colonoscopy History of hysterectomy History of total knee replacement (TKR) Family History Father No problems noted. Mother Dementia Pancreatitis Social History Housing: Apartment Alcohol intake: never Patient Tobacco Use Status: Never used Tobacco e-Cigarette/Vaping Use: Never Used Advance Directives Date on File: 11/23/20 service: No Current occupational status: retired Cognitive needs: No Hearing needs: Yes Vision needs: Yes Telehealth Telehealth Telehealth Platform: Telephone Location of provider rendering services: practice address Location of patient: address on file Patient Identification confirmed using: Name, : Yes Telehealth method: voice only Patient verbally consented to treatment: Yes Patient verbally consented to billing insurance company: Yes Patient informed of any privacy concerns related to visit: Yes Minutes spent on Phone/Video with Pt.: 60 Assessment & Plan Assessment & Plan (1) Obesity: Code(s): E66.9 - Obesity, unspecified Category: Medical Qualifiers: Obesity type: due to excess calories Obesity classification: adult class 1 (BMI 30 - 34.9) Serious obesity comorbidity presence: with serious comorbidity Body mass index: BMI 32.0-32.9 Qualified Code(s): E66.811 - Obesity, class 1; E66.09 - Other obesity due to excess calories; Z68.32 - Body mass index [BMI] 32.0-32.9, adult Plan: 1.??Nutritional counseling. Start with ONE CELEBRATE REBUILD protein (buy at [facility]) shake (HALF scoop in 8oz low fat unsweetened almond milk each) at 9am-11am and 11am-1pm, lunch at 12pm (6 forks of protein and 6 forks of salad/vegetables), ONE CELEBRATE REBUILD protein shake (HALF scoop in 8oz low fat unsweetened almond milk each) at 2pm-4pm, HALF protein bar (CELEBRATE protein bar at 2-4pm), HALF protein bar at 5-6pm, dinner at 7pm (6 forks of protein and 6 forks of salad/vegetables), AND one more protein bar after dinner at 9pm-11pm. So you do 2 protein shakes, 1.5 protein bars and two meals per day. Meal to include lean meat (beef, fish, pork, turkey, chicken), or latvian yogurt, or egg whites, or beans with a salad with olive oil and fruits (berries, pears, apples, kiwi). Avoid salt, breads, potatoes, rice, pasta, desserts. 3. Each shake would be drunk slowly, like coffee in a period of 2 hours. 4. Cut each bar in 4 pieces and eat each piece in 30min ?to make each bar last 2 hours. 5. I emphasized the importance of measuring accurately the food portion and measure it when serving the food in plate 6. The meal portions include 6 full-size forks of meat and 6 full-size forks of salad. You always eat the meat portion but you can replace up to 3 forks for salad/vegetables with rice, potatoes or pasta, or a fruit ?if you like. The less you do it the better weight loss will be. 7. One full-size fork is what it can be scooped on the fork without falling aside and not what can be bit with the fork. Use regular forks like those you find in a typical restaurant. 8.? Please use the body composition scale and send me weight measurements as soon as possible and then once a week. Always include your diet and exercise plan. 9. Start stationary bike for 30 minutes every day, either all together, or 15 minutes twice per day, daily. 10. Check your blood sugar every day and let me know immediately if it is below 100. 11. Goal is to lose at least 1.5-2lbs per week 12. Goal to lose at least 10% of your weight, which is about 17lbs. Minimum weight goal: 150lbs 13. Please follow the diet plan exactly without any change. If you don't like something about the plan or you feel hungry you need to communicate with me so I can help you revise the plan. You should not change the plan yourself
[2024-11-19 11:40] VITALS: BMI 32.7
== END 2024-11-19 11:52 | disposition home or self-care (01) ==
LOC: HO.HBS 08:06
PROVIDERS: PCP Internal Medicine; Visit Provider Surgery
DX: E66.811 Obesity, class 1 (principal); Z68.32 Body mass index [BMI] 32.0-32.9, adult
CPT/HCPCS: 99205

== ENCOUNTER 2024-11-19 08:15 | Outpatient (AMB) | payer MEDICARE, OTHER, SELFPAY ==
--- NOTE | 2024-11-19 08:43 | MHC.PC.OV ---
Intake Visit Reasons: Discuss Med Concerns Allergies crab Adverse Reaction (Intermediate, Verified 11/19/24 08:43) DIARRHEA semaglutide [From Wegovy] Adverse Reaction (Intermediate, Verified 11/19/24 09:39) Diarrhea Environmental Allergy (Intermediate, Uncoded 11/19/24 08:43) Runny Nose hayfever Allergy (Mild, Uncoded 11/19/24 08:43) Unknown Medication List - Last Reconciled 11/19/24 by Ella Garces MD blood sugar diagnostic (FreeStyle Lite Strips) Once a day blood-glucose sensor (Dexcom G6 Sensor device) Test blood sugar 4 times per day, change sensor every 10 days blood-glucose transmitter (Dexcom G6 Transmitter device) As directed-change every 3 months budesonide 1 ml mixed in slurry as per instructions provided by GI office, orally 2 times a day; dorzolamide-timolol 22.3-6.8 mg/mL ophthalmic (eye) escitalopram oxalate 20 mg PO BEDTIME estradiol 0.01%(0.1mg/gram) vaginal insulin aspart U-100 (Novolog FlexPen U-100 Insulin aspart) 1 sliding scale dose subcut USEASDIRECTD lancets (FreeStyle Lancets) As directed lisinopril 2.5 mg PO QAM mirabegron ER 25 mg PO DAILY montelukast 10 mg PO BEDTIME omeprazole 20 mg PO BID pen needle, diabetic (Ultra-Fine Pen Needle) Use As directed pramipexole 0.5 mg PO BEDTIME rosuvastatin 20 mg PO QAM vitamins A,C,W-ajls-ncdwkv 4,296 mcg-226 mg-90 mg (PreserVision AREDS) 1 cap PO DAILY Tobacco use date assessed: 11/10/24 Fall risk assessment: 2 + Falls in past year Last assessed Fall Risk: 11/19/24 Dental Screening Dental Screen Date: 11/10/24 HPI Discuss Med Concerns HPI Details History - The patient is an 84-year-old female presenting with concern of medication-induced diarrhea. - The patient began experiencing diarrhea approximately in the second week of taking wagovy,, with the third dose triggering further symptoms. - The diarrhea was severe enough to require an emergency room visit after the second dose, indicating a strong adverse drug reaction. - Symptoms of watery stools commenced roughly 24 hours after the third medication dose, supporting the suspicion of a medication side effect. Problem List - Diarrhea, likely medication-induced Patient Instructions - Discontinue use of the Wagovy medication suspected to be causing diarrhea until symptoms resolve. - Consider trying Zepbound, a different medication in injectable form, once symptoms have completely resolved. - Monitor symptoms, and if diarrhea continues, seek further medical advice. Review of Systems - General: No fever no chills - Neurological: No headaches no dizziness - Ear nose throat: No sore throat no hearing difficulty no ear pain - Cardiovascular: No syncope, no chest pain, no palpitations - Gastrointestinal: No nausea vomiting or diarrhea - Endocrine: No polyuria polydipsia no heat intolerance - Genitourinary: No dysuria , no blood in urine [facility] Medical History Restless leg syndrome HTN (hypertension) History of COVID-19 Anxiety, generalized Lipid disorder Diabetes 1.5, managed as type 2 Surgical History History of esophagogastroduodenoscopy (EGD) H/O colonoscopy History of hysterectomy History of total knee replacement (TKR) Family History Father No problems noted. Mother Dementia Pancreatitis Social History Housing: Apartment Alcohol intake: never Patient Tobacco Use Status: Never used Tobacco e-Cigarette/Vaping Use: Never Used Advance Directives Date on File: 11/23/20 service: No Current occupational status: retired Cognitive needs: No Hearing needs: Yes Vision needs: Yes Questionnaire Thrive Questionnaire Date Thrive assessed: 10/06/24 I am a: Patient What is your living situation today?: I have a steady place to live Within the past 12 months, did the food you bought not last and you didn't have the money to get more?: Never true Within the past 12 months, did you worry whether your food would run out before you got money to buy more?: Never true Do you have trouble paying for medicines?: No Do you have trouble getting transportation to medical appointments?: No Do you have trouble paying your heating and electricity bill?: No Do you have trouble taking care of your child, family member or friend?: No Do you have trouble with day-to-day activities such as bathing, preparing meals, shopping, managing finances, etc.?: No Are you currently unemployed and looking for a job?: No Are you interested in more education?: No Please select the resources that you would like help with: None Currently or been in a relationship where the following occur: No concerns reported THRIVE Score: 0 LG-7 AMB Questionnaire LG-7 Date LG - 7 assessed: 11/10/24 Source: Developed by Drs. Luis Pan, Crystal Magallon, Geoffrey Anguiano and colleagues, with an educational rosas from [employer]. Physical exam (Primary Care) Tobacco/Smoking Status: Tobacco use Status Tobacco use date assessed 11/10/24 11/19/24 08:45 Patient Tobacco Use Status Never used Tobacco 11/19/24 08:45 e-Cigarette/Vaping Use Never Used 11/19/24 08:45 Thrive Assessment: Date of Thrive Assessment Date Thrive assessed 10/06/24 11/19/24 08:45 Currently or been in a relationship where the following occur: No concerns reported Telehealth Telehealth Telehealth Platform: [facility] Location of provider rendering services: practice address Location of patient: address on file Patient Identification confirmed using: Name, : Yes Telehealth method: video Patient verbally consented to treatment: Yes Patient verbally consented to billing insurance company: Yes Patient informed of any privacy concerns related to visit: Yes Minutes spent on Phone/Video with Pt.: 13 Coding Level of Care Code Tele Est Pt Level 3 (23622) Diagnoses Insulin dependent type 2 diabetes mellitus E11.9; Z79.4 Class 1 obesity due to excess calories with serious comorbidity and body mass index (BMI) of 31.0 to 31.9 in adult E66.811; E66.09; Z68.31 Body mass index: BMI 31.0-31.9 Obesity classification: adult class 1 (BMI 30 - 34.9) Serious obesity comorbidity presence: with serious comorbidity Osteoarthritis involving multiple joints on both sides of body M15.9 Hypertension, essential I10 Lipid disorder E78.9 Assessment & Plan Assessment & Plan (1) Insulin dependent type 2 diabetes mellitus: Code(s): E11.9 - Type 2 diabetes mellitus without complications; Z79.4 - continuous churn buttermaker (current) use of insulin Category: Medical (2) Obesity due to excess calories: Code(s): E66.09 - Other obesity due to excess calories Category: Medical Qualifiers: Body mass index: BMI 31.0-31.9 Obesity classification: adult class 1 (BMI 30 - 34.9) Serious obesity comorbidity presence: with serious comorbidity Qualified Code(s): E66.811 - Obesity, class 1; E66.09 - Other obesity due to excess calories; Z68.31 - Body mass index [BMI] 31.0-31.9, adult (3) Osteoarthritis involving multiple joints on both sides of body: Code(s): M15.9 - Polyosteoarthritis, unspecified Category: Medical (4) Hypertension, essential: Code(s): I10 - Essential (primary) hypertension Category: Medical (5) Lipid disorder: Code(s): E78.9 - Disorder of lipoprotein metabolism, unspecified Category: Medical Plan History - The patient is an 84-year-old female presenting with concern of medication-induced diarrhea. - The patient began experiencing diarrhea approximately in the second week of taking wagovy,, with the third dose triggering further symptoms. - The diarrhea was severe enough to require an emergency room visit after the second dose, indicating a strong adverse drug reaction. - Symptoms of watery stools commenced roughly 24 hours after the third medication dose, supporting the suspicion of a medication side effect. Problem List - Diarrhea, likely medication-induced Patient Instructions - Discontinue use of the Wagovy medication suspected to be causing diarrhea until symptoms resolve. - Consider trying Zepbound, a different medication in injectable form, once symptoms have completely resolved. - Monitor symptoms, and if diarrhea continues, seek further medical advice. Medications: New Zepbound (tirzepatide (weight loss)) for 4 weeks 2.5 mg (0.5 mL) subcut QWEEK 2 mL 0RF NS E11.9 - Type 2 diabetes mellitus without complications, E66.09 - Other obesity due to excess calories, E66.811 - Obesity, class 1, E78.9 - Disorder of lipoprotein metabolism, unspecified, I10 - Essential (primary) hypertension, M15.9 - Polyosteoarthritis, unspecified, Z68.31 - Body mass index [BMI] 31.0-31.9, adult, Z79.4 - continuous churn buttermaker (current) use of insulin
== END 2024-11-19 09:55 | disposition home or self-care (01) ==
LOC: HO.HMCC 08:16
PROVIDERS: PCP Internal Medicine; Visit Provider Internal Medicine
DX: E11.9 Type 2 diabetes mellitus without complications (principal); Z79.4 Long term (current) use of insulin; E66.811 Obesity, class 1; Z68.31 Body mass index [BMI] 31.0-31.9, adult; M15.9 Polyosteoarthritis, unspecified; I10 Essential (primary) hypertension; E78.9 Disorder of lipoprotein metabolism, unspecified

== ENCOUNTER 2024-12-21 10:50 | Outpatient (AMB) | payer MEDICARE, OTHER, SELFPAY ==
--- NOTE | 2024-12-21 10:52 | A.OFFVIS_ITS ---
Vital Signs 12/21/24 10:53 Height 5 ft Weight 167 lb BMI 32.6 Intake Visit Reasons: OV-Right knee eval-discuss option for pain Intake Note: Katelyn is an 84 year old female who presents today for a follow up of her right knee. Hx of bilateral knee replacements done about 13 years ago. She has continued instability of the right knee. She was advised to use braces she has at home. She would like to further discuss possible revision of right TKA. Allergies crab Adverse Reaction (Intermediate, Verified 11/19/24 10:51) DIARRHEA semaglutide [From Wegovy] Adverse Reaction (Intermediate, Verified 11/19/24 10:51) Diarrhea Environmental Allergy (Intermediate, Uncoded 11/19/24 10:51) Runny Nose hayfever Allergy (Mild, Uncoded 11/19/24 10:51) Unknown HPI HPI OV-Right knee eval-discuss option for pain: Details: Katelyn comes in today with ongoing right knee pain and giving way. She has stopped using a walker and is using walking sticks/cane. She states she feels much better than previous visit. She is working with Dr. Cervantes and bariatric and feels better about her knee. She is still very limited. She is still feels that her knee gives way in his worried she is going to fall. [facility] Medical History (Updated 12/21/24 @ 13:24 by Sai Todd MD) GERD (gastroesophageal reflux disease) Obesity Restless leg syndrome HTN (hypertension) History of COVID-19 Anxiety, generalized Lipid disorder Diabetes 1.5, managed as type 2 Surgical History History of esophagogastroduodenoscopy (EGD) H/O colonoscopy History of hysterectomy History of total knee replacement (TKR) Family History Father No problems noted. Mother Dementia Pancreatitis Social History Housing: Apartment Alcohol intake: never Patient Tobacco Use Status: Never used Tobacco e-Cigarette/Vaping Use: Never Used Advance Directives Date on File: 11/23/20 service: No Current occupational status: retired Cognitive needs: No Hearing needs: Yes Vision needs: Yes Physical Exam Vital Signs: BMI result Body Mass Index 32.6 Extrem Other: Full range of motion bilateral knees.0-125 deg There is 1+ varus valgus laxity of the right knee There is 1- varus valgus laxity of the left knee Assessment & Plan Assessment & Plan (1) Recurrent instability of right knee prosthesis: Code(s): T84.022A - Instability of internal right knee prosthesis, initial encounter Category: Medical Plan: This is a 84-year-old woman with prosthetic instability of the right knee. She has multiple giving way episodes. She had her op note from the surgery and I reviewed this and there is a 9 mm insert and a Demetrius knee that is cruciate retaining. I had a long discussion with her. I think it is reasonable to insert a thicker polyethylene. She is unstable in the varus and valgus direction and so with twisting activity she feels her knee giving way. I think it is reasonable to swap out for a thicker polyethylene with more constraint possible. I reviewed the risks, benefits and alternatives with her. She will think about it and if she would like to proceed forward she will contact me. Prior to this surgery we will need to rule out infection. At this time, there is no evidence of infection. Coding Level of Care Code Est Pt Level 4 (98276) Diagnoses Recurrent instability of right knee prosthesis T84.022A
[2024-12-21 10:53] VITALS: BMI 32.6
== END 2024-12-21 11:31 | disposition home or self-care (01) ==
LOC: HO.HOS 10:51
PROVIDERS: PCP Internal Medicine; Visit Provider Orthopaedic Surgery
DX: T84.022A Instability of internal right knee prosthesis, initial encounter (principal); Z96.653 Presence of artificial knee joint, bilateral
CPT/HCPCS: 99214

== ENCOUNTER → 2024-12-21 10:50 | Outpatient (BNVA) | payer MEDICARE, OTHER, SELFPAY | PROVIDERS: PCP Internal Medicine; Visit Provider Orthopaedic Surgery | DX: T84.022D Instability of internal right knee prosthesis, subsequent encounter (principal) | CPT/HCPCS: 99212 ==

== ENCOUNTER 2025-02-05 14:41 | Outpatient (REF) | payer MEDICARE, OTHER, SELFPAY ==
[2025-02-05 16:08] LABS: MANUAL DIFF FLAG NO
[2025-02-05 16:19] LABS: Basophils Absolute Auto 0.1 X10*3/uL (0.0-0.2); Basophils Percent Auto 0.6 % (0-2); Eosinophils Absolute Auto 0.3 X10*3/uL (0.0-0.4); Eosinophils Percent Auto 3.4 % (0-4); Hematocrit 42.2 % (37.0-47.0); Imm Gran Abs Auto 0.03 X10*3/uL (0.00-0.03); Imm Gran Pct Auto 0.4 % (0.0-0.4); Lymphocytes Absolute Auto 2.7 X10*3/uL (1.2-4.9); Lymphocytes Percent Auto 32.7 % (20-40); Mean Corpuscular HGB Conc 33.2 g/dl (31.0-35.0); Mean Corpuscular Hemoglobin 29.4 pg (27.0-33.0); Mean Corpuscular Volume 88.5 fL (80.0-98.0); Mean Platelet Volume 10.4 fL (9.4-12.3); Monocytes Absolute Auto 0.7 X10*3/uL (0.1-1.2); Monocytes Percent Auto 8.2 % (2-11); Neutrophils Absolute Auto 4.6 x10*3/uL (2.0-8.3); Neutrophils Percent Auto 54.7 % (45-73); Platelet Count 159 X10*3/uL (160-400); Red Blood Count 4.77 X10*6/uL (4.20-5.50); Red Cell Distribution Width 13.2 % (11.0-16.0); White Blood Count 8.3 X10*3/uL (4.8-10.8)
[2025-02-05 16:22] LABS: Estimated Average Glucose 151 mg/dL; Hemoglobin A1c % 6.9 % (<6.0); Total Hemoglobin (HGBA1C) 3657.0404 umol/L
[2025-02-05 16:47] LABS: Alanine Aminotransferase 32 U/L (0-31); Albumin Level 4.4 g/dL (3.5-5.0); Alkaline Phosphatase 62 U/L (39-117); Anion Gap 13 (12-20); Aspartate Amino Transferase 28 U/L (5-31); Bilirubin Total 0.3 mg/dL (0.0-1.0); Blood Urea Nitrogen 17 mg/dL (9-16); C Reactive Protein 0.25 mg/dL (< or = 0.50); Calcium 9.9 mg/dL (8.4-10.2); Carbon Dioxide 26 mmol/L (22-29); Chloride 104 mmol/L (96-108); Estimated Glomerular Filt Rate > 60; Glucose Random 178 mg/dL (60-115); Potassium 3.7 mmol/L (3.3-5.1); Sodium 139 mmol/L (135-145); Total Protein 6.6 g/dL (6.5-8.0)
[2025-02-05 17:01] LABS: TSH reflex Free T4 0.83 uIU/mL (0.32-4.0)
[2025-02-05 17:02] LABS: Erythrocyte Sedimentation Rate 5 MM/HR (0-20)
[2025-02-05 17:10] LABS: Vitamin B12 1126 pg/mL (200-900)
[2025-02-06 12:44] LABS: LDL Cholesterol Direct 58 mg/dL (<100)
[2025-02-10 14:03] LABS: Vitamin D 25-OH, D2 <4 ng/mL; Vitamin D 25-OH, D3 17 ng/mL; Vitamin D 25-OH, Total 17 ng/mL (30-100)
== END 2025-02-05 14:42 | disposition home or self-care (01) ==
LOC: HO.HMGCLDS 14:41
PROVIDERS: Physician Assistant; PCP Internal Medicine; Visit Provider Internal Medicine
DX: T84.022A Instability of internal right knee prosthesis, initial encounter (principal); E13.9 Other specified diabetes mellitus without complications; R55 Syncope and collapse; R41.89 Other symptoms and signs involving cognitive functions and awareness; E78.9 Disorder of lipoprotein metabolism, unspecified; I10 Essential (primary) hypertension; R26.81 Unsteadiness on feet
CPT/HCPCS: 36415; 80053; 82306; 82607; 83036; 83721; 84443; 85025; 85652; 86140; 99212

== ENCOUNTER 2025-02-05 14:41 | Outpatient (AMB) | payer MEDICARE, OTHER, SELFPAY ==
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
[2025-02-05 14:51] VITALS: BP 142/84; PULSE 75; RESP 14; TEMP 36.6; O2SAT 95; BMI 32.5
== END 2025-02-05 15:41 | disposition home or self-care (01) ==
LOC: HO.HMCC 14:41
PROVIDERS: PCP Internal Medicine; Visit Provider Internal Medicine
DX: R55 Syncope and collapse (principal); R41.89 Other symptoms and signs involving cognitive functions and awareness; E13.9 Other specified diabetes mellitus without complications; E78.9 Disorder of lipoprotein metabolism, unspecified; I10 Essential (primary) hypertension; R26.81 Unsteadiness on feet

== ENCOUNTER → 2025-02-11 10:00 | Outpatient (BNVA) | payer MEDICARE, OTHER, SELFPAY | PROVIDERS: PCP Internal Medicine; Visit Provider Internal Medicine | DX: Z13.89 Encounter for screening for other disorder (principal) ==

== ENCOUNTER 2025-03-02 11:23 | Outpatient (AMB) | payer MEDICARE, OTHER, SELFPAY ==
[2025-03-02 11:30] VITALS: BP 140/80; PULSE 66; TEMP 37.1; O2SAT 97; BMI 32.1
--- NOTE | 2025-03-02 11:30 | A.OFFPC_ITS ---
Vital Signs 3 03/02/25 11:30 Height 5 ft Weight 164 lb 4 oz BMI 32.1 BP 140/80 H Blood Pressure Location Lt brachial Position Sitting Pulse 66 Pulse Source Pulse Oximeter Temp 98.8 F Temp Source Oral Pulse Oximetry (%) 97 Oxygen Delivery Method Room Air Intake Visit Reasons: R TKA Revision w/Dr. Todd on 04/13/25 Is last menstrual period known: No Post menopausal: Yes Patient : No Allergies crab Adverse Reaction (Intermediate, Verified 03/02/25 11:37) DIARRHEA semaglutide (From stylefruits) Adverse Reaction (Intermediate, Verified 03/02/25 11:37) Diarrhea Environmental Allergy (Intermediate, Uncoded 11/19/24 10:51) Runny Nose hayfever Allergy (Mild, Uncoded 11/19/24 10:51) Unknown Medication List - Last Reconciled 03/02/25 by Ella Garces MD blood sugar diagnostic (FreeStyle Lite Strips) Once a day Dexcom G6 Sensor (blood-glucose sensor) Check blood sugar 4 times daily as directed NS Dexcom G7 Burr Bench Operator (blood-glucose,product safety consultant,cont) Test blood sugar 4 times per day NS Dexcom G7 Sensor (blood-glucose sensor) Test blood sugar 4 times per day, change sensor every 10 days NS dorzolamide-timolol 22.3-6.8 mg/mL ophthalmic (eye) escitalopram oxalate 20 mg PO BEDTIME estradiol 0.01%(0.1mg/gram) vaginal [Folding Front Wheeled walker Duration: 99 days] insulin aspart U-100 (Novolog FlexPen U-100 Insulin aspart) 1 sliding scale dose subcut USEASDIRECTD lancets (FreeStyle Lancets) As directed lisinopril 2.5 mg PO QAM mirabegron ER 25 mg PO DAILY montelukast 10 mg PO BEDTIME pen needle, diabetic USE DIRECTED FOR INSULIN INJECTIONS THREE TIMES A DAY pramipexole 0.5 mg PO BEDTIME rosuvastatin 20 mg PO QAM vitamins A,C,V-zkcg-ccawpk 4,296 mcg-226 mg-90 mg (PreserVision AREDS) 1 cap PO DAILY Tobacco use date assessed: 03/02/25 Last assessed Fall Risk: 03/02/25 Dental Screening Dental Screen Date: 02/05/25 Did you have a dental visit in the last 12 months?: Yes Did you have a dental problem in the last 6 months where you did not have access to dental care?: No Was dental information given to patient?: Patient has dentist HPI R TKA Revision w/Dr. Todd on 04/13/25 2 HPI0 Details Chief Complaint The patient presents for preoperative evaluation of RTKA revision and diabetes management. History - The patient is an 84-year-old female p resenting with concerns related to her upcoming right total knee arthroplasty (RTKA) revision. - The patient's right knee has been prob lematic with buckling and instability due to a degraded polyethylene disc, which has been contributing to her knee discomfort. This prosthesis was originally placed in August 2012. - The revision surgery is planned for [place] [facility] at [facility]. - Her diabetes management has been a foc us; she reports having controlled her blood glucose levels more effectively with the help of a new glycemic management device. - Additional details include controlled anxiety and managed urinary urgency post neural sacral nerve block procedure. Medical History: - Diabetes Mellitus requiring insulin . - Anxiety disorder, managed with Escital opram. - Urinary urgency, treated with a sacral nerve block. - Vitamin D deficiency. - Previous management of high B12 levels . - Hypertension. - Usage of a neural sacral nerve stimula tor for urinary incontinence control. Surgical History: - Right total knee arthroplasty in 2012. - Sacral nerve stimulator implant. Social History: - No longer drives and utilizes public [employer] ransportation ([employer]) for mobility. - Actively managing diabetes with regula r home glucose monitoring. - Reports improved urinary function and no longer experiences incontinence and associated discomfort post-procedural intervention. Diagnostic Results: - Labs: Hemoglobin A1c at 6.9%, CBC with in normal limits with a platelet count of 159, metabolic profile normal, liver enzymes stable, vitamin D at 17 (low), high B12 level on 07/21, thyroid levels within normal limits. - Tests: Previous EKG (April ye ar) indicated normal sinus rhythm with no acute findings. EKG : done today, no acute findings NSR 62 BPM Medications - Escitalopram 20 mg for anxiety control . - Lisinopril 2.5 mg for renal protection in diabetes. - Insulin therapy per sliding scale for blood glucose management. - Mirabegron for urinary urgency. - Montelukast. - Pramipexole for restless leg syndrome. - Rosuvastatin 20 mg for lipid managemen t. Problem List - Diabetes Mellitus - Right Knee Prosthesis Complications - Anxiety Disorder - Urinary Urgency - Restless Leg Syndrome - Hyperlipidemia - Vitamin D Deficiency Plan In preparation for the RTKA revision, laboratory evaluations including EKG should be completed due to the time elapsed since the last assessment. Continued focus on glucose control is crucial, aiming to maintain the patient?s HbA1c in the 7% range to optimize wound healing post-surgery. Insulin adjustments via a sliding scale should continue considering her current glycemic patterns. The patient's current vitamin B12 regime should be modified to reduce the frequency of intake, and vitamin D supplementation remains necessary. We will retain her current anxiety management with Escitalopram given its stabilization efficacy. The sacral nerve stimulator continues to provide effective control over her urinary urgency and incontinence issues. Avoidance of driving should persist due to the previous syncopal event. Additional interventions may be considered following results from upcoming evaluations by Neurology. Her lipid profile will be monitored through continued use of Rosuvastatin to control hyperlipidemia. Moreover, considerations for maintaining optimal balance and overall rehabilitation post-knee revision will be emphasized in coordinated care with the orthopedic team. Upon presenting for preoperative evaluation, I noted that the RTKA revision is necessitated by the instability and degeneration of the knee implant. Patient is stable for orthopedic surgery right knee [facility] [place] Medical History GERD (gastroesophageal reflux disease) Obesity Restless leg syndrome HTN (hypertension) History of COVID-19 Anxiety, generalized Lipid disorder Diabetes 1.5, managed as type 2 Surgical History History of esophagogastroduodenoscopy (EGD) H/O colonoscopy History of hysterectomy History of total knee replacement (TKR) Family History Father No problems noted. Mother Dementia Pancreatitis Social History Housing: Apartment Alcohol intake: never Patient Tobacco Use Status: Never used Tobacco e-Cigarette/Vaping Use: Never Used Advance Directives Date on File: 11/23/20 service: No Current occupational status: retired Cognitive needs: No Hearing needs: Yes Vision needs: Yes Questionnaire PHQ-9 Over the last 2 weeks, how often have you been bothered by any of the following problems? 51524 - PHQ-9 Billing: Yes Source: Developed by Drs. Luis Pan, Geoffrey Nunez and colleagues, with an educational rosas from [employer]. Thrive Questionnaire Date Thrive assessed: 03/02/25 I am a: Patient What is your living situation today?: I have a steady place to live Within the past 12 months, did the food you bought not last and you didn't have the money to get more?: Never true Within the past 12 months, did you worry whether your food would run out before you got money to buy more?: Never true Do you have trouble paying for medicines?: No Do you have trouble getting transportation to medical appointments?: No Do you have trouble paying your heating and electricity bill?: No Do you have trouble taking care of your child, family member or friend?: No Do you have trouble with day-to-day activities such as bathing, preparing meals, shopping, managing finances, etc.?: No Are you currently unemployed and looking for a job?: No Are you interested in more education?: No Please select the resources that you would like help with: None Currently or been in a relationship where the following occur: No concerns reported THRIVE Score: 0 AUDIT C Alcohol Use Questionnaire (AUDIT-C) 1. How often do you have a drink containing alcohol?: Monthly or less 2. How many drinks containing alcohol do you have on a typical day when you are drinking?: 1 or 2 3. How often do you have six or more drinks on one occasion?: Never Total Score: 1 Score Reviewed/Action Taken: Yes LG-7 AMB Questionnaire LG-7 Date LG - 7 assessed: 03/02/25 Source: Developed by Drs. Luis Pan, Geoffrey Nunez and colleagues, with an educational rosas from [employer]. Review of Systems Const Denies chills and Denies fever(s) ENT Denies epistaxis and Denies nasal discharge Card Denies chest pain Resp Denies chest congestion, Denies cough and Denies hemoptysis GI Denies diarrhea and Denies nausea Skin/Breast Denies rash Neuro Reports no additional complaints Psych Reports no additional complaints Endo Reports no additional complaints Physical exam (Primary Care) Vital Signs: Last Vital Signs Temp 98.8 F 03/02/25 11:30 Pulse 66 03/02/25 11:30 BP 140/80 H 03/02/25 11:30 Pulse Ox 97 03/02/25 11:30 Oxygen Delivery Method Room Air 03/02/25 11:30 BMI result Body Mass Index 32.1 Tobacco/Smoking Status: Tobacco use Status Tobacco use date assessed 03/02/25 03/02/25 11:41 Patient Tobacco Use Status Never used Tobacco 03/02/25 11:41 e-Cigarette/Vaping Use Never Used 03/02/25 11:41 Thrive Assessment: Date of Thrive Assessment Date Thrive assessed 03/02/25 03/02/25 11:41 Currently or been in a relationship where the following occur: No concerns reported Const General: cooperative, comfortable and no acute distress Orientation/consciousness: patient oriented x3 HENMT Head: Yes normocephalic Eyes General: appearance normal, both eyes and all related structures Neck Neck: Yes supple Resp Effort & Inspection: normal respiratory effort, no cough and no stridor Cardio Other: Rhythm: regular rhythm Heart sounds: S1 normal heart sound present and S2 normal heart sound present Skin General skin exam: turgor normal Neuro General: patient oriented x3, tone normal and moves all extremities Extrem Right lower extremity: no edema Left lower extremity: no edema Office Procedures EKG 24692-[id number], Complete Coding Level of Care Code Est Pt Level 5 (25929) Diagnoses Pre-op evaluation Z01.818 Recurrent instability of right knee prosthesis, sequela T84.022S Encounter type: sequela Anxiety, generalized F41.1 Hypertension, essential I10 Lipid disorder E78.9 Diabetes 1.5, managed as type 2 E13.9 Bladder disorder N32.9 CPT Codes EKG - CPT: 71747-[id number], Complete ([id number]) Additional Codes PHQ-9 - 36686 - PHQ-9 Billing: Yes ([id number]) Time Spent (min) 40 Comment Reviewing chart/labs/EKG/hcpw-sq-vazy/coordination of care Assessment & Plan Assessment & Plan (1) Pre-op evaluation: Code(s): Z01.818 - Encounter for other preprocedural examination Category: Medical (2) Recurrent instability of right knee prosthesis: Code(s): T84.022A - Instability of internal right knee prosthesis, initial encounter Category: Medical Qualifiers: Encounter type: sequela Qualified Code(s): T84.022S - Instability of internal right knee prosthesis, sequela (3) Anxiety, generalized: Code(s): F41.1 - Generalized anxiety disorder Category: Medical (4) Hypertension, essential: Code(s): I10 - Essential (primary) hypertension Category: Medical (5) Lipid disorder: Code(s): E78.9 - Disorder of lipoprotein metabolism, unspecified Category: Medical (6) Diabetes 1.5, managed as type 2: Comment: taking Ozempic weekly Code(s): E13.9 - Other specified diabetes mellitus without complications Category: Medical (7) Bladder disorder: Code(s): N32.9 - Bladder disorder, unspecified Category: Medical Plan Chief Complaint The patient presents for preoperative evaluation of RTKA revision and diabetes management. History - The patient is an 84-year-old female presenting with concerns related to her upcoming right total knee arthroplasty (RTKA) revision. - The patient's right knee has been problematic with buckling and instability due to a degraded polyethylene disc, which has been contributing to her knee discomfort. This prosthesis was originally placed in August 2012. - The revision surgery is planned for April 13 at [facility]. - Her diabetes management has been a focus; she reports having controlled her blood glucose levels more effectively with the help of a new glycemic management device. - Additional details include controlled anxiety and managed urinary urgency post neural sacral nerve block procedure. Medical History: - Diabetes Mellitus requiring insulin therapy. - Anxiety disorder, managed with Escitalopram. - Urinary urgency, treated with a sacral nerve block. - Vitamin D deficiency. - Previous management of high B12 levels. - Hypertension. - Usage of a neural sacral nerve stimulator for urinary incontinence control. Surgical History: - Right total knee arthroplasty in August 2012. - Sacral nerve stimulator implant. Social History: - No longer drives and utilizes public transportation ([employer]) for mobility. - Actively managing diabetes with regular home glucose monitoring. - Reports improved urinary function and no longer experiences incontinence and associated discomfort post-procedural intervention. Diagnostic Results: - Labs: Hemoglobin A1c at 6.9%, CBC within normal limits with a platelet count of 159, metabolic profile normal, liver enzymes stable, vitamin D at 17 (low), high B12 level on 07/21, thyroid levels within normal limits. - Tests: Previous EKG (April last year) indicated normal sinus rhythm with no acute findings. EKG : done today, no acute findings NSR 62 BPM Medications - Escitalopram 20 mg for anxiety control. - Lisinopril 2.5 mg for renal protection in diabetes. - Insulin therapy per sliding scale for blood glucose management. - Mirabegron for urinary urgency. - Montelukast. - Pramipexole for restless leg syndrome. - Rosuvastatin 20 mg for lipid management. Problem List - Diabetes Mellitus - Right Knee Prosthesis Complications - Anxiety Disorder - Urinary Urgency - Restless Leg Syndrome - Hyperlipidemia - Vitamin D Deficiency Plan In preparation for the RTKA revision, laboratory evaluations including EKG should be completed due to the time elapsed since the last assessment. Continued focus on glucose control is crucial, aiming to maintain the patient?s HbA1c in the 7% range to optimize wound healing post-surgery. Insulin adjustments via a sliding scale should continue considering her current glycemic patterns. The patient's current vitamin B12 regime should be modified to reduce the frequency of intake, and vitamin D supplementation remains necessary. We will retain her current anxiety management with Escitalopram given its stabilization efficacy. The sacral nerve stimulator continues to provide effective control over her urinary urgency and incontinence issues. Avoidance of driving should persist due to the previous syncopal event. Additional interventions may be considered following results from upcoming evaluations by Neurology. Her lipid profile will be monitored through continued use of Rosuvastatin to control hyperlipidemia. Moreover, considerations for maintaining optimal balance and overall rehabilitation post-knee revision will be emphasized in coordinated care with the orthopedic team. Upon presenting for preoperative evaluation, I noted that the RTKA revision is necessitated by the instability and degeneration of the knee implant. Patient is stable for orthopedic surgery right knee
== END 2025-03-02 12:02 | disposition home or self-care (01) ==
LOC: HO.HMCC 11:28
PROVIDERS: PCP Internal Medicine; Visit Provider Internal Medicine
DX: I10 Essential (primary) hypertension (principal); E13.9 Other specified diabetes mellitus without complications; Z01.818 Encounter for other preprocedural examination; T84.02 Dislocation of internal joint prosthesis; F41.1 Generalized anxiety disorder; E78.9 Disorder of lipoprotein metabolism, unspecified; N32.9 Bladder disorder, unspecified

== ENCOUNTER → 2025-03-02 11:23 | Outpatient (BNVA) | payer MEDICARE, OTHER, SELFPAY | PROVIDERS: PCP Internal Medicine; Visit Provider Internal Medicine | DX: Z01.818 Encounter for other preprocedural examination (principal); T84.02 Dislocation of internal joint prosthesis; F41.1 Generalized anxiety disorder; I10 Essential (primary) hypertension; E78.9 Disorder of lipoprotein metabolism, unspecified; E13.9 Other specified diabetes mellitus without complications; N32.9 Bladder disorder, unspecified | CPT/HCPCS: 93005; 96127; 99212 ==

== ENCOUNTER → 2025-03-09 08:50 | Outpatient (BNVA) | payer MEDICARE, OTHER, SELFPAY | PROVIDERS: PCP Internal Medicine | DX: Z01.818 Encounter for other preprocedural examination (principal) ==

== ENCOUNTER 2025-03-12 08:32 | Outpatient (AMB) | payer MEDICARE, OTHER, SELFPAY ==
--- NOTE | 2025-03-12 08:48 | AM.OFFWIN_ITS ---
Intake Vital Signs 03/12/25 08:55 Height 5 ft Weight 165 lb BMI 32.2 BP 132/70 Blood Pressure Location Lt brachial Position Sitting Pulse 72 Pulse Source Pulse Oximeter Temp 97.8 F Temp Source Oral Pulse Oximetry (%) 97 Oxygen Delivery Method Room Air Intake Visit Reasons: EP-uti Patient Tobacco Use Status: Never used Tobacco Allergies environmental allergies Allergy (Intermediate, Verified 03/12/25 08:55) Itchy Eyes crab Adverse Reaction (Intermediate, Verified 03/12/25 08:55) DIARRHEA semaglutide (From [facility]) Adverse Reaction (Intermediate, Verified 03/12/25 08:55) severe diarrhea Medication List - Last Reconciled 03/12/25 by Ella Garces MD blood sugar diagnostic (FreeStyle Lite Strips) Once a day Dexcom G6 Sensor (blood-glucose sensor) Check blood sugar 4 times daily as directed NS Dexcom G7 Interactive Media Designer (blood-glucose,fuel cell test engineer,cont) Test blood sugar 4 times per day NS Dexcom G7 Sensor (blood-glucose sensor) Test blood sugar 4 times per day, change sensor every 10 days NS dorzolamide-timolol 22.3-6.8 mg/mL 1 drp ophthalmic (eye) BID escitalopram oxalate 20 mg PO BEDTIME [Folding Front Wheeled walker Duration: 99 days] ibuprofen 600 mg PO QID PRN insulin aspart U-100 (Novolog FlexPen U-100 Insulin aspart) 1 sliding scale dose subcut USEASDIRECTD lancets (FreeStyle Lancets) As directed lisinopril 2.5 mg PO QAM mirabegron ER 25 mg PO QAM montelukast 10 mg PO BEDTIME pen needle, diabetic USE DIRECTED FOR INSULIN INJECTIONS THREE TIMES A DAY pramipexole 0.5 mg PO BEDTIME rosuvastatin 20 mg PO QAM vitamins A,C,B-ymss-zfdqsz 4,296 mcg-226 mg-90 mg (PreserVision AREDS) 2 caps PO BEDTIME vitamins A,C,C-dksl-yhlayp 4,296 mcg-226 mg-90 mg (PreserVision AREDS) 1 cap PO QAM Do you need a note to return to daycare/school/sports/work: No HPI EP-uti HPI Details Patient is 84-year-old female came in today to be evaluated for possible urinary tract infection Patient have anal sphincter stimulator for rectal incontinence as well as for bladder Last night she urinated in her bed, also feeling slightly unwell so came in She tells me that her urine is orange in color There is no fever no chills no nausea no vomiting UA shows leuk esterase of 125 and 3+ blood We will send culture for her urine Meanwhile I have started her on Macrobid 100 mg b.i.d. for 5 days PFSH Medical History Fecal incontinence Urinary incontinence Cervical spinal stenosis Cognitive impairment Osteoarthritis GERD (gastroesophageal reflux disease) Obesity Restless leg syndrome HTN (hypertension) Anxiety, generalized Lipid disorder Diabetes 1.5, managed as type 2 Surgical History S/P placement of nerve stimulator History of esophagogastroduodenoscopy (EGD) H/O colonoscopy History of hysterectomy History of total knee replacement (TKR) Family History Father No problems noted. Mother Dementia Pancreatitis Social History Housing: Apartment Are you a primary healthcare economics manager to a significant other at home: No Do you presently have visiting nurse or other home services: No Alcohol intake: never Comment: advised of yazmin shelton Patient Tobacco Use Status: Never used Tobacco e-Cigarette/Vaping Use: Never Used Advance Directives Date on File: 11/23/20 service: No Current occupational status: retired Cognitive needs: No Hearing needs: Yes Vision needs: Yes Review of Systems Const All systems reviewed & are unremarkable except as noted in HPI and below Physical Exam Vital Signs: Last Vital Signs Temp 97.8 F 03/12/25 08:55 Pulse 72 03/12/25 08:55 BP 132/70 03/12/25 08:55 Pulse Ox 97 03/12/25 08:55 Oxygen Delivery Method Room Air 03/12/25 08:55 BMI result Body Mass Index 32.2 Const General: no acute distress Orientation/consciousness: patient oriented x3 Eyes General: appearance normal, both eyes and all related structures Resp Effort & Inspection: normal respiratory effort and able to speak in complete sentences GI Other: Mild suprapubic discomfort General: Yes no CVA tenderness Back/Spine/Pelvis Back: no CVA tenderness Neuro General: patient oriented x3 Psych Mental Status: mental status grossly normal Assessment & Plan Assessment & Plan (1) Acute cystitis with hematuria: Code(s): N30.01 - Acute cystitis with hematuria Plan Patient is 84-year-old female came in today to be evaluated for possible urinary tract infection Patient have anal sphincter stimulator for rectal incontinence as well as for bladder Last night she urinated in her bed, also feeling slightly unwell so came in She tells me that her urine is orange in color There is no fever no chills no nausea no vomiting UA shows leuk esterase of 125 and 3+ blood We will send culture for her urine Meanwhile I have started her on Macrobid 100 mg b.i.d. for 5 days Orders: Orders Urine Culture Today N30.01 - Acute cystitis with hematuria Medications: New nitrofurantoin monohyd/m-cryst 100 mg (Macrobid) must administer with a meal/food 100 mg PO Q12H 10 caps 0RF 5 days Coding Level of Care Code Est Pt Level 3 (13250) Diagnoses Acute cystitis with hematuria N30.01
[2025-03-12 08:55] VITALS: BP 132/70; PULSE 72; TEMP 36.6; O2SAT 97; BMI 32.2
== END 2025-03-12 09:16 | disposition home or self-care (01) ==
PROVIDERS: PCP Internal Medicine; Visit Provider Internal Medicine
DX: N30.01 Acute cystitis with hematuria (principal)

== ENCOUNTER → 2025-03-12 08:32 | Outpatient (BNVA) | payer MEDICARE, OTHER, SELFPAY | PROVIDERS: PCP Internal Medicine; Visit Provider Internal Medicine | DX: N30.01 Acute cystitis with hematuria (principal) | CPT/HCPCS: 99212 ==

== ENCOUNTER 2025-03-12 10:20 | Outpatient (REF) | payer MEDICARE, OTHER, SELFPAY ==
--- OUTSIDE RECORDS SUMMARY | 2025-03-12 10:40 | XMS_ITS | Clinical Summary ---
Author Organization [facility] Address [address] [place] [address] [place] [id number] Phone Care Team Providers Care Drop Wire Stringer Name Role Phone Ella Garces MD Primary Care Provider Unavailabl e Social History Tobacco Use Types Packs/Day Years Used Date Smoking Tobacco: Never Assessed Comments Unknown Sex and Gender Information Value Date Recorded Sex Assigned at Not on file Legal Sex Female 2:17 PM EDT Gender Identity Not on file Sexual Orientation Not on file Plan of Treatment Not on file Medical Devices Not on file Insurance [employer] PPO MEDICARE PART A & B [employer] PPO MEDICARE PART A & B [employer] PPO MEDICARE PART A & B [employer] PPO MEDICARE PART A & B [employer] PPO MEDICARE PART A & B [employer] PPO MEDICARE PART A & B Care Teams Drop Wire Stringer Relationship Specialty Start Date End Date Ella Garces MD PCP - General Internal Medicine 11/21/23 Additional Source Comments The information contained in this document represents components of the legal health record. It is not the complete legal health record.[facility]
== END 2025-03-12 10:21 | disposition home or self-care (01) ==
LOC: HO.LNP 10:20
PROVIDERS: Visit Provider Internal Medicine
DX: N30.01 Acute cystitis with hematuria (principal)
CPT/HCPCS: 87086; 87088; 87186

== ENCOUNTER 2025-03-18 13:40 | Outpatient (AMB) | payer MEDICARE, OTHER, SELFPAY ==
--- OUTSIDE RECORDS SUMMARY | 2025-03-18 13:43 | XMS_ITS | Clinical Summary ---
Author Organization [facility] Address [address] [place] [id number] Phone Care Team Providers Care Airline Hostess Name Role Phone Ella Garces MD Primary Care Provider [phone] Social History Tobacco Use Types Packs/Day Years Used Date Smoking Tobacco: Never Assessed Comments Unknown Sex and Gender Information Value Date Recorded Sex Assigned at Not on file Legal Sex Female 2:17 PM EDT Gender Identity Not on file Sexual Orientation Not on file Plan of Treatment Not on file Medical Devices Not on file Insurance [employer] O MEDICARE PART A & B AETNA PPO MEDICARE PART A & B AET[employer] PPO MEDICARE PART A & B AET[employer] PPO MEDICARE PART A & B AETNA PPO MEDICARE PART A & B [place] [id number] AENA PPO MEDICARE PART A & B Care Teams Airline Hostess Relationship Specialty Start Date End Date Ella Garces MD [address] [place] [address] PCP - General Internal Medicine 11/21/23 Additional Source Comments The information contained in this document represents components of the legal health record. It is not the complete legal health record.[facility]
[2025-03-18 13:57] VITALS: BP 124/66; PULSE 69; TEMP 36.9; O2SAT 95; BMI 32.2
--- NOTE | 2025-03-18 13:57 | MHC.OFFWIV ---
Intake Vital Signs 03/18/25 13:57 Height 5 ft Weight 165 lb BMI 32.2 BP 124/66 Blood Pressure Location Lt brachial Position Sitting Pulse 69 Pulse Source Pulse Oximeter Temp 98.4 F Temp Source Oral Pulse Oximetry (%) 95 Oxygen Delivery Method Room Air Intake Visit Reasons: EP-yeast infection groin area Patient Tobacco Use Status: Never used Tobacco Crayon Molding Machine Operator Required: No Is last menstrual period known: No Post menopausal: Yes Patient : No Allergies environmental allergies Allergy (Intermediate, Verified 03/18/25 14:03) Itchy Eyes crab Adverse Reaction (Intermediate, Verified 03/18/25 14:03) DIARRHEA semaglutide (From [employer]) Adverse Reaction (Intermediate, Verified 03/18/25 14:03) severe diarrhea Medication List - Last Reconciled 03/18/25 by Parul Goff PA-C blood sugar diagnostic (FreeStyle Lite Strips) Once a day Dexcom G6 Sensor (blood-glucose sensor) Check blood sugar 4 times daily as directed NS Dexcom G7 Steamer Operator (blood-glucose,reinforced concrete inspector,cont) Test blood sugar 4 times per day NS Dexcom G7 Sensor (blood-glucose sensor) Test blood sugar 4 times per day, change sensor every 10 days NS dorzolamide-timolol 22.3-6.8 mg/mL 1 drp ophthalmic (eye) BID escitalopram oxalate 20 mg PO BEDTIME [Folding Front Wheeled walker Duration: 99 days] ibuprofen 600 mg PO QID PRN insulin aspart U-100 (Novolog FlexPen U-100 Insulin aspart) 1 sliding scale dose subcut USEASDIRECTD lancets (FreeStyle Lancets) As directed lisinopril 2.5 mg PO QAM mirabegron ER 25 mg PO QAM montelukast 10 mg PO BEDTIME nitrofurantoin monohyd/m-cryst 100 mg (Macrobid) 100 mg PO Q12H 5 days pen needle, diabetic USE DIRECTED FOR INSULIN INJECTIONS THREE TIMES A DAY pramipexole 0.5 mg PO BEDTIME rosuvastatin 20 mg PO QAM vitamins A,C,H-ilfi-vvnqmq 4,296 mcg-226 mg-90 mg (PreserVision AREDS) 2 caps PO BEDTIME vitamins A,C,X-ehvr-znoiji 4,296 mcg-226 mg-90 mg (PreserVision AREDS) 1 cap PO QAM Do you need a note to return to daycare/school/sports/work: No HPI HPI Comments History of Present Illness Details History - The patient is an 84-year-old female presenting with a yeast infection in her groin area. - The yeast infection is recurrent, exacerbated by summer heat and moisture. - Fluconazole has been used previously with success. - The patient is preparing for knee surgery, necessitating a clear skin inspection. - patient also complaining of left ear pain for the last few weeks. She states it is getting worse. Physical Exam General: Cooperative, healthy appearing, comfortable, no acute distress and well developed Orientation: Patient oriented x3 Limitations: No limitations Head: Normal to inspection Ears: Hearing aids used, hearing grossly normal bilaterally, TM left with purulence and erythema, right TM normal Nose: Normal External nose present Face and sinus: Normal facial exam Mouth: normal, moist oral mucosa Eyes: Appearance normal, both eyes and all related structures Neck: Normal visual inspection and Yes full ROM Respiratory: Normal respiratory effort and able to speak in complete sentences. Neuro: Patient oriented x3 Extremities: moving all extremities normally [facility] Medical History (Updated 03/18/25 @ 14:36 by Parul Goff PA-C) Multifactorial gait disorder Anosmia MCI (mild cognitive impairment) REM sleep behavior disorder Fecal incontinence Urinary incontinence Cervical spinal stenosis Cognitive impairment Osteoarthritis GERD (gastroesophageal reflux disease) Obesity Restless leg syndrome HTN (hypertension) Anxiety, generalized Lipid disorder Diabetes 1.5, managed as type 2 Surgical History S/P placement of nerve stimulator History of esophagogastroduodenoscopy (EGD) H/O colonoscopy History of hysterectomy History of total knee replacement (TKR) Family History Father No problems noted. Mother Dementia Pancreatitis Social History Housing: Apartment Are you a primary patient care technician to a significant other at home: No Do you presently have visiting nurse or other home services: No Alcohol intake: never Comment: advised of trip cat Patient Tobacco Use Status: Never used Tobacco e-Cigarette/Vaping Use: Never Used Advance Directives Date on File: 11/23/20 Patient : No service: No Current occupational status: retired Cognitive needs: No Hearing needs: Yes Vision needs: Yes Review of Systems Const All systems reviewed & are unremarkable except as noted in HPI and below Physical Exam Vital Signs: Last Vital Signs Temp 98.4 F 03/18/25 13:57 Pulse 69 03/18/25 13:57 BP 124/66 03/18/25 13:57 Pulse Ox 95 03/18/25 13:57 Oxygen Delivery Method Room Air 03/18/25 13:57 BMI result Body Mass Index 32.2 Assessment & Plan Assessment & Plan (1) Tinea cruris: Code(s): B35.6 - Tinea cruris Plan: Plan Patient was informed and verbally consented to the use of an ambient scribe for clinic note documentation during this visit 1. Yeast Infection - Fluconazole 150 mg prescribed, with a follow-up dose if needed. - Clotrimazole cream to be applied twice daily. - Maintain cleanliness and dryness of the area to aid recovery. (2) Otitis media of left ear: Code(s): H66.92 - Otitis media, unspecified, left ear Qualifiers: Otitis media type: suppurative Chronicity: acute Recurrence: non-recurrent Spontaneous tympanic membrane rupture: without spontaneous rupture Qualified Code(s): H66.002 - Acute suppurative otitis media without spontaneous rupture of ear drum, left ear Plan: - Sent RX for Amoxicillin to pharmacy Medications: New clotrimazole 1% 1 appl topical bid 45 grams 1RF 4 weeks fluconazole may repeat second dose 72 hrs after first dose if symptoms persist 150 mg PO Q3D 2 tabs 0RF amoxicillin 875 mg PO Q12H 10 tabs 0RF Coding Level of Care Code Est Pt Level 4 (94813) Diagnoses Tinea cruris B35.6 Non-recurrent acute suppurative otitis media of left ear without spontaneous rupture of tympanic membrane H66.002 Otitis media type: suppurative Chronicity: acute Recurrence: non-recurrent Spontaneous tympanic membrane rupture: without spontaneous rupture
== END 2025-03-18 15:53 | disposition home or self-care (01) ==
PROVIDERS: PCP Internal Medicine; Visit Provider Physician Assistant
DX: B35.6 Tinea cruris (principal); H66.002 Acute suppurative otitis media without spontaneous rupture of ear drum, left ear

== ENCOUNTER → 2025-03-18 13:40 | Outpatient (BNVA) | payer MEDICARE, OTHER, SELFPAY | PROVIDERS: PCP Internal Medicine; Visit Provider Physician Assistant | DX: B35.6 Tinea cruris (principal); H66.002 Acute suppurative otitis media without spontaneous rupture of ear drum, left ear | CPT/HCPCS: 99212 ==

== ENCOUNTER 2025-03-22 12:52 | Outpatient (AMB) | payer MEDICARE, OTHER, SELFPAY ==
--- NOTE | 2025-03-22 13:15 | A.OFFVIS_ITS ---
Intake Visit Reasons: 1 yr follow up Allergies environmental allergies Allergy (Intermediate, Verified 03/18/25 14:03) Itchy Eyes amoxicillin Allergy (Mild, Verified 03/19/25 10:36) Rash crab Adverse Reaction (Intermediate, Verified 03/18/25 14:03) DIARRHEA semaglutide (From Wegovy) Adverse Reaction (Intermediate, Verified 03/18/25 14:03) severe diarrhea HPI Comments Details: 84 y/o woman with DM, HTN, anxiety, restless legs syndrome causing trouble with a legs while she was going into sleep, REM sleep behavior disorder resulting in shouting behavior during sleep, mild cognitive impairment resulting in forgetfulness, and multifactorial gait disorder with probably osteoarthritis and diabetic neuropathy. In addition, her brain MRI in 2019 revealed mild parietotemporal atrophy and minimal microvascular disease of brain. MRI of cervical spine in 2012 had revealed multilevel spondylosis. This time she was here with the daughter stating that few weeks ago she had an episode where she found herself in her car apparently something happened to her. There was no accident. She was driving and then she had stopped in a parking lot and then woke up after sometime. This was somewhat unusual for her. In addition, she reported episodes when she would get confused or even forget her daughter's name. [facility] Medical History (Updated 03/22/25 @ 13:30 by Angy Garces MD) Multifactorial gait disorder Anosmia MCI (mild cognitive impairment) REM sleep behavior disorder Fecal incontinence Urinary incontinence Cervical spinal stenosis Cognitive impairment Osteoarthritis GERD (gastroesophageal reflux disease) Obesity Restless leg syndrome HTN (hypertension) Anxiety, generalized Lipid disorder Diabetes 1.5, managed as type 2 Surgical History S/P placement of nerve stimulator History of esophagogastroduodenoscopy (EGD) H/O colonoscopy History of hysterectomy History of total knee replacement (TKR) Family History Father No problems noted. Mother Dementia Pancreatitis Social History Housing: Apartment Are you a primary home care and home health aides teacher to a significant other at home: No Do you presently have visiting nurse or other home services: No Alcohol intake: never Comment: advised of trip hazaed Patient Tobacco Use Status: Never used Tobacco e-Cigarette/Vaping Use: Never Used Advance Directives Date on File: 11/23/20 service: No Current occupational status: retired Cognitive needs: No Hearing needs: Yes Vision needs: Yes Review of Systems Const Details: Constitutional:?No fever, chills, fatigue, weight loss, or night sweats. HEENT:?No headache, vision changes, hearing loss, nasal congestion, sore throat. Neurological:?No dizziness, syncope, seizures, numbness, tingling, weakness, tremors, memory loss. Psychiatric:?No anxiety, depression, mood swings, sleep disturbance, or hallucinations. Endocrine:?No heat/cold intolerance, polydipsia, polyuria, or hair/skin changes. Hematologic/Lymphatic:?No easy bruising, bleeding, or lymphadenopathy. Integumentary (Skin):?No rash, lesions, itching, or color changes. ? Physical Exam Neuro Other: Mental Status: Alert and oriented to person, place, and time. Normal attention. Normal spontaneous speech, fluency, and comprehension. No obvious issues with mood and memory. Affect is appropriate. Cranial Nerves: CN II: Visual landin full to confrontation, visual acuity intact. CN III, IV, : Pupils equal, round, reactive to light and accommodation. Extraocular movements are normal. CN V: Facial sensation is normal. CN VII: Facial movements symmetrical. CN VIII: Hearing intact to bedside conversation is normal. CN IX, X: Palate elevates symmetrically. CN XI: Shoulder shrug and head turn symmetrical. CN XII: Tongue midline without atrophy or fasciculations. Extrapyramidal: Full facial expressions and blinking. No rigidity. Movements are appropriate with no tremor or abnormality. Speech: Normal; no dysarthria or tremor. Assessment & Plan Assessment & Plan (1) Seizure disorder: Comment: MRI brain WWO at [facility] in 2019: mild PT atrophy, minimal MVD MRI C spine at [facility] WO in 2013: C 4/5 and 5/6 spondylosis Code(s): G40.909 - Epilepsy, unspecified, not intractable, without status epilepticus Category: Medical (2) REM sleep behavior disorder: Code(s): G47.52 - REM sleep behavior disorder Category: Medical (3) Restless leg syndrome: Code(s): G25.81 - Restless legs syndrome Category: Medical Plan Impression: a: Probably complex partial seizure do b: Restless leg syndrome c: REM sleep behavior do d: Anxiety do e: Multifactorial mild gait do f: Mild cognitive impairment Rec: a: Continue pramipaxole at night b: EEG c: No driving Orders: Orders EEG electroencephalogram Today G40.909 - Epilepsy, unspecified, not intractable, without status epilepticus Coding Level of Care Code Est Pt Level 4 (79986) Diagnoses Seizure disorder G40.909 REM sleep behavior disorder G47.52 Restless leg syndrome G25.81
--- OUTSIDE RECORDS SUMMARY | 2025-03-22 13:34 | XMS_ITS | Clinical Summary ---
Author Organization [facility] Address [address] [place] [address] Phone Care Team Providers Care Grinder Operator Surface Tool Name Role Phone Ella Garces MD Primary Care Provider [phone] Social History Tobacco Use Types Packs/Day Years [...] MEDICARE PART A & B SANDI CASTANO 10152 AENA PPO MEDICARE PART A & B Care Teams Grinder Operator Surface Tool Relationship Specialty Start Date End Date Ella Garces MD [address] [place] [address] PCP - General Internal Medicine 11/21/23 Additional Source Comments The information contained in this document represents components of the legal health record. It is not the complete legal health record.[facility]
== END 2025-03-22 13:39 | disposition home or self-care (01) ==
LOC: HO.HSM 12:53
PROVIDERS: PCP Internal Medicine; Visit Provider Psychiatry & Neurology Neurology
DX: G40.909 Epilepsy, unspecified, not intractable, without status epilepticus (principal); G47.52 REM sleep behavior disorder; G25.81 Restless legs syndrome
CPT/HCPCS: 99214

== ENCOUNTER → 2025-03-22 12:52 | Outpatient (BNVA) | payer MEDICARE, OTHER, SELFPAY | PROVIDERS: PCP Internal Medicine; Visit Provider Psychiatry & Neurology Neurology | DX: G40.909 Epilepsy, unspecified, not intractable, without status epilepticus (principal); G47.52 REM sleep behavior disorder; G25.81 Restless legs syndrome; Z79.899 Other long term (current) drug therapy | CPT/HCPCS: 99212 ==

== ENCOUNTER 2025-03-31 12:15 | Outpatient (AMB) | payer MEDICARE, OTHER, SELFPAY ==
[2025-03-31 12:36] VITALS: BP 116/60; PULSE 66; TEMP 36.6; O2SAT 96; BMI 32.8
--- NOTE | 2025-03-31 12:36 | MHC.OFFWIV ---
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: No Is last menstrual period known: No Post menopausal: Yes Patient : No Allergies environmental allergies Allergy (Intermediate, Verified 03/31/25 12:42) Itchy Eyes amoxicillin Allergy (Mild, Verified 03/31/25 12:42) Rash crab Adverse Reaction (Intermediate, Verified 03/31/25 12:42) DIARRHEA semaglutide (From Wevy) Adverse Reaction (Intermediate, Verified 03/31/25 12:42) severe diarrhea Do you need a note to return to daycare/school/sports/work: No HPI HPI Comments History of Present Illness Details History - The patient is an 84-year-old female presenting with unresolved symptoms of a left ear infection and suspected allergic rhinitis. - Diagnosed with left ear infection on March 18, initially treated with amoxicillin, which she developed a rash from so we switched her to cefdinir. - Reports left-sided head congestion, itching, and pain in the left ear. - Symptoms worsened after initial improvement. - No daily allergy medication taken, contributing to symptoms. - Requires clearance for knee revision surgery on the . Physical Exam General: Cooperative, healthy appearing, comfortable and no acute distress Orientation/consciousness: Patient oriented x3 Limitations: No limitations Head: Normal to inspection Ears: Hearing grossly normal bilaterally, external ears normal, left TM's scant fluid Nose: Normal external nose present, Normal nares present and No nasal discharge present Face and sinus: Normal facial exam and Yes sinuses slightly tender on the left Mouth: Normal oral and palatal mucosa present and moist mucous membranes Throat: Yes tonsils normal, Yes uvula midline. Posterior oropharynx erythema, no exudates Eyes: Appearance normal, both eyes and all related structures Neck: Normal visual inspection, full ROM Respiratory: Normal respiratory effort, able to speak in complete sentences, not actively coughing, no respiratory distress, not tachypneic, no tripod positioning and no use of accessory muscles Skin: No rashes or lesions noted Neuro: Patient oriented x3 Extremities: Normal to inspection and Yes no clubbing, cyanosis or edema PFSH Medical History (Updated 03/31/25 @ 12:54 by Parul Goff PA-C) Multifactorial gait disorder Anosmia MCI (mild cognitive impairment) REM sleep behavior disorder Fecal incontinence Urinary incontinence Cervical spinal stenosis Cognitive impairment Osteoarthritis GERD (gastroesophageal reflux disease) Obesity Restless leg syndrome HTN (hypertension) Anxiety, generalized Lipid disorder Diabetes 1.5, managed as type 2 Surgical History S/P placement of nerve stimulator History of esophagogastroduodenoscopy (EGD) H/O colonoscopy History of hysterectomy History of total knee replacement (TKR) Family History Father No problems noted. Mother Dementia Pancreatitis Social History Housing: Apartment Are you a primary home care manager to a significant other at home: No Do you presently have visiting nurse or other home services: No Alcohol intake: never Comment: advised ester shelton Patient Tobacco Use Status: Never used Tobacco e-Cigarette/Vaping Use: Never Used Advance Directives Date on File: 11/23/20 Patient : No service: No Current occupational status: retired Cognitive needs: No Hearing needs: Yes Vision needs: Yes Review of Systems Const All systems reviewed & are unremarkable except as noted in HPI and below Physical Exam Vital Signs: Last Vital Signs Temp 97.8 F 03/31/25 12:36 Pulse 66 03/31/25 12:36 BP 116/60 03/31/25 12:36 Pulse Ox 96 03/31/25 12:36 Oxygen Delivery Method Room Air 03/31/25 12:36 BMI result Body Mass Index 32.8 Assessment & Plan Assessment & Plan (1) Acute serous otitis media: Code(s): H65.00 - Acute serous otitis media, unspecified ear Qualifiers: Laterality: left Recurrence: non-recurrent Qualified Code(s): H65.02 - Acute serous otitis media, left ear Plan: Plan - Scant amount of clear fluid in left ear, no infection noted - Likely also has allergies with the residual congestion - Start Rosey and Flonase for allergic rhinitis. - Use Afrin short-term if needed, 3-4 days maximum, to avoid rebound congestion. Patient was informed and verbally consented to the use of an ambient scribe for clinic note documentation during this visit Medications: Discontinued cefdinir Discontinued Reason: Doctor's Order 300 mg PO Q12H 14 caps 0RF Coding Level of Care Code Est Pt Level 3 (18652) Diagnoses Non-recurrent acute serous otitis media of left ear H65.02 Laterality: left Recurrence: non-recurrent
--- OUTSIDE RECORDS SUMMARY | 2025-03-31 12:55 | XMS_ITS | Clinical Summary ---
Author Organization [facility] Address [address] [place] [id number] Phone Care Team Providers Care Syruper Name Role Phone Ella Garces MD Primary Care Provider [phone] Social History Tobacco Use Types Packs/Day Years [...] MEDICARE PART A & B SANDI CASTANO [id number] AENA PPO MEDICARE PART A & B Care Teams Syruper Relationship Specialty Start Date End Date Ella Garces MD [address] [place] [address] PCP - General Internal Medicine 11/21/23 Additional Source Comments The information contained in this document represents components of the legal health record. It is not the complete legal health record.[facility]
== END 2025-03-31 13:24 | disposition home or self-care (01) ==
PROVIDERS: PCP Internal Medicine; Visit Provider Physician Assistant
DX: H65.02 Acute serous otitis media, left ear (principal)

== ENCOUNTER → 2025-03-31 12:15 | Outpatient (BNVA) | payer MEDICARE, OTHER, SELFPAY | PROVIDERS: PCP Internal Medicine | DX: H65.02 Acute serous otitis media, left ear (principal) | CPT/HCPCS: 99212 ==

== ENCOUNTER 2025-04-05 12:13 | Outpatient (AMB) | payer MEDICARE, OTHER, SELFPAY ==
--- NOTE | 2025-04-05 12:27 | MHC.OFFVIS ---
Vital Signs 04/05/25 12:29 Height 5 ft Weight 165 lb 5.547 oz BMI 32.3 BP 140/62 H Blood Pressure Location Lt brachial Position Sitting Pulse 66 Intake Visit Reasons: 6 mo f/u Intake Note: Katelyn presents in the office as a 6 month follow up. CC: She states that she expects to be discharged seems she is doing good. Catering Associate Required: No Allergies environmental allergies Allergy (Intermediate, Verified 04/05/25 12:30) Itchy Eyes amoxicillin Allergy (Mild, Verified 04/05/25 12:30) Rash crab Adverse Reaction (Intermediate, Verified 04/05/25 12:30) DIARRHEA semaglutide (From Wegovy) Adverse Reaction (Intermediate, Verified 04/05/25 12:30) severe diarrhea HPI Comments Details: This is a 81-year-old female with past medical history of hypertension, type 2 diabetes, osteoarthritis, who is scheduled for a tele health visit today to follow up for EoE with stricture: Initial visit 06/13/22: Patient states that her trouble started back in 2007. At that time, she would notice it 1 to 2 times a year, would occur mostly with solids such as rice, pasta, chicken. Now occurring 3 to 4 times a year. She has had at least 2 ER visits for the same. Was given diagnosis of anxiety, and prescribed Ativan. Patient herself manages this at home by avoiding the trigger foods, and also cutting up her other foods really small ensuring them thoroughly. She also takes frequent sips of water. Most recent ER visit was for difficulty swallowing even liquids which made her more worried and hence she is now seeking gastroenterology consultation. She was unable to tolerate her secretions for at least 8-12 hours before get better. Was again given Ativan in the emergency room, but patient states that her symptoms started to get better even before that. She also reports a dry cough that started around 8 weeks ago, that got better on omeprazole trial. Also brings up issues with alternating diarrhea and constipation that got better with Ozempic. Thinks that recent initiation of omeprazole made it worse and is now also having fecal incontinence. She wonders if she can go off the omeprazole. Recent endoscopy: Most recent colonoscopy was in 2013 (Dr. Kathleen): Excellent prep. Diverticulosis. No polyps. 08/10/22: Patient reports at least 50% improvement in her swallowing. Notices a definite improvement in her quality of life. Reports that still has trouble swallowing with some foods but has not identified distinct food types. Continues with pantoprazole 40 mg twice a day dosing. EoE severity: [id number] based on EGD 07/2022. 09/27/23: Being seen after recent upper endoscopy with dilation (Dr. Morales). Feeling more bloated, with frequent belching since last upper endoscopy. Otherwise, no difficulty swallowing. 07/13/24: Here for follow up. Was bruce for bladder surgery through [facility] urogyn but surg was canceled due to resp issues. Pt had also noted increased reflux sx around that time. Since then started on montelukast and budesonide and reports improvement of upper resp sx as well as reflux sx. Pt was under the impression that needs clearance from GI for her bladder surg but advised her to reach out to her PCP. For fecal incontinence, this is also likely 2/2 pelvic floor dysfunction. Plan by urogyn is to monitor after bladder sling and see if needs a sacral stim. Of note - pt has not had a colo since . Has had intermittent incontinence since 2008 and has not progressed in sx or severity and therefore reluctant to undergo any diagnostic colo at this time. Reports occurs after she has been constipated for 3-4 days and then starts noticing passive passage of small pellet like stool in her underwear. Once she has good evacuation of bowels, FI resolves temporarily. 10/07/24: Here for routine follow up. Swallowing good. No complaints. In terms of fecal incontinence, has learnt to recognize the urge sx. 04/05/25: Here for routine follow up. Discontinued both the budesonide and ppi due to absence of sx. Hasnt needed to take meds >1 month. Remains asymptomatic. Endoscopy: EGD 07/26/22: Trachealisation and fissuring, Hiro Dilation 16 to 18 mm. Path: 52 Eos/HPF. No HP. EGD 02/14/23: Hiro Dilation to 19 mm. Path: 1 Eos/HPF EGD 05/02/23: Hiro Dilation to 18 mm. Path: 2 Eos/HPF EGD 09/04/23: Balloon Dilation to 19 mm. Path: 1 Eos/HPF [facility] Medical History Multifactorial gait disorder Anosmia MCI (mild cognitive impairment) REM sleep behavior disorder Fecal incontinence Urinary incontinence Cervical spinal stenosis Cognitive impairment Osteoarthritis GERD (gastroesophageal reflux disease) Obesity Restless leg syndrome HTN (hypertension) Anxiety, generalized Lipid disorder Diabetes 1.5, managed as type 2 Surgical History S/P placement of nerve stimulator History of esophagogastroduodenoscopy (EGD) H/O colonoscopy History of hysterectomy History of total knee replacement (TKR) Family History Father No problems noted. Mother Dementia Pancreatitis Social History Housing: Apartment Are you a primary respiratory care practitioner to a significant other at home: No Do you presently have visiting nurse or other home services: No Alcohol intake: never Comment: advised of yazmin shelton Patient Tobacco Use Status: Never used Tobacco e-Cigarette/Vaping Use: Never Used Advance Directives Date on File: 11/23/20 service: No Current occupational status: retired Cognitive needs: No Hearing needs: Yes Vision needs: Yes Physical Exam Exam Exam: No apparent distress Nonicteric Abdomen soft, nondistended Alert and oriented x3, normal gait Vital Signs: Last Vital Signs Pulse 66 04/05/25 12:29 BP 140/62 H 04/05/25 12:29 BMI result Body Mass Index 32.3 Assessment & Plan Assessment & Plan (1) Eosinophilic esophagitis: Code(s): K20.0 - Eosinophilic esophagitis Category: Medical (2) Benign esophageal stricture: Code(s): K22.2 - Esophageal obstruction Category: Medical Plan In clinical remission based on symptoms. Last EGD also with histological remission, albeit performed more than a year ago. At present, patient reports minimal symptoms and has discontinued topical steroid and PPI therapy for EoE. She was advised that if symptoms became more frequent, to call our office for repeat EGD. We will also represcribe budesonide in that case. Follow-up 6 months Coding Level of Care Code Est Pt Level 4 (15621) Diagnoses Eosinophilic esophagitis K20.0 Benign esophageal stricture K22.2
[2025-04-05 12:29] VITALS: BP 140/62; PULSE 66; BMI 32.3
--- OUTSIDE RECORDS SUMMARY | 2025-04-05 12:32 | XMS_ITS | Clinical Summary ---
Author Organization [facility] Address [address] [place] [phone] Phone Care Team Providers Care Mohel Name Role Phone Ella Garces MD Primary Care Provider [phone] Social History Tobacco Use Types Packs/Day Years [...] [employer] PPO MEDICARE PART A & B Member Subscriber Plan / Payer (Ef fective 2007-Present) Name:Katelyn Turpin Member ID:[id number] Relation to Subscriber:Self Name:Katelyn Turpin Subscriber ID:[id number] Payer ID:[id number] Group ID:Not on file Type:Medicare Address: [facility] [employer] [address] [place] [address] [employer] PPO MEDICARE PART A & B [employer] PPO MEDICARE PART A & B SANDI [place]ST[place]O [id number] AENA PPO MEDICARE PART A & B Care Teams Mohel Relationship Specialty Start Date End Date Ella Garces MD [address] [facility] [place] [address] PCP - General Internal Medicine 11/21/23 Additional Source Comments The information contained in this document represents components of the legal health record. It is not the complete legal health record.[facility]
== END 2025-04-05 12:57 | disposition home or self-care (01) ==
LOC: HO.HGI 12:14
PROVIDERS: PCP Internal Medicine; Visit Provider Internal Medicine
DX: K20.0 Eosinophilic esophagitis (principal); K22.2 Esophageal obstruction
CPT/HCPCS: 99214

== ENCOUNTER → 2025-04-05 12:13 | Outpatient (BNVA) | payer MEDICARE, OTHER, SELFPAY | PROVIDERS: PCP Internal Medicine; Visit Provider Internal Medicine | DX: K20.0 Eosinophilic esophagitis (principal); K22.2 Esophageal obstruction | CPT/HCPCS: 99212 ==

== ENCOUNTER 2025-04-08 10:33 | Outpatient (AMB) | payer MEDICARE, OTHER, SELFPAY ==
--- NOTE | 2025-04-06 07:41 | A.OFFVIS_ITS ---
Vital Signs 04/08/25 11:46 Height 5 ft Weight 165 lb BMI 32.2 Intake Visit Reasons: Pre-Op: R TKA Revision w/NE 04/13/25 Intake Note: Katelyn is an 84 year old female who presents today for a preoperative visit to discuss right total knee arthroplasty revision scheduled for 04/13/25, with Dr. Todd. Pain management agreement reviewed and signed. Allergies environmental allergies Allergy (Intermediate, Verified 04/08/25 11:46) Itchy Eyes amoxicillin Allergy (Mild, Verified 04/08/25 11:46) Rash crab Adverse Reaction (Intermediate, Verified 04/08/25 11:46) DIARRHEA semaglutide (From Wegovy) Adverse Reaction (Intermediate, Verified 04/08/25 11:46) severe diarrhea HPI Comments Details: Ms Octavio Manzanares presents to the office today for Orthopedic Pre op clearance. She is scheduled for Revision Rt TKA 04/13/[address] Todd. She was initially seen in our office in 2022 for right knee pain. She has a history of pain in the right knee since 2000 when she had an ACL reconstruction in [place]. Years later she developed worsening pain and received cortisone injections without relief, this was done in [facility]. Following this, she ended up having bilateral knee replacements done in August of 2012 at a hospital in [facility]. Her recovery was quite well. Without complications. Recently over the last year so she has been complaining of right knee instability. She experiences the instability when she is walking outside or getting out of bed she has a sensation of giving way. She feels unstable going downstairs. Based off surgical reports from her previous Rt TKA in [place], implants are as follows: [place] Tibia: 3 cemented [place] Insert: 3/9 Cruciate retaining Demetrius Femur: 3 or 4 Patient lives alone in a 1 level home with no stairs in senior housing. She owns a cane and a walker. She has given up driving due to a previous syncopal episode. Prior Medical clearances: -PCP clearance obtained with Dr. Garces on 03/02/2025: Medical History: - Diabetes Mellitus requiring insulin therapy. - Anxiety disorder, managed with Escitalopram. - Urinary urgency, treated with a sacral nerve block. - Vitamin D deficiency. - Previous management of high B12 levels. - Hypertension. - Usage of a neural sacral nerve stimulator for urinary incontinence control. Plan In preparation for the RTKA revision, laboratory evaluations including EKG should be completed due to the time elapsed since the last assessment. Continued focus on glucose control is crucial, aiming to maintain the patient?s HbA1c in the 7% range to optimize wound healing post-surgery. Insulin adjustments via a sliding scale should continue considering her current glycemic patterns. The patient's current vitamin B12 regime should be modified to reduce the frequency of intake, and vitamin D supplementation remains necessary. We will retain her current anxiety management with Escitalopram given its stabilization efficacy. The sacral nerve stimulator continues to provide effective control over her urinary urgency and incontinence issues. Avoidance of driving should persist due to the previous syncopal event. Additional interventions may be considered following results from upcoming evaluations by Neurology. Her lipid profile will be monitored through continued use of Rosuvastatin to control hyperlipidemia. Moreover, considerations for maintaining optimal balance and overall rehabilitation post-knee revision will be emphasized in coordinated care with the orthopedic team. Upon presenting for preoperative evaluation, I noted that the RTKA revision is necessitated by the instability and degeneration of the knee implant. Patient is stable for orthopedic surgery right knee Since patient's preop clearance appointment with her primary she has been to the walk in clinic on 3 separate occasions for suspected UTI and ear infection. She also has history of yeast infection in her groin area which is treated with fluconazole. . 03/12/25 Walk in visit with Dr Garces: UA shows leuk esterase of 125 and 3+ blood We will send culture for her urine Meanwhile I have started her on Macrobid 100 mg b.i.d. for 5 days 03/18/2025 walk-in visit with Norma Hernandez PA-C The patient is an 84-year-old female presenting with a yeast infection in her groin area. - The yeast infection is recurrent, exacerbated by summer heat and moisture. - Fluconazole has been used previously with success. - The patient is preparing for knee surgery, necessitating a clear skin inspection. - patient also complaining of left ear pain for the last few weeks. She states it is getting worse. 1. Yeast Infection - Fluconazole 150 mg prescribed, with a follow-up dose if needed. - Clotrimazole cream to be applied twice daily. - Maintain cleanliness and dryness of the area to aid recovery. 2. Otitis media of left ear: - Sent RX for Amoxicillin to pharmacy --developed a rash from amoxicillin so we switched her to cefdinir. Plan 03/31/2025 walk-in visit with Norma Hernandez PA-C The patient returned to the walk-in clinic due to ongoing congestion symptoms - Scant amount of clear fluid in left ear, no infection noted - Likely also has allergies with the residual congestion - Start Rosey and Flonase for allergic rhinitis. - Use Afrin short-term if needed, 3-4 days maximum, to avoid rebound congestion. 03/22/[address] 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 In addition, her brain MRI in 2019 revealed mild parietotemporal atrophy and minimal microvascular disease of brain. MRI of cervical spine in 2012 had revealed multilevel spondylosis. This time she was here with the daughter stating that few weeks ago she had an episode where she found herself in her car apparently something happened to her. There was no accident. She was driving and then she had stopped in a parking lot and then woke up after sometime. This was somewhat unusual for her. In addition, she reported episodes when she would get confused or even forget her daughter's name. Plan Impression: a: Probably complex partial seizure do b: Restless leg syndrome c: REM sleep behavior do d: Anxiety do e: Multifactorial mild gait do f: Mild cognitive impairment Rec: a: Continue pramipaxole at night b: EEG c: No driving Patient's EEG is scheduled for 04/09/2025. [facility] Medical History Multifactorial gait disorder Anosmia MCI (mild cognitive impairment) REM sleep behavior disorder Fecal incontinence Urinary incontinence Cervical spinal stenosis Cognitive impairment Osteoarthritis GERD (gastroesophageal reflux disease) Obesity Restless leg syndrome HTN (hypertension) Anxiety, generalized Lipid disorder Diabetes 1.5, managed as type 2 Surgical History S/P placement of nerve stimulator History of esophagogastroduodenoscopy (EGD) H/O colonoscopy History of hysterectomy History of total knee replacement (TKR) Family History Father No problems noted. Mother Dementia Pancreatitis Social History Housing: Apartment Are you a primary respite care provider to a significant other at home: No Do you presently have visiting nurse or other home services: No Alcohol intake: never Comment: advised of trip [place] Patient Tobacco Use Status: Never used Tobacco e-Cigarette/Vaping Use: Never Used Advance Directives Date on File: 11/23/20 service: No Current occupational status: retired Cognitive needs: No Hearing needs: Yes Vision needs: Yes Physical Exam Vital Signs: BMI result Body Mass Index 32.2 Extrem Other: Right knee normal to inspection without abrasions or skin breakdown. Full range of motion There is 1+ varus valgus laxity of the right knee Calf is supple and nontender neurovascularly intact no evidence of venous stasis Inspected the patient's pannus which was clean dry and intact. No evidence of active yeast infection. Assessment & Plan Assessment & Plan (1) Recurrent instability of right knee prosthesis: Code(s): T84.022A - Instability of internal right knee prosthesis, initial encounter Category: Medical Qualifiers: Encounter type: sequela Qualified Code(s): T84.022S - Instability of internal right knee prosthesis, sequela Plan: Ms Octavio Manzanares has exhausted all conservative measures consisting of lifestyle modifications, physical therapy, analgesics and use of assisted devices and continues to have significant limitations in daily activities along with instability and decreased quality of life. Given the patient's desire to improve their quality of life, surgical intervention consisting of revision joint replacement surgery is recommended at this time.? We discussed the procedure in detail today; including the expectations of the procedure which is to exchange the liner to help with her stability. We also discussed pre op preparation with labs and reviewing patients medication regimen prior to surgery. Patient was instructed to obtain a type and screen, CBC and B MP prior to surgery. I discussed at length the post op course which includes physical therapy services in the hospital along with the discharge routine and the patients plan upon discharge. She would like to be discharged home with VNA services upon discharge. She does have a walker at home. I explained to the patient, once they are DC home, they will receive VNA services which will include PT 2-3x per week. We also discussed their choice for outpatient PT once they are discharged from home PT. She would like to attend [facility] for physical therapy. An order was placed and the patient was instructed to call and make an appointment after her 1st postop appointment. Post op DVT ppx was also discussed and the considering the patient does not have a history of cancer, DVT/PE and is not an active smoker we can start her on aspirin 325 mg p.o. b.i.d. for DVT prophylaxis x6 weeks. I reviewed with the patient their post op pain medication regimen along with the detailed -wean program. The patient did express understanding of this and agreed to the narcotic policy. Lastly, I discussed with the patient the risks to the procedure. Risks including but not limited to infection, injury to surrounding nerves, tissue , bone, small and large vessels, stiffness, aseptic loosening, fracture, dislocation, amputation, DVT/PE along with intraoperative complications including but not limited to . The patient does express understanding, all questions were answered and the patient would like to proceed? with Revision Right total knee arthroplasty with Dr. Todd. Consents were signed and dated while in the office today.? Patient will return postoperatively on 04/29/2025 for her routine postop appointment. I did reach out to Dr. Garces and recommended they reach out to our office if there is any reason to postpone surgery based off of EEG findings. Orders: Orders XR knee RT 1V 04/08/25 M25.561 - Pain in right knee Basic Metabolic Panel 04/08/25 Z01.818 - Encounter for other preprocedural examination Complete Blood Count Auto Diff 04/08/25 Z01.818 - Encounter for other preprocedural examination PT Evaluation and Treatment 04/08/25 Z96.651 - Presence of right artificial knee joint Coding Level of Care Code Est Pt Level 4 (24985) Complex EM visit Add On G2211 Diagnoses Recurrent instability of right knee prosthesis, sequela T84.022S Encounter type: sequela
[2025-04-08 11:46] VITALS: BMI 32.2
== END 2025-04-08 12:14 | disposition home or self-care (01) ==
LOC: HO.HOS 10:36
PROVIDERS: PCP Internal Medicine; Visit Provider Physician Assistant
DX: T84.022A Instability of internal right knee prosthesis, initial encounter (principal)
CPT/HCPCS: 99214; G2211

== ENCOUNTER 2025-04-08 10:34 | Outpatient (REF) | payer MEDICARE, OTHER, SELFPAY ==
--- NOTE | ~2025-04-08 | XR_ITS ---
EXAMINATION: XR KNEE 1 VIEW RIGHT HISTORY: M25.561 - Pain in right knee COMPARISON: Comparison is made with the prior examination dated 08/06/2024. FINDINGS: A single lateral view of the right knee is submitted. A prosthesis is seen in place. Alignment is anatomic on this single view. No fracture is seen, although evaluation is incomplete on a single view. There is a small joint effusion. XR/XR knee RT 1V IMPRESSION: Incomplete examination. Status post right total knee arthroplasty. Small joint effusion. Electronically signed by: Luis Boles MD 04/08/2025 03:03 PM EDT
--- OUTSIDE RECORDS SUMMARY | 2025-04-08 11:38 | XMS_ITS | Clinical Summary ---
Author Organization [facility] Address [address] [place] [id number] Phone Care Team Providers Care Wind Turbine Erector Name Role Phone Ella Garces MD Primary Care Provider [phone] Social History Tobacco Use Types Packs/Day Years [...] Payer (Ef fective 2007-Present) Name:Katelyn Turpin Member ID:[id number] Relation to Subscriber:Self Name:Katelyn Turpin Subscriber ID:[id number] Payer ID:[id number] Group ID:Not on file Type:Medicare Address: [employer] [address] [place] [address] [employer] PPO MEDICARE PART A & B A[employer] PPO MEDICARE PART A & B [employer] PPO MEDICARE PART A & B Member Subscriber Plan / Payer (Ef fective 2007-Present) Name:Katelyn Turpin Member ID:[id number] Relation to Subscriber:Self Name:Katelyn Turpin Subscriber ID:[id number] Payer ID:[id number] Group ID:Not on file Type:Medicare Address: [employer] [address] [place] [address] [place] [address] AENA PPO MEDICARE PART A & B Member Subscriber Plan / Payer (Ef fective 2007-Present) Name:Katelyn Turpin Member ID:[id number] Relation to Subscriber:Self Name:Katelyn Turpin Subscriber ID:[id number] Payer ID:[id number] Group ID:Not on file Type:Medicare Address: [employer] [address] [place] [address] Care Teams Wind Turbine Erector Relationship Specialty Start Date End Date Ella Garces MD [address] [place] [address] PCP - General Internal Medicine 11/21/23 Additional Source Comments The information contained in this document represents components of the legal health record. It is not the complete legal health record.[facility]
[2025-04-08 12:37] LABS: MANUAL DIFF FLAG NO
[2025-04-08 13:11] LABS: Hematocrit 41.1 % (37.0-47.0); Hemoglobin 14.1 g/dl (12.0-16.0); Imm Gran Abs Auto 0.04 X10*3/uL (0.00-0.03); Imm Gran Pct Auto 0.5 % (0.0-0.4); Lymphocytes Absolute Auto 2.6 X10*3/uL (1.2-4.9); Mean Corpuscular HGB Conc 34.3 g/dl (31.0-35.0); Mean Corpuscular Hemoglobin 29.4 pg (27.0-33.0); Mean Corpuscular Volume 85.8 fL (80.0-98.0); NRBC Abs Auto 0.000 X10*3/uL (0.0-0.012); NRBC Pct Auto 0.0 /100WBC (0.0-0.2); Platelet Count 163 X10*3/uL (160-400); Red Blood Count 4.79 X10*6/uL (4.20-5.50); White Blood Count 8.2 X10*3/uL (4.8-10.8)
[2025-04-08 13:50] LABS: Anion Gap 11 (12-20); Blood Urea Nitrogen 25 mg/dL (9-16); Calcium 10.0 mg/dL (8.4-10.2); Carbon Dioxide 25 mmol/L (22-29); Chloride 107 mmol/L (96-108); Estimated Glomerular Filt Rate > 60; Potassium 4.3 mmol/L (3.3-5.1); Sodium 139 mmol/L (135-145)
[2025-04-08 13:56] LABS: Erythrocyte Sedimentation Rate 6 MM/HR (0-20)
== END 2025-04-08 10:35 | disposition home or self-care (01) ==
LOC: HO.HOSX 10:34
PROVIDERS: Visit Provider Physician Assistant
DX: Z01.818 Encounter for other preprocedural examination (principal); T84.02 Dislocation of internal joint prosthesis; M25.561 Pain in right knee; Z96.651 Presence of right artificial knee joint; E11.65 Type 2 diabetes mellitus with hyperglycemia; Z71.3 Dietary counseling and surveillance
CPT/HCPCS: 36415; 73560; 80048; 85025; 85652; 86140; 97802; 99212

== ENCOUNTER 2025-04-08 10:47 | Outpatient (AMB) | payer MEDICARE, OTHER, SELFPAY ==
--- NOTE | 2025-04-08 11:39 | MHC.AMNUTRGE ---
Intake Visit Reasons: Initial DM Nutrition Assessment & Sensor Review Allergies environmental allergies Allergy (Intermediate, Verified 04/13/25 10:20) Itchy Eyes amoxicillin Allergy (Mild, Verified 04/13/25 10:20) Rash crab Adverse Reaction (Intermediate, Verified 04/13/25 10:20) DIARRHEA semaglutide (From Norberto) Adverse Reaction (Intermediate, Verified 04/13/25 10:20) severe diarrhea Nutrition Presentation Details: Met with patient and daughter prior to ortho appointment for diabetes management. Pt had tried the [facility] [place] [facility] program several months ago however the philosophy was not a good fit for her and her goals. Used to get Meals on Wheels several years ago but didn't like them. Agrees to re-enroll since the supplier changed. Had been considering factor meals during her ortho recovery for easy of preparation. Will be moving in with her daughter in the future. Continues to use the Celebrate protein shakes from the [facility] to meet protein needs. 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 Has some anxiety eating. RD helped patient access her dexcom account as she was not logged into the eddie. Trialed the [employer] nnamdi with the nurse navigator and likes it better than the dexcom interface. Will use up her dexcom stock and RD will help transfer RX to the [facility] nnamdi. Uses the [employer] shuttles for hospital rides with good success. Reason for consult: initial DM maintenance Physical activity assessment: Reviewed Diet Assmnt Dietary counseling: diabetic diet and Mediterranean Who buys your food: other Who prepares/cooks your food: other Lifestyle Emotional Eating: Reports anxiety, comfort/relaxation and boredom Family support: Yes Exercise: No BS Monitoring Details: Dexcom Clarity Katelyn Dominguez Date of : 1940 Generated at: Apr 08, 2025 11:41 AM EDT Reporting period: SatFeb 02, 2025 - SatFeb 15, 2025 Glucose Details Average glucose: 160 mg/dL GMI: 7.1% Standard deviation: 42 mg/dL Coefficient of Variation: 26.1% Time in Range Very High: 3% High: 26% In Range: 71% Low: 0% Very Low: <1% Target Range 70-180 mg/dL Sensor usage Days with data: Time active: 96% Avg. calibrations per day: 0.0 Frequency of blood glucose monitoring: continuous monitoring Most Recent Diabetes Results: Creatinine, (0.5-1.4) 0.61 mg/dL Today BUN, (9-16) 17 mg/dL H Today Sodium, (135-145) 136 mmol/L Today Potassium, (3.3-5.1) 4.1 mmol/L Today Chloride, (96-108) 105 mmol/L Today Carbon Dioxide, (22-29) 23 mmol/L Today Calcium, (8.4-10.2) 8.8 mg/dL Δ Today Assessment Nutrition recommendation: RD nutrition education NDS-Bifmvci-Vo.Jeor Equation Calculated Activity Level: Sedentary Diagnosis Nutrition problem #1: altered nutrition labs As related to (etiology) #1: diagnosis and increased PRO needs As evidenced by (sign/symptom) #1: knowledge deficit of diet and widely varied blood sugar Monitoring/Goals Nutrition problem monitoring: total energy intake, HgbA1c, level of knowledge/skill, total PRO intake, total CHO intake and oral fluids Nutrition goal/outcome: list 3 diab diet goals, list 3 CHO foods and list 3 high fiber foods Outcome progress: progressing Learning/Education Readiness to learn: excellent Stages of change: action Educational materials provided: Yes (Snack list) Date of nutrition screenin04/08/25 Date of nutritional follow-up: 06/08/25 (home visit) Follow-up details: After recovery from surgery Follow up Follow-up frequency: other (2 months) Time Outcome assessment time: 60 minutes [facility] Medical History Multifactorial gait disorder Anosmia MCI (mild cognitive impairment) REM sleep behavior disorder Fecal incontinence Urinary incontinence Cervical spinal stenosis Cognitive impairment Osteoarthritis GERD (gastroesophageal reflux disease) Obesity Restless leg syndrome HTN (hypertension) Anxiety, generalized Lipid disorder Diabetes 1.5, managed as type 2 Surgical History S/P placement of nerve stimulator History of esophagogastroduodenoscopy (EGD) H/O colonoscopy History of hysterectomy History of total knee replacement (TKR) Family History Father No problems noted. Mother Dementia Pancreatitis Social History Household Members: None Housing: Apartment Are you a primary ambulatory care coordinator to a significant other at home: No Do you presently have visiting nurse or other home services: No Alcohol intake: never Comment: advised of yazmin shelton Patient Tobacco Use Status: Never used Tobacco e-Cigarette/Vaping Use: Never Used Advance Directives Date on File: 11/23/20 service: No Current occupational status: retired Cognitive needs: No Hearing needs: Yes Vision needs: Yes Assessment & Plan Assessment & Plan (1) Uncontrolled diabetes mellitus with hyperglycemia: Code(s): E11.65 - Type 2 diabetes mellitus with hyperglycemia Category: Medical Qualifiers: Diabetes mellitus type: type 2 Qualified Code(s): E11.65 - Type 2 diabetes mellitus with hyperglycemia Plan 1. enroll in MOW 2. log into dexcom eddie at home on phone 3. use snack list to increase protein intake and avoid skipping meals Patient Instructions: 1. enroll in MOW 2. log into dexcom eddie at home on phone 3. use snack list to increase protein intake and avoid skipping meals Coding Level of Care Code Nutr Indiv Intake (24939) Diagnoses Uncontrolled type 2 diabetes mellitus with hyperglycemia E11.65 Diabetes mellitus type: type 2
== END 2025-04-08 11:46 | disposition home or self-care (01) ==
LOC: HO.HMCCN 10:47
PROVIDERS: PCP Internal Medicine; Visit Provider Dietitian, Registered
DX: E11.65 Type 2 diabetes mellitus with hyperglycemia (principal)

== ENCOUNTER → 2025-04-08 10:58 | Outpatient (BNV) | payer MEDICARE, OTHER, SELFPAY | PROVIDERS: Visit Provider Radiology Diagnostic Radiology | DX: M25.461 Effusion, right knee (principal); Z96.651 Presence of right artificial knee joint | CPT/HCPCS: 73560 ==

== ENCOUNTER 2025-04-09 09:26 | Outpatient (REF) | payer MEDICARE, OTHER, SELFPAY ==
--- NOTE | 2025-04-09 09:29 | EEG_ITS ---
This is a 16 channel EEG with an EKG lead. Patient is reported awake during the tracing. Background EEG rhythm is low amplitude fast with no obvious asymmetry or paroxysmal tendency. Photic stimulation does not produce any significant driving. Hyperventilation is not performed. Cardiac lead does not reveal any significant abnormality. No sharp wave spikes or paroxysmal tendency noted. Impression: No significant abnormality noted. MTDD
--- OUTSIDE RECORDS SUMMARY | 2025-04-09 09:38 | XMS_ITS | Clinical Summary ---
Author Organization [facility] Address [address] [place] [id number] Phone Care Team Providers Care Book Cleaner Name Role Phone Ella Garces MD Primary Care Provider [phone] Social History Tobacco Use Types Packs/Day Years [...] MEDICARE PART A & B [place] [id number] AENA PPO MEDICARE PART A & B Care Teams Book Cleaner Relationship Specialty Start Date End Date Ella Garces MD [address] [place] [address] PCP - General Internal Medicine 11/21/23 Additional Source Comments The information contained in this document represents components of the legal health record. It is not the complete legal health record.[facility]
== END 2025-04-09 09:27 | disposition home or self-care (01) ==
LOC: HO.NEURO 09:26
PROVIDERS: PCP Internal Medicine; Visit Provider Psychiatry & Neurology Neurology
DX: G40.909 Epilepsy, unspecified, not intractable, without status epilepticus (principal)
CPT/HCPCS: 95816

== ENCOUNTER → 2025-04-09 09:29 | Outpatient (BNV) | payer MEDICARE, OTHER, SELFPAY | PROVIDERS: PCP Internal Medicine; Visit Provider Psychiatry & Neurology Neurology | DX: G40.909 Epilepsy, unspecified, not intractable, without status epilepticus (principal) | CPT/HCPCS: 95816 ==

== ENCOUNTER 2025-04-13 | Day surgery (SDC) | payer MEDICARE, OTHER, SELFPAY ==
[2025-03-04 10:38] VITALS: BP 131/61; PULSE 63; RESP 20; O2SAT 97; BMI 32.0
--- NOTE | 2025-03-04 10:56 | HO.ANESPROP2 ---
Documented by User: Nanette Santoro NP 03/04/25 12:00 HPI - Anesthesia Eval Consult details Narrative: 84yo F for Right Knee Total Revision, 04/13/25 Medically optimized per PCP No recent illness No CP/SOB with grocery shopping Mild cognitive impairment. New patient appiontment with [facility] [place] planned for the end of February. Discussed risk of exacerbation during periop period and risks with GA vs Spinal DM: Avg BS ~ 180's, FBS ~155-195 GERD symptoms resolved Bladder stim in situ - R lower flank - will bring remote DOS Pt recounts difficulty falling asleep with GA for bladder stim procedures at [facility] 01/2025. Anesthesia records reviewed - no significant events noted. DNR - discussed periop reversal. Pt and daughter verbalized understanding [facility] Active Problems Active Problems: All Active Problems Pre-op evaluation (Acute) Blackout spell (Acute) Cognitive impairment (Acute) Recurrent instability of right knee prosthesis (Acute) BMI 32.0-32.9,adult (Acute) Itching of ear (Acute) Insulin dependent type 2 diabetes mellitus (Acute) Uncontrolled diabetes mellitus with hyperglycemia (Acute) Cervical stenosis of spinal canal (Acute) Neck pain (Acute) Fecal incontinence (Acute) Obesity due to excess calories (Acute) Anal sphincter incompetence (Acute) Frequent bowel movements (Acute) Osteoarthritis involving multiple joints on both sides of body (Acute) UTI (urinary tract infection) (Acute) Bladder disorder (Acute) Urine incontinence (Acute) Actinic keratosis of left cheek (Acute) History of fracture of nasal bone (Acute) Diabetes mellitus type 2 in obese (Acute) Nasal bones, closed fracture (Acute) Facial injury (Acute) Recurrent falls while walking (Acute) Fall (Acute) Shoulder pain, right (Acute) Radiculitis of right cervical region (Acute) Right knee pain (Acute) Knee instability (Acute) Balance disorder (Acute) Gait instability (Acute) Upper respiratory infection (Acute) Benign esophageal stricture (Acute) Eosinophilic esophagitis (Acute) Difficulty swallowing solids (Acute) Hospital discharge follow-up (Acute) Difficulty swallowing liquids (Acute) Recurrent otitis externa of both ears (Acute) Medicare annual wellness visit, subsequent (Acute) Pain in left knee (Acute) Right knee buckling (Acute) Right knee pain (Acute) Do not resuscitate status (Acute) Hypertension, essential (Acute) LFT elevation (Acute) Restless leg syndrome (Acute) Left knee pain (Acute) Hollenhorst plaque, right eye (Acute) Patient has active medical orders for life-sustaining treatment (MOLST) form (Acute) Hearing impaired (Acute) Exposure to COVID-19 virus (Acute) Otitis externa (Acute) GERD (gastroesophageal reflux disease) (Acute) Obesity (Acute) History of total knee replacement (TKR) (Acute) Anxiety, generalized (Acute) Lipid disorder (Acute) Diabetes 1.5, managed as type 2 (Acute) Past Medical History Medical History Multifactorial gait disorder Anosmia MCI (mild cognitive impairment) REM sleep behavior disorder Fecal incontinence Urinary incontinence Cervical spinal stenosis Cognitive impairment Osteoarthritis GERD (gastroesophageal reflux disease) Obesity Restless leg syndrome HTN (hypertension) Anxiety, generalized 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 Mother Dementia Pancreatitis Family history of problems with anesthesia: No Surgical History Surgical History S/P placement of nerve stimulator History of esophagogastroduodenoscopy (EGD) H/O colonoscopy History of hysterectomy History of total knee replacement (TKR) History of Problems with Anesthesia: No Social History Social History Housing: Apartment Are you a primary medicare nurse to a significant other at home: No Do you presently have visiting nurse or other home services: No Alcohol intake: never Comment: charlotte shelton Patient Tobacco Use Status: Never used Tobacco e-Cigarette/Vaping Use: Never Used Use of substances other than those prescribed or required for medical reasons: No Have you been hit, kicked, punched, or otherwise hurt by someone within the past year? If so, by whom?: No Spiritual Healthcare Practices: no Latter-Day Healthcare Practices: no Cultural Healthcare Practices: no Are you DNR?: Yes Advance Directives: Yes Advance Directives Information Provided: Yes Advance Directives on File: Yes Advance Directives Date on File: 03/31/21 FDLMP: n/a Poor oral hygiene: No (upper partial) service: No Current occupational status: retired Cognitive needs: No Hearing needs: Yes Vision needs: Yes Meds Allergies Allergy/AdvReac Type Severity Reaction Status Date / Time environmental allergies Allergy Intermediate Itchy Eyes Verified 04/13/25 10:20 amoxicillin Allergy Mild Rash Verified 04/13/25 10:20 crab AdvReac Intermediate DIARRHEA Verified 04/13/25 10:20 semaglutide (From [facility]) AdvReac Intermediate severe Verified 04/13/25 10:20 diarrhea Home Medications ?Medication ?Instructions ?Recorded ?Confirmed ?Last Taken ?Type vitamins A,C,C-rmxm-qqjftc 4,296 1 cap PO QAM 12/05/22 03/18/25 Unknown History mcg-226 mg-90 mg capsule (PreserVision AREDS) mirabegron 25 mg tablet,extended 25 mg PO QAM 07/13/24 03/18/25 Unknown History release 24 hr dorzolamide 22.3 mg-timolol 6.8 1 drp ophthalmic (eye) BID 08/31/24 03/18/25 Unknown History mg/mL eye drops vitamins A,C,Q-xsry-yikaia 4,296 2 cap PO BEDTIME 03/04/25 03/18/25 Unknown History mcg-226 mg-90 mg capsule (PreserVision AREDS) Exam Height,Weight and Vital Signs: Height 5 ft Weight 74.389 kg Last Vital Signs Pulse 63 03/04/25 10:38 Resp 20 03/04/25 10:38 BP 131/61 03/04/25 10:38 Pulse Ox 97 03/04/25 10:38 O2 Del Method Room Air 03/04/25 10:38 Narrative Narrative: EKG 02/2025 NSR @ 61 Airway Mallampati Class: II TM Dist: >3cm Neck ROM: Limited (cervical stenosis) Partial: Upper Heart: RRR Lungs: CTAB Assessment and Plan Assessment Anesthesia Assessment: Anesthesia Plan Discussed and PAT Visit Final Anesthetic Review Family History of Problems with Anesthesia: No History of Problems with Anesthesia: No Documented by User: Angle Chau MD 04/13/25 11:08 [facility] Past Medical History Medical History Multifactorial gait disorder Anosmia MCI (mild cognitive impairment) REM sleep behavior disorder Fecal incontinence Urinary incontinence Cervical spinal stenosis Cognitive impairment Osteoarthritis GERD (gastroesophageal reflux disease) Obesity Restless leg syndrome HTN (hypertension) Anxiety, generalized 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 Mother Dementia Pancreatitis Surgical History Surgical History S/P placement of nerve stimulator History of esophagogastroduodenoscopy (EGD) H/O colonoscopy History of hysterectomy History of total knee replacement (TKR) Social History Social History Housing: Apartment Are you a primary medicare nurse to a significant other at home: No Do you presently have visiting nurse or other home services: No Alcohol intake: never Comment: charlotte shelton Patient Tobacco Use Status: Never used Tobacco e-Cigarette/Vaping Use: Never Used Use of substances other than those prescribed or required for medical reasons: No Have you been hit, kicked, punched, or otherwise hurt by someone within the past year? If so, by whom?: No Spiritual Healthcare Practices: no Latter-Day Healthcare Practices: no Cultural Healthcare Practices: no Are you DNR?: Yes Advance Directives: Yes Advance Directives Information Provided: Yes Advance Directives on File: Yes Advance Directives Date on File: 11/23/20 FDLMP: n/a Poor oral hygiene: No (upper partial) service: No Current occupational status: retired Cognitive needs: No Hearing needs: Yes Vision needs: Yes Meds Allergies Allergy/AdvReac Type Severity Reaction Status Date / Time environmental allergies Allergy Intermediate Itchy Eyes Verified 04/13/25 10:20 amoxicillin Allergy Mild Rash Verified 04/13/25 10:20 crab AdvReac Intermediate DIARRHEA Verified 04/13/25 10:20 semaglutide (From [facility]) AdvReac Intermediate severe Verified 04/13/25 10:20 diarrhea Home Medications ?Medication ?Instructions ?Recorded ?Confirmed ?Last Taken ?Type vitamins A,C,C-rofp-yshnai 4,296 1 cap PO QAM 12/05/22 03/18/25 Unknown History mcg-226 mg-90 mg capsule (PreserVision AREDS) mirabegron 25 mg tablet,extended 25 mg PO QAM 07/13/24 03/18/25 Unknown History release 24 hr dorzolamide 22.3 mg-timolol 6.8 1 drp ophthalmic (eye) BID 08/31/24 03/18/25 Unknown History mg/mL eye drops vitamins A,C,M-hrxf-wlyktw 4,296 2 cap PO BEDTIME 03/04/25 03/18/25 Unknown History mcg-226 mg-90 mg capsule (PreserVision AREDS) Assessment and Plan Final Anesthetic Review NPO: Yes ASA Class: III (sacral stim , pt needs to shut off. ) Final Preanesthetic Review: DNR Form (If Appl.) (pt only wants limited procedure directed reversal) Patient Risk: Intermediate Procedure Risk: Intermediate Anesthetic Plan Anesthetic Plan: Spinal, Neuraxial Block:, Regional Block and Agree w/ Assess. and Plan Disposition: Standard PACU
[2025-03-04 13:30] LABS: MRSA Nasal PCR NEGATIVE (Negative); SA Nasal PCR NEGATIVE (Negative)
[2025-04-13] VITALS (16 sets, daily range): BP systolic 125–224; BP diastolic 52–92; PULSE 59–94; RESP 14–18; TEMP 36.2–36.7; O2SAT 95–98; BMI 33.0; BMI 32.8
--- NOTE | ~2025-04-13 | XR_ITS ---
CLINICAL HISTORY: rt tka Radiographs of the right knee, 2 views Comparison: DX/SR - XR KNEE 1 VIEW RIGHT - 04/08/25 10:58 EDT DX/SR - XR KNEE 1-2 VIEWS RIGHT - 08/31/24 11:05 EST DX/ND/SR - XR KNEE 1 VIEW LEFT - 08/31/24 11:05 EST Findings: There is no fracture or dislocation. Right total knee arthroplasty which was present on all the prior studies. The hardware is intact. There are skin darian with soft tissue swelling and foci of air. Impression: Skin darian with soft tissue swelling or foci of air, likely secondary to recent surgery. Right total knee arthroplasty which was also present on the prior studies. Recent surgery could be a revision. This document has been electronically signed by: Mirta Stein MD on 04/13/2025 17:51:26
--- NOTE | 2025-04-13 09:55 | MHC.SHP ---
Pre-Procedural Eval Section A - 24 Hr Update-Section A only Date of Service: 04/13/25 The patient is an INPATIENT: No Changes since office visit: No Cold of Flu in the past 2 weeks, No New Medical Problems, No Changes in Medication and No Patient answered all questions The patient has been examined within 24 hours of the surgical procedure. The History & Physical has been completed within 30 days and I have reviewed it.: Yes Section B - Complete if H&P > 30 days Chief Complaint: Revision rt tka Allergies: Allergies Allergy/AdvReac Type Severity Reaction Status Date / Time environmental allergies Allergy Intermediate Itchy Eyes Verified 04/08/25 11:46 amoxicillin Allergy Mild Rash Verified 04/08/25 11:46 crab AdvReac Intermediate DIARRHEA Verified 04/08/25 11:46 semaglutide (From Wegovy) AdvReac Intermediate severe Verified 04/08/25 11:46 diarrhea Plan I have reviewed the history and physical and performed a pertinent physical examination on my patient. No changes have occurred unless specified. Time Spent With Patient Time: Total time managing care of this patient today ____ minutes.
[2025-04-13 10:08] LABS: Hematocrit 41.9 % (37.0-47.0); Hemoglobin 14.2 g/dl (12.0-16.0)
[2025-04-13] MEDS: Lactated Ringers 1,000 ML 100 ML IVCONT ×2 (10:19→18:44)
--- OUTSIDE RECORDS SUMMARY | 2025-04-13 10:31 | XMS_ITS | Clinical Summary ---
Author Organization [facility] Address [address] [place] [id number] Phone Care Team Providers Care Product Manager Medical Device Name Role Phone Ella Garces MD Primary Care Provider [phone] Social History Tobacco Use Types Packs/Day Years [...] MEDICARE PART A & B [place] [id number] AENA PPO MEDICARE PART A & B Care Teams Product Manager Medical Device Relationship Specialty Start Date End Date Ella Garces MD [address] [place] [address] PCP - General Internal Medicine 11/21/23 Additional Source Comments The information contained in this document represents components of the legal health record. It is not the complete legal health record.[facility]
--- NOTE | 2025-04-13 11:36 | PM.DS ---
DS: Providers Provider Date of Service: 04/14/25 Date of admission: 04/13/25 09:10 Date of discharge: 04/14/25 Primary care physician: Ella Garces MD DS: Summary Hospital Course Hospital Course: The patient underwent a successful right total knee revision arthroplasty, they were transferred to PACU and then to the floor to recover. During their stay, their vitals were stable, afebrile at 97.3. Labs were unremarkable, H/H 13.1/39.1. POD 1 they were started on Aspirin 325mg po bid for DVT ppx, they also received Physical Therapy services twice a day. Prior to discharge, their dressing was clean dry and intact and the plan was to be discharged home with VNA services. Time Attestation Discharge Coordination Time (in mins): 30 Quality: Safe Use of Opioids Does Pt have an Active Cancer Diagnosis on the Problem List?: No Quality: Stroke Does the patient have a stroke diagnosis?: No Physical Exam Vital Signs: Vital Signs: Last Vital Signs Temp 98.0 F 04/13/25 10:18 Pulse 59 04/13/25 10:18 Resp 18 04/13/25 10:18 BP 131/53 L 04/13/25 10:18 Pulse Ox 96 04/13/25 10:18 O2 Del Method Room Air 04/13/25 10:18 BMI result Body Mass Index 33.0 Const: General: cooperative, healthy appearing and no acute distress Resp: Effort & Inspection: normal respiratory effort and able to speak in complete sentences Cardio: Rate: regular rate Peripheral pulses: Peripheral pulses 2+ throughout GI: Palpation (GI): Soft to palpation Skin: Lesions: no lesions Rashes: no rashes Extrem: Other: right knee dressing is c/d/i. Able to dorsi/plantar flex. Calf is supple and nontender. Sensation intact. Pedal pulse intact. Psych: Appearance: grossly normal Mental Status: mental status grossly normal Attitude: cooperative DS: Data Data Completed and Pending Labs on day of discharge: Laboratory Results - last 24 hr 04/13/25 09:49 Hgb 14.2 Hct 41.9 Discharge Plan Discharge Patient Disposition: Home Health Service Referrals: Divina Ledesma PA-C [Physician Aerial Installer, Orthopedics] - 04/29/25 10:15 am Discharge Medications: New acetaminophen 325 mg Tablet 650 mg PO Q6H PRN (Reason: Pain, Mild 1-3,Fever,Headache) 30 Days Qty: 240 0RF aspirin 325 mg Tablet 325 mg PO BID 42 Days Qty: 84 0RF celecoxib 200 mg Capsule 200 mg PO BID 30 Days Qty: 60 0RF oxycodone 5 mg Tablet 2.5 mg PO Q6H PRN (Reason: Pain, Moderate(Pain Scale 4-6)) 7 Days Qty: 14 0RF Rx Instructions: Partial Fill upon patient request. docusate sodium 100 mg Capsule 100 mg PO BID 30 Days Qty: 60 0RF Continued (DME) lancets [FreeStyle Lancets] 28 gauge misc See Rx Instructions .Route Qty: 100 0RF Rx Instructions: As directed montelukast 10 mg tablet 10 mg PO BEDTIME Qty: 90 2RF escitalopram oxalate 20 mg tablet 20 mg PO BEDTIME Qty: 90 1RF (DME) Dexcom G6 Sensor Device See Rx Instructions .Route Qty: 3 0RF Rx Instructions: Check blood sugar 4 times daily as directed (DME) Folding Front Wheeled walker See Rx Instructions .ROUTE .MEDSUPPLY Qty: 1 0RF Rx Instructions: Duration: 99 days pramipexole 0.5 mg tablet 0.5 mg PO BEDTIME Qty: 90 1RF (DME) pen needle, diabetic 31 gauge x 5/16 needle See Rx Instructions .ROUTE .COMPLEX Qty: 100 0RF Dose Instruction: USE DIRECTED FOR INSULIN INJECTIONS THREE TIMES A DAY Rx Instructions: USE DIRECTED FOR INSULIN INJECTIONS THREE TIMES A DAY (DME) FreeStyle Lite Strips Strip See Rx Instructions .Route Qty: 100 3RF Rx Instructions: Once a day (DME) FreeStyle Ju 3 Plus Sensor Device See Rx Instructions .Route Qty: 6 3RF Rx Instructions: Change sensor every 15 days as directed PreserVision AREDS 4,296 mcg-226 mg-90 mg Capsule 2 cap PO BEDTIME lisinopril 2.5 mg tablet 2.5 mg PO DAILY cmionkav-xuweqng-pvlr-lutein Tablet 1 tab PO DAILY insulin aspart U-100 [Novolog FlexPen U-100 Insulin] 100 unit/mL (3 mL) insulin pen See Rx Instructions .ROUTE .COMPLEX Rx Instructions: TID AC per sliding scale 60-124 No coverage; 125-150 give 2 units; 151-200 give 4 units; 201-250 give 6 units; 251-300 give 8 units; 301-350 give 10 units; 351-400 give 12 units. Call MD if blood sugar is less than 60 or greater than 400. mirabegron 25 mg tablet extended release 24 hr 25 mg PO DAILY rosuvastatin 20 mg tablet 20 mg PO DAILY PreserVision AREDS 4,296 mcg-226 mg-90 mg capsule 1 cap PO DAILY dorzolamide-timolol 22.3-6.8 mg/mL drops 1 drp ophthalmic (eye) BID (DME) Dexcom G7 Payroll Administrator Misc See Rx Instructions .Route Qty: 1 0RF Rx Instructions: Test blood sugar 4 times per day (DME) Dexcom G7 Sensor Device See Rx Instructions .Route Qty: 9 1RF Rx Instructions: Test blood sugar 4 times per day, change sensor every 10 days Discharge Orders: Discharge Order (Routine); Ordered 04/14/25 Ordered By: Sheri Najera Diet: Advance to usual diet Activity on Discharge: Use cane or walker Stand Alone Forms: Patient Portal Discharge page Activity Restrictions/Additional Instructions: Physical Therapy for ROM 0-120, quad strength, gait training. Use walker for ambulation Limit stair climbing No shower or tub bath No driving for 6 weeks Continue anticoagulant Keep Aquacel dressing clean, dry and intact. Follow up with orthopedics in 2 weeks -Bandage/Incision Site Care: -Ice 20mins at a time -Make sure you use a towel or cloth on your skin as a barrier -DO NOT remove the bandage -Keep Bandage clean, dry and intact -Do not get the bandage wet: -No tub bath, pools or hot tubs -If there are any concerns regarding the bandage please call orthopedics: [phone] -Knee Precautions: -Refrain from putting pillows under the knee -Keep leg straight while resting the knee -Avoid low chairs and deep couches -Use supportive shoes with nonslip soles -Physical Therapy: -Patient is WBAT with the use of a walker -Range of Motion: 0-120 degrees. -Strengthening: Quadriceps and hip muscles -Walking: Gait training and gradually increasing distance with walker -Ankle pumps and incentive spirometry to limit the risk of blood clot -Diet: -Resume regular diet as tolerated. -Drink plenty of fluids and eat a high-fiber foods to avoid constipation -This is a common side effect of pain medication) -Take stool softeners as prescribed -Blood Clot Prevention: -Take the prescribed blood thinner as directed for 6 weeks -Perform ankle pumps and walk frequently with the walker and assistance if needed -Report calf pain, swelling, or shortness of breath immediately Print Language: Tuvaluan
--- NOTE | 2025-04-13 11:37 | P.F2F_ITS ---
Service Date Service Date: 04/13/25 Encounter Date of encounter: 04/14/25 Reasons for Services Signs and symptoms assessed: s/p right total knee revision arhtroplasty Pt. is considered homebound due to recent surgery. Unable to drive, poor balance, poor gait mechanics. Reason for physical therapy: home safety and mobility, therapeutic exercises, restore joint function, gait/transfer training and ADL training Homebound: Leaving the home is medically contraindicated at this time without the asist of a device and/or another person due th the listed conditions above and below. Reason homebound: unsteady gait / fall risk, leg weakness, pain with ambulation, pain with transfers, poor balance / fall risk and unable to drive Certification: Based on the above findings, I certify that this patient is confined to the home and needs intermittent assisted care, physical therapy and/or speech therapy, or continues to need occupational therapy. The patient is under my care, and I have initiated the establishment of the plan of care. The patient will be followed by a physician who will periodically review the plan of care. Time Spent With Patient Time: Total time managing care of this patient today ____ minutes.
[2025-04-13 12:58] LABS: Glucose, Whole Blood 129 mg/dL (60-115)
--- NOTE | 2025-04-13 13:59 | ECG_ITS ---
Test Reason : st depression Blood Pressure : */* mmHG Vent. Rate : 60 BPM Atrial Rate : 60 BPM P-R Int : 184 ms QRS Dur : 94 ms QT Int : 434 ms P-R-T Axes : 45 34 109 degrees QTcB Int : 434 ms Normal sinus rhythm Nonspecific ST and T wave abnormality Abnormal ECG When compared with ECG of 02-Feb-2017 01:58, Nonspecific T wave abnormality, worse in Inferior leads Nonspecific T wave abnormality now evident in Lateral leads Referred By: Angle Chau Electronically Signed By: TARIQ COVARRUBIAS MD
--- NOTE | 2025-04-13 14:14 | PC.NURSE ---
3 lead e[address] was showing ST depression post nerve block with elevated pressure of 224/89. dr. read updated and 12 lead ekg ordered and completed. dg larkin crna at bedside and having dr. read assess 12 lead ekg.
--- NOTE | 2025-04-13 14:24 | PC.NURSE ---
Dr. Chau reviewed 12 lead EKG and stated okay to proceed to OR. ST depression has resolved on 3 lead EKG by 1414. Patient flutters eyes open with tactile stimuli and name being called.
--- NOTE | 2025-04-13 15:21 | P.BOP_ITS ---
Brief Operative Note Date of Service: 04/13/25 Pre-op diagnosis: Right knee prosthetic instability Post-op diagnosis: same Procedure: Revision right TKA, liner only Implants: Demetrius Triathalon Surgeon: Sai Todd MD Anesthesia: GLMA, regional and local Was an Geomatics Professor used for this Procedure?: Yes Geomatics Professor: Divina Ledesma Estimated blood loss (mL): 25 Tourniquet time (min): 30 IV fluids (mL): 600 Pathology: none sent Condition: stable Disposition: PACU
[2025-04-13 18:38] LABS: Glucose, Whole Blood 175 mg/dL (60-115)
--- NOTE | 2025-04-13 19:22 | HO.PM.IMCN ---
History of Present Illness Data of Consult Service Date: 04/13/25 Requesting physician: Sai Todd Primary Care Provider: Ella Garces MD [facility] Reason for consult: medical mgmt, DM Patient is an 84-year-old female with past medical history insulin-dependent diabetes type 2, hypertension, hyperlipidemia, REM sleep disorder, glaucoma, AMD, osteoarthritis, UTI, gait instability, RLS, hearing loss,GERD, bowel and bladder incontinence now with a Medtronic device for control, obesity is being seen today per request of orthopedic surgeon status post a revision right total knee, liner only with a Driscoll triathlon implant. Main concern for consultation is patient's diabetes. Patient only uses a you 100 NovoLog pen as directed. Patient has been using up to 6 times per day as blood sugars have been getting 200. Patient did have 1 episode of low blood sugar where her Dexcom device alarms prior to surgery this week and patient rectified the low blood sugar by taking some juice and eating. This happened at the end of her sleep cycle. Patient does not use long-acting insulin. Patient was following with a payment processor but was told she no longer needed the intervention and is now managed by her PCP. Patient will also be following with the navigator in the community. Patient does not take oral medication for diabetes management. Patient currently denies any current medical problems and routinely sees her providers for multiple comorbidities. Patient states she had a good surgery and is in minimal pain. EKG reviewed and there were no changes compared to EKG done in January of 2017. Labs reviewed and H&H is stable, renal function at baseline, hemoglobin A1c 6.9 back, in January of 2025, blood glucose range 129 to 175. Review of Systems Review of Systems: Patient currently denies any chest pain, shortness of breath at rest or with exertion, abdominal pain, nausea or vomiting. Patient is not having any extenuating pain status post revision of right knee replacement. Patient currently denies any headaches or unusual visual changes noting that she does have glaucoma and AMD. Yes all other systems are reviewed and are negative [facility] Medical History Multifactorial gait disorder Anosmia MCI (mild cognitive impairment) REM sleep behavior disorder Fecal incontinence Urinary incontinence Cervical spinal stenosis Cognitive impairment Osteoarthritis GERD (gastroesophageal reflux disease) Obesity Restless leg syndrome HTN (hypertension) Anxiety, generalized Lipid disorder Diabetes 1.5, managed as type 2 Cognitive capacity: Alert and orientated x3 Functional capacity: uses cane/walker Patient : No Family History Father No problems noted. Mother Dementia Pancreatitis Surgical History S/P placement of nerve stimulator History of esophagogastroduodenoscopy (EGD) H/O colonoscopy History of hysterectomy History of total knee replacement (TKR) Social History Housing: Apartment Are you a primary primary care sales representative to a significant other at home: No Do you presently have visiting nurse or other home services: No Alcohol intake: never Comment: advised of yazmin shelton Patient Tobacco Use Status: Never used Tobacco e-Cigarette/Vaping Use: Never Used Use of substances other than those prescribed or required for medical reasons: No Have you been hit, kicked, punched, or otherwise hurt by someone within the past year? If so, by whom?: No Spiritual Healthcare Practices: no Judaism Healthcare Practices: no Cultural Healthcare Practices: no Are you DNR?: Yes Advance Directives: Yes Advance Directives Information Provided: Yes Advance Directives on File: Yes Advance Directives Date on File: 11/23/20 FDLMP: n/a Poor oral hygiene: No (upper partial) service: No Current occupational status: retired Cognitive needs: No Hearing needs: Yes Vision needs: Yes Ebola Risk: Travel/Contact With Anyone From Affected Area/s: No Has Patient Experienced Ebola Symptoms: No Meds Allergies Allergy/AdvReac Type Severity Reaction Status Date / Time environmental allergies Allergy Intermediate Itchy Eyes Verified 04/13/25 10:20 amoxicillin Allergy Mild Rash Verified 04/13/25 10:20 crab AdvReac Intermediate DIARRHEA Verified 04/13/25 10:20 semaglutide (From [facility]) AdvReac Intermediate severe Verified 04/13/25 10:20 diarrhea Active Medications: Current Medications Acetaminophen (Acetaminophen 325 Mg Tablet) 650 mg PO Q6H PRN PRN Reason: Pain, Mild 1-3,fever,headache Aspirin (Aspirin 325 Mg Tablet) 325 mg PO BID JERI Celecoxib (Celecoxib 200 Mg Capsule) 200 mg PO BID [facility] Docusate Sodium (Docusate Sodium 100 Mg Capsule) 100 mg PO BID [facility] Dorzolamide/Timolol (Dorzolamide/Timolo 2.23%/0.68% 10 Ml Drbtl) 1 drop EYE-BOTH BID [facility] Escitalopram Oxalate (Escitalopram Oxalate 20 Mg Tablet) 20 mg PO BEDTIME [facility] Lactated Ringer's (Lr) 1,000 mls @ 100 mls/hr IVCONT .Q10H [facility] Stop: 04/14/25 08:00 Last Admin: 04/13/25 18:44 Dose: 100 mls/hr Cefazolin Sodium/Dextrose (Ancef) 2 gm in 50 mls @ 100 mls/hr IV POSTOP ONE Stop: 04/13/25 20:29 Mirabegron (Mirabegron 25 Mg Tab.Er.24h) 25 mg PO DAILY [facility] Montelukast Sodium (Montelukast Sodium 10 Mg Tablet) 10 mg PO BEDTIME [facility] Ondansetron HCl (Ondansetron Hcl 4 Mg/2 Ml Vial) 4 mg IVPUSH Q8H PRN PRN Reason: Nausea and Vomiting Oxycodone HCl (Oxycodone Hcl Immed Release 5 Mg Tablet) 5 mg PO Q4H PRN PRN Reason: Pain, Moderate(Pain Scale 4-6) Pramipexole Dihydrochloride (Pramipexole Di-Hcl 0.25 Mg Tablet) 0.5 mg PO BEDTIME [facility] Sodium Chloride (0.9 % Sodium Chloride Flush 3 Ml Syringe) [address] [facility] Last Admin: 04/13/25 18:45 Dose: Not Given Home Medications ?Medication ?Instructions ?Recorded ?Confirmed ?Last Taken ?Type vitamins A,C,N-efeq-czffpd 4,296 1 cap PO DAILY 12/05/22 04/13/25 8 Days Ago History mcg-226 mg-90 mg capsule ~04/05/25 (PreserVision AREDS) dorzolamide 22.3 mg-timolol 6.8 1 drp ophthalmic (eye) BID 08/31/24 04/13/25 04/12/25 History mg/mL eye drops vitamins A,C,G-radt-ysurzs 4,296 2 cap PO BEDTIME 03/04/25 04/13/25 04/12/25 History mcg-226 mg-90 mg capsule (PreserVision AREDS) insulin aspart U-100 100 unit/mL See Rx Instructions .Route .COMPLEX 04/13/25 04/13/25 04/12/25 History (3 mL) subcutaneous pen (Novolog FlexPen U-100 Insulin aspart) lisinopril 2.5 mg tablet 2.5 mg PO DAILY 04/13/25 04/13/25 04/12/25 History mirabegron 25 mg tablet,extended 25 mg PO DAILY 04/13/25 04/13/25 04/12/25 History release 24 hr ydkgcjio-glmdbid-iyvy-lutein tablet 1 tab PO DAILY 04/13/25 04/13/25 1 Week Ago History ~04/06/25 rosuvastatin 20 mg tablet 20 mg PO DAILY 04/13/25 04/13/25 04/13/25 History Physical Exam Vital Signs and Narrative: Vital Signs: Last Vital Signs Temp 97.2 F 04/13/25 18:44 Pulse 66 04/13/25 18:44 Resp 18 04/13/25 18:44 BP 141/68 H 04/13/25 18:44 Pulse Ox 95 04/13/25 18:44 O2 Del Method Room Air 04/13/25 18:44 O2 Flow Rate 2 04/13/25 17:42 BMI result Body Mass Index 33.0 Alert and orientated X3, able to give good history. Neuro: CN II-X11 intact, no deficits, visual acuity intact EYES: PERRLA, EOM intact, sclerae nonicteric, conjunctiva pink, glasses on ENT: Mild hearing loss, no issues with swallowing, uvula midline, lips moist, nares patent no epistaxis, dentition in good repair Cardiac: S1 S2 RRR, no murmur, no JVD, no edema in Lower ext Pulmonary: lungs clear to auscultation B Abdominal: BS active in all 4 quadrants, no guarding, tenderness, rebounding MSK: strength 5/5 upper and L lower extremity, unable to assess strength in right lower extremity secondary to recent surgery : no CVA tenderness no bladder distension Extremities: no edema in lower extremities, PT and DP pulses palpable +2 Psych: mood stable, judgement and insight good Skin: No rashes or lesions noted Results Labs 04/13/25 09:49 Labs: Laboratory Results - last 24 hr 04/13/25 04/13/25 12:54 18:33 POC Glucose 129 H 175 H Assessment and Plan (1) Insulin dependent type 2 diabetes mellitus: Status: Acute Plan Patient is an 84-year-old female with past medical history insulin-dependent diabetes type 2, hypertension, hyperlipidemia, REM sleep disorder, glaucoma, AMD, osteoarthritis, UTI, gait instability, RLS, hearing loss,GERD, bowel and bladder incontinence now with a VISuptronic device for control, obesity is being seen today per request of orthopedic surgeon status post a revision right total knee, liner only with a Driscoll triathlon implant. Main concern for consultation is patient's diabetes. Patient only uses a U-100 NovoLog pen as directed. Patient has been using up to 6 times per day as blood sugars have been getting above 200. Patient did have 1 episode of low blood sugar where her Dexcom device alarmed prior to surgery this week and patient rectified the low blood sugar by taking some juice and eating. This happened at the end of her sleep cycle. Patient does not use long-acting insulin. Patient was following with a payment processor but was told she no longer needed the intervention and is now managed by her PCP. Patient will also be following with the navigator in the community. Patient does not take oral medication for diabetes management. S/p RTKA revision Management per orthopedics DMII Substituting Novolog pen with Lispro sliding scale while in the hospital Pt no longer follows with payment processor. Diabetes managed by pt's PCP. Reviewed s/s and action for hypoglycemia as pt had one episode earlier this week, BG 66 mg/dL and Dexcom did alarm. Pt lives alone, knew to eat and drink juice. Pt has been using Novolog pen 5-6 X per day. Pt is not on long acting insulin or oral medications. Pt does not take any GLP-1. Reviewed POC to include discussing options for tx with her PCP during follow up appt s/p[ knee surgery Advised pt that she can obtain a medical alert bracelet from her PCP Suggested life alert as well as pt does live alone with family close by. Most recent A1C 6.01 February 2025 Pt plans to work with community navigator Diabetic diet HTN Continue lisinopril Low Salt diet HLD Continue statin Cardiac diet Glaucoma/ AMD Continue eye drops Continue to follow with retinal specialist RLS/ REM Sleep Disorder Continue Pramipexole Urinary/Bowel incontinence HX related to traumatic Medronic device placed January 2025 Pt continues to follow with specialist and states incontinence has improved greatly with mild breakthroughs Pt denies Urinary Tract symptoms, no indication for UA at this time Continue Mirabergron We appreciate this consultation and will sign off at this time as medical needs are currently being met with no acute issues noted on exam and interview with pt. Please reconsult as needed!
--- NOTE | 2025-04-13 19:40 | PHA.MEDREC ---
Addendum entered by Yunior Kent, PharmD 04/13/25 20:06: med rec changed per p&t Original Note: Pharmacy Consult ? Medication Reconciliation Pharmacy has completed the medication reconciliation. Spoke with pt and she confirmed her medications. Pt confirmed her Novolog insulin; confirming she does it TIDAC per sliding scale. Pt confirmed she stopped the Preservision doses for the surgery for 8 days and is going to start it again when she gets home.
[2025-04-13 20:00] LABS: Glucose, Whole Blood 276 mg/dL (60-115)
[2025-04-13] MEDS: 0.9 % Sodium Chloride Flush 3 ML SYRINGE IVFLUSH (22:06)
[2025-04-13] MEDS: Dorzolamide/Timolo 2.23%/0.68% 10 ML DRBTL 1 DROP EYE-BOTH (22:07)
[2025-04-14 03:15] VITALS: BP 115/62; PULSE 66; RESP 18; TEMP 36.3; O2SAT 93
[2025-04-14] MEDS: oxyCODONE HCl Immed Release 5 MG TABLET PO (03:30)
[2025-04-14] MEDS: Lactated Ringers 1,000 ML 100 ML IVCONT (04:40)
--- NOTE | 2025-04-14 05:25 | PC.NURSE ---
2200: On med pass patient requested to get up OOB if she is allowed to, pt was informed that they want her up and moving, so pt got up and took a couple steps with walker in the room and back to the bed. 2300: Dr. Batista made aware of bright red urine in coyne bag, with clots. 0100: urine starting to lighten up in color. 0500: pt reports having a dexacom that keeps alerting her that her sugar is high around 270s, Dr. Batista made aware, new order to change POC to QIDACHS.
[2025-04-14 06:24] LABS: MANUAL DIFF FLAG NO
[2025-04-14 06:32] LABS: Hematocrit 39.1 % (37.0-47.0); Hemoglobin 13.1 g/dl (12.0-16.0); Imm Gran Abs Auto 0.08 X10*3/uL (0.00-0.03); Imm Gran Pct Auto 0.6 % (0.0-0.4); Lymphocytes Absolute Auto 1.4 X10*3/uL (1.2-4.9); Mean Corpuscular HGB Conc 33.5 g/dl (31.0-35.0); Mean Corpuscular Hemoglobin 29.3 pg (27.0-33.0); Mean Corpuscular Volume 87.5 fL (80.0-98.0); NRBC Abs Auto 0.000 X10*3/uL (0.0-0.012); NRBC Pct Auto 0.0 /100WBC (0.0-0.2); Platelet Count 163 X10*3/uL (160-400); Red Blood Count 4.47 X10*6/uL (4.20-5.50); White Blood Count 12.7 X10*3/uL (4.8-10.8)
[2025-04-14 06:55] LABS: Anion Gap 12 (12-20); Blood Urea Nitrogen 17 mg/dL (9-16); Calcium 8.8 mg/dL (8.4-10.2); Carbon Dioxide 23 mmol/L (22-29); Chloride 105 mmol/L (96-108); Estimated Glomerular Filt Rate > 60; Potassium 4.1 mmol/L (3.3-5.1); Sodium 136 mmol/L (135-145)
[2025-04-14 07:39] VITALS: BP 120/56; PULSE 67; RESP 18; TEMP 36.8; O2SAT 95
--- NOTE | 2025-04-14 07:46 | PM.PNORT ---
Subjective Subjective Date of Service: 04/14/25 Interval history: POD1 s/p right total knee liner exchange Patient is resting in bed comfortably - reports no pain No overnight events Slightly confused No additional complaints Physical Exam Vital Signs: Vital Signs: Last Vital Signs Temp 98.3 F 04/14/25 07:39 Pulse 67 04/14/25 07:39 Resp 18 04/14/25 07:39 BP 120/56 L 04/14/25 07:39 Pulse Ox 95 04/14/25 07:39 O2 Del Method Room Air 04/14/25 07:39 O2 Flow Rate 2 04/13/25 17:42 BMI result Body Mass Index 32.8 Const: General: cooperative, healthy appearing and no acute distress Resp: Effort & Inspection: normal respiratory effort and able to speak in complete sentences Cardio: Rate: regular rate Peripheral pulses: Peripheral pulses 2+ throughout GI: Palpation (GI): Soft to palpation Skin: Lesions: no lesions Rashes: no rashes Extrem: Other: left knee dressing is c/d/i. Able to dorsi/plantar flex. Calf is supple and nontender. Sensation intact. Pedal pulse intact. Procedures Date of Service Date of Service: 04/14/25 Progress Note: A&P Assessment and plan (1) Recurrent instability of right knee prosthesis: Status: Acute Plan Continue pain mgmnt Begin ASa for dvt ppx begin PT for right knee liner exchange - WBAT Dispo planning-Pending PT eval, pain mgmnt, medical adjustment as patient is confused Time Spent With Patient Time: Total time managing care of this patient today ____ minutes. Quality Stroke Does the patient have a stroke diagnosis?: No VTE Prior VTE?: No VTE Risk Level:: Medical - moderate - high VTE Device Contraindication: N/A - Device Ordered VTE Drug Contraindication: N/A - Med Ordered
[2025-04-14 07:48] LABS: Glucose, Whole Blood 249 mg/dL (60-115)
[2025-04-14] MEDS: Dorzolamide/Timolo 2.23%/0.68% 10 ML DRBTL 1 DROP EYE-BOTH ×2 (08:01→20:27)
--- NOTE | 2025-04-14 08:47 | HO.POSTANES ---
Post Anesthesia Evaluation Post Anesthesia Evaluation Date of Service: 04/14/25 Vital Signs: Vital Signs Temp Pulse Resp BP Pulse Ox O2 Del Method 04/14/25 07:39 98.3 F 67 18 120/56 L 95 Room Air 04/14/25 03:15 97.3 F 66 18 115/62 93 Room Air Anesthesia: Nerve Block and General Mental Status: Awake Pain Control: Satisfactory Nausea/Vomiting: None Hydration: Adequate Anesthesia-Related Issues: No Anes. Related Issues
[2025-04-14] MEDS: oxyCODONE HCl Immed Release 5 MG TABLET 2.5 MG PO ×2 (09:43→21:42)
--- NOTE | 2025-04-14 10:06 | PM.UROPN ---
Subjective Subjective Date of Service: 04/14/25 Interval history: Patient seen Interstim device turned back on Can remove coyne catheter Physical Exam Vital Signs: Vital Signs: Last Vital Signs Temp 98.3 F 04/14/25 07:39 Pulse 67 04/14/25 07:39 Resp 18 04/14/25 07:39 BP 120/56 L 04/14/25 07:39 Pulse Ox 95 04/14/25 07:39 O2 Del Method Room Air 04/14/25 07:39 O2 Flow Rate 2 04/13/25 17:42 BMI result Body Mass Index 32.8 Const: General: cooperative, healthy appearing, comfortable and no acute distress Orientation/consciousness: patient oriented x3 HEENT: Face and sinus: Yes normal facial exam Mouth: moist mucous membranes Neck: Neck: Yes normal visual inspection, Yes full ROM and Yes trachea midline Chest: Chest palpation & inspection: normal inspection of the chest Resp: Effort & Inspection: normal respiratory effort, able to speak in complete sentences and no respiratory distress GI: Inspection: Yes normal to inspection Back/Spine/Pelvis: Cervical Spine: normal cervical lordosis Thoracic/Lumbar Spine: thoracic and lumbar spine normal to inspection Skin: General skin exam: no rashes or lesions noted Neuro: General: patient oriented x3, gait normal, tone normal and moves all extremities Extrem: General: Yes normal to inspection and Yes capillary refill normal Urology Results Labs 04/14/25 05:57 04/14/25 05:57 Labs: Laboratory Results - last 24 hr 04/13/25 04/13/25 04/13/25 09:49 12:54 18:33 WBC RBC Hgb 14.2 Hct 41.9 MCV MCH MCHC RDW Plt Count MPV Immature Gran % (Auto) Neut % (Auto) Lymph % (Auto) Gu[place]upe % (Auto) Eos % (Auto) Baso % (Auto) Lymph # (Auto) [place]upe # (Auto) Eos # (Auto) Baso # (Auto) Abs Immat Gran (auto) Absolute Neuts (auto) Absolute Nucleated RBC Nucleated RBC % (auto) Sodium Potassium Chloride Carbon Dioxide Anion Gap BUN Creatinine Estim Creat Clear Calc Estimated GFR POC Glucose 129 H 175 H Fasting Glucose Calcium 04/13/25 04/14/25 04/14/25 19:55 05:57 07:42 WBC 12.7 H RBC 4.47 Hgb 13.1 Hct 39.1 MCV 87.5 MCH 29.3 MCHC 33.5 RDW 13.3 Plt Count 163 MPV 10.6 Immature Gran % (Auto) 0.6 H Neut % (Auto) 82.8 H Lymph % (Auto) 11.1 L Gu[place]upe % (Auto) 5.0 Eos % (Auto) 0.2 Baso % (Auto) 0.3 Lymph # (Auto) 1.4 Guadalupe # (Auto) 0.6 Eos # (Auto) 0.0 Baso # (Auto) 0.0 Abs Immat Gran (auto) 0.08 H Absolute Neuts (auto) 10.5 H Absolute Nucleated RBC 0.000 Nucleated RBC % (auto) 0.0 Sodium 136 Potassium 4.1 Chloride 105 Carbon Dioxide 23 Anion Gap 12 BUN 17 H Creatinine 0.61 Estim Creat Clear Calc Not Reportable Estimated GFR > 60 POC Glucose 276 H 249 H Fasting Glucose 264 H Calcium 8.8 D Progress Note: A&P Assessment and plan (1) Bladder disorder: Status: Acute Plan DC catheter Time Spent With Patient Time: Total time managing care of this patient today ____ minutes. Progress Note: Quality Stroke Does the patient have a stroke diagnosis?: No
[2025-04-14 11:26] LABS: Glucose, Whole Blood 224 mg/dL (60-115)
--- NOTE | 2025-04-14 12:06 | MHC.CM.PN ---
pt lives alone had no previous services will be ging home with [facility] pt has own transportation home
--- NOTE | 2025-04-14 12:35 | PC.NURSE ---
Dr Wong stated coyne is ready to be removed. Removed at 10:45, pt to void by 16:45 fv
[2025-04-14 16:00] VITALS: BP 108/53; PULSE 79; RESP 16; TEMP 36.3; O2SAT 95
[2025-04-14 16:26] LABS: Glucose, Whole Blood 206 mg/dL (60-115)
[2025-04-14 19:34] VITALS: BP 105/54; PULSE 66; RESP 14; TEMP 36.5; O2SAT 96
[2025-04-14] MEDS: 0.9 % Sodium Chloride Flush 3 ML SYRINGE IVFLUSH (20:11)
[2025-04-14 20:50] LABS: Glucose, Whole Blood 273 mg/dL (60-115)
[2025-04-15 03:20] VITALS: BP 122/60; PULSE 65; RESP 16; TEMP 36.3; O2SAT 94
[2025-04-15 06:08] LABS: MANUAL DIFF FLAG NO
[2025-04-15 06:19] LABS: Hematocrit 38.9 % (37.0-47.0); Hemoglobin 13.1 g/dl (12.0-16.0); Imm Gran Abs Auto 0.04 X10*3/uL (0.00-0.03); Imm Gran Pct Auto 0.4 % (0.0-0.4); Lymphocytes Absolute Auto 3.2 X10*3/uL (1.2-4.9); Mean Corpuscular HGB Conc 33.7 g/dl (31.0-35.0); Mean Corpuscular Hemoglobin 29.5 pg (27.0-33.0); Mean Corpuscular Volume 87.6 fL (80.0-98.0); NRBC Abs Auto 0.000 X10*3/uL (0.0-0.012); NRBC Pct Auto 0.0 /100WBC (0.0-0.2); Platelet Count 150 X10*3/uL (160-400); Red Blood Count 4.44 X10*6/uL (4.20-5.50); White Blood Count 10.3 X10*3/uL (4.8-10.8)
[2025-04-15 06:39] LABS: Anion Gap 12 (12-20); Blood Urea Nitrogen 19 mg/dL (9-16); Calcium 8.9 mg/dL (8.4-10.2); Carbon Dioxide 25 mmol/L (22-29); Chloride 106 mmol/L (96-108); Creatinine Clr Calc Pharmacy 67.1; Estimated Glomerular Filt Rate > 60; Potassium 4.2 mmol/L (3.3-5.1); Sodium 139 mmol/L (135-145)
[2025-04-15 07:36] LABS: Glucose, Whole Blood 188 mg/dL (60-115)
--- NOTE | 2025-04-15 07:42 | P.DS_ITS ---
DS: Providers Provider Date of Service: 04/15/25 Date of discharge: 04/15/25 Primary care physician: Ella Gacres MD Consults: 04/13/25 18:25 Consult to Case Management Routine Comment: s/p Revision RT TKA-home w vna Consult to Hospitalist Routine Comment: Consulting Provider: [facility] Reason For Exam: diabetic Consult to Urology Routine Consulting Provider: [facility] [place] [facility] Reason for consultation: turn on stimulator DS: Diagnosis Discharge Diagnosis (1) Bladder disorder: Status: Acute DS: Summary Hospital Course Hospital Course: The patient underwent a successful right total knee liner exchange, they were transferred to PACU and then to the floor to recover. During their stay, their vitals were stable, afebrile at 97.3. Labs were unremarkable, H/H 13.1/38.9. POD 1 they were started on Aspirin 325mg po bid for DVT ppx, they also received Physical Therapy services twice a day. Prior to discharge, their dressing was clean dry and intact and the plan was to be discharged home with [facility]NA services. Time Attestation Discharge Coordination Time (in mins): 30 Quality: Safe Use of Opioids Does Pt have an Active Cancer Diagnosis on the Problem List?: No Quality: Stroke Does the patient have a stroke diagnosis?: No Physical Exam Vital Signs: Vital Signs: Last Vital Signs Temp 97.3 F 04/15/25 03:20 Pulse 65 04/15/25 03:20 Resp 16 04/15/25 03:20 BP 122/60 04/15/25 03:20 Pulse Ox 94 04/15/25 03:20 O2 Del Method Room Air 04/15/25 03:20 O2 Flow Rate 2 04/13/25 17:42 BMI result Body Mass Index 32.8 Extrem: Other: right knee dressing is c/d/i. Able to dorsi/plantar flex. Calf is supple and nontender. Sensation intact. Pedal pulse intact. DS: Data Data Completed and Pending Labs on day of discharge: Laboratory Results - last 24 hr 04/14/25 04/14/25 04/14/25 07:42 11:19 16:17 WBC RBC Hgb Hct MCV MCH MCHC RDW Plt Count MPV Immature Gran % (Auto) Neut % (Auto) Lymph % (Auto) Garrett % (Auto) Eos % (Auto) Baso % (Auto) Lymph # (Auto) Garrett # (Auto) Eos # (Auto) Baso # (Auto) Abs Immat Gran (auto) Absolute Neuts (auto) Absolute Nucleated RBC Nucleated RBC % (auto) Sodium Potassium Chloride Carbon Dioxide Anion Gap BUN Creatinine Estim Creat Clear Calc Estimated GFR POC Glucose 249 H 224 H 206 H Fasting Glucose Calcium 04/14/25 04/15/25 04/15/25 20:46 05:49 07:32 WBC 10.3 RBC 4.44 Hgb 13.1 Hct 38.9 MCV 87.6 MCH 29.5 MCHC 33.7 RDW 13.5 Plt Count 150 L MPV 10.3 Immature Gran % (Auto) 0.4 Neut % (Auto) 55.1 Lymph % (Auto) 31.5 Garrett % (Auto) 8.7 Eos % (Auto) 3.7 Baso % (Auto) 0.6 Lymph # (Auto) 3.2 Garrett # (Auto) 0.9 Eos # (Auto) 0.4 Baso # (Auto) 0.1 Abs Immat Gran (auto) 0.04 H Absolute Neuts (auto) 5.7 Absolute Nucleated RBC 0.000 Nucleated RBC % (auto) 0.0 Sodium 139 Potassium 4.2 Chloride 106 Carbon Dioxide 25 Anion Gap 12 BUN 19 H Creatinine 0.59 Estim Creat Clear Calc 67.1 Estimated GFR > 60 POC Glucose 273 H 188 H Fasting Glucose 186 H Calcium 8.9 Discharge Plan Discharge Patient Disposition: Home Health Service Referrals: [facility] [Other] - 1 Week Divina Ledesma PA-C [Physician Supervisor Cigar Making Machine, Orthopedics] - 04/29/25 10:15 am Discharge Medications: New acetaminophen 325 mg Tablet 650 mg PO Q6H PRN (Reason: Pain, Mild 1-3,Fever,Headache) 30 Days Qty: 240 0RF aspirin 325 mg Tablet 325 mg PO BID 42 Days Qty: 84 0RF celecoxib 200 mg Capsule 200 mg PO BID 30 Days Qty: 60 0RF oxycodone 5 mg Tablet 2.5 mg PO Q6H PRN (Reason: Pain, Moderate(Pain Scale 4-6)) 7 Days Qty: 14 0RF Rx Instructions: Partial Fill upon patient request. docusate sodium 100 mg Capsule 100 mg PO BID 30 Days Qty: 60 0RF Continued (DME) lancets [FreeStyle Lancets] 28 gauge misc See Rx Instructions .Route Qty: 100 0RF Rx Instructions: As directed montelukast 10 mg tablet 10 mg PO BEDTIME Qty: 90 2RF escitalopram oxalate 20 mg tablet 20 mg PO BEDTIME Qty: 90 1RF (DME) Dexcom G6 Sensor Device See Rx Instructions .Route Qty: 3 0RF Rx Instructions: Check blood sugar 4 times daily as directed (DME) Folding Front Wheeled walker See Rx Instructions .ROUTE .MEDSUPPLY Qty: 1 0RF Rx Instructions: Duration: 99 days pramipexole 0.5 mg tablet 0.5 mg PO BEDTIME Qty: 90 1RF (DME) pen needle, diabetic 31 gauge x 5/16 needle See Rx Instructions .ROUTE .COMPLEX Qty: 100 0RF Dose Instruction: USE DIRECTED FOR INSULIN INJECTIONS THREE TIMES A DAY Rx Instructions: USE DIRECTED FOR INSULIN INJECTIONS THREE TIMES A DAY (DME) FreeStyle Lite Strips Strip See Rx Instructions .Route Qty: 100 3RF Rx Instructions: Once a day (DME) FreeStyle Ju 3 Plus Sensor Device See Rx Instructions .Route Qty: 6 3RF Rx Instructions: Change sensor every 15 days as directed PreserVision AREDS 4,296 mcg-226 mg-90 mg Capsule 2 cap PO BEDTIME lisinopril 2.5 mg tablet 2.5 mg PO DAILY xopuxyof-znlzlpg-uyhg-lutein Tablet 1 tab PO DAILY insulin aspart U-100 [Novolog FlexPen U-100 Insulin] 100 unit/mL (3 mL) insulin pen See Rx Instructions .ROUTE .COMPLEX Rx Instructions: TID AC per sliding scale 60-124 No coverage; 125-150 give 2 units; 151-200 give 4 units; 201-250 give 6 units; 251-300 give 8 units; 301-350 give 10 units; 351-400 give 12 units. Call MD if blood sugar is less than 60 or greater than 400. mirabegron 25 mg tablet extended release 24 hr 25 mg PO DAILY rosuvastatin 20 mg tablet 20 mg PO DAILY PreserVision AREDS 4,296 mcg-226 mg-90 mg capsule 1 cap PO DAILY dorzolamide-timolol 22.3-6.8 mg/mL drops 1 drp ophthalmic (eye) BID (DME) Dexcom G7 Press Puller Misc See Rx Instructions .Route Qty: 1 0RF Rx Instructions: Test blood sugar 4 times per day (DME) Dexcom G7 Sensor Device See Rx Instructions .Route Qty: 9 1RF Rx Instructions: Test blood sugar 4 times per day, change sensor every 10 days Discharge Orders: Discharge Order (Routine); Ordered 04/15/25 Ordered By: Sheri Najera Diet: Advance to usual diet Activity on Discharge: Use cane or walker Stand Alone Forms: Patient Portal Discharge page Activity Restrictions/Additional Instructions: Physical Therapy for ROM 0-120, quad strength, gait training. Use walker for ambulation Limit stair climbing No shower or tub bath No driving for 6 weeks Continue anticoagulant Keep Aquacel dressing clean, dry and intact. Follow up with orthopedics in 2 weeks -Bandage/Incision Site Care: -Ice 20mins at a time -Make sure you use a towel or cloth on your skin as a barrier -DO NOT remove the bandage -Keep Bandage clean, dry and intact -Do not get the bandage wet: -No tub bath, pools or hot tubs -If there are any concerns regarding the bandage please call orthopedics: [phone] -Knee Precautions: -Refrain from putting pillows under the knee -Keep leg straight while resting the knee -Avoid low chairs and deep couches -Use supportive shoes with nonslip soles -Physical Therapy: -Patient is WBAT with the use of a walker -Range of Motion: 0-120 degrees. -Strengthening: Quadriceps and hip muscles -Walking: Gait training and gradually increasing distance with walker -Ankle pumps and incentive spirometry to limit the risk of blood clot -Diet: -Resume regular diet as tolerated. -Drink plenty of fluids and eat a high-fiber foods to avoid constipation -This is a common side effect of pain medication) -Take stool softeners as prescribed -Blood Clot Prevention: -Take the prescribed blood thinner as directed for 6 weeks -Perform ankle pumps and walk frequently with the walker and assistance if needed -Report calf pain, swelling, or shortness of breath immediately Print Language: French
--- NOTE | 2025-04-15 07:44 | P.F2F_ITS ---
Service Date Service Date: 04/15/25 Encounter Date of encounter: 04/15/25 Reasons for Services Signs and symptoms assessed: s/p right total knee liner exchange Pt. is considered homebound due to recent surgery. Unable to drive, poor balance, poor gait mechanics. Reason for physical therapy: home safety and mobility, therapeutic exercises, restore joint function, gait/transfer training and ADL training Homebound: Leaving the home is medically contraindicated at this time without the asist of a device and/or another person due th the listed conditions above and below. Reason homebound: unsteady gait / fall risk, leg weakness, pain with ambulation, pain with transfers, poor balance / fall risk and unable to drive Certification: Based on the above findings, I certify that this patient is confined to the home and needs intermittent care home care, physical therapy and/or speech therapy, or continues to need occupational therapy. The patient is under my care, and I have initiated the establishment of the plan of care. The patient will be followed by a physician who will periodically review the plan of care. Time Spent With Patient Time: Total time managing care of this patient today ____ minutes.
[2025-04-15 07:48] VITALS: BP 122/59; PULSE 63; RESP 18; TEMP 36.4; O2SAT 95
[2025-04-15] MEDS: Dorzolamide/Timolo 2.23%/0.68% 10 ML DRBTL 1 DROP EYE-BOTH (08:01)
--- NOTE | 2025-04-15 09:04 | MHC.CM.PN ---
Patient is discharged today. She will dc to home with [facility] providing Home services. The [facility] has been notified of the discharge today. Patient has arranged for private transportation home.
[2025-04-15 11:32] LABS: Glucose, Whole Blood 215 mg/dL (60-115)
[2025-04-15 11:36] VITALS: BP 122/58; PULSE 62; RESP 18; TEMP 36.3; O2SAT 97
--- NOTE | 2025-04-16 08:59 | P.OP_ITS ---
Operative Note Operative Note Date of Service: 04/13/25 Narrative: Date of Service: 04/13/25 Pre-op diagnosis: Right knee prosthetic instability Post-op diagnosis: same Procedure: Revision right TKA, liner only Implants: [employer] 11/06/CR Surgeon: Sai Todd MD Anesthesia: GLMA, regional and local Was an System Developer Associate Manager used for this Procedure?: Yes System Developer Associate Manager: Divina Ledesma Estimated blood loss (mL): 25 Tourniquet time (min): 30 IV fluids (mL): 600 Pathology: none sent Condition: stable Disposition: PACU Procedure in detail: The patient was brought to the operating room and prepped and draped in standard sterile fashion. A time-out was called to identify proper site proper procedure proper surgeon and IV antibiotics were administered. The kneee was loose in extension both medially and laterally. I began by making a midline incision to the retinaculum and performed a medial parapatellar arthrotomy. The patella was translated laterally and the knee was flexed up about 30 degrees. There was normal appearing synovial fluid with mild expected metallosis. I used a small osteotome to remove the CR poly. It was worn posteriorly on both sides and easily removed. The femur and tibia were well fixed and I used a tamp and mallet to assess but there was no evidence of loosening. I irrigated copiously. I then trialed a 13, 14 and 16 mm insert. The 14 worked well with ~ 3 deg of decreased extension but stable to v/v stress. The 13 was loose and the 16 most too much extension. Therefore the final 14mm insert was inserted. The knee was taken through a full ROM and I was satisfied with the flexion/extension and varus/valgus balance and stability. I then irrigated copiously. The knee was then closed with a running Quill suture, a 3 0 Vicryl and darian on the skin. Patient was then placed in sterile dressing and brought to recovery room in stable condition there were no known complications.
== END 2025-04-15 12:08 | disposition home health service (06) ==
LOC: HO.SSSA 11:35 → HO.SSS 04-14 07:56 → HO.S3 04-14 07:56
PROVIDERS: Physician Assistant; PCP Internal Medicine; Visit Provider Orthopaedic Surgery
PROC: (CPT 27487; principal; 2025-04-13 12:00)
DX: T84.022A Instability of internal right knee prosthesis, initial encounter (principal); Y79.2 Prosthetic and other implants, materials and accessory orthopedic devices associated with adverse incidents; M25.561 Pain in right knee; E11.9 Type 2 diabetes mellitus without complications; I10 Essential (primary) hypertension; E55.9 Vitamin D deficiency, unspecified; R39.15 Urgency of urination; Z96.82 Presence of neurostimulator; G31.84 Mild cognitive impairment of uncertain or unknown etiology; F41.9 Anxiety disorder, unspecified; R26.89 Other abnormalities of gait and mobility; Z96.653 Presence of artificial knee joint, bilateral; Z66 Do not resuscitate; Z79.4 Long term (current) use of insulin; Z79.899 Other long term (current) drug therapy; Z99.89 Dependence on other enabling machines and devices; Z88.1 Allergy status to other antibiotic agents; Z88.8 Allergy status to other drugs, medicaments and biological substances
CPT/HCPCS: 27486; 36415; 73560; 80048; 82947; 85014; 85018; 85025; 86850; 86900; 86901; 87640; 87641; 93005; 97110; 97116; 97162; 97530; C1776; J0131; J0665; J0690; J1100; J2004; J2250; J2405; J2704; J2795; J3010; J7120

== ENCOUNTER → 2025-04-13 09:10 | Outpatient (BNV) | payer MEDICARE, OTHER, SELFPAY | PROVIDERS: Admitting Provider Physician Assistant; PCP Internal Medicine; Visit Provider Orthopaedic Surgery | DX: T84.022A Instability of internal right knee prosthesis, initial encounter (principal) | CPT/HCPCS: 27486; 99024; G0180 ==

== ENCOUNTER → 2025-04-13 13:59 | Outpatient (BNV) | payer MEDICARE, OTHER, SELFPAY | PROVIDERS: PCP Internal Medicine; Visit Provider Internal Medicine Cardiovascular Disease | DX: R94.31 Abnormal electrocardiogram [ECG] [EKG] (principal); F32.9 Major depressive disorder, single episode, unspecified | CPT/HCPCS: 93010 ==

== ENCOUNTER → 2025-04-13 15:41 | Outpatient (BNV) | payer MEDICARE, OTHER, SELFPAY | PROVIDERS: PCP Internal Medicine; Visit Provider Radiology Diagnostic Radiology | DX: Z48.817 Encounter for surgical aftercare following surgery on the skin and subcutaneous tissue (principal) | CPT/HCPCS: 73560 ==

== ENCOUNTER → 2025-04-13 | Outpatient (BNV) | payer MEDICARE, OTHER, SELFPAY | PROVIDERS: PCP Internal Medicine; Visit Provider Urology | DX: N32.9 Bladder disorder, unspecified (principal) | CPT/HCPCS: 99232 ==

== ENCOUNTER → 2025-04-13 | Outpatient (BNV) | payer MEDICARE, OTHER, SELFPAY | PROVIDERS: PCP Internal Medicine; Visit Provider Nurse Practitioner Family | DX: E11.9 Type 2 diabetes mellitus without complications (principal); Z79.4 Long term (current) use of insulin | CPT/HCPCS: 99223 ==

== ENCOUNTER 2025-04-18 20:07 | Outpatient (REF) | payer MEDICARE, OTHER, SELFPAY ==
[2025-04-18 20:34] LABS: Appearance Urine Cloudy; Glucose Urine UA Negative (Negative); PH 6.5 (5.0-9.0); Specific Gravity - Urine 1.020 (1.005-1.025); UMIC TRIGGER UACC YES
[2025-04-18 20:37] LABS: UACC Culture Trigger YES
== END 2025-04-18 20:08 | disposition home or self-care (01) ==
LOC: HO.LNP 20:07
PROVIDERS: PCP Internal Medicine; Visit Provider Internal Medicine
DX: Z47.1 Aftercare following joint replacement surgery (principal)
CPT/HCPCS: 81001; 87086; 87088; 87186

== ENCOUNTER 2025-04-29 10:07 | Outpatient (AMB) | payer MEDICARE, OTHER, SELFPAY ==
--- NOTE | 2025-04-29 10:16 | A.OFFVIS_ITS ---
Intake Visit Reasons: 2WKPO: R TKA Revision w/NE 04/13/25 Intake Note: Katelyn is an 84 year old female who presents today for her first post operative visit status post revision right TKA, liner only DOS: 04/13/[address] Todd. Patient reports she is doing well, states no pain just tenderness and soreness. Allergies environmental allergies Allergy (Intermediate, Verified 04/29/25 10:24) Itchy Eyes amoxicillin Allergy (Mild, Verified 04/29/25 10:24) Rash crab Adverse Reaction (Intermediate, Verified 04/29/25 10:24) DIARRHEA semaglutide (From [facility]) Adverse Reaction (Intermediate, Verified 04/29/25 10:24) severe diarrhea Medication List - Last Reconciled 04/29/25 by Divina Ledesma PA-C acetaminophen 650 mg (2 x 325 mg) PO Q6H PRN 30 days aspirin 325 mg PO BID 42 days blood sugar diagnostic (FreeStyle Lite Strips) Once a day blood-glucose sensor (FreeStyle Ju 3 Plus Sensor device) Change sensor every 15 days as directed celecoxib 200 mg PO BID 30 days Dexcom G6 Sensor (blood-glucose sensor) Check blood sugar 4 times daily as directed NS Dexcom G7 Sales Engagement Manager (blood-glucose,shipper receiver,cont) Test blood sugar 4 times per day NS Dexcom G7 Sensor (blood-glucose sensor) Test blood sugar 4 times per day, change sensor every 10 days NS docusate sodium 100 mg PO BID 30 days dorzolamide-timolol 22.3-6.8 mg/mL 1 drp ophthalmic (eye) BID escitalopram oxalate 20 mg PO BEDTIME [Folding Front Wheeled walker Duration: 99 days] insulin aspart U-100 (Novolog FlexPen U-100 Insulin aspart) TID AC per sliding scale 60-124 No coverage; 125-150 give 2 units; 151-200 give 4 units; 201-250 give 6 units; 251-300 give 8 units; 301-350 give 10 units; 351-400 give 12 units. Call MD if blood sugar is less than 60 or greater than 400. lancets (FreeStyle Lancets) As directed lisinopril 2.5 mg PO DAILY mirabegron ER 25 mg PO DAILY montelukast 10 mg PO BEDTIME cfgrpdqq-hxbxvgj-wrnm-lutein 1 tab PO DAILY pen needle, diabetic USE DIRECTED FOR INSULIN INJECTIONS THREE TIMES A DAY pramipexole 0.5 mg PO BEDTIME rosuvastatin 20 mg PO DAILY sulfamethoxazole-trimethoprim 800-160 mg (Bactrim DS) 1 tab PO BID 10 days vitamins A,C,Y-dwcp-qmqogc 4,296 mcg-226 mg-90 mg (PreserVision AREDS) 2 caps PO BEDTIME HPI HPI 2WKPO: R TKA Revision w/NE 04/13/25: Details: 84-year-old female returns to the office today 2 weeks status post right total knee arthroplasty with liner exchange with Dr. Todd on 04/13/2025. She is progressing well and feels more stable since the surgery. She is working with physical therapy and transition to outpatient therapy. She has some redness in the lower leg but denies calf pain. [facility] Medical History Multifactorial gait disorder Anosmia MCI (mild cognitive impairment) REM sleep behavior disorder Fecal incontinence Urinary incontinence Cervical spinal stenosis Cognitive impairment Osteoarthritis GERD (gastroesophageal reflux disease) Obesity Restless leg syndrome HTN (hypertension) Anxiety, generalized Lipid disorder Diabetes 1.5, managed as type 2 Surgical History S/P placement of nerve stimulator History of esophagogastroduodenoscopy (EGD) H/O colonoscopy History of hysterectomy History of total knee replacement (TKR) Family History Father No problems noted. Mother Dementia Pancreatitis Social History Household Members: None Housing: Apartment Are you a primary career services manager to a significant other at home: No Do you presently have visiting nurse or other home services: No Alcohol intake: never Comment: advised of yazmin shelton Patient Tobacco Use Status: Never used Tobacco e-Cigarette/Vaping Use: Never Used Advance Directives Date on File: 11/23/20 service: No Current occupational status: retired Cognitive needs: No Hearing needs: Yes Vision needs: Yes Review of Systems Const All systems reviewed & are unremarkable except as noted in HPI and below Physical Exam Extrem Other: Right knee incision is clean dry and intact. No erythema or effusion over the knee joint. Range of motion 0-110. Good quad activation. She does have cellulitis over the anterior benítez. Calf is supple and nontender neurovascularly intact. 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 Todd was available to see the patient with me today and the decision was made to place the patient on Bactrim to help with the cellulitis. We did explain if the knee becomes really red hot swollen and painful there would be concern for joint infection however at this time that is not the concern. She will continue with physical therapy and see me back in 1 week for wound check. She also has an appointment for her routine postop appointment with Dr. Todd in 4 weeks. 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
--- OUTSIDE RECORDS SUMMARY | 2025-04-29 11:19 | XMS_ITS | Clinical Summary ---
Author Organization [facility] Address [address] [place] [id number] Phone Care Team Providers Care Medical Driver Name Role Phone Ella Garces MD Primary Care Provider [phone] Social History Tobacco Use Types Packs/Day Years [...] MEDICARE PART A & B SANDI CASTANO [id number] AENA PPO MEDICARE PART A & B Care Teams Medical Driver Relationship Specialty Start Date End Date Ella Garces MD [address] [place] [address] PCP - General Internal Medicine 11/21/23 Additional Source Comments The information contained in this document represents components of the legal health record. It is not the complete legal health record.[facility]
== END 2025-04-29 11:29 | disposition home or self-care (01) ==
LOC: HO.HOS 10:08
PROVIDERS: PCP Internal Medicine; Visit Provider Physician Assistant
DX: T84.068A Wear of articular bearing surface of other internal prosthetic joint, initial encounter (principal); Z96.659 Presence of unspecified artificial knee joint
CPT/HCPCS: 99024

== ENCOUNTER → 2025-04-29 | Outpatient (BNVA) | payer MEDICARE, OTHER, SELFPAY | PROVIDERS: PCP Internal Medicine; Visit Provider Physician Assistant | DX: Z47.1 Aftercare following joint replacement surgery (principal); T84.06 Wear of articular bearing surface of internal prosthetic joint; Z96.651 Presence of right artificial knee joint | CPT/HCPCS: 99212 ==

== ENCOUNTER 2025-05-04 13:28 | Outpatient (AMB) | payer MEDICARE, OTHER, SELFPAY ==
--- NOTE | 2025-05-04 13:39 | MHC.OFFVIS ---
Vital Signs 05/04/25 13:49 Height 5 ft Weight 168 lb BMI 32.8 Intake Visit Reasons: PO: R TKA Revision w/NE 04/13/25 Intake Note: Katelyn is an 84 year old female who presents today for a post operative wound check status post revision right TKA, liner only DOS: 04/13/[address] Todd. At her last visit she was instructed to follow up in 1 week for a wound check. Patient reports swelling and warmth on the medial aspect of her knee. Her swelling improved with elevating and using ice. patient is taking Bactrim to rule out any infection. Allergies environmental allergies Allergy (Intermediate, Verified 05/04/25 15:47) Itchy Eyes amoxicillin Allergy (Mild, Verified 05/04/25 15:47) Rash crab Adverse Reaction (Intermediate, Verified 05/04/25 15:47) DIARRHEA semaglutide (From [employer]) Adverse Reaction (Intermediate, Verified 05/04/25 15:47) severe diarrhea HPI HPI PO: R TKA Revision w/NE 04/13/25: Details: Ms. Octavio Manzanares is an 84-year-old female status post right total knee liner exchange performed on 04/13/[address] Todd. Patient was last seen on 04/29/2025 with Divina Ledesma PA-C and Dr. Todd for evaluation of developing cellulitis on the anterior tibia. At that time the prior note states that there was no erythema or cellulitis surrounding the incision site. She was prescribed Bactrim 800-160 mg p.o. Q b.i.d.. Patient has been taking this as directed. She reports that the first 3 days after beginning the medication she started to notice her symptoms improving. On 12/30/2024 the patient reports that she felt as though her symptoms began to worsen again. [facility] Medical History Multifactorial gait disorder Anosmia MCI (mild cognitive impairment) REM sleep behavior disorder Fecal incontinence Urinary incontinence Cervical spinal stenosis Cognitive impairment Osteoarthritis GERD (gastroesophageal reflux disease) Obesity Restless leg syndrome HTN (hypertension) Anxiety, generalized Lipid disorder Diabetes 1.5, managed as type 2 Surgical History S/P placement of nerve stimulator History of esophagogastroduodenoscopy (EGD) H/O colonoscopy History of hysterectomy History of total knee replacement (TKR) Family History Father No problems noted. Mother Dementia Pancreatitis Social History Household Members: None Housing: Apartment Are you a primary care information associate to a significant other at home: No Do you presently have visiting nurse or other home services: No Alcohol intake: never Comment: advised of yazmin shelton Patient Tobacco Use Status: Never used Tobacco e-Cigarette/Vaping Use: Never Used Advance Directives Date on File: 11/23/20 service: No Current occupational status: retired Cognitive needs: No Hearing needs: Yes Vision needs: Yes Review of Systems Const All systems reviewed & are unremarkable except as noted in HPI and below Physical Exam Vital Signs: BMI result Body Mass Index 32.8 Const General: cooperative, healthy appearing and no acute distress Resp Effort & Inspection: normal respiratory effort and able to speak in complete sentences Extrem Other: Right tibia cellulitis from the foot extending to the knee anteriorly. No surrounding cellulitis around the incision site. Incision site is clean dry and intact. No ecchymosis or drainage from the incision site. Painless range of motion 0-110. Able to perform a straight leg raise. Sensation intact. 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 Octavio Manzanares is an 84-year-old female status post right total knee liner exchange performed on 04/13/[address] Todd. Patient was last seen on 04/29/2025 with Divina Ledesma PA-C and Dr. Todd for evaluation of developing cellulitis on the anterior tibia. At that time the prior note states that there was no erythema or cellulitis surrounding the incision site. She was prescribed Bactrim 800-160 mg p.o. Q b.i.d.. Patient has been taking this as directed. She reports that the first 3 days after beginning the medication she started to notice her symptoms improving. On 12/30/2024 the patient reports that she felt as though her symptoms began to worsen again. While in the office today, I discussed the case with Dr. Todd via telephone communication in a collaborative treatment plan was created. As the patient has tried and failed outpatient p.o. antibiotics. While in the office, the patient felt lightheaded and dizzy. Blood pressure taken was 160/75. Temperature a thermometer red 98.0. Patient's glucometer read 223. She was directed to the emergency department for IV antibiotics and admission. The recommendation is for the Medicine Service to admit the patient for treatment of cellulitis and comorbid conditions with orthopedic consult. A phone call has been placed to the emergency department triage in regards to the plan for this patient. Orthopedics to continue monitoring during admission. 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
[2025-05-04 13:49] VITALS: BMI 32.8
--- OUTSIDE RECORDS SUMMARY | 2025-05-04 15:56 | XMS_ITS | Clinical Summary ---
Author Organization [facility] Address [address] [place] [id number] Phone Care Team Providers Care Director Drug Name Role Phone Ella Garces MD Primary Care Provider [phone] Social History Tobacco Use Types Packs/Day Years [...] Payer (Ef fective 2007-Present) Name:Katelyn Turpin Member ID:[id number] Relation to Subscriber:Self Name:Katelyn Turpin Subscriber ID:[id number] Payer ID:[id number] Group ID:Not on file Type:Medicare Address: [employer] [address] [place] [address] [employer] PPO MEDICARE PART A & B Member Subscriber Plan / Payer (Ef fective 2007-Present) Name:Katelyn Turpin Member ID:[id number] Relation to Subscriber:Self Name:Katelyn Turpin Subscriber ID:[id number] Payer ID:[id number] Group ID:Not on file Type:Medicare Address: [facility] [employer] [address] [place] [address] [employer] PPO MEDICARE PART A & B Member Subscriber Plan / Payer (Ef fective 2007-Present) Name:Katelyn Turpin Member ID:[id number] Relation to Subscriber:Self Name:Katelyn Turpin Subscriber ID:[id number] Payer ID:[id number] Group ID:Not on file Type:Medicare Address: [employer] [address] [place] [address] [employer] PPO MEDICARE PART A & B [place]I [place] [id number] AENA PPO MEDICARE PART A & B Care Teams Director Drug Relationship Specialty Start Date End Date Ella Garces MD [address] [place] [address] PCP - General Internal Medicine 11/21/23 Additional Source Comments The information contained in this document represents components of the legal health record. It is not the complete legal health record.[facility]
== END 2025-05-04 15:36 | disposition home or self-care (01) ==
LOC: HO.HOS 13:28
PROVIDERS: PCP Internal Medicine; Visit Provider Physician Assistant
DX: T84.068A Wear of articular bearing surface of other internal prosthetic joint, initial encounter (principal); Z96.659 Presence of unspecified artificial knee joint; L03.115 Cellulitis of right lower limb
CPT/HCPCS: 99024

== ENCOUNTER 2025-05-04 15:33 | Inpatient (IN) | payer MEDICARE, OTHER, SELFPAY ==
[2025-05-04 15:45] VITALS: BP 144/63; PULSE 73; RESP 18; TEMP 36.8; O2SAT 97; BMI 32.9
--- NOTE | 2025-05-04 15:48 | ED_ITS ---
HPI - General Adult General Chief complaint: General Medical Stated complaint: Cellulitis, recent surgery Time Seen by Provider: 05/04/25 17:43 History of Present Illness ED Provider: steffanie HPI narrative: 84 female sent in by Dr. Todd of Orthopedics she has been on Bactrim for several days now after she had a an plate revision of TKR and had postop cellulitis. Clinically operating surgeon felt a cellulitis is getting worse and wanted admission for IV antibiotics. Related Data Home Medications ?Medication ?Instructions ?Recorded ?Confirmed dorzolamide 22.3 mg-timolol 6.8 1 drp ophthalmic (eye) BID 08/31/24 05/04/25 mg/mL eye drops vitamins A,C,C-xuqf-fpjtfo 4,296 2 cap PO BEDTIME 02/2305/04/25 mcg-226 mg-90 mg capsule (PreserVision AREDS) insulin aspart U-100 100 unit/mL See Rx Instructions . 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) Dexcom G7 Sensor (blood-glucose #9 ea 01/26/25 sensor) Dexcom G6 Sensor (blood-glucose #3 ea 01/27/25 sensor) Folding Front Wheeled walker #1 ea 02/02/25 pramipexole 0.5 mg tablet 0.5 mg PO BEDTIME #90 tabs 0 03/05/25 blood sugar diagnostic (FreeStyle #100 ea 03/26/25 Lite Strips) blood-glucose sensor (FreeStyle #6 ea 04/08/25 Ju 3 Plus Sensor device) aspirin 325 mg tablet 325 mg PO BID 42 days #84 ta bs 04/14/25 celecoxib 200 mg capsule 200 mg PO BID 30 days #60 ca ps 04/14/25 sulfamethoxazole 800 1 tab PO BID suture abscess 10 04/29/25 mg-trimethoprim 160 mg tablet days #20 tabs (Bactrim DS) pen needle, diabetic 31 gauge x #100 ea 05/04/25 5/16 Allergies Allergy/AdvReac Type Severity Reaction Status Date / Time environmental allergies Allergy Intermediate Itchy Eyes Verified 05/04/25 15:47 amoxicillin Allergy Mild Rash Verified 05/04/25 15:47 crab AdvReac Intermediate DIARRHEA Verified 05/04/25 15:47 semaglutide (From [employer]) AdvReac Intermediate severe Verified 05/04/25 15:47 diarrhea PMFSH Past Medical History Medical History Multifactorial gait disorder Anosmia MCI (mild cognitive impairment) REM sleep behavior disorder Fecal incontinence Urinary incontinence Cervical spinal stenosis Cognitive impairment Osteoarthritis GERD (gastroesophageal reflux disease) Obesity Restless leg syndrome HTN (hypertension) Anxiety, generalized Lipid disorder Diabetes 1.5, managed as type 2 Surgical History S/P placement of nerve stimulator History of esophagogastroduodenoscopy (EGD) H/O colonoscopy History of hysterectomy History of total knee replacement (TKR) Family History Family History Father No problems noted. Mother Dementia Pancreatitis Social History Social History Household Members: None Household Members Other:: moving to daughters in june Housing: Apartment Are you a primary family day care provider to a significant other at home: No Do you presently have visiting nurse or other home services: No Alcohol intake: never Comment: advised of yazmin shelton Patient Tobacco Use Status: Never used Tobacco e-Cigarette/Vaping Use: Never Used Advance Directives Date on File: 11/23/20 service: No Current occupational status: retired Cognitive needs: No Hearing needs: Yes Vision needs: Yes Physical Exam ED Exam Exam: EXAM: Gen: Alert, awake, well appearing, well hydrated. Head: Atraumatic Eyes: Anicteric, Normal conjunctiva. ENT: Moist mucosa, no pallor. ? Neck: Supple. Skin: ?No observable rash or bruising on exposed or examined skin Respiratory: Breathing comfortably, No distress.Clear to auscultation bilaterally, symmetric chest expansion, No wheeze, rales, ronchi. Cardiovascular: Regular rate and rhythm. No murmurs or rub. Well perfused periphery, warm extremities. No edema. ? Abdominal: No focal tenderness. Soft, no objective distension. No palpable masses or obvious organomegaly. ?No guarding, no rebound tenderness or other peritoneal findings. : No flank tenderness. Neuro: Alert. Gross movement of all extremities intact. ? Psych: Calm. Cooperative. MSK: No grossly visible deformity. Right lower extremity: Mild erythema mostly the anterior benítez region. Moderate swelling without tense compartments in the lower extremity. Well-perfused foot. Vital signs: See flowsheet Vital Signs: Vital Signs - 24 hr 05/04/25 15:45 05/04/25 17:46 Temperature 98.2 F 98.4 F Pulse Rate 73 71 Respiratory Rate 18 16 Blood Pressure 144/63 H 154/67 H Pulse Oximetry 97 99 Oxygen Delivery Method Room Air Room Air BMI result Body Mass Index 32.9 Course Course Course Narrative: This is an RME: Additional HPI, ROS, PE not included below will be deferred to primary provider. RME assessment and note performed by: Carolina Steven PA-C This is a 66-ymvw-svz-female, with a hx of RTKA with recent liner exchange on 04/[address] Todd, DM2, anal sphincter/fecal incontinence, recurrent falls, esophageal stricture, eosinophilic esophagitis, HTN, hearing impaired who presents to the ER from orthopedic office with concerns of cellulitis. She was started on Bactrim on 04/29 for early cellulitis, had an appointment with orthopedics today, and was told to report to the emergency room as she needs to be evaluated for this. Plan: Labs, further ER eval needed Medications Administered Generic Name Dose Route Start Last Admin Trade Name Freq PRN Reason Stop Dose Admin Aspirin 325 mg 05/04/25 21:00 05/05/25 20:56 Aspirin 325 Mg Tablet PO 325 mg BID JERI Administration Atorvastatin Calcium 80 mg 05/05/25 09:00 05/05/25 09:09 Atorvastatin Calcium 80 Mg Tablet PO 80 mg DAILY JERI Administration Celecoxib 200 mg 05/04/25 21:00 05/05/25 20:58 Celecoxib 200 Mg Capsule PO 200 mg BID JERI Administration Docusate Sodium 100 mg 05/04/25 21:00 05/05/25 20:57 Docusate Sodium 100 Mg Capsule PO 100 mg BID JERI Administration Dorzolamide/Timolol 1 drop 05/04/25 21:00 05/05/25 21:02 Dorzolamide/Timolo 2.23%/0.68% 10 Ml Drbtl EYE-BOTH 1 drop BID JERI Administration Escitalopram Oxalate 20 mg 05/04/25 21:00 05/05/25 20:57 Escitalopram Oxalate 20 Mg Tablet PO 20 mg BEDTIME JERI Administration Lactated Ringer's 1,000 mls @ 100 mls/hr 05/04/25 20:14 05/05/25 23:40 Lr IVCONT 100 mls/hr .Q10H JERI Infusion Vancomycin HCl 1,500 mg/ 500 mls @ 333.333 mls/hr 05/04/25 22:00 05/05/25 23:40 Sodium Chloride IV Infused Q24H JERI Infusion Insulin Human Lispro 0 unit 05/04/25 22:30 05/05/25 20:58 Insulin Lispro 100 Unit/Ml 3 Ml Vial SUBCUT 4 unit QIDACHS JERI Administration Protocol Mirabegron 25 mg 05/05/25 09:00 05/05/25 09:09 Mirabegron 25 Mg Tab.Er.24h PO 25 mg DAILY JERI Administration Montelukast Sodium 10 mg 05/04/25 21:00 05/05/25 20:56 Montelukast Sodium 10 Mg Tablet PO 10 mg BEDTIME JERI Administration Multivitamins/Vitamin C 1 tab 05/04/25 21:00 05/05/25 20:57 Multivitamin Tablet PO 1 tab BEDTIME JERI Administration Pramipexole Dihydrochloride 0.5 mg 05/04/25 21:00 05/05/25 20:57 Pramipexole Di-Hcl 0.25 Mg Tablet PO 0.5 mg BEDTIME JERI Administration Sodium Chloride 3 ml 05/05/25 00:00 05/05/25 22:10 0.9 % Sodium Chloride Flush 3 Ml Syringe IVFLUSH Not Given QSHIFT JERI Discontinued Medications Generic Name Dose Route Start Last Admin Trade Name Freq PRN Reason Stop Dose Admin Influenza Virus Vaccine 0.5 ml 05/05/25 12:08 05/05/25 12:42 Flu Vacc [id number](6mo Up)/Pf 0.5 Ml Syringe IM 05/05/25 12:09 Not Given .ONCE ONE Procedures Procedure Narrative Procedure Narrative: EMERGENCY ULTRASOUND INTERPRETATION-Limited Point of Care Venous (DVT) [This study was ordered, performed, and interpreted by myself. The study reveals: Impression: NO EVIDENCE OF DVT. I RECOMMENDED TO THE PATIENT REPEAT ULTRASOUND IN ONE WEEK IF SYMPTOMS PERSIST.] [Indication: Laterality: RIGHT Common Femoral: -Full Compressibility: YES -Clot Seen: NO Superficial Femoral: -Full Compressibility: YES -Clot Seen: NO Popliteal: -Full Compressibility: YES -Clot Seen: NO Other: Performed by: Yash Miguel MD Images were stored CPT: 76840] Ultrasound-guided IV 20 gauge 1-3/4 inch IV placed in left upper extremity. Adequate blood return, flushes well secured with Tegaderm performed by Tawanna Clark PA-C Medical Decision Making Medical Decision Making MDM Narrative: Medical Decision Makin-year-old female with postop cellulitis worsening despite p.o. Bactrim. Sent by Orthopedics for IV antibiotics. Lab and vitals review not suggestive of sepsis criteria met. Reasonable for blood cultures and antibiotics defer additional workup to Orthopedics. No DVT on limited point of care ultrasound we did not visualize the distal lower leg veins if clinical suspicion persists a delayed repeat comprehensive lower extremity Doppler can be performed by the admitting team Preliminary Favored Differential Diagnosis: Cellulitis, intraoperative infection, DVT among additional considered etiologies Testing Interpreted Independently: Point of care ultrasound reports see separate report Radiology or Lab testing Results Reviewed: ?See below for details Consults: ?Orthopedic PA consulted through [facility] agrees for admission Independent Historians/External Chart Reviews: ?See below for details Social Determinants of Health Impacting MDM/Planning: ?See below for details Lab Data MDM Lab Attestation statement: I reviewed the patient's lab results. 05/04/25 16:18 05/05/25 10:13 Labs: Lab Results 05/04/25 Range/Units 16:18 WBC 9.6 (4.8-10.8) X10*3/uL RBC 4.28 (4.20-5.50) X10*6/uL Hgb 12.7 (12.0-16.0) g/dl Hct 36.5 L (37.0-47.0) % MCV 85.3 (80.0-98.0) fL MCH 29.7 (27.0-33.0) pg MCHC 34.8 (31.0-35.0) g/dl RDW 13.8 (11.0-16.0) % Plt Count 205 D (160-400) X10*3/uL MPV 10.0 (9.4-12.3) fL Immature Gran % (Auto) 0.4 (0.0-0.4) % Neut % (Auto) 54.4 (45-73) % Lymph % (Auto) 27.4 (20-40) % [place] % (Auto) 7.2 (2-11) % Eos % (Auto) 9.7 H (0-4) % Baso % (Auto) 0.9 (0-2) % Lymph # (Auto) 2.6 (1.2-4.9) X10*3/uL [place] # (Auto) 0.7 (0.1-1.2) X10*3/uL Eos # (Auto) 0.9 H (0.0-0.4) X10*3/uL Baso # (Auto) 0.1 (0.0-0.2) X10*3/uL Abs Immat Gran (auto) 0.04 H (0.00-0.03) X10*3/uL Absolute Neuts (auto) 5.2 (2.0-8.3) x10*3/uL Absolute Nucleated RBC 0.000 (0.0-0.012) X10*3/uL Nucleated RBC % (auto) 0.0 (0.0-0.2) /100WBC ESR 7 (0-20) MM/HR Sodium 136 (135-145) mmol/L Potassium 4.1 (3.3-5.1) mmol/L Chloride 106 (96-108) mmol/L Carbon Dioxide 23 (22-29) mmol/L Anion Gap 11 L (12-20) BUN 22 H (9-16) mg/dL Creatinine 0.67 (0.5-1.4) mg/dL Estim Creat Clear Calc 59.2 Estimated GFR > 60 Random Glucose 170 H (60-115) mg/dL Lactic Acid 1.4 (0.5-2.0) mmol/L Calcium 9.1 (8.4-10.2) mg/dL Magnesium 1.9 (1.6-2.6) mg/dL Total Bilirubin 0.3 (0.0-1.0) mg/dL Direct Bilirubin 0.1 (0.0-0.5) mg/dL AST 24 (5-31) U/L ALT 22 (0-31) U/L Alkaline Phosphatase 62 (39-117) U/L C-Reactive Protein 0.24 (< or = 0.50) mg/dL Total Protein 6.5 (6.5-8.0) g/dL Albumin 4.3 (3.5-5.0) g/dL Discharge Plan Discharge Clinical Impression: Cellulitis Patient Disposition: Admitted As Inpatient Interventions: Admission Worksheet (ED) Last Done: 05/05/25 10:38 Discharge Date/Time: 05/05/25 11:47
[2025-05-04 16:34] LABS: MANUAL DIFF FLAG NO
[2025-05-04 16:35] LABS: Hematocrit 36.5 % (37.0-47.0); Hemoglobin 12.7 g/dl (12.0-16.0); Imm Gran Abs Auto 0.04 X10*3/uL (0.00-0.03); Imm Gran Pct Auto 0.4 % (0.0-0.4); Lymphocytes Absolute Auto 2.6 X10*3/uL (1.2-4.9); Mean Corpuscular HGB Conc 34.8 g/dl (31.0-35.0); Mean Corpuscular Hemoglobin 29.7 pg (27.0-33.0); Mean Corpuscular Volume 85.3 fL (80.0-98.0); NRBC Abs Auto 0.000 X10*3/uL (0.0-0.012); NRBC Pct Auto 0.0 /100WBC (0.0-0.2); Platelet Count 205 X10*3/uL (160-400); Red Blood Count 4.28 X10*6/uL (4.20-5.50); White Blood Count 9.6 X10*3/uL (4.8-10.8)
[2025-05-04 16:52] LABS: Alanine Aminotransferase 22 U/L (0-31); Albumin Level 4.3 g/dL (3.5-5.0); Alkaline Phosphatase 62 U/L (39-117); Anion Gap 11 (12-20); Aspartate Amino Transferase 24 U/L (5-31); Blood Urea Nitrogen 22 mg/dL (9-16); Calcium 9.1 mg/dL (8.4-10.2); Carbon Dioxide 23 mmol/L (22-29); Chloride 106 mmol/L (96-108); Creatinine Clr Calc Pharmacy 59.2; Estimated Glomerular Filt Rate > 60; Magnesium 1.9 mg/dL (1.6-2.6); Potassium 4.1 mmol/L (3.3-5.1); Sodium 136 mmol/L (135-145); Total Protein 6.5 g/dL (6.5-8.0)
[2025-05-04 17:46] VITALS: BP 154/67; PULSE 71; RESP 16; TEMP 36.9; O2SAT 99
--- NOTE | 2025-05-04 19:49 | PHA.MEDREC ---
Addendum entered by Anjelica Dugan tiffanie 05/04/25 20:14: REVIEWED BY PHARMACIST Original Note: Pharmacy Consult ? Medication Reconciliation Pharmacy has completed the medication reconciliation. Patient was able to confirm all of her medications. Patient states she is no longer taking Acetaminophen 650 mg, Docusate sod 100 mg, Lisinopril 2.5 mg, and Multivitamin with iron. Patient confirmed Novolog is per sliding scale TID, however patient has been taking 5 times a day because her sugar has been high. Patient states she had all her morning medications today.
[2025-05-04 20:28] VITALS: BP 136/47; PULSE 70; RESP 19; TEMP 36.6; O2SAT 96
[2025-05-04] MEDS: Lactated Ringers 1,000 ML 100 ML IVCONT (20:42)
--- NOTE | 2025-05-04 21:32 | PC.NURSE ---
pt aambulated with steady gait to the bathroom and back.. call [facility] reach. TALI Harris notified as pt takes insulin with meals and hasnt received any today.
[2025-05-04 21:56] LABS: Glucose, Whole Blood 234 mg/dL (60-115)
--- NOTE | 2025-05-04 22:26 | PC.NURSE ---
PA attempt to enter insulin order to be given now 2x but time changed to start 0730 by pharmacy. pharmacy notified. states will attempt to fix but if it does not work would like unscheduled dose administered. PA aware.
[2025-05-05] VITALS (7 sets, daily range): BP systolic 124–150; BP diastolic 43–67; PULSE 65–73; RESP 15–18; TEMP 36.3–36.9; O2SAT 93–98
[2025-05-05 07:21] LABS: Glucose, Whole Blood 139 mg/dL (60-115)
[2025-05-05] MEDS: Lactated Ringers 1,000 ML 100 ML IVCONT ×2 (07:44→15:58)
[2025-05-05] MEDS: 0.9 % Sodium Chloride Flush 3 ML SYRINGE IVFLUSH (07:46)
--- NOTE | 2025-05-05 08:16 | PM.PNORT ---
Subjective Subjective Date of Service: 05/05/25 Interval history: Patient resting comfortably in bed No overnight events Denies pain reports slight improvement in redness and discomfort Physical Exam Vital Signs: Vital Signs: Last Vital Signs Temp 98.4 F 05/05/25 05:45 Pulse 68 05/05/25 05:45 Resp 16 05/05/25 05:45 BP 129/56 L 05/05/25 05:45 Pulse Ox 97 05/05/25 05:45 O2 Del Method Room Air 05/05/25 05:45 BMI result Body Mass Index 32.9 Const: General: cooperative, healthy appearing and no acute distress Resp: Effort & Inspection: normal respiratory effort and able to speak in complete sentences Extrem: Other: RLE: Cellulitis along the anterior aspect of the tibia continues. Slightly less erythematous than yesterday in office. Incision site is c/d/i. No drainage. Able to flex and extend without pain. Sensation intact. Able to dorsi/plantar flex. NVI. 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 She is s/p right total knee liner exchange 04/13/[address] Todd. on 04/29/25 she presented to the office initially for cellulitis and was Rx'ed Bactrim. She reports that for the first three days her symptoms started to improve and then symptoms returned and she felt that they were worsening. The case was discussed with Dr. Todd and the patient was directed to the Emergency department for IV abx with admission to the orthopedic service. Continue IV abx Continue to monitor for improving symptoms Pain management as needed WBAT RLE with walker Time Spent With Patient Time: Total time managing care of this patient today ____ minutes. Quality Stroke Does the patient have a stroke diagnosis?: No VTE Prior VTE?: No VTE Risk Level:: Medical - moderate - high VTE Device Contraindication: N/A - Device Ordered VTE Drug Contraindication: N/A - Med Ordered
--- NOTE | 2025-05-05 08:22 | PM.CNOR ---
History of Present Illness HPI Consult date: 05/04/25 Chief complaint: Rt TKA cellulitis Narrative: Ms. Octavio Manzanares is an 84-year-old female status post right total knee liner exchange performed on 04/13/[address] Todd. Patient was last seen on 04/29/2025 with Divina Ledesma PA-C and Dr. Todd in the outpatient orthopedic office for evaluation of developing cellulitis on the anterior tibia. At that time the prior note states that there was no erythema or cellulitis surrounding the incision site. She was prescribed Bactrim 800-160 mg p.o. Q b.i.d.. Patient has been taking this as directed. She reports that the first 3 days after beginning the medication she started to notice her symptoms improving. On 12/30/2024 the patient reports that she felt as though her symptoms began to worsen again. She was seen in the outpatient orthopedic office again on 05/04/25 were she was reevaluation and instructed to present to the emergency department for admission and IV abx as she has failed outpatient PO abx. Once presenting to the ED the patient was started on IV vanco and admitted to the orthopedic service. Review of Systems Review of Systems: Yes all other systems are reviewed and are negative PMFSH Past Medical History Medical History Multifactorial gait disorder Anosmia MCI (mild cognitive impairment) REM sleep behavior disorder Fecal incontinence Urinary incontinence Cervical spinal stenosis Cognitive impairment Osteoarthritis GERD (gastroesophageal reflux disease) Obesity Restless leg syndrome HTN (hypertension) Anxiety, generalized 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 Mother Dementia Pancreatitis Surgical History Surgical History S/P placement of nerve stimulator History of esophagogastroduodenoscopy (EGD) H/O colonoscopy History of hysterectomy History of total knee replacement (TKR) Social History Social History Household Members: None Housing: Apartment Are you a primary critical care rn to a significant other at home: No Do you presently have visiting nurse or other home services: No Alcohol intake: never Comment: advised of yazmin shelton Patient Tobacco Use Status: Never used Tobacco Smoked in Last 30 Days: No e-Cigarette/Vaping Use: Never Used Use of substances other than those prescribed or required for medical reasons: No Advance Directives: Yes Advance Directives on File: Yes Advance Directives Date on File: 11/23/20 service: No Current occupational status: retired Cognitive needs: No Hearing needs: Yes Vision needs: Yes Meds Allergies Allergy/AdvReac Type Severity Reaction Status Date / Time environmental allergies Allergy Intermediate Itchy Eyes Verified 05/04/25 15:47 amoxicillin Allergy Mild Rash Verified 05/04/25 15:47 crab AdvReac Intermediate DIARRHEA Verified 05/04/25 15:47 [facility]lutide ([facility]) AdvReac Intermediate severe Verified 05/04/25 15:47 diarrhea Active Medications: Current Medications Acetaminophen (Acetaminophen 325 Mg Tablet) 650 mg PO Q6H PRN PRN Reason: Pain, Mild 1-3,fever,headache Aspirin (Aspirin 325 Mg Tablet) 325 mg PO BID [facility] Last Admin: 05/04/25 20:36 Dose: 325 mg Atorvastatin Calcium (Atorvastatin Calcium 80 Mg Tablet) 80 mg PO DAILY [facility] Celecoxib (Celecoxib 200 Mg Capsule) 200 mg PO BID [facility] Last Admin: 05/04/25 20:36 Dose: 200 mg Dextrose (Dextrose 50 % 25 Gm/50 Ml Syringe) 25 gm IVPUSH Q15M PRN; Protocol PRN Reason: per Hypoglycemia Standing Ord. Docusate Sodium (Docusate Sodium 100 Mg Capsule) 100 mg PO BID [facility] Last Admin: 05/04/25 20:37 Dose: 100 mg Dorzolamide/Timolol (Dorzolamide/Timolo 2.23%/0.68% 10 Ml Drbtl) 1 drop EYE-BOTH BID [facility] Last Admin: 05/04/25 21:32 Dose: Not Given Escitalopram Oxalate (Escitalopram Oxalate 20 Mg Tablet) 20 mg PO BEDTIME [facility] Last Admin: 05/04/25 20:37 Dose: 20 mg Glucose (Glucose Gel 15 Gm Gel..Gram.) 15 gm PO Q15M PRN; Protocol PRN Reason: per Hypoglycemia Standing Ord. Lactated Ringer's (Lr) 1,000 mls @ 100 mls/hr IVCONT .Q10H [facility] Last Admin: 05/05/25 07:44 Dose: 100 mls/hr Vancomycin HCl 1,500 mg/ (Sodium Chloride) 500 mls @ 333.333 mls/hr IV Q24H [facility] Last Infusion: 05/05/25 00:09 Dose: Infused Insulin Human Lispro (Insulin Lispro 100 Unit/Ml 3 Ml Vial) 0 unit SUBCUT QIDACHS [facility]; Protocol Last Admin: 05/05/25 07:44 Dose: Not Given Mirabegron (Mirabegron 25 Mg Tab.Er.24h) 25 mg PO DAILY [facility] Montelukast Sodium (Montelukast Sodium 10 Mg Tablet) 10 mg PO BEDTIME [facility] Last Admin: 05/04/25 20:36 Dose: 10 mg Multivitamins/Vitamin C (Multivitamin Tablet) 1 tab PO BEDTIME [facility] Last Admin: 05/04/25 20:37 Dose: 1 tab Ondansetron HCl (Ondansetron Hcl 4 Mg/2 Ml Vial) 4 mg IVPUSH Q8H PRN PRN Reason: Nausea and Vomiting Oxycodone HCl (Oxycodone Hcl Immed Release 5 Mg Tablet) 5 mg PO Q4H PRN PRN Reason: Pain, Moderate(Pain Scale 4-6) Pharmacy Consult (Consult Rx Vancomycin Dosing) 1 each MISCELLANE DAILY PRN PRN Reason: Consult order Pramipexole Dihydrochloride (Pramipexole Di-Hcl 0.25 Mg Tablet) 0.5 mg PO BEDTIME [facility] Last Admin: 05/04/25 20:37 Dose: 0.5 mg Sodium Chloride (0.9 % Sodium Chloride Flush 3 Ml Syringe) [facility] Last Admin: 05/05/25 07:46 Dose: 3 ml Home Medications ?Medication ?Instructions ?Recorded ?Confirmed ?Last Taken ?Type dorzolamide 22.3 mg-timolol 6.8 1 drp ophthalmic (eye) BID 08/31/24 05/04/25 05/04/25 History mg/mL eye drops vitamins A,C,S-qoog-gooasg 4,296 2 cap PO BEDTIME 03/04/25 05/04/25 05/03/25 History mcg-226 mg-90 mg capsule (PreserVision AREDS) insulin aspart U-100 100 unit/mL See Rx Instructions .Route .COMPLEX 04/13/25 05/04/2505/04/25 History (3 mL) subcutaneous pen (Novolog FlexPen U-100 Insulin aspart) mirabegron 25 mg tablet,extended 25 mg PO DAILY 04/13/25 05/04/25 05/04/25 History release 24 hr rosuvastatin 20 mg tablet 20 mg PO DAILY 04/13/25 05/04/25 05/04/25 History Physical Exam Vital Signs: Vital Signs: Last Vital Signs Temp 98.4 F 05/05/25 05:45 Pulse 68 05/05/25 05:45 Resp 16 05/05/25 05:45 BP 129/56 L 05/05/25 05:45 Pulse Ox 97 05/05/25 05:45 O2 Del Method Room Air 05/05/25 05:45 BMI result Body Mass Index 32.9 Const: General: cooperative, healthy appearing and no acute distress Resp: Effort & Inspection: normal respiratory effort and able to speak in complete sentences Extrem: Other: RLE: Cellulitis along the anterior aspect of the tibia continues. Incision site is c/d/i. No drainage. Able to flex and extend without pain. Sensation intact. Able to dorsi/plantar flex. NVI. Psych: Appearance: grossly normal Mental Status: mental status grossly normal Attitude: cooperative Results Labs 05/04/25 16:18 05/04/25 16:18 Labs: Abnormal lab results 05/04/25 05/04/25 05/05/25 Range/Units 16:18 21:49 07:18 Hct 36.5 L (37.0-47.0) % Eos % (Auto) 9.7 H (0-4) % Eos # (Auto) 0.9 H (0.0-0.4) X10*3/uL Abs Immat Gran (auto) 0.04 H (0.00-0.03) X10*3/uL Anion Gap 11 L (12-20) BUN 22 H (9-16) mg/dL POC Glucose 234 H 139 H (60-115) mg/dL Random Glucose 170 H (60-115) mg/dL H & H 05/04/25 Range/Units 16:18 Hgb 12.7 (12.0-16.0) g/dl Hct 36.5 L (37.0-47.0) % All other labs normal. Assessment and Plan (1) Polyethylene liner wear following total knee arthroplasty requiring isolated polyethylene liner exchange: Status: Acute (2) Cellulitis of right lower extremity: Status: Acute Procedures Date of Service Date of Service: 05/05/25
[2025-05-05] MEDS: Dorzolamide/Timolo 2.23%/0.68% 10 ML DRBTL 1 DROP EYE-BOTH ×2 (09:09→21:02)
[2025-05-05 11:43] LABS: Creatinine Clr Calc Pharmacy 56.6; Estimated Glomerular Filt Rate > 60
[2025-05-05 12:20] LABS: Glucose, Whole Blood 168 mg/dL (60-115)
--- NOTE | 2025-05-05 13:57 | MHC.CM.PN ---
pt lives alone will be moving i with her dgter in nov she will need a lyft home dc plan home no services
[2025-05-05 16:05] LABS: Glucose, Whole Blood 138 mg/dL (60-115)
--- NOTE | 2025-05-05 18:25 | P.CONHOSP_ITS ---
History of Present Illness Data of Consult Service Date: 05/05/25 Primary Care Provider: Ella Garces MD [facility] Reason for consult: Medical management Pt is an 84-year-old female with a PMH significant for insulin-dependent type 2 diabetes, HTN, HLD, REM sleep disorder, glaucoma, osteoarthritis, restless leg syndrome, GERD, and hx of polyp bladder incontinence s/p Medtr[employer] device implant who was admitted to the hospital under orthopedic services for right lower extremity cellulitis at incision site that failed outpatient therapy. Pt underwent right total knee linear exchange on 04/13/[address] Todd. Pt has subsequently developed cellulitis on 04/29 and was prescribed Bactrim 800-160 mg p.o. b.i.d. Symptoms initially improved for a few days then began to worsen and pt was admitted to the hospital for IV vancomycin due to failing outpatient therapy. Hospitalist consult for medical management. Is seen and evaluated resting comfortably in chair eating her dinner. Pt reports improvement to right lower extremity redness and swelling, though not back to baseline. Has some tingling in right foot. No significant pain. Denies fever or chills. No nausea, vomiting, abdominal pain. Review of Systems 2 Review of Systems: Negative except for that which is stated in the HPI. [facility] Medical History Multifactorial gait disorder Anosmia MCI (mild cognitive impairment) REM sleep behavior disorder Fecal incontinence Urinary incontinence Cervical spinal stenosis Cognitive impairment Osteoarthritis GERD (gastroesophageal reflux disease) Obesity Restless leg syndrome HTN (hypertension) Anxiety, generalized Lipid disorder Diabetes 1.5, managed as type 2 Family History Father No problems noted. Mother Dementia Pancreatitis Surgical History S/P placement of nerve stimulator History of esophagogastroduodenoscopy (EGD) H/O colonoscopy History of hysterectomy History of total knee replacement (TKR) Social History Household Members: None Household Members Other:: moving to daughters in june Housing: Apartment Are you a primary patient care director to a significant other at home: No Do you presently have visiting nurse or other home services: No Alcohol intake: never Comment: advised of yazmin shelton Patient Tobacco Use Status: Never used Tobacco e-Cigarette/Vaping Use: Never Used Advance Directives Date on File: 11/23/20 service: No Current occupational status: retired Cognitive needs: No Hearing needs: Yes Vision needs: Yes Meds Allergies Allergy/AdvReac Type Severity Reaction Status Date / Time environmental allergies Allergy Intermediate Itchy Eyes Verified 05/04/25 15:47 amoxicillin Allergy Mild Rash Verified 05/04/25 15:47 crab AdvReac Intermediate DIARRHEA Verified 05/04/25 15:47 semaglutide (From [employer]) AdvReac Intermediate severe Verified 05/04/25 15:47 diarrhea Active Medications: Current Medications Acetaminophen (Acetaminophen 325 Mg Tablet) 650 mg PO Q6H PRN PRN Reason: Pain, Mild 1-3,fever,headache Aspirin (Aspirin 325 Mg Tablet) 325 mg PO BID [facility] Last Admin: 05/05/25 09:09 Dose: 325 mg Atorvastatin Calcium (Atorvastatin Calcium 80 Mg Tablet) 80 mg PO DAILY [facility] Last Admin: 05/05/25 09:09 Dose: 80 mg Celecoxib (Celecoxib 200 Mg Capsule) 200 mg PO BID [facility] Last Admin: 05/05/25 09:09 Dose: 200 mg Dextrose (Dextrose 50 % 25 Gm/50 Ml Syringe) 25 gm IVPUSH Q15M PRN; Protocol PRN Reason: per Hypoglycemia Standing Ord. Docusate Sodium (Docusate Sodium 100 Mg Capsule) 100 mg PO BID [facility] Last Admin: 05/05/25 09:09 Dose: 100 mg Dorzolamide/Timolol (Dorzolamide/Timolo 2.23%/0.68% 10 Ml Drbtl) 1 drop EYE- BOTH BID [facility] Last Admin: 05/05/25 09:09 Dose: 1 drop Escitalopram Oxalate (Escitalopram Oxalate 20 Mg Tablet) 20 mg PO BEDTIME [facility] Last Admin: 05/04/25 20:37 Dose: 20 mg Glucose (Glucose Gel 15 Gm Gel..Gram.) 15 gm PO Q15M PRN; Protocol PRN Reason: per Hypoglycemia Standing Ord. Lactated Ringer's (Lr) 1,000 mls @ 100 mls/hr IVCONT .Q10H [facility] Last Admin: 05/05/25 15:58 Dose: 100 mls/hr Vancomycin HCl 1,500 mg/ (Sodium Chloride) 500 mls @ 333.333 mls/hr IV Q24H [facility] Last Infusion: 05/05/25 00:09 Dose: Infused Influenza Virus Vaccine (Flu Vacc [id number](6mo Up)/Pf 0.5 Ml Syringe) 0.5 ml IM .ONCE ONE Stop: 05/06/25 09:01 Insulin Human Lispro (Insulin Lispro 100 Unit/Ml 3 Ml Vial) 0 unit SUBCUT QIDACHS [facility]; Protocol Last Admin: 05/05/25 16:39 Dose: Not Given Mirabegron (Mirabegron 25 Mg Tab.Er.24h) 25 mg PO DAILY [facility] Last Admin: 05/05/25 09:09 Dose: 25 mg Montelukast Sodium (Montelukast Sodium 10 Mg Tablet) 10 mg PO BEDTIME [facility] Last Admin: 05/04/25 20:36 Dose: 10 mg Multivitamins/Vitamin C (Multivitamin Tablet) 1 tab PO BEDTIME [facility] Last Admin: 05/04/25 20:37 Dose: 1 tab Ondansetron HCl (Ondansetron Hcl 4 Mg/2 Ml Vial) 4 mg IVPUSH Q8H PRN PRN Reason: Nausea and Vomiting Oxycodone HCl (Oxycodone Hcl Immed Release 5 Mg Tablet) 5 mg PO Q4H PRN PRN Reason: Pain, Moderate(Pain Scale 4-6) Pharmacy Consult (Consult Rx Vancomycin Dosing) 1 each MISCELLANE DAILY PRN PRN Reason: Consult order Pramipexole Dihydrochloride (Pramipexole Di-Hcl 0.25 Mg Tablet) 0.5 mg PO BEDTIME [facility] Last Admin: 05/04/25 20:37 Dose: 0.5 mg Sodium Chloride (0.9 % Sodium Chloride Flush 3 Ml Syringe) [facility] Last Admin: 05/05/25 15:58 Dose: Not Given Home Medications ?Medication ?Instructions ?Recorded ?Confirmed ?Last Taken ?Type dorzolamide 22.3 mg-timolol 6.8 1 drp ophthalmic (eye) BID 08/31/24 05/04/25 05/04/25 History mg/mL eye drops vitamins A,C,W-gmtm-ywpnig 4,296 2 cap PO BEDTIME 07/1 05/04/25 05/03/25 History mcg-226 mg-90 mg capsule (PreserVision AREDS) insulin aspart U-100 100 unit/mL See Rx Instructions . Route .COMPLEX 04/13/25 05/04/25 05/04/25 History (3 mL) subcutaneous pen (Novolog FlexPen U-100 Insulin aspart) mirabegron 25 mg tablet,extended 25 mg PO DAILY 05/04/25 05/04/25 History release 24 hr rosuvastatin 20 mg tablet 20 mg PO DAILY 04/13/2505/2005/04/25 History Physical Exam 2 Vital Signs and Narrative: Vital Signs: Last Vital Signs Temp 97.6 F 05/05/25 15:01 Pulse 66 05/05/25 15:01 Resp 16 05/05/25 15:01 BP 132/63 05/05/25 15:01 Pulse Ox 95 05/05/25 15:01 O2 Del Method Room Air 05/05/25 15:01 BMI result Body Mass Index 32.9 General: AOx3, no acute distress Resp: CTA bilaterally CVS: S1, S2, RRR GI: +BS, NT, no distention Skin: Warm, dry Neuro: Cranial nerves II-XII grossly intact bilaterally. Motor grossly intact bilaterally Extremities: Right lower extremity with swelling and mild erythema as pictured below. No induration, fluctuance, or purulent drainage noted. Psych: Appropriate affect Results Labs 05/04/25 16:18 05/05/25 10:13 Labs: Laboratory Results - last 24 hr 05/04/25 05/05/25 05/05/25 21:49 07:18 09:55 Hold Purple Top SEE NOTE Estim Creat Clear Calc Estimated GFR POC Glucose 234 H 139 H 05/05/25 05/05/25 05/05/25 10:13 12:07 16:01 Hold Purple Top Estim Creat Clear Calc 56.6 Estimated GFR > 60 POC Glucose 168 H 138 H Assessment and Plan (1) Cellulitis of right lower extremity from knee to ankle: Status: Acute Plan Pt is an 84-year-old female with a PMH significant for insulin-dependent type 2 diabetes, HTN, HLD, REM sleep disorder, glaucoma, osteoarthritis, restless leg syndrome, GERD, and hx of polyp bladder incontinence s/p Medtr[employer] device implant who was admitted to the hospital under orthopedic services for right lower extremity cellulitis at incision site that failed outpatient therapy. Right lower extremity cellultis At incision site from TKA on 04/13 Failed outpatient therapy on Bactrim Currently on vancomycin, day 2 Plan as per orthopedics Insulin-dependent type 2 diabetes POCs reasonably well-controlled <200 Continue sliding scale insulin, diabetic diet HTN Contiue lisinopril HLD Continue aspirin and statin Glaucoma Continue home eye drops Restless leg syndrome/REM sleep disorder Continue pramipexole Mood disorder Continue mirtazapine Thank you for allowing us to participate in the care of this patient. Pt appears clinically stable. Will sign off at this time. Please re-consult if any acute complaints or issues arise.
[2025-05-05 20:45] LABS: Glucose, Whole Blood 223 mg/dL (60-115)
[2025-05-06 03:21] VITALS: BP 142/63; PULSE 65; RESP 18; TEMP 36.4; O2SAT 97
[2025-05-06] MEDS: Lactated Ringers 1,000 ML 100 ML IVCONT (03:39)
[2025-05-06 06:29] LABS: MANUAL DIFF FLAG NO
[2025-05-06 06:34] LABS: Hematocrit 36.9 % (37.0-47.0); Hemoglobin 12.2 g/dl (12.0-16.0); Imm Gran Abs Auto 0.05 X10*3/uL (0.00-0.03); Imm Gran Pct Auto 0.7 % (0.0-0.4); Lymphocytes Absolute Auto 2.4 X10*3/uL (1.2-4.9); Mean Corpuscular HGB Conc 33.1 g/dl (31.0-35.0); Mean Corpuscular Hemoglobin 29.0 pg (27.0-33.0); Mean Corpuscular Volume 87.6 fL (80.0-98.0); NRBC Abs Auto 0.000 X10*3/uL (0.0-0.012); NRBC Pct Auto 0.0 /100WBC (0.0-0.2); Platelet Count 187 X10*3/uL (160-400); Red Blood Count 4.21 X10*6/uL (4.20-5.50); White Blood Count 7.4 X10*3/uL (4.8-10.8)
[2025-05-06 06:54] LABS: Creatinine Clr Calc Pharmacy 64.9; Estimated Glomerular Filt Rate > 60
[2025-05-06 06:55] LABS: Anion Gap 11 (12-20); Blood Urea Nitrogen 16 mg/dL (9-16); Calcium 8.9 mg/dL (8.4-10.2); Carbon Dioxide 23 mmol/L (22-29); Chloride 111 mmol/L (96-108); Creatinine Clr Calc Pharmacy 68.3; Estimated Glomerular Filt Rate > 60; Potassium 4.1 mmol/L (3.3-5.1); Sodium 141 mmol/L (135-145)
[2025-05-06 07:36] VITALS: BP 129/59; PULSE 72; RESP 18; TEMP 36.4; O2SAT 96
[2025-05-06 07:41] LABS: Glucose, Whole Blood 143 mg/dL (60-115)
[2025-05-06] MEDS: Dorzolamide/Timolo 2.23%/0.68% 10 ML DRBTL 1 DROP EYE-BOTH ×2 (08:50→20:48)
[2025-05-06 11:24] LABS: Glucose, Whole Blood 271 mg/dL (60-115)
[2025-05-06 15:18] VITALS: BP 120/60; PULSE 64; RESP 18; TEMP 36.3; O2SAT 97
[2025-05-06 15:45] LABS: Glucose, Whole Blood 137 mg/dL (60-115)
--- NOTE | 2025-05-06 15:50 | PM.DS ---
DS: Providers Provider Date of Service: 05/07/25 Date of admission: 05/04/25 18:08 Date of discharge: 05/07/25 Primary care physician: Ella Garces MD Consults: 05/04/25 20:12 Consult to Hospitalist Routine Comment: Consulting Provider: [facility] Reason For Exam: diabetic, hTN/hyperglycemia in office today 05/04/25 20:14 Consult to Case Management Routine Comment: DS: Diagnosis Discharge Diagnosis (1) Cellulitis of right lower extremity from knee to ankle: Status: Inactive DS: Summary Hospital Course Hospital Course: Ms. Octavio Manzanares is an 84-year-old female status post right total knee liner exchange performed on 04/13/[address] Todd. Patient was last seen on 04/29/2025 with Divina Ledesma PA-C and Dr. Todd in the outpatient orthopedic office for evaluation of developing cellulitis on the anterior tibia. At that time the prior note states that there was no erythema or cellulitis surrounding the incision site. She was prescribed Bactrim 800-160 mg p.o. Q b.i.d.. Patient has been taking this as directed. She reports that the first 3 days after beginning the medication she started to notice her symptoms improving. On 12/30/2024 the patient reports that she felt as though her symptoms began to worsen again. She was seen in the outpatient orthopedic office again on 05/04/25 were she was reevaluation and instructed to present to the emergency department for admission and IV abx as she has failed outpatient PO abx. Once presenting to the ED the patient was started on IV vanco and admitted to the orthopedic service. Patient has received multiple doses of IV vancomycin and symptoms are improving. She will continue weight-bearing as tolerated with the use of a walker and continue physical therapy for right lower extremity liner exchange total knee arthroplasty. She will follow up in 1 week with orthopedics to continue monitoring for resolution of cellulitis. Time Attestation Discharge Coordination Time (in mins): 30 Quality: Safe Use of Opioids Does Pt have an Active Cancer Diagnosis on the Problem List?: No Quality: Stroke Does the patient have a stroke diagnosis?: No Physical Exam Vital Signs: Vital Signs: Last Vital Signs Temp 97.4 F 05/06/25 15:18 Pulse 64 05/06/25 15:18 Resp 18 05/06/25 15:18 BP 120/60 05/06/25 15:18 Pulse Ox 97 05/06/25 15:18 O2 Del Method Room Air 05/06/25 15:18 BMI result Body Mass Index 32.9 Const: General: cooperative, healthy appearing and no acute distress Resp: Effort & Inspection: normal respiratory effort and able to speak in complete sentences Extrem: Other: RLE: Cellulitis along the anterior aspect of the tibia appears to have improved significanly. Incision site is c/d/i. No drainage. Able to flex and extend the knee without pain. Sensation intact. Able to dorsi/plantar flex. NVI. Psych: Appearance: grossly normal Mental Status: mental status grossly normal Attitude: cooperative DS: Data Data Completed and Pending Labs on day of discharge: Laboratory Results - last 24 hr 05/05/25 05/05/25 05/06/25 16:01 20:41 05:14 WBC 7.4 RBC 4.21 Hgb 12.2 Hct 36.9 L MCV 87.6 MCH 29.0 MCHC 33.1 RDW 14.2 Plt Count 187 MPV 10.1 Immature Gran % (Auto) 0.7 H Neut % (Auto) 45.1 Lymph % (Auto) 31.9 [place] % (Auto) 9.0 Eos % (Auto) 12.1 H Baso % (Auto) 1.2 Lymph # (Auto) 2.4 [place] # (Auto) 0.7 Eos # (Auto) 0.9 H Baso # (Auto) 0.1 Abs Immat Gran (auto) 0.05 H Absolute Neuts (auto) 3.3 Absolute Nucleated RBC 0.000 Nucleated RBC % (auto) 0.0 Sodium Potassium Chloride Carbon Dioxide Anion Gap BUN Creatinine Estim Creat Clear Calc Estimated GFR POC Glucose 138 H 223 H Fasting Glucose Calcium 05/06/25 05/06/25 05/06/25 05:15 05:15 05:15 WBC RBC Hgb Hct MCV MCH MCHC RDW Plt Count MPV Immature Gran % (Auto) Neut % (Auto) Lymph % (Auto) [place] % (Auto) Eos % (Auto) Baso % (Auto) Lymph # (Auto) [place] # (Auto) Eos # (Auto) Baso # (Auto) Abs Immat Gran (auto) Absolute Neuts (auto) Absolute Nucleated RBC Nucleated RBC % (auto) Sodium 141 Potassium 4.1 Chloride 111 H Carbon Dioxide 23 Anion Gap 11 L BUN 16 Creatinine 0.61 0.58 Estim Creat Clear Calc 64.9 68.3 Estimated GFR > 60 POC Glucose Fasting Glucose Calcium 05/06/25 05/06/25 05/06/25 05:15 07:37 11:17 WBC RBC Hgb Hct MCV MCH MCHC RDW Plt Count MPV Immature Gran % (Auto) Neut % (Auto) Lymph % (Auto) [place] % (Auto) Eos % (Auto) Baso % (Auto) Lymph # (Auto) [place] # (Auto) Eos # (Auto) Baso # (Auto) Abs Immat Gran (auto) Absolute Neuts (auto) Absolute Nucleated RBC Nucleated RBC % (auto) Sodium Potassium Chloride Carbon Dioxide Anion Gap BUN Creatinine Estim Creat Clear Calc Estimated GFR > 60 POC Glucose 143 H 271 H Fasting Glucose 151 H Calcium 8.9 05/06/25 15:41 WBC RBC Hgb Hct MCV MCH MCHC RDW Plt Count MPV Immature Gran % (Auto) Neut % (Auto) Lymph % (Auto) [place] % (Auto) Eos % (Auto) Baso % (Auto) Lymph # (Auto) [place] # (Auto) Eos # (Auto) Baso # (Auto) Abs Immat Gran (auto) Absolute Neuts (auto) Absolute Nucleated RBC Nucleated RBC % (auto) Sodium Potassium Chloride Carbon Dioxide Anion Gap BUN Creatinine Estim Creat Clear Calc Estimated GFR POC Glucose 137 H Fasting Glucose Calcium Preliminary micro results at discharge 05/04/25 16:18 Blood Culture - Preliminary Blood - Venous No growth after 24 hours. 05/04/25 16:18 Blood Culture - Preliminary Blood - Venous No growth after 24 hours. Discharge Plan Discharge Anticipated Discharge Date/Time: 05/07/25 09:20 Patient Disposition: Home, Self-Care Discharge Diagnosis: cellulitis right lower extremity Referrals: Divina Ledesma PA-C [Physician [employer], Orthopedics] - 05/12/25 10:00 am Referral Note: 05/12/25 at 10:00 Discharge Medications: New oxycodone 5 mg Tablet 5 mg PO Q4H PRN (Reason: Pain, Moderate(Pain Scale 4-6)) 7 Days Qty: 42 0RF Rx Instructions: Partial Fill upon patient request. doxycycline hyclate 100 mg tablet 100 mg PO BID 10 Days Qty: 20 0RF Continued (DME) lancets [FreeStyle Lancets] 28 gauge misc See Rx Instructions .Route Qty: 100 0RF Rx Instructions: As directed montelukast 10 mg tablet 10 mg PO BEDTIME Qty: 90 2RF escitalopram oxalate 20 mg tablet 20 mg PO BEDTIME Qty: 90 1RF (DME) Dexcom G6 Sensor Device See Rx Instructions .Route Qty: 3 0RF Rx Instructions: Check blood sugar 4 times daily as directed (DME) Folding Front Wheeled walker See Rx Instructions .ROUTE .MEDSUPPLY Qty: 1 0RF Rx Instructions: Duration: 99 days pramipexole 0.5 mg tablet 0.5 mg PO BEDTIME Qty: 90 1RF (DME) FreeStyle Lite Strips Strip See Rx Instructions .Route Qty: 100 3RF Rx Instructions: Once a day (DME) FreeStyle Ju 3 Plus Sensor Device See Rx Instructions .Route Qty: 6 3RF Rx Instructions: Change sensor every 15 days as directed (DME) pen needle, diabetic 31 gauge x 5/16 needle See Rx Instructions .ROUTE .COMPLEX Qty: 100 0RF Dose Instruction: USE DIRECTED FOR INSULIN INJECTIONS THREE TIMES A DAY Rx Instructions: USE DIRECTED FOR INSULIN INJECTIONS THREE TIMES A DAY PreserVision AREDS 4,296 mcg-226 mg-90 mg Capsule 2 cap PO BEDTIME insulin aspart U-100 [Novolog FlexPen U-100 Insulin] 100 unit/mL (3 mL) insulin pen See Rx Instructions .ROUTE .COMPLEX Rx Instructions: TID AC per sliding scale 60-124 No coverage; 125-150 give 2 units; 151-200 give 4 units; 201-250 give 6 units; 251-300 give 8 units; 301-350 give 10 units; 351-400 give 12 units. Call MD if blood sugar is less than 60 or greater than 400. mirabegron 25 mg tablet extended release 24 hr 25 mg PO DAILY rosuvastatin 20 mg tablet 20 mg PO DAILY aspirin 325 mg Tablet 325 mg PO BID 42 Days Qty: 84 0RF celecoxib 200 mg Capsule 200 mg PO BID 30 Days Qty: 60 0RF dorzolamide-timolol 22.3-6.8 mg/mL drops 1 drp ophthalmic (eye) BID Rx Instructions: both eyes (DME) Dexcom G7 Academic Affairs Assistant Misc See Rx Instructions .Route Qty: 1 0RF Rx Instructions: Test blood sugar 4 times per day (DME) Dexcom G7 Sensor Device See Rx Instructions .Route Qty: 9 1RF Rx Instructions: Test blood sugar 4 times per day, change sensor every 10 days Discontinued sulfamethoxazole-trimethoprim [Bactrim DS] 800-160 mg tablet 1 tab PO BID 10 Days Qty: 20 0RF Discharge Orders: Discharge Order (Routine); Ordered 05/07/25 Ordered By: Sheri Najera Diet: Advance to usual diet Activity on Discharge: Use cane or walker Stand Alone Forms: Patient Portal Discharge page Print Language: [place] Care Plan Goals: resolve cellulitis right lower extremity Health Concerns: Cellulitis right lower extremity Plan of Treatment: Continue Doxycycline x 10 days Continue WBAT with walker on the right lower extremity Continue physical therapy for liner exchange right total knee arthroplasty f/u with orthopedics in 1 week Assessment: stable for discharge
[2025-05-06] MEDS: 0.9 % Sodium Chloride Flush 3 ML SYRINGE IVFLUSH ×2 (16:04→21:33)
--- NOTE | 2025-05-06 18:46 | PM.PNORT ---
Subjective Subjective Date of Service: 05/06/25 Interval history: Patient resting comfortably in bed No overnight events Denies pain reports significamt improvement in redness and discomfort Physical Exam Vital Signs: Vital Signs: Last Vital Signs Temp 97.4 F 05/06/25 15:18 Pulse 64 05/06/25 15:18 Resp 18 05/06/25 15:18 BP 120/60 05/06/25 15:18 Pulse Ox 97 05/06/25 15:18 O2 Del Method Room Air 05/06/25 15:18 BMI result Body Mass Index 32.9 Const: General: cooperative, healthy appearing and no acute distress Resp: Effort & Inspection: normal respiratory effort and able to speak in complete sentences Extrem: Other: RLE: Cellulitis along the anterior aspect of the tibia appears to have improved significanly. Incision site is c/d/i. No drainage. Able to flex and extend without pain. Sensation intact. Able to dorsi/plantar flex. NVI. 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 She is s/p right total knee liner exchange 04/13/[address] Todd. on 04/29/25 she presented to the office initially for cellulitis and was Rx'ed Bactrim. She reports that for the first three days her symptoms started to improve and then symptoms returned and she felt that they were worsening. The case was discussed with Dr. Todd and the patient was directed to the Emergency department for IV abx with admission to the orthopedic service. Continue IV abx Continue to monitor for improving symptoms Pain management as needed WBAT RLE with walker Time Spent With Patient Time: Total time managing care of this patient today ____ minutes. Quality Stroke Does the patient have a stroke diagnosis?: No VTE Prior VTE?: No VTE Risk Level:: Medical - moderate - high VTE Device Contraindication: N/A - Device Ordered VTE Drug Contraindication: N/A - Med Ordered
[2025-05-06 18:54] VITALS: BP 133/62; PULSE 66; RESP 18; TEMP 36.7; O2SAT 97
--- NOTE | 2025-05-06 20:56 | HE.PHANOTE ---
RE: VANCO Trough returned @ 8.1. Increasing dose to 1000 mg Q12H to ensure efficacy. Renal function is okay. Predicted AUC is 491 and trough of 14.9. Next trough to be drawn 05/08 @0800. Will continue to monitor.
[2025-05-06 20:57] LABS: Glucose, Whole Blood 242 mg/dL (60-115)
[2025-05-07 03:36] VITALS: BP 137/63; PULSE 68; RESP 18; TEMP 36.1; O2SAT 96
[2025-05-07 05:44] LABS: MANUAL DIFF FLAG NO
[2025-05-07 05:49] LABS: Hematocrit 36.2 % (37.0-47.0); Hemoglobin 12.3 g/dl (12.0-16.0); Imm Gran Abs Auto 0.04 X10*3/uL (0.00-0.03); Imm Gran Pct Auto 0.5 % (0.0-0.4); Lymphocytes Absolute Auto 2.5 X10*3/uL (1.2-4.9); Mean Corpuscular HGB Conc 34.0 g/dl (31.0-35.0); Mean Corpuscular Hemoglobin 29.2 pg (27.0-33.0); Mean Corpuscular Volume 86.0 fL (80.0-98.0); NRBC Abs Auto 0.000 X10*3/uL (0.0-0.012); NRBC Pct Auto 0.0 /100WBC (0.0-0.2); Platelet Count 184 X10*3/uL (160-400); Red Blood Count 4.21 X10*6/uL (4.20-5.50); White Blood Count 7.6 X10*3/uL (4.8-10.8)
[2025-05-07 06:09] LABS: Anion Gap 11 (12-20); Blood Urea Nitrogen 20 mg/dL (9-16); Calcium 9.0 mg/dL (8.4-10.2); Carbon Dioxide 23 mmol/L (22-29); Chloride 109 mmol/L (96-108); Creatinine Clr Calc Pharmacy 70.7; Estimated Glomerular Filt Rate > 60; Potassium 4.2 mmol/L (3.3-5.1); Sodium 139 mmol/L (135-145)
[2025-05-07 07:07] LABS: Glucose, Whole Blood 161 mg/dL (60-115)
[2025-05-07 07:38] VITALS: BP 123/57; PULSE 66; RESP 18; TEMP 36.3; O2SAT 94
[2025-05-07] MEDS: 0.9 % Sodium Chloride Flush 3 ML SYRINGE IVFLUSH (08:24)
[2025-05-07] MEDS: Dorzolamide/Timolo 2.23%/0.68% 10 ML DRBTL 1 DROP EYE-BOTH (08:25)
[2025-05-07 08:27] LABS: Creatinine Clr Calc Pharmacy 69.5; Estimated Glomerular Filt Rate > 60
--- NOTE | 2025-05-07 09:57 | MHC.CM.PN ---
PT TO DC HOME TODAY WITH NO SERVICES
[2025-05-07] MEDS: Flu Vacc TS2025-26(6mo up)/PF 0.5 ML SYRINGE IM (10:26)
[2025-05-07 10:56] LABS: Glucose, Whole Blood 237 mg/dL (60-115)
[2025-05-07 12:26] VITALS: BP 117/53; PULSE 68; RESP 16; TEMP 36.8; O2SAT 95
== END 2025-05-07 12:28 | disposition home or self-care (01) | DRG 863 ==
LOC: HO.ED 18:10 → HO.EDOVER 18:57 → HO.S3 05-05 10:21
PROVIDERS: Physician Assistant Medical; Admitting Provider Physician Assistant; Emergency Provider Emergency Medicine; PCP Internal Medicine; Visit Provider Physician Assistant
DX: T81.41XA Infection following a procedure, superficial incisional surgical site, initial encounter (principal); L03.115 Cellulitis of right lower limb; E11.9 Type 2 diabetes mellitus without complications; I10 Essential (primary) hypertension; E78.5 Hyperlipidemia, unspecified; Z79.4 Long term (current) use of insulin; Z79.82 Long term (current) use of aspirin; Z79.899 Other long term (current) drug therapy
CPT/HCPCS: 36415; 80048; 80076; 80202; 82565; 82947; 83605; 83735; 85025; 85652; 86140; 87040; 90656; 97110; 97161; 99212; 99285; J3374; J7120

== ENCOUNTER → 2025-05-04 18:08 | Outpatient (BNV) | payer MEDICARE, OTHER, SELFPAY | PROVIDERS: Admitting Provider Physician Assistant; Emergency Provider Emergency Medicine; PCP Internal Medicine; Visit Provider Physician Assistant | DX: L03.115 Cellulitis of right lower limb (principal) | CPT/HCPCS: 99024 ==

== ENCOUNTER → 2025-05-04 18:08 | Outpatient (BNV) | payer MEDICARE, OTHER, SELFPAY | PROVIDERS: Admitting Provider Physician Assistant; Emergency Provider Emergency Medicine; PCP Internal Medicine; Visit Provider Student in an Organized Health Care Education/Training Program | DX: L03.115 Cellulitis of right lower limb (principal) | CPT/HCPCS: 99223 ==

== ENCOUNTER 2025-05-12 09:09 | Outpatient (AMB) | payer MEDICARE, OTHER, SELFPAY ==
--- NOTE | 2025-05-12 09:54 | A.OFFVIS_ITS ---
Intake Visit Reasons: PO- Rt TKA 04/13/2025 NE cellulitis Intake Note: Katelyn is an 84 year old female who presents today for a post operative visit status post revision right TKA, liner only DOS: 04/13/[address] Todd. Allergies environmental allergies Allergy (Intermediate, Verified 05/12/25 10:06) Itchy Eyes amoxicillin Allergy (Mild, Verified 05/12/25 10:06) Rash crab Adverse Reaction (Intermediate, Verified 05/12/25 10:06) DIARRHEA semaglutide (From [facility]) Adverse Reaction (Intermediate, Verified 05/12/25 10:06) severe diarrhea Medication List - Last Reconciled 05/12/25 by Divina Ledesma PA-C aspirin 325 mg PO BID 42 days blood sugar diagnostic (FreeStyle Lite Strips) Once a day blood-glucose sensor (FreeStyle Ju 3 Plus Sensor device) Change sensor every 15 days as directed celecoxib 200 mg PO BID 30 days Dexcom G6 Sensor (blood-glucose sensor) Check blood sugar 4 times daily as di rected NS Dexcom G7 Principal Embedded Software Engineer (blood-glucose,evidence technician,cont) Test blood sugar 4 times per day NS Dexcom G7 Sensor (blood-glucose sensor) Test blood sugar 4 times per day, change sensor every 10 days NS dorzolamide-timolol 22.3-6.8 mg/mL 1 drp ophthalmic (eye) BID doxycycline hyclate 100 mg PO BID 10 days escitalopram oxalate 20 mg PO BEDTIME [Folding Front Wheeled walker Duration: 99 days] insulin aspart U-100 (Novolog FlexPen U-100 Insulin aspart) TID AC per sliding scale 60-124 No coverage; 125-150 give 2 units; 151-200 give 4 units; 201-250 g jenaro 6 units; 251-300 give 8 units; 301-350 give 10 units; 351-400 give 12 units. Call MD if blood sugar is less than 60 or greater than 400. lancets (FreeStyle Lancets) As directed mirabegron ER 25 mg PO DAILY montelukast 10 mg PO BEDTIME oxycodone 5 mg PO Q4H PRN 7 days pen needle, diabetic USE DIRECTED FOR INSULIN INJECTIONS THREE TIMES A DAY pramipexole 0.5 mg PO BEDTIME rosuvastatin 20 mg PO DAILY vitamins A,C,M-ccru-kcyzzn 4,296 mcg-226 mg-90 mg (PreserVision AREDS) 2 caps PO BEDTIME HPI HPI PO- Rt TKA 04/13/2025 NE cellulitis: Details: 84-year-old female returns to the office today for a follow-up right total knee liner exchange 04/13/2025. She developed cellulitis and was admitted to the [facility] for IV antibiotics. She was discharged on doxycycline. The patient states her last dose of doxycycline will be on 05/16/2025. She feels as though the redness is improving very slowly but it is not worsening. She does admit she has not been as mobile and has not been elevating the leg. [facility] Medical History Multifactorial gait disorder Anosmia MCI (mild cognitive impairment) REM sleep behavior disorder Fecal incontinence Urinary incontinence Cervical spinal stenosis Cognitive impairment Osteoarthritis GERD (gastroesophageal reflux disease) Obesity Restless leg syndrome HTN (hypertension) Anxiety, generalized Lipid disorder Diabetes 1.5, managed as type 2 Surgical History (Reviewed 04/29/25 @ 10:33 by Angella Queen [facility]) S/P placement of nerve stimulator History of esophagogastroduodenoscopy (EGD) H/O colonoscopy History of hysterectomy History of total knee replacement (TKR) Family History Father No problems noted. Mother Dementia Pancreatitis Social History Household Members: None Household Members Other:: moving to daughters in june Housing: Apartment Are you a primary childcare provider to a significant other at home: No Do you presently have visiting nurse or other home services: No Alcohol intake: never Comment: advised of yazmin shelton Patient Tobacco Use Status: Never used Tobacco e-Cigarette/Vaping Use: Never Used Advance Directives Date on File: 11/23/20 service: No Current occupational status: retired Cognitive needs: No Hearing needs: Yes Vision needs: Yes Review of Systems Const All systems reviewed & are unremarkable except as noted in HPI and below Physical Exam Const General: cooperative, healthy appearing and no acute distress Resp Effort & Inspection: normal respiratory effort and able to speak in complete sentences Extrem Other: Right tibia cellulitis from the foot extending to the knee anteriorly. No surrounding cellulitis around the incision site. Incision site is well healed. Painless range of motion 0-110. Able to perform a straight leg raise. Sensation intact. 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 I encouraged her to work on elevation and ambulation to get the blood flow moving. She will see me back next for skin check, sooner if needed. 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
--- OUTSIDE RECORDS SUMMARY | 2025-05-12 10:45 | XMS_ITS | Clinical Summary ---
Author Organization [facility] Address [address] [place] [id number] Phone Care Team Providers Care Quill Machine Operator Name Role Phone Ella Garces MD Primary Care Provider [phone] Social History Tobacco Use Types Packs/Day Years [...] MEDICARE PART A & B SANDI [place]ST[place]O [id number] AENA PPO MEDICARE PART A & B Care Teams Quill Machine Operator Relationship Specialty Start Date End Date Ella Garces MD [address] [place] [address] PCP - General Internal Medicine 11/21/23 Additional Source Comments The information contained in this document represents components of the legal health record. It is not the complete legal health record.[facility]
== END 2025-05-12 10:57 | disposition home or self-care (01) ==
LOC: HO.HOS 09:10
PROVIDERS: PCP Internal Medicine; Visit Provider Physician Assistant
DX: T84.068A Wear of articular bearing surface of other internal prosthetic joint, initial encounter (principal); Z96.659 Presence of unspecified artificial knee joint; L03.115 Cellulitis of right lower limb
CPT/HCPCS: 99024

== ENCOUNTER → 2025-05-12 09:09 | Outpatient (BNVA) | payer MEDICARE, OTHER, SELFPAY | PROVIDERS: PCP Internal Medicine; Visit Provider Physician Assistant | DX: T84.06 Wear of articular bearing surface of internal prosthetic joint (principal); L03.115 Cellulitis of right lower limb; Z96.651 Presence of right artificial knee joint; E13.9 Other specified diabetes mellitus without complications | CPT/HCPCS: 99212 ==

== ENCOUNTER 2025-05-14 13:41 | Outpatient (AMB) | payer MEDICARE, OTHER, SELFPAY ==
--- NOTE | 2025-05-14 13:41 | A.OFFPC_ITS ---
Vital Signs 05/14/25 13:43 Height 5 ft Weight 172 lb BMI 33.6 BP 132/70 Blood Pressure Location Lt brachial Position Sitting Pulse 68 Pulse Source Pulse Oximeter Pulse Oximetry (%) 99 Oxygen Delivery Method Room Air Intake Visit Reasons: TCM Allergies environmental allergies Allergy (Intermediate, Verified 05/14/25 13:44) Itchy Eyes amoxicillin Allergy (Mild, Verified 05/14/25 13:44) Rash crab Adverse Reaction (Intermediate, Verified 05/14/25 13:44) DIARRHEA semaglutide (From [facility]) Adverse Reaction (Intermediate, Verified 05/14/25 13:44) severe diarrhea Medication List - Last Reconciled 05/14/25 by Ella Garces MD aspirin 325 mg PO BID 42 days blood sugar diagnostic (FreeStyle Lite Strips) Once a day blood-glucose sensor (FreeStyle Ju 3 Plus Sensor device) Change sensor every 15 days as directed celecoxib 200 mg PO BID 30 days Dexcom G6 Sensor (blood-glucose sensor) Check blood sugar 4 times daily as directed NS Dexcom G7 Ruling Machine Operator (blood-glucose,plant maintenance manager,cont) Test blood sugar 4 times per day NS Dexcom G7 Sensor (blood-glucose sensor) Test blood sugar 4 times per day, change sensor every 10 days NS dorzolamide-timolol 22.3-6.8 mg/mL 1 drp ophthalmic (eye) BID doxycycline hyclate 100 mg PO BID 10 days escitalopram oxalate 20 mg PO BEDTIME [Folding Front Wheeled walker Duration: 99 days] insulin aspart U-100 (Novolog FlexPen U-100 Insulin aspart) TID AC per sliding scale 60-124 No coverage; 125-150 give 2 units; 151-200 give 4 units; 201-250 give 6 units; 251-300 give 8 units; 301-350 give 10 units; 351-400 give 12 units. Call MD if blood sugar is less than 60 or greater than 400. lancets (FreeStyle Lancets) As directed mirabegron ER 25 mg PO DAILY montelukast 10 mg PO BEDTIME oxycodone 5 mg PO Q4H PRN 7 days pen needle, diabetic USE DIRECTED FOR INSULIN INJECTIONS THREE TIMES A DAY pramipexole 0.5 mg PO BEDTIME rosuvastatin 20 mg PO DAILY vitamins A,C,S-enoq-sjnsqv 4,296 mcg-226 mg-90 mg (PreserVision AREDS) 2 caps PO BEDTIME Tobacco use date assessed: 03/02/25 Dental Screening Dental Screen Date: 02/05/25 HPI TCM HPI Details Patient is 84-year-old female came in today for hospital discharge follow-up Patient was admitted on 05/04/2025 and was discharged on 05/07/2025 Patient is insulin dependent diabetic with a history of sleep disorder, glaucoma, osteoarthritis, restless leg syndrome, GERD, history of bladder incontinence status post Medtronic device implant she was admitted to hospital under orthopedic service for right lower extremity cellulitis at incision site that failed outpatient therapy. Patient underwent right total knee linear exchange on 04/13/[address] Todd. Patient has subsequently developed cellulitis on 04/29 and was prescribed Bactrim, symptoms started to worsen in spite of taking antibiotic so she was admitted to hospital for IV vancomycin. Patient responded well and then eventually was discharged home Her other medications are lisinopril Statin Aspirin Pramipexole Mirtazapine Post-surgical knee infection: - Status post-knee surgery with current course of doxycycline. - Persistent redness and swelling at the surgical site.. - Physical therapy ongoing; advised maylin ng it easy for few days until her wound completely heals. Hyperglycemia: - Previously elevated blood glucose chace khanna in hospital. - Current average blood glucose has impr moe to 138 with dietary interventions. - Current treatments include dietary adj ustment; exploration of medication options such as Rybelsus. - Engaged with community outreach and [facility] support for management. - requesting referral to endocrinology Social History: - Resides in an apartment alone; receive s various support services - Engages in physical therapy - Monitors dietary intake with assistanc e from a dietitian Patient Instructions - Continue current course of doxycycline as prescribed. - Monitor surgical site for changes in r edness or swelling. - Balance physical therapy activities wi th adequate rest to help manage swelling. - Maintain blood glucose monitoring and adhere to dietary adjustments. - Follow up with braille duplicating machine operator as sarah medina for further blood glucose management. - Keep a diet diary and consult regularl y with your dietitian. Review of Systems - General: No fever no chills - Neurological: No headaches no dizziness - Ear nose throat: No sore throat no hearing difficulty no ear pain - Cardiovascular: No syncope, no chest pain, no palpitations - Gastrointestinal: No nausea vomiting or diarrhea Physical Exam General: No acute distress HEENT: No acute findings Neck: Supple Respiratory system: Able to talk in full sentences, no audible wheeze Cardiovascular: S1-S2 regular in rate and rhythm Gastrointestinal: No pain Extremities: Knee is swollen, incision looks better, scar looks fine EMBROIDERY SPECIALIST: Alert awake oriented x3 motor intact Skin: Normal turgor Patient was informed and verbally consented to the use of an ambient scribe for clinic note documentation during this visit. TCM TCM Information Date of Discharge 05/07/25 Discharged From [facility] Interactive Contact Date (Reference documentation from this date) 05/10/25 HPI Comments History of Present Illness Details Date of admission/discharge: 05/04/2025 to 05/07/2025 Facility: [facility] Discharge 2/current location: Home Diagnosis/procedure: None New/DC medications: Doxycycline Changed medication/dozing: None Pending labs/tests: None Call to patient: Date/time TCM visit TCM discharge loca tion/reason [facility]/R TKR TCM discharge date 05/07/25 TCM Interactive Co ntact Date 05/10/25 TCM medications re conciled Yes TCM discharge foll ow-up appointment scheduled No Patient received d ischarge instructi ons Yes All patient questi ons answered Yes Teach back Yes TCM details Pt doing well, med s reconciled, disc harge documents no woody, message left for tcm apts, no b leeding or fevers, good cms. How are you feeling? Much better Any pain or discomfort? Still has pain around right knee Do you have any questions about your condition or discharge instructions? No Were you able to get her medications filled? Yes Do you have any questions about your medications? No Were you able to schedule your follow-up appointments? Yes If home health was ordered, have they contacted you? Yes Any outpatient services, if so, are you scheduled? Yes Are there any additional resources like transportation you might need during your recovery? No Educational needs/resources: None needed What support system do you have? 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 Mother Dementia Pancreatitis Social History Household Members: None Household Members Other:: moving to daughters in june Housing: Apartment Are you a primary managed care manager to a significant other at home: No Do you presently have visiting nurse or other home services: No Alcohol intake: never Comment: advised of yazmin shelton Patient Tobacco Use Status: Never used Tobacco e-Cigarette/Vaping Use: Never Used Advance Directives Date on File: 11/23/20 service: No Current occupational status: retired Cognitive needs: No Hearing needs: Yes Vision needs: Yes Questionnaire PHQ-9 Over the last 2 weeks, how often have you been bothered by any of the following problems? 1. Little interest or pleasure in doing things: several days 2. Feeling down, depressed, or hopeless: not at all 3. Trouble falling or staying asleep, or sleeping too much: several days 4. Feeling tired or having little energy: several days 5. Poor appetite or overeating: several days 6. Feeling bad about yourself - or that you are a failure or have let yourself or your family down: not at all 7. Trouble concentrating on things, such as reading the newspaper or watching television: not at all 8. Moving or speaking so slowly that other people could have noticed. Or the opposite - being so fidgety or restless that you have been moving around a lot more than usual: not at all 9. Thoughts that you would be better off or of hurting yourself in some way: not at all Total score: 4 Depression Screening Interpretation: Negative Depression Screening Done: Yes 52675 - PHQ-9 Billing: Yes Source: Developed by Drs. Luis Pan, Crystal Magallon, Geoffrey Anguiano and colleagues, with an educational rosas from [employer]. Thrive Questionnaire Date Thrive assessed: 10/06/24 I am a: Patient What is your living situation today?: I have a steady place to live Within the past 12 months, did the food you bought not last and you didn't have the money to get more?: Never true Within the past 12 months, did you worry whether your food would run out before you got money to buy more?: Never true Do you have trouble paying for medicines?: No Do you have trouble getting transportation to medical appointments?: No Do you have trouble paying your heating and electricity bill?: No Do you have trouble taking care of your child, family member or friend?: No Do you have trouble with day-to-day activities such as bathing, preparing meals, shopping, managing finances, etc.?: No Are you currently unemployed and looking for a job?: No Are you interested in more education?: No Please select the resources that you would like help with: None Currently or been in a relationship where the following occur: No concerns reported THRIVE Score: 0 AUDIT C Alcohol Use Questionnaire (AUDIT-C) 1. How often do you have a drink containing alcohol?: Monthly or less 2. How many drinks containing alcohol do you have on a typical day when you are drinking?: 1 or 2 3. How often do you have six or more drinks on one occasion?: Never Total Score: 1 LG-7 AMB Questionnaire LG-7 Date LG - 7 assessed: 03/02/25 Feeling nervous, anxious, or on edge: 0 = Not at all Not being able to stop or control worryin = Not at all Worrying too much about different things: 0 = Not at all Trouble relaxin = Not at all Being so restless that it is hard to sit still: 0 = Not at all Becoming easily annoyed or irritable: 0 = Not at all Feeling afraid as if something awful might happen: 0 = Not at all Total LG-7 score (0-4 normal; 5-9 mild; 10-14 moderate; 15-21 severe): 0 Source: Developed by Crystal AcostaW. Naun, Geoffrey Anguiano and colleagues, with an educational rosas from [employer]. LG-7 Assessment Billing LG-7 Assessment Tool: LG-7 Assessment 31806 Physical exam (Primary Care) Vital Signs: Last Vital Signs Pulse 68 05/14/25 13:43 BP 132/70 05/14/25 13:43 Pulse Ox 99 05/14/25 13:43 Oxygen Delivery Method Room Air 05/14/25 13:43 BMI result Body Mass Index 33.6 Tobacco/Smoking Status: Tobacco use Status Tobacco use date assessed 03/02/25 05/14/25 13:43 Patient Tobacco Use Status Never used Tobacco 05/14/25 13:43 e-Cigarette/Vaping Use Never Used 05/14/25 13:43 PHQ-9: PHQ-9 Score PHQ-9: Total score 4 05/14/25 13:53 Depression Screening Interpretation: Negative Thrive Assessment: Date of Thrive Assessment Date Thrive assessed 10/06/24 05/14/25 13:43 Currently or been in a relationship where the following occur: No concerns reported Coding Level of Care Code TCM Mod MDM <= 7 Days Diagnoses Uncontrolled type 2 diabetes mellitus with hyperglycemia E11.65 Diabetes mellitus type: type 2 Hospital discharge follow-up Z09 Infection of superficial incisional surgical site after procedure, subsequent encounter T81.41XD Encounter type: subsequent encounter Postoperative infection type: superficial incisional surgical site Diabetes 1.5, managed as type 2 E13.9 History of total bilateral knee replacement Z96.653 Laterality: bilateral Additional Codes PHQ-9 - 40112 - PHQ-9 Billing: Yes ([id number]) LG-7 Assessment Billing - LG-7 Assessment Tool: LG-7 Assessment [id number] ([id number]) Assessment & Plan Assessment & Plan (1) Uncontrolled diabetes mellitus with hyperglycemia: Code(s): E11.65 - Type 2 diabetes mellitus with hyperglycemia Category: Medical Qualifiers: Diabetes mellitus type: type 2 Qualified Code(s): E11.65 - Type 2 diabetes mellitus with hyperglycemia (2) Hospital discharge follow-up: Code(s): Z09 - Encounter for follow-up examination after completed treatment for conditions other than malignant neoplasm Category: Medical (3) Post op infection: Code(s): T81.40XA - Infection following a procedure, unspecified, initial encounter Category: Medical Qualifiers: Encounter type: subsequent encounter Postoperative infection type: superficial incisional surgical site Qualified Code(s): T81.41XD - Infection following a procedure, superficial incisional surgical site, subsequent encounter (4) Diabetes 1.5, managed as type 2: Comment: dx ~ 2011-taking insulin only-has Dexcom CGM-avg glucose 188 Code(s): E13.9 - Other specified diabetes mellitus without complications Category: Medical (5) History of total knee replacement (TKR): Comment: bilateral Code(s): Z96.659 - Presence of unspecified artificial knee joint Category: Surgical Qualifiers: Laterality: bilateral Qualified Code(s): Z96.653 - Presence of artificial knee joint, bilateral Plan Patient is 84-year-old female came in today for hospital discharge follow-up Patient was admitted on 05/04/2025 and was discharged on 05/07/2025 Patient is insulin dependent diabetic with a history of sleep disorder, glaucoma, osteoarthritis, restless leg syndrome, GERD, history of bladder incontinence status post Medtronic device implant she was admitted to hospital under orthopedic service for right lower extremity cellulitis at incision site that failed outpatient therapy. Patient underwent right total knee linear exchange on 04/13/[address] Todd. Patient has subsequently developed cellulitis on 04/29 and was prescribed Bactrim, symptoms started to worsen in spite of taking antibiotic so she was admitted to hospital for IV vancomycin. Patient responded well and then eventually was discharged home Her other medications are lisinopril Statin Aspirin Pramipexole Mirtazapine Post-surgical knee infection: - Status post-knee surgery with current course of doxycycline. - Persistent redness and swelling at the surgical site.. - Physical therapy ongoing; advised taking it easy for few days until her wound completely heals. Hyperglycemia: - Previously elevated blood glucose levels in hospital. - Current average blood glucose has improved to 138 with dietary interventions. - Current treatments include dietary adjustment; exploration of medication options such as Rybelsus. - Engaged with community outreach and dietary support for management. - requesting referral to endocrinology Social History: - Resides in an apartment alone; receives various support services - Engages in physical therapy - Monitors dietary intake with assistance from a dietitian Patient Instructions - Continue current course of doxycycline as prescribed. - Monitor surgical site for changes in redness or swelling. - Balance physical therapy activities with adequate rest to help manage swelling. - Maintain blood glucose monitoring and adhere to dietary adjustments. - Follow up with braille duplicating machine operator as scheduled for further blood glucose management. - Keep a diet diary and consult regularly with your dietitian. Orders: Referrals Endocrinology Referral E11.65 - Type 2 diabetes mellitus with hyperglycemia
[2025-05-14 13:43] VITALS: BP 132/70; PULSE 68; O2SAT 99; BMI 33.6
--- OUTSIDE RECORDS SUMMARY | 2025-05-14 13:52 | XMS_ITS | Clinical Summary ---
Author Organization [facility] Address [address] [place] [id number] Phone Care Team Providers Care Cardio Clinician Name Role Phone Ella Garces MD Primary Care Provider [phone] Social History Tobacco Use Types Packs/Day Years [...] MEDICARE PART A & B SANDI CASTANO [id number] AENA PPO MEDICARE PART A & B Care Teams Cardio Clinician Relationship Specialty Start Date End Date Ella Garces MD [address] [place] [address] PCP - General Internal Medicine 11/21/23 Additional Source Comments The information contained in this document represents components of the legal health record. It is not the complete legal health record.[facility]
== END 2025-05-14 15:19 | disposition home or self-care (01) ==
LOC: HO.HMCC 13:41
PROVIDERS: PCP Internal Medicine; Visit Provider Internal Medicine
DX: E11.65 Type 2 diabetes mellitus with hyperglycemia (principal); T81.41XD Infection following a procedure, superficial incisional surgical site, subsequent encounter; Z96.653 Presence of artificial knee joint, bilateral

== ENCOUNTER → 2025-05-14 13:41 | Outpatient (BNVA) | payer MEDICARE, OTHER, SELFPAY | PROVIDERS: PCP Internal Medicine; Visit Provider Internal Medicine | DX: K21.9 Gastro-esophageal reflux disease without esophagitis (principal); E13.65 Other specified diabetes mellitus with hyperglycemia; T81.41XS Infection following a procedure, superficial incisional surgical site, sequela; T81.41XD Infection following a procedure, superficial incisional surgical site, subsequent encounter; Z96.653 Presence of artificial knee joint, bilateral; Z79.4 Long term (current) use of insulin; Z09 Encounter for follow-up examination after completed treatment for conditions other than malignant neoplasm | CPT/HCPCS: 96127; 99495 ==

== ENCOUNTER 2025-05-20 14:42 | Outpatient (AMB) | payer MEDICARE, OTHER, SELFPAY ==
--- NOTE | 2025-05-20 14:43 | A.OFFVIS_ITS ---
Vital Signs 05/20/25 14:48 Height 5 ft Weight 172 lb BMI 33.6 Intake Visit Reasons: PO- revision RT TKA, liner only DOS: 04/13/2025 NE Intake Note: Katelyn is an 84 year old female who presents today for a post operative visit status post revision right TKA, liner only DOS: 04/13/[address] Todd. At her last visit she was instructed to follow up in a week for a skin check. Today patient reports she has completed her antibiotics. She has complaints that she continues to have swelling in knee. Allergies environmental allergies Allergy (Intermediate, Verified 05/20/25 14:46) Itchy Eyes amoxicillin Allergy (Mild, Verified 05/20/25 14:46) Rash crab Adverse Reaction (Intermediate, Verified 05/20/25 14:46) DIARRHEA semaglutide (From [facility]) Adverse Reaction (Intermediate, Verified 05/20/25 14:46) severe diarrhea HPI HPI PO- revision RT TKA, liner only DOS: 04/13/2025 NE: Details: 84-year-old female returns to the office today status post revision right total knee arthroplasty with liner exchange on 04/13/2025. She has completed her antibiotics and notes some residual redness however no pain in the knee and no swelling. She denies calf pain. Denies fever or chills. 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 Mother Dementia Pancreatitis Social History Household Members: None Household Members Other:: moving to daughters in june Housing: Apartment Are you a primary healthcare management to a significant other at home: No Do you presently have visiting nurse or other home services: No Alcohol intake: never Comment: advised of trip cat Patient Tobacco Use Status: Never used Tobacco e-Cigarette/Vaping Use: Never Used Advance Directives Date on File: 11/23/20 service: No Current occupational status: retired Cognitive needs: No Hearing needs: Yes Vision needs: Yes Review of Systems Const All systems reviewed & are unremarkable except as noted in HPI and below Physical Exam Vital Signs: BMI result Body Mass Index 33.6 Const General: cooperative and no acute distress Orientation/consciousness: patient oriented x3 Resp Effort & Inspection: normal respiratory effort and able to speak in complete sentences Cardio Peripheral pulses: Peripheral pulses 2+ throughout Neuro General: patient oriented x3 Extrem Other: Right knee Incision site is well healed. Painless range of motion 0-115. Able to perform a straight leg raise. Scant redness which is resolving along the benítez. No calf pain. Sensation intact. 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 There is no evidence of infection. She continues to do well. We will continue to see how she does over time and see me back in 1 week, sooner if needed. 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
[2025-05-20 14:48] VITALS: BMI 33.6
--- OUTSIDE RECORDS SUMMARY | 2025-05-20 18:59 | XMS_ITS | Clinical Summary ---
Author Organization [facility] Address [address] [place] [id number] Phone Care Team Providers Care Manager Ambulatory Name Role Phone Ella Garces MD Primary Care Provider [phone] Social History Tobacco Use Types Packs/Day Years [...] MEDICARE PART A & B SANDI CASTANO [id number] AENA PPO MEDICARE PART A & B Care Teams Manager Ambulatory Relationship Specialty Start Date End Date Ella Garces MD [address] [facility] [place] [address] PCP - General Internal Medicine 11/21/23 Additional Source Comments The information contained in this document represents components of the legal health record. It is not the complete legal health record.[facility]
== END 2025-05-20 14:48 | disposition home or self-care (01) ==
LOC: HO.HOS 14:42
PROVIDERS: PCP Internal Medicine; Visit Provider Physician Assistant
DX: T84.068A Wear of articular bearing surface of other internal prosthetic joint, initial encounter (principal); Z96.659 Presence of unspecified artificial knee joint
CPT/HCPCS: 99024

== ENCOUNTER → 2025-05-20 14:42 | Outpatient (BNVA) | payer MEDICARE, OTHER, SELFPAY | PROVIDERS: PCP Internal Medicine; Visit Provider Physician Assistant | DX: T84.06 Wear of articular bearing surface of internal prosthetic joint (principal); Z96.641 Presence of right artificial hip joint | CPT/HCPCS: 99212 ==

== ENCOUNTER 2025-05-25 12:12 | Outpatient (REF) | payer MEDICARE, OTHER, SELFPAY | END 2025-05-25 12:13 | disposition home or self-care (01) | LOC: HO.LAB 12:12 | PROVIDERS: PCP Internal Medicine | DX: R35.0 Frequency of micturition (principal); R30.0 Dysuria | CPT/HCPCS: 87086; 87088; 87186; 99212 ==

== ENCOUNTER 2025-05-25 12:12 | Outpatient (AMB) | payer MEDICARE, OTHER, SELFPAY ==
[2025-05-25 12:44] VITALS: BP 126/64; PULSE 66; TEMP 36.8; O2SAT 95; BMI 33.6
--- NOTE | 2025-05-25 12:44 | AM.OFFWIN_ITS ---
Intake Vital Signs 05/25/25 12:44 Height 5 ft Weight 172 lb BMI 33.6 BP 126/64 Blood Pressure Location Lt brachial Position Sitting Pulse 66 Pulse Source Pulse Oximeter Temp 98.3 F Temp Source Oral Pulse Oximetry (%) 95 Oxygen Delivery Method Room Air Intake Visit Reasons: EP UTI Patient Tobacco Use Status: Never used Tobacco Allergies environmental allergies Allergy (Intermediate, Verified 05/25/25 12:46) Itchy Eyes amoxicillin Allergy (Mild, Verified 05/25/25 12:46) Rash crab Adverse Reaction (Intermediate, Verified 05/25/25 12:46) DIARRHEA semaglutide (From Wegovy) Adverse Reaction (Intermediate, Verified 05/25/25 12:46) severe diarrhea Do you need a note to return to daycare/school/sports/work: No HPI HPI Comments History of Present Illness Details History - The patient is an 84-year-old female p resenting with recurrent urinary tract infections and urinary incontinence. - She has a history of frequent urinary tract infections, with the last episode treated with nitrofurantoin in February. - Urinary incontinence occurs primarily during urinary tract infections, despite having a sacral neurostimulator. - Current symptoms include urinary frequ ency, occasional burning, and a recent onset of feeling feverish and malaise. - She underwent a revision of a total kn ee replacement on April 13 and de veloped cellulitis, requiring hospitalization. - She denies hematuria, back pain, abd p ain, n/v/d, vaginal discharge, itching, or bleeding. - She denies fever or chills. Physical Exam General: Cooperative, healthy appearing, comfortable, no acute distress and well developed Cardiac: Normal S1 and S2. RRR, no M/R/G noted. Respiratory: Normal respiratory effort and able to speak in complete sentences. Clear to auscultation bilaterally. No w/r/r noted. Skin: No rashes or lesions noted. GI: Normal inspection. Normal BS noted. Soft, non-tender, non-distended. No TTP of all 4 quadrants. No guarding or rebound tenderness noted. Back: Negative CVA bilaterally, no back pain reported. Patient was informed and verbally consented to the use of an ambient scribe for clinic note documentation during this visit. 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 Mother Dementia Pancreatitis Social History Household Members: None Household Members Other:: moving to daughters in june Housing: Apartment Are you a primary laboratory animal care veterinarian to a significant other at home: No Do you presently have visiting nurse or other home services: No Alcohol intake: never Comment: advised of yazmin shelton Patient Tobacco Use Status: Never used Tobacco e-Cigarette/Vaping Use: Never Used Advance Directives Date on File: 11/23/20 service: No Current occupational status: retired Cognitive needs: No Hearing needs: Yes Vision needs: Yes Review of Systems Const All systems reviewed & are unremarkable except as noted in HPI and below Physical Exam Vital Signs: Last Vital Signs Temp 98.3 F 05/25/25 12:44 Pulse 66 05/25/25 12:44 BP 126/64 05/25/25 12:44 Pulse Ox 95 05/25/25 12:44 Oxygen Delivery Method Room Air 05/25/25 12:44 BMI result Body Mass Index 33.6 Assessment & Plan Assessment & Plan (1) Urinary frequency: Code(s): R35.0 - Frequency of micturition Plan Most likely UTI UA 2+ Plan - Start nitrofurantoin for the urinary tract infection, pending urine culture results for bacterial sensitivity confirmation. - Perform a urine culture to ensure correct antibiotic coverage and adjust treatment based on results. - Advise increased fluid intake, including cranberry juice, to help manage urinary symptoms. - Monitor symptom changes and follow up with the patient after culture results to adjust treatment if necessary. Orders: Orders AMB Urinalysis Automated Today R30.0 - Dysuria Urine Culture Today N39.0 - Urinary tract infection, site not specified Coding Level of Care Code Est Pt Level 3 (58987) Diagnoses Urinary frequency R35.0
--- OUTSIDE RECORDS SUMMARY | 2025-05-25 13:18 | XMS_ITS | Clinical Summary ---
Author Organization [facility] Address [address] [place] [id number] Phone Care Team Providers Care Cornetist Name Role Phone Ella Graces MD Primary Care Provider [phone] Social History Tobacco Use Types Packs/Day Years [...] MEDICARE PART A & B SANDI CASTANO [id number] AENA PPO MEDICARE PART A & B Care Teams Cornetist Relationship Specialty Start Date End Date Ella Garces MD [address] [place] [address] PCP - General Internal Medicine 11/21/23 Additional Source Comments The information contained in this document represents components of the legal health record. It is not the complete legal health record.[facility]
== END 2025-05-25 13:13 | disposition home or self-care (01) ==
PROVIDERS: PCP Internal Medicine; Visit Provider Physician Assistant Medical
DX: R35.0 Frequency of micturition (principal)

== ENCOUNTER 2025-05-27 08:41 | Outpatient (AMB) | payer MEDICARE, OTHER, SELFPAY ==
--- NOTE | 2025-05-27 08:54 | A.OFFVIS_ITS ---
Vital Signs 05/27/25 08:57 Height 5 ft Weight 172 lb BMI 33.6 Intake Visit Reasons: PO- revision RT TKA, liner only DOS: 04/13/2025 NE Intake Note: Katelyn is an 84 year old female who presents today for a post operative visit status post revision right TKA, liner only DOS: 04/13/[address] Todd. Patient reports she is doing well, states no pain just soreness. Allergies environmental allergies Allergy (Intermediate, Verified 05/27/25 09:02) Itchy Eyes amoxicillin Allergy (Mild, Verified 05/27/25 09:02) Rash crab Adverse Reaction (Intermediate, Verified 05/27/25 09:02) DIARRHEA semaglutide (From [facility]) Adverse Reaction (Intermediate, Verified 05/27/25 09:02) severe diarrhea Medication List - Last Reconciled 05/27/25 by Divina Ledesma PA-C aspirin 325 mg PO BID 42 days blood sugar diagnostic (FreeStyle Lite Strips) Once a day blood-glucose sensor (FreeStyle Ju 3 Plus Sensor device) Change sensor every 15 days as directed celecoxib 200 mg PO BID 30 days Dexcom G6 Sensor (blood-glucose sensor) Check blood sugar 4 times daily as directed NS Dexcom G7 Foreign Food Cook Specialty (blood-glucose,commercial floor covering installer,cont) Test blood sugar 4 times per d ay NS Dexcom G7 Sensor (blood-glucose sensor) Test blood sugar 4 times per day, change sensor every 10 days NS dorzolamide-timolol 22.3-6.8 mg/mL 1 drp ophthalmic (eye) BID escitalopram oxalate 20 mg PO BEDTIME [Folding Front Wheeled walker Duration: 99 days] insulin aspart U-100 (Novolog FlexPen U-100 Insulin aspart) TID AC per sliding scale 60-124 No coverage; 125-150 give 2 units; 151-200 give 4 units; 201-250 give 6 units; 251-300 give 8 units; 301-350 give 10 units; 351-400 give 12 units. Call MD if blood sugar is less than 60 or greater than 400. lancets (FreeStyle Lancets) As directed mirabegron ER 25 mg PO DAILY montelukast 10 mg PO BEDTIME nitrofurantoin monohyd/m-cryst 100 mg (Macrobid) 100 mg PO Q12H 7 days nitrofurantoin monohyd/m-cryst 100 mg (Macrobid) 100 mg PO Q12H 5 days pen needle, diabetic USE DIRECTED FOR INSULIN INJECTIONS THREE TIMES A DAY pramipexole 0.5 mg PO BEDTIME rosuvastatin 20 mg PO DAILY vitamins A,C,B-wfui-mmxeqy 4,296 mcg-226 mg-90 mg (PreserVision AREDS) 2 caps PO BEDTIME HPI HPI PO- revision RT TKA, liner only DOS: 04/13/2025 NE: Details: 84-year-old female returns to the office today for a follow-up right total knee liner exchange on 04/13/2025. She has completed her antibiotics and feels her leg is getting better she denies fever or chills. Denies stiffness or pain in the knee. Denies calf pain. Denies numbness or tingling. 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 Mother Dementia Pancreatitis Social History Household Members: None Household Members Other:: moving to daughters in june Housing: Apartment Are you a primary resident care aide to a significant other at home: No Do you presently have visiting nurse or other home services: No Alcohol intake: never Comment: advised of trip [place] Patient Tobacco Use Status: Never used Tobacco e-Cigarette/Vaping Use: Never Used Advance Directives Date on File: 11/23/20 service: No Current occupational status: retired Cognitive needs: No Hearing needs: Yes Vision needs: Yes Review of Systems Const All systems reviewed & are unremarkable except as noted in HPI and below Physical Exam Vital Signs: BMI result Body Mass Index 33.6 Const General: cooperative and no acute distress Orientation/consciousness: patient oriented x3 Resp Effort & Inspection: normal respiratory effort and able to speak in complete sentences Cardio Peripheral pulses: Peripheral pulses 2+ throughout Neuro General: patient oriented x3 Extrem Other: Right knee Incision site is well healed. Painless range of motion 0-115. Able to perform a straight leg raise. Scant redness which is resolving along the benítez. No calf pain. Sensation intact. 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 Patient herself feels it is improving. Patient has been on IV antibiotics and p.o. antibiotics. We will continue to monitor and see her back in 4 weeks for a follow up, sooner if needed. 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
[2025-05-27 08:57] VITALS: BMI 33.6
--- OUTSIDE RECORDS SUMMARY | 2025-05-27 09:07 | XMS_ITS | Clinical Summary ---
Author Organization [facility] Address [address] [place] [address] Phone Care Team Providers Care Tank Wagon Operator Name Role Phone Ella Garces MD Primary Care Provider [phone] Social History Tobacco Use Types Packs/Day Years [...] MEDICARE PART A & B SANDI CASTANO [id number] AENA PPO MEDICARE PART A & B Care Teams Tank Wagon Operator Relationship Specialty Start Date End Date Ella Garces MD [address] [place] [address] PCP - General Internal Medicine 11/21/23 Additional Source Comments The information contained in this document represents components of the legal health record. It is not the complete legal health record.[facility]
== END 2025-05-27 09:18 | disposition home or self-care (01) ==
LOC: HO.HOS 08:42
PROVIDERS: PCP Internal Medicine; Visit Provider Physician Assistant
DX: T84.068A Wear of articular bearing surface of other internal prosthetic joint, initial encounter (principal); Z96.659 Presence of unspecified artificial knee joint
CPT/HCPCS: 99024

== ENCOUNTER → 2025-05-27 08:41 | Outpatient (BNVA) | payer MEDICARE, OTHER, SELFPAY | PROVIDERS: PCP Internal Medicine; Visit Provider Physician Assistant | DX: Z47.1 Aftercare following joint replacement surgery (principal); T84.06 Wear of articular bearing surface of internal prosthetic joint; Z96.651 Presence of right artificial knee joint; E11.65 Type 2 diabetes mellitus with hyperglycemia; E11.69 Type 2 diabetes mellitus with other specified complication; E66.9 Obesity, unspecified; Z79.4 Long term (current) use of insulin | CPT/HCPCS: 82947; 83036; 99212 ==

== ENCOUNTER 2025-05-27 10:48 | Outpatient (AMB) | payer MEDICARE, OTHER, SELFPAY ==
[2025-05-27 11:05] VITALS: BP 150/70; PULSE 76; O2SAT 96; BMI 33.1
--- NOTE | 2025-05-27 11:05 | A.OFFVIS_ITS ---
Vital Signs 05/27/25 11:05 Height 5 ft Weight 169 lb 12.095 oz BMI 33.1 BP 150/70 H Blood Pressure Location Rt brachial Position Sitting Pulse 76 Pulse Source Pulse Oximeter Pulse Oximetry (%) 96 Oxygen Delivery Method Room Air Intake Visit Reasons: T2DM Intake Note: NEW Patient presents today to establish treatment for Type 2 Diabetes Mellitus: Last Diabetic eye exam was on: 08/10/2024, [facility] Last Podiatry exam was on: Patient does not see a Software Development Engineer Most recent HbA1c: 7.1%, 05/27/2025 Random Glucose: 178 mg/dL Corporate Webmaster Required: No Accompanied by: Self / Same As Patient Allergies environmental allergies Allergy (Intermediate, Verified 05/27/25 11:24) Itchy Eyes amoxicillin Allergy (Mild, Verified 05/27/25 11:24) Rash crab Adverse Reaction (Intermediate, Verified 05/27/25 11:24) DIARRHEA semaglutide (From Wegovy) Adverse Reaction (Intermediate, Verified 05/27/25 11:24) severe diarrhea HPI Comments Details: The patient is an 84 year old female presenting for diabetes consultation Medical history: HTN, HLD, anxiety, OA-s/p RTKR and revision, recurrent UTI Diagnosed in 2011. Current medications Novolog 60-124 No coverage; 125-150 give 2 units; 151-200 give 4 units; 201-250 give 6 units; 251-300 give 8 units; 301-350 give 10 units; 351-400 give 12 units. Previous Metformin-she had minimal loose stools. Trulicity-prescribed previously in 2020 but not ?covered Wegovy-severe diarrhea CGM Dexcom 96% use with GMI 7.3% TGT 71% high 26% very high 3% POC A1C 7.1% LDL <70 10/2024 On statin Reports eye exam is up to date Foot care through [facility] Mild neuropathy b/l LE ROS CONSTITUTIONAL: Denies weight loss, fever and chills. HEENT: Denies changes in vision and hearing. RESPIRATORY: Denies SOB and cough. CV: Denies palpitations and CP GI: Denies abdominal pain, nausea, vomiting and diarrhea. : Denies dysuria and urinary frequency. MSK: Denies new myalgia and joint pain. SKIN: Denies rash and pruritus. NEUROLOGICAL: Denies headache PSYCHIATRIC: Denies recent changes in mood. PHYSICAL EXAM: GENERAL: Alert and oriented x 3. NAD EYES: EOMI. Anicteric. HENT: Moist mucous membranes. No scleral icterus. No cervical lymphadenopathy. LUNGS: Clear to auscultation bilaterally. CARDIOVASCULAR: Regular rate and rhythm. No murmur. No JVD. ABDOMEN: Soft, non-tender +bs EXTREMITIES: No edema. Non-tender. SKIN: No rashes or lesions. Warm. NEUROLOGIC: No focal neurological deficits. CN II-XII grossly intact PSYCHIATRIC: Cooperative. 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 Mother Dementia Pancreatitis Social History Household Members: None Household Members Other:: moving to daughters in june Housing: Apartment Are you a primary respiratory care instructor to a significant other at home: No Do you presently have visiting nurse or other home services: No Alcohol intake: never Comment: advised of trip [place]za[place] Patient Tobacco Use Status: Never used Tobacco e-Cigarette/Vaping Use: Never Used Advance Directives Date on File: 11/23/20 service: No Current occupational status: retired Cognitive needs: No Hearing needs: Yes Vision needs: Yes Physical Exam Vital Signs: BMI result Body Mass Index 33.1 Results AMB Hemoglobin A1c AMB Hemoglobin A1c 7.1 % Last Edit by BRISEIDA Mcgrath on 05/27/25 11:23 Assessment & Plan Assessment & Plan (1) Uncontrolled diabetes mellitus with hyperglycemia: Code(s): E11.65 - Type 2 diabetes mellitus with hyperglycemia Category: Medical Qualifiers: Diabetes mellitus type: type 2 Qualified Code(s): E11.65 - Type 2 diabetes mellitus with hyperglycemia Plan 84 year old female presenting for diabetes consultation Diabetes is near controlled. We reviewed her CGM today She is having no hypoglycemia. She will treat any hypoglycemia by rules of 15s Discussed rybelsus versus metformin. She would like to proceed with a low dose of rybelsus. She is aware there is a possiblity that she could experience similar side effects to injection wegovy. She would like to proceed nonetheless. Orders: Orders AMB Hemoglobin A1c Today E11.69 - Type 2 diabetes mellitus with other specified complication, E66.9 - Obesity, unspecified Medications: New Rybelsus (semaglutide) 3 mg PO DAILY 90 tabs 3RF 90 days NS E11.65 - Type 2 diabetes mellitus with hyperglycemia Changed From blood-glucose sensor (FreeStyle Ju 3 Plus Sensor device) Change sensor every 15 days as directed 6 ea 3RF E11.65 - Type 2 diabetes mellitus with hyperglycemia, E11.9 - Type 2 diabetes mellitus without complications, Z79.4 - exterminator helper (current) use of insulin To FreeStyle Ju 3 Plus Sensor (blood-glucose sensor) Change sensor every 15 days as directed 6 ea 3RF NS E11.65 - Type 2 diabetes mellitus with hyperglycemia, E11.9 - Type 2 diabetes mellitus without complications, Z79.4 - exterminator helper (current) use of insulin Discontinued Dexcom G6 Sensor (blood-glucose sensor) Discontinued Reason: Doctor's Order Check blood sugar 4 times daily as directed 3 ea 0RF uncontrolled diabetes, G7 back ordered NS E11.65 - Type 2 diabetes mellitus with hyperglycemia, E11.9 - Type 2 diabetes mellitus without complications, Z79.4 - exterminator helper (current) use of insulin Coding Level of Care Code Est Pt Level 5 (02827) Diagnoses Uncontrolled type 2 diabetes mellitus with hyperglycemia E11.65 Diabetes mellitus type: type 2
[2025-05-27 11:17] LABS: Glucose, Whole Blood 178 mg/dL (60-115)
== END 2025-05-27 11:48 | disposition home or self-care (01) ==
LOC: HO.ENCR 10:49
PROVIDERS: PCP Internal Medicine; Visit Provider Internal Medicine
DX: E11.65 Type 2 diabetes mellitus with hyperglycemia (principal); Z79.4 Long term (current) use of insulin

== ENCOUNTER 2025-06-01 11:25 | Outpatient (AMB) | payer MEDICARE, OTHER, SELFPAY ==
--- NOTE | 2025-06-01 11:26 | MHC.PC.OV ---
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 Required: No Accompanied by: Self / Same As Patient Allergies environmental allergies Allergy (Intermediate, Verified 06/01/25 11:27) Itchy Eyes amoxicillin Allergy (Mild, Verified 06/01/25 11:27) Rash crab Adverse Reaction (Intermediate, Verified 06/01/25 11:27) DIARRHEA semaglutide (From [facility]) Adverse Reaction (Intermediate, Verified 06/01/25 11:27) severe diarrhea Medication List - Last Reconciled 06/01/25 by Ella Garces MD aspirin 325 mg PO BID 42 days blood sugar diagnostic (FreeStyle Lite Strips) Once a day celecoxib 200 mg PO BID 30 days dorzolamide-timolol 22.3-6.8 mg/mL 1 drp ophthalmic (eye) BID escitalopram oxalate 20 mg PO BEDTIME estradiol 0.01%(0.1mg/gram) vaginal fluconazole 150 mg PO Q3D [Folding Front Wheeled walker Duration: 99 days] FreeStyle Ju 3 Plus Sensor (blood-glucose sensor) Change sensor every 15 days as directed NS insulin aspart U-100 (Novolog FlexPen U-100 Insulin aspart) TID AC per sliding scale 60-124 No coverage; 125-150 give 2 units; 151-200 give 4 units; 201-250 give 6 units; 251-300 give 8 units; 301-350 give 10 units; 351-400 give 12 units. Call MD if blood sugar is less than 60 or greater than 400. lancets (FreeStyle Lancets) As directed lisinopril 2.5 mg PO DAILY methenamine hippurate 1 g PO BID mirabegron ER 25 mg PO DAILY montelukast 10 mg PO BEDTIME pen needle, diabetic USE DIRECTED FOR INSULIN INJECTIONS THREE TIMES A DAY pramipexole 0.5 mg PO BEDTIME rosuvastatin 20 mg PO DAILY Rybelsus (semaglutide) 3 mg PO DAILY 90 days NS vitamins A,C,S-lhjn-djbhlq 4,296 mcg-226 mg-90 mg (PreserVision AREDS) 2 caps PO BEDTIME Tobacco use date assessed: 03/02/25 Fall risk assessment: No Falls in past year Last assessed Fall Risk: 06/01/25 Dental Screening Dental Screen Date: 02/05/25 HPI PE reschedule HPI Details PE The patient is an 84-year-old female presenting with pain and swelling in the right leg following physical therapy. Pain following a physical therapy session: - Pain began suddenly during a physical therapy session. - Described as an incredible stab of pain, located on the right side. - Occurred while standing up from a seated position. - Pain described as blinding, not easing significantly after rest or use of the walker. - Pain continued despite using ice as advised by the physical therapist. Swelling post-knee replacement: - Right leg swelling noted, usually occurred after knee replacement surgery. - Recent flare-up of swelling occurred the day before the visit without prolonged standing. - Previous improvement was noted before the recent increase in swelling. Patients ankles are swollen as well and she is tender medially mid thight right side we will be getting stat US, to r/o any DVT today Medical History: - Anxiety Disorder managed with Escitalopram - Hypertension managed with minimal lisinopril use - Restless Leg Syndrome treated with Pramipexole - Hyperlipidemia controlled with Rosuvastatin - Diabetes with a recent A1c of 7.1% on May 27 Health Maintenance - Recent A1c performed on May 27, 7.1% - Routine labs in April were unremarkable - Up-to-date on flu and COVID vaccines - Due for Pneumonia 20 (Prevnar 20) vaccine - No mammograms or colonoscopies planned or needed Patient Instructions - Use a backpack to distribute the weight evenly instead of a heavy shoulder bag to prevent pain. - Await ultrasound for the right leg and follow up as advised. - You can get the pneumonia vaccine at the pharmacy. - continue escitalopram 20 mg for anxiety and pramipexole for restless leg along with rosuvastatin 20 mg - Continue follow-up with endocrinology and Urogynecology Ultrasound of leg report came back negative for DVT patient was notified Continue monitoring symptoms of swelling in the leg right side Review of Systems - General: No fever no chills - Neurological: No headaches no dizziness - Ear nose throat: No sore throat no hearing difficulty no ear pain - Cardiovascular: No syncope, no chest pain, no palpitations - Gastrointestinal: No nausea vomiting or diarrhea - Skin: No new complaints Physical Exam General: Cooperative, healthy appearing, comfortable, no acute distress Orientation: Patient oriented x3 Head: Normal to inspection Ears: Within normal limit visually Nose: Normal external nose present Face and sinus: Normal facial exam Eyes: Appearance normal, extraocular movement intact pupils reactive Neck: Normal visual inspection and supple Respiratory: Normal respiratory effort and able to speak in complete sentences. Clear to auscultation, no stridor Cardiovascular: S1 and S2 RRR GI: Normal to inspection. Soft to palpation and nontender Skin: Turgor normal, Neuro: Patient oriented x3, uses walker for ambulation Extremities: Right leg with a history of knee replacement surgery and swelling compared to the left leg, tender just above the knee medially thigh area, Homans sign negative, no pain with calf palpation . 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 Mother Dementia Pancreatitis Social History Household Members: None Household Members Other:: moving to daughters in june Housing: Apartment Are you a primary child care attendant school to a significant other at home: No Do you presently have visiting nurse or other home services: No Alcohol intake: never Comment: advised of yazmin shelton Patient Tobacco Use Status: Never used Tobacco e-Cigarette/Vaping Use: Never Used Advance Directives Date on File: 11/23/20 service: No Current occupational status: retired Cognitive needs: No Hearing needs: Yes Vision needs: Yes Questionnaire PHQ-9 Over the last 2 weeks, how often have you been bothered by any of the following problems? 1. Little interest or pleasure in doing things: several days 2. Feeling down, depressed, or hopeless: not at all 3. Trouble falling or staying asleep, or sleeping too much: several days 4. Feeling tired or having little energy: several days 5. Poor appetite or overeating: several days 6. Feeling bad about yourself - or that you are a failure or have let yourself or your family down: not at all 7. Trouble concentrating on things, such as reading the newspaper or watching television: not at all 8. Moving or speaking so slowly that other people could have noticed. Or the opposite - being so fidgety or restless that you have been moving around a lot more than usual: not at all 9. Thoughts that you would be better off or of hurting yourself in some way: not at all Total score: 4 Depression Screening Interpretation: Negative Depression Screening Done: Yes 56221 - PHQ-9 Billing: Yes Source: Developed by Drs. Luis Pan, Crystal Magallon, Geoffrey Anguiano and colleagues, with an educational rosas from [employer]. Thrive Questionnaire Date Thrive assessed: 10/06/24 I am a: Patient What is your living situation today?: I have a steady place to live Within the past 12 months, did the food you bought not last and you didn't have the money to get more?: Never true Within the past 12 months, did you worry whether your food would run out before you got money to buy more?: Never true Do you have trouble paying for medicines?: No Do you have trouble getting transportation to medical appointments?: No Do you have trouble paying your heating and electricity bill?: No Do you have trouble taking care of your child, family member or friend?: No Do you have trouble with day-to-day activities such as bathing, preparing meals, shopping, managing finances, etc.?: No Are you currently unemployed and looking for a job?: No Are you interested in more education?: No Please select the resources that you would like help with: None Currently or been in a relationship where the following occur: No concerns reported THRIVE Score: 0 AUDIT C Alcohol Use Questionnaire (AUDIT-C) 1. How often do you have a drink containing alcohol?: Monthly or less 2. How many drinks containing alcohol do you have on a typical day when you are drinking?: 1 or 2 3. How often do you have six or more drinks on one occasion?: Never Total Score: 1 LG-7 AMB Questionnaire LG-7 Date LG - 7 assessed: 03/02/25 Feeling nervous, anxious, or on edge: 0 = Not at all Not being able to stop or control worryin = Not at all Worrying too much about different things: 0 = Not at all Trouble relaxin = Not at all Being so restless that it is hard to sit still: 0 = Not at all Becoming easily annoyed or irritable: 0 = Not at all Feeling afraid as if something awful might happen: 0 = Not at all Total LG-7 score (0-4 normal; 5-9 mild; 10-14 moderate; 15-21 severe): 0 Source: Developed by Drs. Luis Pan, Crystal Magallon, Geoffrey Anguiano and colleagues, with an educational rosas from [employer]. LG-7 Assessment Billing LG-7 Assessment Tool: LG-7 Assessment 11698 Physical exam (Primary Care) Vital Signs: Last Vital Signs Pulse 78 06/01/25 11:27 BP 130/70 06/01/25 11:27 Pulse Ox 95 06/01/25 11:27 BMI result Body Mass Index 33.4 Tobacco/Smoking Status: Tobacco use Status Tobacco use date assessed 03/02/25 06/01/25 11:29 Patient Tobacco Use Status Never used Tobacco 06/01/25 11:29 e-Cigarette/Vaping Use Never Used 06/01/25 11:29 PHQ-9: PHQ-9 Score PHQ-9: Total score 4 06/01/25 12:41 Depression Screening Interpretation: Negative Thrive Assessment: Date of Thrive Assessment Date Thrive assessed 10/06/24 06/01/25 11:29 Currently or been in a relationship where the following occur: No concerns reported Coding Level of Care Code Est Pt Level 4 (91087) Est Pt Prev Care >65y(59142) Diagnoses Encounter for general adult medical examination with abnormal findings Z00.01 Acute pain of right thigh M79.651 Laterality: right Right leg swelling M79.89 Anxiety, generalized F41.1 Hypertension, essential I10 Lipid disorder E78.9 Diabetes 1.5, managed as type 2 E13.9 Cognitive impairment R41.89 Restless leg syndrome G25.81 Gait instability R26.81 Additional Codes PHQ-9 - 07969 - PHQ-9 Billing: Yes ([id number]) LG-7 Assessment Billing - LG-7 Assessment Tool: LG-7 Assessment 98795 ([id number]) Assessment & Plan Assessment & Plan (1) Encounter for general adult medical examination with abnormal findings: Code(s): Z00.01 - Encounter for general adult medical examination with abnormal findings Category: Medical (2) Acute thigh pain: Code(s): M79.659 - Pain in unspecified thigh Category: Medical Qualifiers: Laterality: right Qualified Code(s): M79.651 - Pain in right thigh (3) Right leg swelling: Code(s): M79.89 - Other specified soft tissue disorders Category: Medical (4) Anxiety, generalized: Code(s): F41.1 - Generalized anxiety disorder Category: Medical (5) Hypertension, essential: Code(s): I10 - Essential (primary) hypertension Category: Medical (6) Lipid disorder: Code(s): E78.9 - Disorder of lipoprotein metabolism, unspecified Category: Medical (7) Diabetes 1.5, managed as type 2: Comment: dx ~ 2011-taking insulin only-has Dexcom CGM-avg glucose 188 Code(s): E13.9 - Other specified diabetes mellitus without complications Category: Medical (8) Cognitive impairment: Code(s): R41.89 - Other symptoms and signs involving cognitive functions and awareness Category: Medical (9) Restless leg syndrome: Code(s): G25.81 - Restless legs syndrome Category: Medical (10) Gait instability: Code(s): R26.81 - Unsteadiness on feet Category: Medical Plan PE The patient is an 84-year-old female presenting with pain and swelling in the right leg following physical therapy. Pain following a physical therapy session: - Pain began suddenly during a physical therapy session. - Described as an incredible stab of pain, located on the right side. - Occurred while standing up from a seated position. - Pain described as blinding, not easing significantly after rest or use of the walker. - Pain continued despite using ice as advised by the physical therapist. Swelling post-knee replacement: - Right leg swelling noted, usually occurred after knee replacement surgery. - Recent flare-up of swelling occurred the day before the visit without prolonged standing. - Previous improvement was noted before the recent increase in swelling. Patients ankles are swollen as well and she is tender medially mid thight right side we will be getting stat US, to r/o any DVT today Medical History: - Anxiety Disorder managed with Escitalopram - Hypertension managed with minimal lisinopril use - Restless Leg Syndrome treated with Pramipexole - Hyperlipidemia controlled with Rosuvastatin - Diabetes with a recent A1c of 7.1% on May 27 Health Maintenance - Recent A1c performed on May 27, 7.1% - Routine labs in April were unremarkable - Up-to-date on flu and COVID vaccines - Due for Pneumonia 20 (Prevnar 20) vaccine - No mammograms or colonoscopies planned or needed Patient Instructions - Use a backpack to distribute the weight evenly instead of a heavy shoulder bag to prevent pain. - Await ultrasound for the right leg and follow up as advised. - You can get the pneumonia vaccine at the pharmacy. - continue escitalopram 20 mg for anxiety and pramipexole for restless leg along with rosuvastatin 20 mg - Continue follow-up with endocrinology and Urogynecology Ultrasound of leg report came back negative for DVT patient was notified Continue monitoring symptoms of swelling in the leg right side Follow-up 6 months . Orders: Orders US venous duplex LE RT Today M79.659 - Pain in unspecified thigh, M79.89 - Other specified soft tissue disorders
[2025-06-01 11:27] VITALS: BP 130/70; PULSE 78; O2SAT 95; BMI 33.4
--- OUTSIDE RECORDS SUMMARY | 2025-06-01 14:25 | XMS_ITS | Clinical Summary ---
Author Organization [facility] Address [address] [place] [id number] Phone Care Team Providers Care Train Braker Name Role Phone Ella Garces MD Primary Care Provider [phone] Social History Tobacco Use Types Packs/Day Years [...] MEDICARE PART A & B SANDI CASTANO [id number] AENA PPO MEDICARE PART A & B Care Teams Train Braker Relationship Specialty Start Date End Date Ella Garces MD [address] [place] [address] PCP - General Internal Medicine 11/21/23 Additional Source Comments The information contained in this document represents components of the legal health record. It is not the complete legal health record.[facility]
== END 2025-06-01 15:23 | disposition home or self-care (01) ==
LOC: HO.HMCC 11:25
PROVIDERS: PCP Internal Medicine; Visit Provider Internal Medicine
DX: Z00.01 Encounter for general adult medical examination with abnormal findings (principal); M79.651 Pain in right thigh; E13.9 Other specified diabetes mellitus without complications; M79.89 Other specified soft tissue disorders; F41.1 Generalized anxiety disorder; I10 Essential (primary) hypertension; E78.9 Disorder of lipoprotein metabolism, unspecified; R41.89 Other symptoms and signs involving cognitive functions and awareness; G25.81 Restless legs syndrome; R26.81 Unsteadiness on feet

== ENCOUNTER 2025-06-01 12:05 | Outpatient (REF) | payer MEDICARE, OTHER, SELFPAY ==
--- NOTE | ~2025-06-01 | US_ITS ---
EXAMINATION: US TRIPLEX LOWER EXTREMITY, RIGHT CLINICAL INFORMATION: Pain and swelling COMPARISON: None available. TECHNIQUE: Color-flow triplex imaging with spectral analysis and compression Doppler were performed on the right lower extremity. FINDINGS: Respiratory variation, normal compression and augmented flow are noted throughout the right lower extremity. The visualized common femoral vein, superficial femoral vein, profunda femoral vein, popliteal vein and midcalf peroneal and posterior tibial venous segments show no evidence of deep venous thrombosis. There is no High's cyst. US/US venous duplex LE RT IMPRESSION: No evidence of deep venous thrombosis involving the right lower extremity. Electronically signed by: Katelyn Berrios MD 06/01/2025 12:28 PM EDT
== END 2025-06-01 12:06 | disposition home or self-care (01) ==
LOC: HO.HMGCX 12:05
PROVIDERS: PCP Internal Medicine; Visit Provider Internal Medicine
DX: Z00.01 Encounter for general adult medical examination with abnormal findings (principal); M79.651 Pain in right thigh; M79.89 Other specified soft tissue disorders; F41.1 Generalized anxiety disorder; I10 Essential (primary) hypertension; E78.9 Disorder of lipoprotein metabolism, unspecified; E13.9 Other specified diabetes mellitus without complications; R41.89 Other symptoms and signs involving cognitive functions and awareness; G25.81 Restless legs syndrome; R26.81 Unsteadiness on feet
CPT/HCPCS: 93971; 96127; 99212; 99397

== ENCOUNTER → 2025-06-01 12:10 | Outpatient (BNV) | payer MEDICARE, OTHER, SELFPAY | PROVIDERS: PCP Internal Medicine; Visit Provider Radiology Diagnostic Radiology | DX: M79.661 Pain in right lower leg (principal); R22.41 Localized swelling, mass and lump, right lower limb | CPT/HCPCS: 93971 ==

== ENCOUNTER 2025-06-08 12:30 | Outpatient (AMB) | payer MEDICARE, OTHER, SELFPAY ==
--- NOTE | 2025-06-08 12:35 | A.OFFVIS_ITS ---
Intake Visit Reasons: follow up after test Allergies environmental allergies Allergy (Intermediate, Verified 06/01/25 11:27) Itchy Eyes amoxicillin Allergy (Mild, Verified 06/01/25 11:27) Rash crab Adverse Reaction (Intermediate, Verified 06/01/25 11:27) DIARRHEA semaglutide (From [facility]) Adverse Reaction (Intermediate, Verified 06/01/25 11:27) severe diarrhea HPI Comments Details: 84 y/o woman with DM, HTN, anxiety, restless legs syndrome causing trouble with a legs while she was going into sleep, REM sleep behavior disorder resulting in shouting behavior during sleep, mild cognitive impairment resulting in forgetfulness, and multifactorial gait disorder with probably osteoarthritis and diabetic neuropathy. In addition, her brain MRI in 2019 revealed mild parietotemporal atrophy and minimal microvascular disease of brain. MRI of cervical spine in 2012 had revealed multilevel spondylosis. This time she was here with the daughter stating that few weeks ago she had an episode where she found herself in her car apparently something happened to her. There was no accident. She was driving and then she had stopped in a parking lot and then woke up after sometime. This was somewhat unusual for her. In addition, she reported episodes when she would get confused or even forget her daughter's name. She is presenting with follow-up concerns in the context of ongoing neurologic monitoring and recent medical events. She underwent a revision of her right total knee replacement and has been started on Rybelsus for management of her type 2 diabetes. She is currently followed by endocrinology. The patient experienced confusion likely due to an undiagnosed urinary tract infection, initially yielding a false-negative result. This led to an incident in a store where she momentarily did not recognize her daughter, though no alarming symptoms were noted subsequently. Her restless leg syndrome is managed effectively with Pramipexole. She occasionally experiences body tremors in the evening when fatigued, prompting the need for rest. The patient reports no current need for medication refills, as her prescriptions are managed digitally. The patient plans to relocate to her daughter's residence in [place], an arrangement both view optimistically. She anticipates companionship from a small, gentle dog residing there. 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 Mother Dementia Pancreatitis Social History Household Members: None Household Members Other:: moving to daughters in june Housing: Apartment Are you a primary direct care provider to a significant other at home: No Do you presently have visiting nurse or other home services: No Alcohol intake: never Comment: advised ester shelton Patient Tobacco Use Status: Never used Tobacco e-Cigarette/Vaping Use: Never Used Advance Directives Date on File: 11/23/20 service: No Current occupational status: retired Cognitive needs: No Hearing needs: Yes Vision needs: Yes Physical Exam Neuro Other: Mental Status: Alert and oriented to person, place, and time. Normal attention. Normal spontaneous speech, fluency, and comprehension. No obvious issues with mood and memory. Affect is appropriate. Cranial Nerves: CN II: Visual landin full to confrontation, visual acuity intact. CN III, IV, : Pupils equal, round, reactive to light and accommodation. Extraocular movements are normal. CN V: Facial sensation is normal. CN VII: Facial movements symmetrical. CN VIII: Hearing intact to bedside conversation is normal. CN IX, X: Palate elevates symmetrically. CN XI: Shoulder shrug and head turn symmetrical. CN XII: Tongue midline without atrophy or fasciculations. Extrapyramidal: Full facial expressions and blinking. No rigidity. Movements are appropriate with no tremor or abnormality. Speech: Normal; no dysarthria or tremor. Results Reviewed Results Reviewed: - Neurological: Reports confusion associated with a urinary tract infection; reports effective management of restless leg syndrome with Pramipexole; reports evening body tremors when fatigued. - Endocrine: Reports management of diabetes under endocrinology care; currently on Rybelsus. - Genitourinary: Reports a recent urinary tract infection with initial false- negative test results. - Musculoskeletal: Reports revision surgery of the right total knee replacement. Assessment & Plan Assessment & Plan (1) Seizure disorder: Comment: Routine EEG at [facility] in Mar 2025: WNL MRI brain WWO at [facility] in 2019: mild PT atrophy, minimal MVD MRI C spine at [facility] WO in 2012: C 45 and 56 spondylosis Code(s): G40.909 - Epilepsy, unspecified, not intractable, without status epilepticus Category: Medical Plan Impression: a: Probably complex partial seizure do b: Restless leg syndrome c: REM sleep behavior do d: Anxiety do e: Multifactorial mild gait do f: Mild cognitive impairment Rec: a: Continue pramipaxole at night b: 48 hr EEG if more seizure like symptoms c: No driving Coding Level of Care Code Est Pt Level 4 (26877) Diagnoses Seizure disorder G40.909
--- OUTSIDE RECORDS SUMMARY | 2025-06-08 15:09 | XMS_ITS | Clinical Summary ---
Author Organization [facility] Address [address] [place] [id number] Phone Care Team Providers Care Intelligence Group Supervisor Name Role Phone Ella Garces MD Primary Care Provider [phone] Social History Tobacco Use Types Packs/Day Years [...] MEDICARE PART A & B SANDI CASTANO [id number] AENA PPO MEDICARE PART A & B Care Teams Intelligence Group Supervisor Relationship Specialty Start Date End Date Ella Garces MD [address] [place] [address] PCP - General Internal Medicine 11/21/23 Additional Source Comments The information contained in this document represents components of the legal health record. It is not the complete legal health record.[facility]
== END 2025-06-08 13:52 | disposition home or self-care (01) ==
LOC: HO.HSM 12:31
PROVIDERS: PCP Internal Medicine; Visit Provider Psychiatry & Neurology Neurology
DX: G40.909 Epilepsy, unspecified, not intractable, without status epilepticus (principal)
CPT/HCPCS: 99214

== ENCOUNTER → 2025-06-08 12:30 | Outpatient (BNVA) | payer MEDICARE, OTHER, SELFPAY | PROVIDERS: PCP Internal Medicine; Visit Provider Psychiatry & Neurology Neurology | DX: E11.65 Type 2 diabetes mellitus with hyperglycemia (principal); G40.909 Epilepsy, unspecified, not intractable, without status epilepticus | CPT/HCPCS: 99212 ==

== ENCOUNTER 2025-06-24 10:47 | Outpatient (AMB) | payer MEDICARE, OTHER, SELFPAY ==
--- NOTE | 2025-06-24 10:55 | A.OFFVIS_ITS ---
Intake Visit Reasons: PO-revision RT TKA, liner only DOS: 04/13/2025 NE Intake Note: Katelyn is an 84 year old female who presents today for a post operative visit status post revision right TKA, liner only DOS: 04/13/2025. Patient reports that she is not doing very well, she explains that she has also been struggling with urinary incontinence, diabetes and hypoglycemia - she explains because of this she has been paying less attention to her right knee. The knee is getting better, but she feels that her progress is slow and has some continued swelling. Allergies environmental allergies Allergy (Intermediate, Verified 06/01/25 11:27) Itchy Eyes amoxicillin Allergy (Mild, Verified 06/01/25 11:27) Rash crab Adverse Reaction (Intermediate, Verified 06/01/25 11:27) DIARRHEA semaglutide (From [employer]) Adverse Reaction (Intermediate, Verified 06/01/25 11:27) severe diarrhea HPI HPI PO-revision RT TKA, liner only DOS: 04/13/2025 NE: Details: Katelyn is here today now 10 weeks s/p liner exchange right knee. She is doing well with respect to her knee but still trying to fully recover from surgery with respect to diabetes and UTI. The redness she had around the knee has improved. 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 Mother Dementia Pancreatitis Social History Household Members: None Household Members Other:: moving to daughters in june Housing: Apartment Are you a primary post anesthesia care unit nurse to a significant other at home: No Do you presently have visiting nurse or other home services: No Alcohol intake: never Comment: advised of yazmin [place] Patient Tobacco Use Status: Never used Tobacco e-Cigarette/Vaping Use: Never Used Advance Directives Date on File: 11/23/20 service: No Current occupational status: retired Cognitive needs: No Hearing needs: Yes Vision needs: Yes Physical Exam Exam Exam: 0-125 much improved varus/valgus stability on exam no skin changes and well healed incision Assessment & Plan Assessment & Plan (1) History of total knee replacement (TKR): Comment: bilateral Code(s): Z96.659 - Presence of unspecified artificial knee joint Category: Surgical Qualifiers: Laterality: bilateral Qualified Code(s): Z96.653 - Presence of artificial knee joint, bilateral Plan: Right knee doing well. She is working with her PCP and Urologist with ongoing issues with her overall health. I recommend she continue walking and staying active. Can return to see me in 3 mo or sooner if she so desires. Orders: Orders PT Evaluation and Treatment Today Z96.653 - Presence of artificial knee joint, bilateral Medications: Discontinued Rybelsus (semaglutide) Discontinued Reason: Doctor's Order 3 mg PO DAILY 90 days 90 tabs 3RF NS E11.65 - Type 2 diabetes mellitus with hyperglycemia Coding Level of Care Code Global (89843) Diagnoses History of total bilateral knee replacement Z96.653 Laterality: bilateral
--- OUTSIDE RECORDS SUMMARY | 2025-06-24 13:18 | XMS_ITS | Clinical Summary ---
Author Organization [facility] Address [address] [place] [id number] Phone Care Team Providers Care Hydrometeorology Teacher Name Role Phone Ella Garces MD Primary Care Provider [phone] Social History Tobacco Use Types Packs/Day Years [...] MEDICARE PART A & B SANDI CASTANO [id number] AENA PPO MEDICARE PART A & B Care Teams Hydrometeorology Teacher Relationship Specialty Start Date End Date Ella Garces MD [address] [place] [address] PCP - General Internal Medicine 11/21/23 Additional Source Comments The information contained in this document represents components of the legal health record. It is not the complete legal health record.[facility]
== END 2025-06-24 11:51 | disposition home or self-care (01) ==
LOC: HO.HOS 10:47
PROVIDERS: PCP Internal Medicine; Visit Provider Orthopaedic Surgery
DX: Z96.653 Presence of artificial knee joint, bilateral (principal)
CPT/HCPCS: 99024

== ENCOUNTER → 2025-06-24 10:47 | Outpatient (BNVA) | payer MEDICARE, OTHER, SELFPAY | PROVIDERS: PCP Internal Medicine; Visit Provider Orthopaedic Surgery | DX: Z47.1 Aftercare following joint replacement surgery (principal); Z96.653 Presence of artificial knee joint, bilateral | CPT/HCPCS: 99212 ==

== ENCOUNTER 2025-07-19 14:12 | Outpatient (REF) | payer MEDICARE, OTHER, SELFPAY ==
--- NOTE | ~2025-07-19 | XR_ITS ---
EXAMINATION: XR CHEST 2 VIEWS HISTORY: R05.9 - Cough, unspecified COMPARISON: Comparison is made with the prior examination dated 02/02/2017. FINDINGS: PA and lateral views of the chest are submitted. The lungs are expanded and clear. There is no pleural effusion, pneumothorax, or pulmonary vascular congestion. The heart is normal in size. There is calcification of the aorta. The bones are intact. XR/XR chest 2V IMPRESSION: No acute cardiopulmonary abnormality. Electronically signed by: Luis Boles MD 07/19/2025 03:53 PM EST
[2025-07-19 17:10] LABS: Resp Syncy Virus RNA Qual PCR NEGATIVE (Negative); SARS COV2 PCR INHOUSE NEGATIVE (Negative)
== END 2025-07-19 14:13 | disposition home or self-care (01) ==
LOC: HO.HMGCX 14:12
PROVIDERS: PCP Internal Medicine; Visit Provider Physician Assistant Medical
DX: R05.1 Acute cough (principal); R06.02 Shortness of breath; R53.83 Other fatigue; R09.89 Other specified symptoms and signs involving the circulatory and respiratory systems; Z79.899 Other long term (current) drug therapy
CPT/HCPCS: 71046; 87637; 99212

== ENCOUNTER 2025-07-19 14:12 | Outpatient (AMB) | payer MEDICARE, OTHER, SELFPAY ==
[2025-07-19 14:38] VITALS: BP 116/60; PULSE 73; TEMP 36.9; O2SAT 97; BMI 33.2
--- NOTE | 2025-07-19 14:38 | AM.OFFWIN_ITS ---
Intake Vital Signs 07/19/25 14:38 Height 5 ft Weight 170 lb BMI 33.2 BP 116/60 Blood Pressure Location Lt brachial Position Sitting Pulse 73 Pulse Source Pulse Oximeter Temp 98.4 F Temp Source Oral Pulse Oximetry (%) 97 Oxygen Delivery Method Room Air Intake Visit Reasons: EP coughing up mucus, fatigue, sob Intake Note: pt presents with chest congestion and productive coughing, fatigue with SOB beginning yesterday Patient Tobacco Use Status: Never used Tobacco Allergies environmental allergies Allergy (Intermediate, Verified 07/19/25 14:39) Itchy Eyes amoxicillin Allergy (Mild, Verified 07/19/25 14:39) Rash crab Adverse Reaction (Intermediate, Verified 07/19/25 14:39) DIARRHEA semaglutide (From [email or web address]) Adverse Reaction (Intermediate, Verified 07/19/25 14:39) severe diarrhea Do you need a note to return to daycare/school/sports/work: No HPI HPI Comments History of Present Illness Details History - The patient is an 85-year-old individu al presenting with cough, shortness of breath, and wheezing. - The cough began yesterday and became f ull-blown by this morning, accompanied by shortness of breath and wheezing. - The patient denies any history of asth ma and does not use an inhaler. - The patient has a history of eosinophi lic esophagitis, previously treated with omeprazole and budesonide, but is currently asymptomatic and not on medication. - The patient reports a sore throat and had yellowish secretions with cough earlier today, which have since subsided. - The patient was in contact with 17 peo ple over the weekend, some of whom may have been sick. - She denies fever, chills, chest pain, SOB, abd pain, n/v/d. Physical Exam General: Cooperative, healthy appearing, comfortable and no acute distress Orientation/consciousness: Patient oriented x3 Limitations: No limitations Head: Normal to inspection Ears: Hearing grossly normal bilaterally, external ears normal. Nose: Normal external nose present, normal nares present, and no nasal discharge present. Face and sinus: Sinuses nontender to palpation. Mouth: Normal oral and palatal mucosa present and moist mucous membranes noted. Throat: Tonsils normal. Uvula is midline. Posterior oropharynx with erythema and no exudates. Eyes: Appearance normal, both eyes and all related structures Neck: Normal visual inspection, full ROM. No lymphadenopathy noted. Respiratory: Clear to auscultation bilaterally. Normal respiratory effort. No wheezing noted. No respiratory distress, not tachypneic, no tripod positioning and no use of accessory muscles. Cardiovascular: Regular rate and rhythm. Normal S1 and S2. Top Cutter m/r/g noted. 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 Mother Dementia Pancreatitis Social History Household Members: None Household Members Other:: moving to daughters in june Housing: Apartment Are you a primary rn long term care to a significant other at home: No Do you presently have visiting nurse or other home services: No Alcohol intake: never Comment: advised of yazmin shelton Patient Tobacco Use Status: Never used Tobacco e-Cigarette/Vaping Use: Never Used Advance Directives Date on File: 11/23/20 service: No Current occupational status: retired Cognitive needs: No Hearing needs: Yes Vision needs: Yes Review of Systems Const All systems reviewed & are unremarkable except as noted in HPI and below Physical Exam Vital Signs: Last Vital Signs Temp 98.4 F 07/19/25 14:38 Pulse 73 07/19/25 14:38 BP 116/60 07/19/25 14:38 Pulse Ox 97 07/19/25 14:38 Oxygen Delivery Method Room Air 07/19/25 14:38 BMI result Body Mass Index 33.2 Assessment & Plan Assessment & Plan (1) Cough: Code(s): R05.9 - Cough, unspecified Qualifiers: Cough type: acute Qualified Code(s): R05.1 - Acute cough Plan Most likely Acute Bronchitis vs covid vs flu vs RSV vs pneumonia plan - Prescribed cough medicine and inhaler for wheezing. - prednisone burst for 5 days. - Recommended chest x-ray to rule out pneumonia. - If pneumonia is confirmed, antibiotics will be prescribed. - tylenol or motrin as needed for pain or fever - will order resp panel - will call her with the results - follow up with PCP Orders: Orders SARS-CoV2/FLU/RSV Today R09.89 - Other specified symptoms and signs involving the circulatory and respiratory systems XR chest 2V Today R05.9 - Cough, unspecified Medications: New benzonatate 100 mg PO bid-tid PRN 21 caps 0RF Cough 7 days albuterol sulfate 90 mcg/actuation 2 puffs inhalation Q6H PRN 8.5 grams 0RF shortness of breath or wheezing or cough prednisone 40 mg (2 x 20 mg) PO DAILY 10 tabs 0RF 5 days Coding Level of Care Code Est Pt Level 4 (05586) Diagnoses Acute cough R05.1 Cough type: acute
--- OUTSIDE RECORDS SUMMARY | 2025-07-19 19:08 | XMS_ITS | Clinical Summary ---
Author Organization [facility] Address [address] [place] [id number] Phone Care Team Providers Care Sulfonation Equipment Operator Name Role Phone Ella Garces MD Primary Care Provider [phone] Social History Tobacco Use Types Packs/Day Years Used Date Smoking Tobacco: Never Assessed Comments Unknown Sex and Gender Information Value Date Recorded Sex Assigned at Not on file Legal Sex Female 2:17 PM EDT Gender Identity Not on file Sexual Orientation Not on file Plan of Treatment Not on file Medical Devices Not on file Insurance [employer] O MEDICARE PART A & B Member Subscriber Plan / Payer (Ef fective 2007-Present) Name:Katelyn Turpin Member ID:[id number] Relation to Subscriber:Self Name:Katelyn Turpin Subscriber ID:[id number] Payer ID:[id number] Group ID:Not on file Type:Medicare Address: Patient Education Systems [facility]. [address] [place] [id number] A[employer] PPO MEDICARE PART A & B A[employer] PPO MEDICARE PART A & B [employer] PPO MEDICARE PART A & B AET[employer] PPO MEDICARE PART A & B SANDI [place]ST[place]O [id number] AENA PPO MEDICARE PART A & B Care Teams Sulfonation Equipment Operator Relationship Specialty Start Date End Date Ella Garces MD [address] [address] PCP - General Internal Medicine 11/21/23 Additional Source Comments The information contained in this document represents components of the legal health record. It is not the complete legal health record.[facility]
== END 2025-07-19 15:32 | disposition home or self-care (01) ==
PROVIDERS: PCP Internal Medicine; Visit Provider Physician Assistant Medical
DX: R05.1 Acute cough (principal)

== ENCOUNTER → 2025-07-19 15:36 | Outpatient (BNV) | payer MEDICARE, OTHER, SELFPAY | PROVIDERS: PCP Internal Medicine; Visit Provider Radiology Diagnostic Radiology | DX: R05.9 Cough, unspecified (principal) | CPT/HCPCS: 71046 ==

== ENCOUNTER 2025-07-28 13:58 | Outpatient (RCR) | payer MEDICARE, OTHER, SELFPAY ==
--- NOTE | 2025-05-03 16:29 | MHC.PT.EP ---
[facility] [place] Office [place] Office [place] Office [address] Zunilda Nguyễn [address] [phone] F: [phone] F: [phone] F: [phone] F: [phone] Physical Therapy Plan of Care Date of Evaluation: 05/03/25 Date of Surgery: 04/13/25 Diagnosis: s/p TKA revision (secondary to R knee prosthetic instability) (DOS: 04/13/25) Assessment: Katelyn Manzanares (: 42) is a pleasant, motivated 84 y.o. female who is referred to PT by Divina Ledesma PA-C, surgery performed by Dr. Sai Todd with Dx of s/p RIGHT Total Knee Arthroplasty revision (initial TKA performed 2012) due to instability. Patient impairments include pain, cellulitis (currently being treated with antibiotics), edema, limited ROM, weakness, antalgic gait. Patient current functional limitations are bending/squatting, balance, getting in/out of tub, balance, get in/out of tub, walking normally. Patient will benefit from skilled PT to address aforementioned impairments and functional limitations to meet established goals. Frequency and Duration: The patient will be seen 2x/week for 8 weeks Short Term Goals: 4 weeks Patient demonstrates consistency and independence with HEP to self manage symptoms. Patient presents with reduction of edema in R knee/LE with patellar circumferential measurement 46cm Heavy Repairer Goals: 8 weeks Patient presents with increased R knee flexion 120 degrees to restore mobility for sit to stand on first attempt. Patient presents with increased R knee quad strength 4+/5 to be able to ascend/descend 3 steps with railing for daughter's home. Treatment Plan: Modalities to reduce pain, spasms and effusion. Manual therapy to restore motion and function. Therapeutic exercise to improve strength and flexibility. Neuromuscular re-education for posture and balance. Therapeutic activities to return to functional activities of daily living. Electronically signed by: Brianne Azevedo, PT, DPT Please sign and return to therapist. Thank you for your referral.
--- NOTE | 2025-07-28 14:50 | MHC.PT.DC ---
[facility] [place] Office [place] Office [place] Office [address] Zunilda Nguyễn 140 [facility] [phone] F: [phone] F: [phone] F: [phone] F: [phone] Physical Therapy Discharge Report Diagnosis: s/p TKA revision (secondary to R knee prosthetic instability) (DOS: 04/13/25) Date of Surgery: 04/13/25 Date of Evaluation: 05/03/25 Date of Discharge: Treatments to Date: 13 Cancellations to Date: No Shows to Date: Discharge Status: Discharge Summary: HAS MET PT GOALS. HAS HEP, WALKED IN CARRYING WW (ED TO USE ON WAY OUT..) Electronically signed by: Please sign and return to therapist. Thank you for your referral.
== END 2025-07-28 14:52 | disposition home or self-care (01) ==
LOC: HO.PT 13:58
PROVIDERS: PCP Internal Medicine; Visit Provider Physician Assistant
DX: Z47.1 Aftercare following joint replacement surgery (principal); Z96.651 Presence of right artificial knee joint
CPT/HCPCS: 97110; 97140; 97162; 97164; 97530